=== PATIENT | female | born 1950 | race Caucasian/White ===

== ENCOUNTER 2020-03-02 17:21 | Emergency (ER) | payer MEDICARE, SELFPAY ==
[2020-03-02 17:22] VITALS: BP 204/76; PULSE 86; RESP 18; O2SAT 98
[2020-03-02 17:23] VITALS: BP 204/76; PULSE 82; RESP 19; TEMP 36.6; O2SAT 98; BMI 45.8
[2020-03-02] MEDS: predniSONE 20 MG Tablet 60 MG PO (18:39)
[2020-03-02 18:40] VITALS: BP 161/66; PULSE 81; RESP 17; O2SAT 99
[2020-03-02 19:00] VITALS: BP 151/78; PULSE 76; RESP 19; O2SAT 97
--- NOTE | 2020-03-02 19:10 | ED.DCSUM_ITS ---
- ER Visit Summary Date of Service: 03/02/20 Chief Complaint: Allergic reaction History of Present Illness: The patient is a 69 F who presents with allergic reaction that began today. Patient noticed hives on her face and chest today after eating [employer]. Patient has a history of allergy to coconut oil. Patient thinks that her food was cooked on coconut oil. Patient took Benadryl prior to arrival. Patient admits to mild sore throat but denies any difficulty swallowing. Patient admits to some mild shortness of breath. Patient denies any cough. Patient denies any nausea or vomiting. Patient denies any chest pain or palpitations. Physical Examination: Vital signs are stable. Patient is afebrile. Patient is in no acute distress. Oral mucosa is pink and moist. Oropharynx is clear. Airway is patent. Neck is supple. Trachea is midline. There is no JVD noted. Heart was regular rate and rhythm. Lungs are clear and equal bilaterally. Abdomen is soft. Bowel sounds are normal. There is no tenderness. There is no rebound or guarding noted. Skin is warm dry. There are some urticaria noted over the face and upper chest. There are no vesicles or pustules. There are no petechia noted. There is no involvement of mucous membranes. Cranial nerves II through XII are intact. There are no focal motor or sensory deficits noted. Extremities are intact. There is no calf tenderness or edema. Emergency Department Course and Treatment: Patient was given a dose of prednisone here. Patient was observed in the emergency department. Patient's urticaria is improving. Patient was given a prescription for a short course of prednisone. Patient was instructed to follow-up with her primary care physician in 5 to 7 days. Patient understood and was agreeable with the plan. All questions were answered. Disposition: Discharge home Impression: Allergic reaction This note was generated with [employer] dictation software. It may contain incorrect words, spelling, and punctuation that were not noted in review of the chart prior to signing ED Disposition - Plan for ED Patient: Disposition: Home or Assisted Living Diagnosis: Allergic reaction Instructions: ED General Allergic Reactions Prescriptions: predniSONE tablet 60 mg PO DAILY #15 tab Transmission Status: Pending to [id number] Referrals: Alexandru Sands DO [STAFF PHYSICIAN] - 5-7 Days
[2020-03-02 20:45] VITALS: BP 144/78; PULSE 78; RESP 16; O2SAT 97
== END 2020-03-02 20:49 | disposition home or self-care (01) ==
PROVIDERS: Emergency Provider Emergency Medicine; PCP Internal Medicine
DX: T78.1XXA Other adverse food reactions, not elsewhere classified, initial encounter (principal); L50.0 Allergic urticaria; X58.XXXA Exposure to other specified factors, initial encounter; E11.9 Type 2 diabetes mellitus without complications; J45.909 Unspecified asthma, uncomplicated; Z79.82 Long term (current) use of aspirin; Z79.84 Long term (current) use of oral hypoglycemic drugs; Z79.899 Other long term (current) drug therapy
CPT/HCPCS: 99281; A4216

== ENCOUNTER 2020-11-23 19:28 | Emergency (ER) | payer MEDICARE, SELFPAY ==
[2020-11-23 19:28] VITALS: BP 124/66; PULSE 73; RESP 16; TEMP 36.4; O2SAT 96; BMI 42.5
--- NOTE | 2020-11-23 22:00 | EDS_ITS ---
HPI History of Present Illness Chief Complaint: Nosebleed Informant: patient Narrative Narrative: 70-year-old female presents the emergency room with epistaxis. Patient states that she has had intermittent bleeding for the past week. She had 2 bleeds today one at 0300 and the other prior to arrival. She states that it varies which nostril that comes from. The last one she states was bleeding out of both nostrils. She takes a baby aspirin a day but no other blood thinners. She states that 15 years ago she had difficulty with nosebleeds and saw ENT. States that she feels a lot of pressure in her frontal sinuses and then starts to bleed. She states currently she feels weak due to all the blood loss and occasionally will feel nauseous. [facility] Medical History (Updated 11/23/20 @ 22:15 by Charity Dye) Arthritis Diabetes mellitus type II, uncontrolled History of incarcercerate ventral hernia Hypertension Polio Home Medications Allergy Relief (cetirizine) 30 mg PO DAILY 10/25/15 [History Last Taken 10/25/15 08:00 3 tabs] pantoprazole 40 mg PO DAILY #40 tablet 10/26/15 [Rx Last Taken Unknown] aspirin 81 mg PO DAILY 03/02/20 [History Last Taken Unknown] fenofibrate nanocrystallized 48 mg PO DAILY 03/02/20 [History Last Taken Unknown] furosemide 20 mg PO DAILY 03/02/20 [History Last Taken Unknown] glimepiride 4 mg PO DAILY 03/02/20 [History Last Taken Unknown] losartan 25 mg PO DAILY 03/02/20 [History Last Taken Unknown] empagliflozin [Jardiance] 10 mg PO DAILY 11/23/20 [History Last Taken Unknown] ropinirole 1 mg PO QHS 11/23/20 [History Last Taken Unknown] rosuvastatin 10 mg PO DAILY 11/23/20 [History Last Taken Unknown] Allergy/AdvReac Type Severity Reaction Status Date / Time Bleach (Sodium Hypochlorite) Allergy Other Verified 11/23/20 22:15 coconut Allergy Anaphylaxis Verified 11/23/20 19:28 Surgical History H/O ventral hernia repair Social History (Updated 11/23/20 @ 22:[address] Aris [place], DO) Smoking Status: Never smoker substance use type: does not use ROS ROS ED Constitutional Constitutional ED: Denies chills or weight loss Eyes Eyes: Denies change in vision or diplopia ENT ENT ED: Reports other Details: Epistaxis ; Denies ear pain, rhinorrhea or sore throat Cardiovascular Cardiovascular: Denies chest pain, orthopnea, palpitations or racing heartbeat Respiratory/Chest Respiratory/Chest: Denies cough, dyspnea or orthopnea Gastrointestinal Gastrointestinal: Denies abdominal pain, diarrhea, nausea or vomiting Genitourinary Genitourinary ED: Denies dysuria, hematuria or urinary frequency Musculoskeletal Musculoskeletal: Denies arthralgias or myalgias Integumentary Denies abscess or rash Neurologic Neurologic: Denies headache(s) or weakness Psychiatric Psychiatric: Denies anxiety, depression, suicidal ideation or suicidal thoughts Endocrine Endocrinology: Denies polydipsia, polyphagia or polyuria Allergic/Immunologic Allergic/Immunologic ED: Denies mouth swelling, tongue swelling or urticaria EXAM Physical Exam Const Vital Signs: 11/23/20 19:28 Temperature 97.5 F L Temperature Source Temporal Pulse Rate 73 Respiratory Rate 16 Blood Pressure 124/66 H Blood Pressure Mean 85 Pulse Ox 96 Oxygen Delivery Method Room Air Positive well nourished, well developed and obese General Appearance ED: well developed Nutritional Appearance: obese HEENT Reports normocephalic, head/scalp atraumatic and moist mucous membranes HEENT Narrative: Patient has dried blood on her face. I do not see any active bleeding. I do not see any obvious source of bleeding in the anterior plexus. Eyes PERRL and EOMs intact bilaterally Neck no lymphadenopathy, supple and no JVD Resp normal respiratory effort and clear to auscultation bilaterally Cardio regular rate, regular rhythm and no murmurs GI normal to inspection, nondistended, normoactive bowel sounds and non-tender Palpation: soft Back/Spine no CVA tenderness and normal ROM Extremity normal to inspection General Extremety ED: Negative for edema General Extremity: Negative for edema Neuro oriented x3 and CN's II-XII intact bilaterally Sensorium / Orientation: alert Motor Exam: strength 5/5 throughout Psych mental status grossly normal Mood & Affect: Negative for depressed or tearful Skin no rashes or lesions noted and no wounds MDM MDM MDM Narrative Medical decision making narrative: H&H was checked. Hemoglobin is 14.1. She is had no active bleeding. She received Afrin and will recommend ENT follow-up. At this point as she is not bleeding we cannot localize aside think we can hold off on nasal packing. Return if worsening or concerns Lab Data Attestation: I reviewed the patient's lab results. Labs: Laboratory Results - last 24 hr 11/23/20 22:15 Hgb 14.1 Hct 43.9 Discharge Plan Triage Chief Complaint: Nosebleed ED Provider: Aris Jacome Dx/Rx/DC Orders Clinical Impression: Epistaxis Instructions: ED Epistaxis (Adult) Prescriptions: No Action Allergy Relief (cetirizine) 10 MG capsule 30 mg PO DAILY RF: 0 pantoprazole 40 MG tablet 40 mg PO DAILY Qty: 40 RF: 0 glimepiride 4 MG tablet 4 mg PO DAILY RF: 0 losartan 25 MG tablet 25 mg PO DAILY RF: 0 aspirin 81 MG tablet,chewable 81 mg PO DAILY RF: 0 furosemide 20 MG tablet 20 mg PO DAILY RF: 0 fenofibrate nanocrystallized 48 MG tablet 48 mg PO DAILY RF: 0 ropinirole 1 mg tablet 1 mg PO QHS RF: 0 rosuvastatin 10 mg tablet 10 mg PO DAILY RF: 0 Jardiance 10 mg tablet 10 mg PO DAILY RF: 0 Primary Care Provider: Doreen Finn Referrals: Doreen Finn MD [Primary Care Provider] - Bob Steen MD [STAFF PHYSICIAN] - As soon as possible Disposition Disposition: Home, Self Care
[2020-11-23 22:23] LABS: Hematocrit 43.9 % (37-47); Hemoglobin 14.1 g/dL (12.0-15.0)
[2020-11-23] MEDS: Oxymetazoline 0.05% 1 SPRAY SPRAY.BTL 2 SPRAY NASAL (23:10)
== END 2020-11-23 23:13 | disposition home or self-care (01) ==
PROVIDERS: Emergency Provider Emergency Medicine; PCP Internal Medicine
DX: R04.0 Epistaxis (principal); I10 Essential (primary) hypertension; E11.9 Type 2 diabetes mellitus without complications; M19.90 Unspecified osteoarthritis, unspecified site; Z79.82 Long term (current) use of aspirin; Z79.84 Long term (current) use of oral hypoglycemic drugs; Z79.899 Other long term (current) drug therapy
CPT/HCPCS: 85014; 85018; 99282

== ENCOUNTER 2021-02-07 14:00 | Emergency (ER) | payer MEDICARE, SELFPAY ==
[2021-02-07 14:00] VITALS: BP 158/74; PULSE 75; RESP 22; TEMP 36.5; O2SAT 93; BMI 40.7
--- NOTE | 2021-02-07 14:55 | RAD_ITS ---
INDICATION: cough EXAMINATION/TECHNIQUE: X-RAY - XR Chest 1 View COMPARISON: None. FINDINGS: LINES/DEVICES: None. LUNGS: Peribronchial cuffing and mild bilateral hilar prominence is seen. Mild prominence of the bronchovascular interstitial lung markings visualized bilaterally with subtle linear streaky opacities visualized in the left lower lung field, no evidence of pleural effusion is seen. Biapical prominence suggestive of COPD changes. MEDIASTINUM AND CARDIOVASCULAR STRUCTURES: Mild prominence of the cardiovascular silhouette is seen. BONES AND SOFT TISSUES: Degenerative bone changes seen.. RAD/Chest 1 View (Portable) IMPRESSION: Peribronchial cuffing and mild bronchovascular prominence, recommend clinical correlation for acute bronchitis or airway disease. Electronically Signed: Neil Becker MD at 15:29 EDT Tel , Service support ,
[2021-02-07 15:13] VITALS: O2SAT 96
--- NOTE | 2021-02-07 15:57 | EX.ED.DYSGE1 ---
HPI History of Present Illness Chief Complaint: General Illness Informant: patient Narrative Narrative: Patient is a 70-year-old female presenting with 5 days of respiratory symptoms and fever. Her sister is currently in the hospital for Covid. She notes she has had what started out as a sinus infection and then worsened. She had a fever up to 100.4 today. She has had chest congestion, myalgias and mild dyspnea on exertion. She has had associated nausea. She did not have her Covid vaccine has not previously had COVID-19 infection. No other complaints at this time. [facility] Medical History Arthritis Diabetes mellitus type II, uncontrolled History of incarcercerate ventral hernia Hypertension Polio Home Medications Allergy Relief (cetirizine) 30 mg PO DAILY 10/25/15 [History Last Taken 10/25/15 08:00 3 tabs] aspirin 81 mg PO DAILY 03/02/20 [History Last Taken Unknown] furosemide 20 mg PO DAILY 03/02/20 [History Last Taken Unknown] glimepiride 4 mg PO BID 03/02/20 [History Last Taken Unknown] losartan 25 mg PO DAILY 03/02/20 [History Last Taken Unknown] rosuvastatin 10 mg PO DAILY 11/23/20 [History Last Taken Unknown] ondansetron 4 mg PO Q8H PRN #14 tab 02/07/21 [Rx Last Taken Unknown] Allergy/AdvReac Type Severity Reaction Status Date / Time Bleach (Sodium Hypochlorite) Allergy Other Verified 02/07/21 14:04 coconut Allergy Anaphylaxis Verified 02/07/21 14:04 Surgical History H/O ventral hernia repair Social History Smoking Status: Never smoker substance use type: does not use ROS ROS ED Constitutional Constitutional ED: Reports chills and fever(s) Eyes Eyes: Denies blurry vision or change in vision ENT ENT ED: Reports rhinorrhea and sore throat; Denies ear pain Cardiovascular Cardiovascular: Denies chest pain Respiratory/Chest Respiratory/Chest: Reports cough and dyspnea; Denies dyspnea on exertion or sputum Gastrointestinal Gastrointestinal: Reports nausea; Denies abdominal pain, diarrhea or vomiting Genitourinary Genitourinary ED: Denies dysuria Musculoskeletal Musculoskeletal: Reports myalgias; Denies arthralgias Integumentary Denies rash Neurologic Neurologic: Reports headache(s); Denies weakness EXAM Physical Exam Const Vital Signs: 02/07/21 14:00 02/07/21 15:10 Temperature 97.7 F L Temperature Source Temporal Pulse Rate 75 Respiratory Rate 22 H Respiratory Effort Normal Respiratory Pattern Normal Blood Pressure 158/74 H Blood Pressure Mean 102 Pulse Ox 93 Oxygen Delivery Method Room Air Positive well nourished, well developed and obese General Appearance ED: well developed Nutritional Appearance: obese HEENT Reports moist mucous membranes Negative for tenderness Eyes PERRL and EOMs intact bilaterally Neck no lymphadenopathy, supple and no meningeal signs Chest Wall inspection of chest normal Resp normal respiratory effort and clear to auscultation bilaterally Auscultation: diminished lung sounds Cardio regular rate, regular rhythm and no murmurs Back/Spine no CVA tenderness Extremity normal to inspection General Extremety ED: Negative for edema or tenderness General Extremity: Negative for edema Neuro oriented x3 Sensorium / Orientation: alert Motor Exam: Negative for general weakness Psych mental status grossly normal Skin no rashes or lesions noted MDM MDM MDM Narrative Medical decision making narrative: Patient is evaluated for concern for COVID-19 infection. Vital signs are significant only for mild tachypnea with respiratory rate 22. Patient stable in the ER and does not have any hypoxia. Chest x-ray does not show any focal infiltrate. COVID-19 test is positive. Patient is referred for monoclonal antibody. She is counseled on return precautions. She is given Motrin for myalgias/fever and Zofran in the ER. She is given a prescription for Zofran to help at home as well. Lab Data Attestation: I reviewed the patient's lab results. Radiography Chest X-Ray - ED: 1 View, Read by ED Physician, Read by Radiologist and - (Parabronchial cuffing-consistent with a viral infection) Diagnostic Testing: Radiology Impression Chest X-Ray 02/07/21 14:55 IMPRESSION: Peribronchial cuffing and mild bronchovascular prominence, recommend clinical correlation for acute bronchitis or airway disease. Electronically Signed: Neil Becker MD at 15:29 EDT Tel , Service support , Discharge Plan Triage Chief Complaint: General Illness ED Provider: Marianne Crane Dx/Rx/DC Orders Clinical Impression: COVID-19, Cough, Fever Instructions: Coronavirus Disease 2019 (COVID-19): Caring for Yourself or Others Prescriptions: New ondansetron 4 mg tablet,disintegrating 4 mg PO Q8H PRN (Reason: nausea and vomiting) Qty: 14 RF: 0 No Action Allergy Relief (cetirizine) 10 MG capsule 30 mg PO DAILY RF: 0 glimepiride 4 MG tablet 4 mg PO BID RF: 0 losartan 25 MG tablet 25 mg PO DAILY RF: 0 aspirin 81 MG tablet,chewable 81 mg PO DAILY RF: 0 furosemide 20 MG tablet 20 mg PO DAILY RF: 0 rosuvastatin 10 mg tablet 10 mg PO DAILY RF: 0 Other Ambulatory Orders: COVID Outpatient Monoclonal Antibody Referral (Routine) Timeframe: 1 Day Facility: [facility] - Location: [facility] Ordered By: Dr. Marianne Crane Primary Care Provider: Doreen Finn Referrals: Doreen Finn MD [Primary Care Provider] - Disposition Disposition: Home, Self Care Discharge Date/Time: 02/07/21 16:33
[2021-02-07] MEDS: Ibuprofen 600 MG Tablet PO (16:07)
[2021-02-07] MEDS: Ondansetron ODT 4 MG Tablet PO (16:07)
== END 2021-02-07 16:33 | disposition home or self-care (01) ==
PROVIDERS: Emergency Provider Emergency Medicine; PCP Internal Medicine
DX: U07.1 COVID-19 (principal); E66.9 Obesity, unspecified; Z68.41 Body mass index [BMI] 40.0-44.9, adult; I10 Essential (primary) hypertension; E11.9 Type 2 diabetes mellitus without complications; M19.90 Unspecified osteoarthritis, unspecified site; Z79.82 Long term (current) use of aspirin; Z79.84 Long term (current) use of oral hypoglycemic drugs; Z79.899 Other long term (current) drug therapy
CPT/HCPCS: 71045; 87426; 99282

== ENCOUNTER 2021-02-09 16:22 | Outpatient (CLI) | payer MEDICARE, SELFPAY ==
--- NOTE | 2021-02-09 15:36 | NURSING ---
Pt called since she is not here for 1515 appointment. Pt thought appointment was a different day. Pt will come in today at 1615.
[2021-02-09 17:21] VITALS: BP 132/53; PULSE 77; RESP 16; TEMP 37; O2SAT 95; BMI 38.9
[2021-02-09] MEDS: 0.9% Saline Lock 10 ML Syringe IV (17:26)
[2021-02-09 17:50] VITALS: BP 113/54; PULSE 65; RESP 18; TEMP 37.6; O2SAT 99
[2021-02-09 18:50] VITALS: BP 129/69; PULSE 74; RESP 16; TEMP 37; O2SAT 99
== END 2021-02-09 19:05 | disposition home or self-care (01) ==
LOC: MS3OUT 16:22 → MS3 16:23
PROVIDERS: PCP Internal Medicine; Referring Provider Nurse Practitioner Adult Health; Visit Provider Nurse Practitioner Adult Health
DX: Z23 Encounter for immunization (principal); U07.1 COVID-19
CPT/HCPCS: J7050; M0243; A4216; Q0240

== ENCOUNTER 2021-11-04 10:58 | Observation (INO) | payer MEDICARE, SELFPAY ==
[2021-11-04 10:59] VITALS: BP 132/49; PULSE 81; RESP 17; TEMP 36.5; O2SAT 96; BMI 41.4
--- NOTE | 2021-11-04 11:20 | EKG12_ITS ---
Test Reason : GI Blood Pressure : / mmHG Vent. Rate : 078 BPM Atrial Rate : 078 BPM P-R Int : 112 ms QRS Dur : 090 ms QT Int : 416 ms P-R-T Axes : 019 081 055 degrees QTc Int : 474 ms Normal sinus rhythm Low voltage QRS Borderline ECG Confirmed by ARACELI MAR, SUZAN ([id number]), editor publications JOHN MCKENZIE ([id number]) on 11/07/2021 9:54:13 AM Referred By: ASAEL Confirmed By:SUZAN CHARLES MD
--- NOTE | 2021-11-04 11:38 | ED.VIS.GI ---
HPI HPI - GI History of Present Illness Chief Complaint: GI Bleed Narrative Narrative: Patient states that for the last 5 or 6 days she is having black stools. They are harder to wipe. It does genuinely sound like melena. No red blood seen. She states she had some cramping in her lower abdomen all couple times but is not consistent and its not there now. No epigastric pain or back pain. No chest pain. No trouble breathing. She does sometimes feel as though she is just a little bit lightheaded and weaker. But this is not consistent either. Although its not on her med list, she is on Eliquis twice a day and has been on it for about a month. This is because she has been having intermittent A. fib for 3 months. She currently has a exercise teacher on her left upper chest. No bleeding from any other areas. She has had a history of GERD and dyspepsia. She had an ulcer back in the 70s. She states that she takes Phenergan to help with her GERD. She is not on a PPI or H2 juan m. Nothing really changes her's black stools. [facility] Medical History Arthritis Diabetes mellitus type II, uncontrolled History of incarcercerate ventral hernia Hypertension Polio Home Medications cetirizine 10 mg capsule (Allergy Relief (cetirizine)) 30 mg PO DAILY 10/25/15 [History Last Taken 10/25/15 08:00 3 tabs] aspirin 81 mg chewable tablet 81 mg PO DAILY 03/02/20 [History Last Taken Unknown] furosemide 20 mg tablet 20 mg PO DAILY 03/02/20 [History Last Taken Unknown] glimepiride 4 mg tablet 4 mg PO BID 03/02/20 [History Last Taken Unknown] losartan 25 mg tablet 25 mg PO DAILY 03/02/20 [History Last Taken Unknown] rosuvastatin 10 mg tablet 10 mg PO DAILY 11/23/20 [History Last Taken Unknown] ondansetron 4 mg disintegrating tablet 4 mg PO Q8H PRN nausea and vomiting #14 tabs 02/07/21 [Rx Last Taken Unknown] apixaban 5 mg tablet (Eliquis) 5 tab PO DAILY 11/04/21 [History Last Taken Unknown] Allergy/AdvReac Type Severity Reaction Status Date / Time Bleach (Sodium Hypochlorite) Allergy Other Verified 11/04/21 10:58 cat dander Allergy Itching Verified 11/04/21 14:49 coconut Allergy Anaphylaxis Verified 11/04/21 10:58 dog dander Allergy Itching Verified 11/04/21 14:49 Family History (Updated 11/04/21 @ 14:41 by Stephanie Perales NP, [employer]) Father CAD (coronary artery disease) Cancer Diabetes Mother Cancer Diabetes CAD (coronary artery disease) Surgical History (Updated 11/04/21 @ 14:41 by Stephanie Perales NP, [employer]) H/O carpal tunnel repair H/O ventral hernia repair H/O: hysterectomy Social History (Updated 11/04/21 @ 14:42 by Stephanie Perales NP, [employer]) household members: spouse Smoking Status: Never smoker alcohol intake: never substance use type: does not use ROS ROS ED Constitutional Constitutional ED: Denies chills or fever(s) ENT ENT ED: Denies rhinorrhea or sore throat Cardiovascular Cardiovascular: Denies chest pain or palpitations Respiratory/Chest Respiratory/Chest: Denies cough or dyspnea Gastrointestinal Gastrointestinal: Reports melena; Denies nausea or vomiting Genitourinary Genitourinary ED: Denies hematuria Musculoskeletal Musculoskeletal: Denies back pain Integumentary Denies rash Neurologic Neurologic: Denies headache(s) Endocrine Endocrinology: Denies polydipsia or polyuria Hematologic/Lymphatic Hematologic/Lymphatic: Reports easy bleeding and easy bruising Allergic/Immunologic Allergic/Immunologic ED: Denies urticaria EXAM Physical Exam Const Vital Signs: 11/04/21 10:59 Temperature 97.7 F L Temperature Source Temporal Pulse Rate 81 Respiratory Rate 17 Blood Pressure 132/49 H Blood Pressure Mean 76 Pulse Ox 96 Oxygen Delivery Method Room Air Positive well nourished, well developed and obese General Appearance ED: well developed and NAD; Negative for pallor Nutritional Appearance: obese HEENT Reports moist mucous membranes Eyes General Eye ED: Negative for pale conjunctiva Neck no lymphadenopathy Resp normal respiratory effort and clear to auscultation bilaterally Cardio regular rate and regular rhythm GI non-tender, non-distended and no masses Back/Spine no CVA tenderness Extremity General Extremety ED: Negative for tenderness Neuro Sensorium / Orientation: alert Psych mental status grossly normal Skin General Skin Exam: Negative for pallor MDM MDM MDM Narrative Medical decision making narrative: Patient's hemoglobin is low at 10.6. We have 1 from 2020 that shows a 4 g or so drop. This is concerning considering she is on Eliquis. Her vitals look good but she has a significant hemoglobin drop on significant anticoagulation. I talked with the hospitalist and patient will be brought into the hospital. Lab Data Attestation: I reviewed the patient's lab results. Labs: Laboratory Results - last 24 hr 11/04/21 11/04/21 11/04/21 11:35 11:35 11:35 WBC 3.6 L RBC 3.52 L Hgb 10.6 L Hct 32.9 L MCV 93.5 MCH 30.1 MCHC 32.2 RDW Std Deviation 48.4 H RDW Coeff of Anika 14.4 Plt Count 118 L MPV 10.4 Immature Gran % (Auto) 0.300 Neut % (Auto) 51.0 Lymph % (Auto) 34.9 [place] % (Auto) 9.9 Eos % (Auto) 3.1 Baso % (Auto) 0.8 Absolute Neuts (auto) 1.8 L Absolute Lymphs (auto) 1.24 Nucleated RBC % 0 PT INR APTT Sodium 142 Potassium 4.0 Chloride 111 H Carbon Dioxide 25.0 Anion Gap 6 BUN 16 Creatinine 0.66 Estim Creat Clear Calc 42.07 Est GFR (MDRD) Af Amer 113 Est GFR (MDRD) Non-Af 93 BUN/Creatinine Ratio 24.1 H Glucose 117 H Lactic Acid 1.3 Calcium 8.7 Total Bilirubin 0.30 AST 39 H ALT 31 Alkaline Phosphatase 93 Total Protein 6.9 Albumin 3.0 L Globulin 3.9 Albumin/Globulin Ratio 0.8 L 11/04/21 11:50 WBC RBC Hgb Hct MCV MCH MCHC RDW Std Deviation RDW Coeff of Anika Plt Count MPV Immature Gran % (Auto) Neut % (Auto) Lymph % (Auto) [place] % (Auto) Eos % (Auto) Baso % (Auto) Absolute Neuts (auto) Absolute Lymphs (auto) Nucleated RBC % PT 14.2 INR 1.1 APTT 31.8 Sodium Potassium Chloride Carbon Dioxide Anion Gap BUN Creatinine Estim Creat Clear Calc Est GFR (MDRD) Af Amer Est GFR (MDRD) Non-Af BUN/Creatinine Ratio Glucose Lactic Acid Calcium Total Bilirubin AST ALT Alkaline Phosphatase Total Protein Albumin Globulin Albumin/Globulin Ratio EKG Initial EKG: Comments: EKG done for history of atrial fibrillation intermittently read by me. EKG shows a normal sinus rhythm at this time with overall rate of 78. No ventricular ectopy. No acute ST elevation or depression. DC interval, QRS duration are normal. QTc is toward the longer and at 474 ms. Discharge Plan Disposition Disposition: Acute Care Hospital [facility] Discharge Date/Time: 11/04/21 14:15
[2021-11-04 11:51] LABS: Absolute Lymphocyte Count 1.24 X10^3/uL (0.83-4.51); Absolute Neutrophil Count 1.8 X10^3/uL (2.0-7.7); Basophil# 0.03 X10^3/uL; Basophil% 0.8 % (0-1); Eosinophil# 0.11 X10^3/uL; Eosinophils% 3.1 % (0-5); Hematocrit 32.9 % (37-47); Hemoglobin 10.6 g/dL (12.0-15.0); Lymphocyte # 1.24 X10^3/ul (0.83-4.51); Lymphocyte % 34.9 % (19-41); Mean Corp Hgb Conc 32.2 g/dL (32-36); Mean Corpuscular Hgb 30.1 pg (27.0-32.0); Mean Corpuscular Volume 93.5 fL (81-99); Mean Platelet Vol. 10.4 fl (6.2-12.0); Monocyte# 0.35 X10^3/uL; Monocyte% 9.9 % (0-10); NRBC Flagged by Analyzer 0 % (0-5); Neutrophil # 1.81 X10^3/uL (2.7-7.7); Platelet Count 118 K/mm3 (150-450); RBC Distribution Width CV 14.4 % (11.6-14.6); RBC Distribution Width SD 48.4 fl (35.1-43.9); Red Blood Count 3.52 M/mm3 (4.2-5.4); White Blood Count 3.6 K/mm3 (4.4-11.0)
[2021-11-04 12:09] LABS: ALB/GLOB Ratio 0.8 RATIO (0.9-2.4); AST(SGOT) 39 U/L (15-37); Alanine Aminotransfer ALT/SGPT 31 U/L (13-56); Alkaline Phosphatase 93 U/L (45-117); Anion Gap 6 (5-15); BUN 16 mg/dL (7-18); BUN/Creat Ratio 24.1 RATIO (10-20); Calcium,Total 8.7 mg/dL (8.5-10.1); Chloride 111 mmol/L (98-107); Creatinine, Serum 0.66 mg/dL (0.55-1.02); EST Glomerular Filtration Rate 93 mL/min (>60); Est Glom Filt Rate - Afr Amer 113 mL/min (>60); Estimated Creatinine Clearance 42.07 ml/min; Globulin 3.9 g/dL (2.2-4.2); Glucose 117 mg/dL (74-106); Protein, Total 6.9 g/dL (6.4-8.2); Sodium Level 142 mmol/L (136-145)
[2021-11-04 12:15] LABS: Lactic Acid 1.3 mmol/L (0.4-1.9)
[2021-11-04 12:58] LABS: International Normalized Ratio 1.1; Partial Thromboplast Time 31.8 Seconds (24.1-36.2); Prothrombin Time (Protime)PT. 14.2 SECONDS (11.7-14.9)
[2021-11-04 13:57] VITALS: BP 135/66; PULSE 78; RESP 14; TEMP 36.5; O2SAT 93
--- NOTE | 2021-11-04 14:35 | PCM.HP.STD ---
Documented by User: Stephanie Perales NP, ETL DATABASE DEVELOPER-C 11/04/21 14:49 HPI - General General Date of Admission: 11/04/21 Date of Service: 11/04/21 Chief Complaint: Black stools. HPI Narrative THU ESPANA, is a 71 F who presents to the emergency room due to black stools. Patient states this has been ongoing for 1 week. She denies bright red blood in stool. Denies nausea, vomiting, abdominal pain. Denies lightheadedness, dizziness, shortness of breath. States due to continued black stools, she decided to seek evaluation. She reports she is on Eliquis for atrial fibrillation. She takes Tylenol mostly for arthritis pain however does occasionally use NSAIDs. However, she denies frequent NSAID use. She reports remote history of gastric ulcer. Her past medical history includes paroxysmal atrial fibrillation, hypertension, hyperlipidemia, SUSIE, type 2 diabetes mellitus. [facility] Medical History Arthritis Diabetes mellitus type II, uncontrolled History of incarcercerate ventral hernia Hypertension Polio Home Medications cetirizine 10 mg capsule (Allergy Relief (cetirizine)) 30 mg PO DAILY 10/25/15 [History Last Taken 10/25/15 08:00 3 tabs] aspirin 81 mg chewable tablet 81 mg PO DAILY 03/02/20 [History Last Taken Unknown] furosemide 20 mg tablet 20 mg PO DAILY 03/02/20 [History Last Taken Unknown] glimepiride 4 mg tablet 4 mg PO BID 03/02/20 [History Last Taken Unknown] losartan 25 mg tablet 25 mg PO DAILY 03/02/20 [History Last Taken Unknown] rosuvastatin 10 mg tablet 10 mg PO DAILY 11/23/20 [History Last Taken Unknown] ondansetron 4 mg disintegrating tablet 4 mg PO Q8H PRN nausea and vomiting #14 tabs 02/07/21 [Rx Last Taken Unknown] apixaban 5 mg tablet (Eliquis) 5 tab PO DAILY 11/04/21 [History Last Taken Unknown] Allergy/AdvReac Type Severity Reaction Status Date / Time Bleach (Sodium Hypochlorite) Allergy Other Verified 11/04/21 10:58 cat dander Allergy Itching Verified 11/04/21 14:49 coconut Allergy Anaphylaxis Verified 11/04/21 10:58 dog dander Allergy Itching Verified 11/04/21 14:49 Family History (Updated 11/04/21 @ 14:41 by Stephanie Perales NP, ETL DATABASE DEVELOPER-C) Father CAD (coronary artery disease) Cancer Diabetes Mother Cancer Diabetes CAD (coronary artery disease) Surgical History (Updated 11/04/21 @ 14:41 by Stephanie Perales NP, ETL DATABASE DEVELOPER-C) H/O carpal tunnel repair H/O ventral hernia repair H/O: hysterectomy Social History (Updated 11/04/21 @ 14:42 by Stephanie Perales NP, ETL DATABASE DEVELOPER-C) household members: spouse Smoking Status: Never smoker alcohol intake: never substance use type: does not use ROS Constitutional Constitutional: Denies change in weight, chills, fatigue, fever(s) or weakness Cardiovascular Cardiovascular: Denies chest pain, edema, lightheadedness, palpitations or syncope Respiratory/Chest Respiratory/Chest: Denies cough, dyspnea, productive cough, shortness of breath at rest, shortness of breath with exertion or wheezing Gastrointestinal Gastrointestinal: Reports other Details: Black/dark stools ; Denies abdominal pain, constipation, diarrhea, nausea or vomiting Genitourinary Genitourinary: Denies burning urination, difficulty urinating, dysuria, hematuria, urinary frequency, urinary incontinence or urinary urgency Musculoskeletal Musculoskeletal: Denies back pain, joint pain or muscle weakness Integumentary Integumentary: Denies erythema, lesions, rash or wounds Neurologic Neurologic: Denies abnormal speech, confusion, dizziness, focal weakness, numbness, paresthesias, seizure-like activity or syncope Psychiatric Psychiatric: Denies anxiety or depression Hematologic/Lymphatic Hematologic/Lymphatic: Denies anemia, easy bleeding or easy bruising Allergic/Immunologic Allergic/Immunologic: Denies hives or asthma Vital Signs Vital Signs Vital Signs: 11/04/21 10:59 11/04/21 13:57 11/04/21 13:57 Temperature 97.7 F L 97.7 F L Temperature Source Temporal Temporal Pulse Rate 81 78 78 Respiratory Rate 17 14 14 Blood Pressure 132/49 H 135/66 H 135/66 H Blood Pressure Mean 76 89 Pulse Ox 96 93 93 Oxygen Delivery Method Room Air Room Air Room Air Weight Weight: 234 lb 2.095 oz Body Mass Index (BMI) 41.4 Physical Exam Const alert, oriented x3 and no apparent distress Orientation / Consciousness: awake, oriented to person, oriented to place and oriented to time HEENT normocephalic and moist oral mucous membranes Eyes PERRL, EOMs intact bilaterally and conjunctivae normal Neck no lymphadenopathy Resp normal respiratory effort and clear to auscultation bilaterally Cardio regular rate and no murmurs Peripheral Pulses: pulses 2+ throughout GI normal to inspection, nondistended, normoactive bowel sounds, non-tender and non-distended Extremity normal to inspection Skin no rashes or lesions noted Lesions: no lesions Rashes: no rashes Trauma: no lacerations or abrasions Neuro CN's II-XII intact bilaterally, no focal motor deficits, no sensory deficits noted and deep tendon reflexes 2+ bilaterally Psych mental status grossly normal and affect normal Results Lab / Micro Data Result Diagrams: 11/04/21 11:35 11/04/21 11:35 Labs: Laboratory Results - last 24 hr 11/04/21 11:35: WBC 3.6 L, RBC 3.52 L, Hgb 10.6 L, Hct 32.9 L, MCV 93.5, MCH 30.1, MCHC 32.2, RDW Std Deviation 48.4 H, RDW Coeff of Anika 14.4, Plt Count 118 L, MPV 10.4, Immature Gran % (Auto) 0.300, Neut % (Auto) 51.0, Lymph % (Auto) 34.9, [place] % (Auto) 9.9, Eos % (Auto) 3.1, Baso % (Auto) 0.8, Absolute Neuts (auto) 1.8 L, Absolute Lymphs (auto) 1.24, Nucleated RBC % 0 11/04/21 11:35: Sodium 142, Potassium 4.0, Chloride 111 H, Carbon Dioxide 25.0, Anion Gap 6, BUN 16, Creatinine 0.66, Estim Creat Clear Calc 42.07, Est GFR (MDRD) Af Amer 113, Est GFR (MDRD) Non-Af 93, BUN/Creatinine Ratio 24.1 H, Glucose 117 H, Calcium 8.7, Total Bilirubin 0.30, AST 39 H, ALT 31, Alkaline Phosphatase 93, Total Protein 6.9, Albumin 3.0 L, Globulin 3.9, Albumin/Globulin Ratio 0.8 L 11/04/21 11:35: Lactic Acid 1.3 11/04/21 11:50: PT 14.2, INR 1.1, APTT 31.8 Micro: Microbiology 11/04/21 12:10 Stool Stool Occult Blood (DAVID) - Final Occult Blood Positive Assessment & Plan Assessment/Plan (1) Upper GI bleed: PLAN: Plan 1. GI bleed, normocytic anemia-stool positive for occult blood. Hold aspirin, Eliquis. IV PPI. Trend CBC. If hemoglobin further trends down, will consult GI. 2. Paroxysmal atrial fibrillation-Eliquis on hold. Not on rate control regimen. 3. Hypertension-stable, continue home losartan regimen with hold parameters. 4. Hyperlipidemia-continue statin. 5. SUSIE-noncompliant with CPAP. 6. Type 2 diabetes mellitus-hold oral regimen. Accu-Cheks with sliding scale insulin. DVT prophylaxis- SCD This patient was seen by JUANA Hull under the supervision of Dr. Brewster. Time spent examining patient, reviewing data and subsequent management of care: 22 minutes Documented by User: Dr. Marlo Brewster DO 11/04/21 16:04 HPI - General General Date of Admission: 11/04/21 [facility] Medical History Arthritis Diabetes mellitus type II, uncontrolled History of incarcercerate ventral hernia Hypertension Polio Home Medications cetirizine 10 mg capsule (Allergy Relief (cetirizine)) 30 mg PO DAILY 10/25/15 [History Last Taken 10/25/15 08:00 3 tabs] aspirin 81 mg chewable tablet 81 mg PO DAILY 03/02/20 [History Last Taken Unknown] furosemide 20 mg tablet 20 mg PO DAILY 03/02/20 [History Last Taken Unknown] glimepiride 4 mg tablet 4 mg PO BID 03/02/20 [History Last Taken Unknown] losartan 25 mg tablet 25 mg PO DAILY 03/02/20 [History Last Taken Unknown] rosuvastatin 10 mg tablet 10 mg PO DAILY 11/23/20 [History Last Taken Unknown] ondansetron 4 mg disintegrating tablet 4 mg PO Q8H PRN nausea and vomiting #14 tabs 02/07/21 [Rx Last Taken Unknown] apixaban 5 mg tablet (Eliquis) 5 tab PO DAILY 11/04/21 [History Last Taken Unknown] Allergy/AdvReac Type Severity Reaction Status Date / Time Bleach (Sodium Hypochlorite) Allergy Other Verified 11/04/21 10:58 cat dander Allergy Itching Verified 11/04/21 14:49 coconut Allergy Anaphylaxis Verified 11/04/21 10:58 dog dander Allergy Itching Verified 11/04/21 14:49 Family History (Updated 11/04/21 @ 14:41 by Stephanie Perales ETL DATABASE DEVELOPER, ETL DATABASE DEVELOPER-C) Father CAD (coronary artery disease) Cancer Diabetes Mother Cancer Diabetes CAD (coronary artery disease) Surgical History (Updated 11/04/21 @ 14:41 by Stephanie Preales NP, ETL DATABASE DEVELOPER-C) H/O carpal tunnel repair H/O ventral hernia repair H/O: hysterectomy Social History (Updated 11/04/21 @ 14:42 by Stephanie Perales NP, ETL DATABASE DEVELOPER-C) household members: spouse Smoking Status: Never smoker alcohol intake: never substance use type: does not use Results Lab / Micro Data Result Diagrams: 11/04/21 11:35 11/04/21 11:35 Assessment & Plan Assessment/Plan (1) Upper GI bleed: Charges/Coding Addendum Addendum: Seen and examined independently of Stephanie Perales, she came to the ER for evaluation of black stools over the past week, she denies any bright red rectal bleeding, she also denies any hematemesis. Patient states she has been on Eliquis for the past 4 months for paroxysmal atrial fibrillation. On examination she appeared in good health and spirits, she does not appear to be in any distress. Vital signs as documented. Skin warm and dry and without overt rashes. Neck without JVD, thyroid appears normal, trachea is midline, neck is supple. Lungs clear, normal air movement was noted. Heart exam notable for regular rhythm, normal sounds and absence of murmurs, rubs or gallops. Abdomen unremarkable and without evidence of organomegaly, masses, or abdominal aortic enlargement, bowel sounds are present in all 4 quadrants, no abdominal tenderness was noted. Extremities nonedematous, no cyanosis was noted, no clubbing was noted. Neuro: Cranial nerves II through XII are grossly intact, no focal motor deficits were noted, sensation to light touch and pinprick is intact, motor exam 5/5 throughout. Psych: Patient is alert and oriented x3, she does not appear anxious or depressed, she does not appear agitated. Emergency room physician did a Hemoccult on the patient's stool which was positive, patient still was grossly melanotic. Patient told this examiner that she occasionally uses ibuprofen for pain. She does not take any PPI or H2 juan m for her stomach. Labs obtained showed a hemoglobin of 10.6, white blood cell count was slightly low at 3.6. Chemistry profile was remarkable for an AST of 39. Impression: #1 melena-etiology unclear, patient will be placed in observation status on MedSurg, every 4 hour H&H's may be obtained, patient will be placed on an IV PPI #2 anemia-secondary to GI blood loss-patient does not need a transfusion at this time, every 4 hour H&H's will be obtained #3 paroxysmal A. fib by history-patient's Eliquis will be held #4 type 2 diabetes-patient's blood sugars will be monitored, sliding scale insulin will be administered as needed #5 essential hypertension-patient will remain on losartan #6 hyperlipidemia-patient's Crestor will be held at this time due to her observation status. I have reviewed Stephanie Perales's history and physical including her medical assessment and plan of care and endorse it with the above additions. Total clinical time spent by myself addressing the patient's medical issues, reviewing the data, and collaborating with the patient's care team: 35 minutes Visit Charges Inpatient E&M: 74809 Init Hosp L2
[2021-11-04 14:45] VITALS: BMI 41.4
[2021-11-04 14:46] VITALS: BP 112/51; PULSE 74; RESP 18; TEMP 36.7; O2SAT 100
[2021-11-04 15:23] LABS: Iron 49 ug/dL (50-170); Iron Binding Capacity,Total 315 ug/dL (250-450); PERCENT IRON SATURATION 15.6 % (15.0-55.0)
[2021-11-04 16:45] LABS: Bedside Glucose 168 mg/dL (74-106)
[2021-11-04] MEDS: Insulin Lispro 100 UNIT/ML INSULN.PEN SC (18:12)
[2021-11-04] MEDS: Acetaminophen 325 MG Tablet 650 MG PO (18:28)
[2021-11-04 18:38] LABS: Hematocrit 29.7 % (37-47); Hemoglobin 9.5 g/dL (12.0-15.0)
[2021-11-04 21:16] VITALS: BP 138/60; PULSE 74; RESP 18; TEMP 37; O2SAT 99
[2021-11-04 21:35] LABS: Bedside Glucose 77 mg/dL (74-106)
[2021-11-04 22:05] LABS: Hematocrit 30.6 % (37-47); Hemoglobin 10.2 g/dL (12.0-15.0)
[2021-11-05] MEDS: Acetaminophen 325 MG Tablet 650 MG PO ×2 (00:46→08:04)
[2021-11-05 03:18] VITALS: BP 96/42; PULSE 76; RESP 18; TEMP 36.9; O2SAT 97
[2021-11-05 06:46] LABS: Bedside Glucose 97 mg/dL (74-106)
[2021-11-05 07:52] VITALS: BP 125/56; PULSE 73; RESP 18; TEMP 36.8; O2SAT 99
[2021-11-05] MEDS: Losartan Potassium 25 MG Tablet PO (08:05)
--- NOTE | 2021-11-05 08:08 | NURSING ---
Francia from lab in with pt getting H&H.
[2021-11-05 08:32] LABS: Hematocrit 30.3 % (37-47); Hemoglobin 9.8 g/dL (12.0-15.0)
--- NOTE | 2021-11-05 09:38 | DCINST_ITS ---
Discharge Instructions Diet Discharge Diet: Light diet - advance as tolerated Activity Discharge Activity: Return to Normal Activity Dressing / Incision Call your doctor if you observe: Shortness of breath, Dizziness, Chest pain and - (Bright red blood in stool) Follow Up Care Test Results: Test results from this visit will be discussed in further detail at your follow- up appointment, if applicable. Discharge Plan Admission Admit Date/Time: 11/04/21 13:53 Primary Reason for Your Visit: GI Bleed Attending Provider: Marlo Brewster Primary Care Provider: Doreen Finn Instructions Additional Instructions / Restrictions: Avoid NSAID medications which include ibuprofen, Advil, Aleve, Motrin, etc. Discharge Orders/Prescriptions Prescriptions: New pantoprazole [Protonix] 40 mg tablet,delayed release (DR/EC) 40 mg PO BID Qty: 60 0RF Continued Allergy Relief (cetirizine) 10 MG capsule 30 mg PO DAILY Label Comments: allergies (seasonal and perservatives in food) allergies glimepiride 4 MG tablet 4 mg PO BID losartan 25 MG tablet 25 mg PO DAILY furosemide 20 MG tablet 20 mg PO DAILY rosuvastatin 10 mg tablet 10 mg PO DAILY Label Comments: TAKE 1 TABLET BY MOUTH ONCE DAILY ondansetron 4 mg tablet,disintegrating 4 mg PO Q8H PRN (Reason: nausea and vomiting) Qty: 14 0RF Held aspirin 81 MG tablet,chewable 81 mg PO DAILY Hold Instructions: Resume on 11/19/21. Eliquis 5 mg tablet 5 tab PO DAILY Hold Instructions: Resume on 11/19/21. Referrals / Follow Up: Doreen Finn MD [Primary Care Provider] - In 1 Week FriendCasey DO [STAFF PHYSICIAN] - Within 1 Week (Office to call for follow up for scope) Disposition Disposition (needs filled in before D/C Order can be placed): Home, Self Care
--- NOTE | 2021-11-05 09:48 | PCM.DC.SUM ---
Documented by User: Stephanie Perales NP, STREET LIGHT REPAIRER-C 11/05/21 09:52 Providers Date of Admission: 11/04/21 Date of Discharge: 11/05/21 Primary Care Physician: Dr. Doreen Finn MD Reason For Visit: MELENA Diagnosis Discharge Diagnosis (1) Upper GI bleed: Status: Acute Code(s): K92.2 - Gastrointestinal hemorrhage, unspecified Medications at Discharge Home Medications cetirizine 10 mg capsule (Allergy Relief (cetirizine)) 30 mg PO DAILY 10/25/15 aspirin 81 mg chewable tablet 81 mg PO DAILY 03/02/20 furosemide 20 mg tablet 20 mg PO DAILY 03/02/20 glimepiride 4 mg tablet 4 mg PO BID 03/02/20 losartan 25 mg tablet 25 mg PO DAILY 03/02/20 rosuvastatin 10 mg tablet 10 mg PO DAILY 11/23/20 ondansetron 4 mg disintegrating tablet 4 mg PO Q8H PRN nausea and vomiting #14 tabs 02/07/21 apixaban 5 mg tablet (Eliquis) 5 tab PO DAILY 11/04/21 pantoprazole 40 mg tablet,delayed release (Protonix) 40 mg PO BID #60 tabs 11/05/21 Hospital Course Operations None Procedures None Summary of Care Provided Hospital Course: Patient is a 71 year old female admitted 11/04/21 due to dark stools. 1.? GI bleed, normocytic anemia-stool positive for occult blood.? Continue to hold aspirin, Eliquis.? Initiated on Protonix 40 mg twice daily. Hemoglobin remained stable during admission. Patient will follow up with GI as outpatient for further work-up. Instructed to avoid NSAIDs. Instructed to return if worsening GI bleeding. 2. Paroxysmal atrial fibrillation-Not on rate control regimen. Eliquis held at discharge until outpatient GI follow-up. 3. Hypertension-stable, continue home losartan regimen. 4. Hyperlipidemia-continue statin. 5. SUSIE-noncompliant with CPAP. 6. Type 2 diabetes mellitus-continue home oral regimen. Physical Exam Const alert, oriented x3 and no apparent distress Orientation / Consciousness: awake, oriented to person, oriented to place and oriented to time HEENT normocephalic and moist oral mucous membranes Eyes PERRL, EOMs intact bilaterally and conjunctivae normal Neck no lymphadenopathy Resp normal respiratory effort and clear to auscultation bilaterally Cardio regular rate and no murmurs Peripheral Pulses: pulses 2+ throughout GI normal to inspection, nondistended, normoactive bowel sounds, non-tender and non-distended Extremity normal to inspection Skin no rashes or lesions noted Lesions: no lesions Rashes: no rashes Trauma: no lacerations or abrasions Neuro CN's II-XII intact bilaterally, no focal motor deficits, no sensory deficits noted and deep tendon reflexes 2+ bilaterally Psych mental status grossly normal and affect normal Patient seen and examined prior to discharge. Physical assessment as noted above. Patient is stable for discharge with follow up recommendations as noted above. This patient was seen by JUANA Hull under the supervision of Dr. Brewster. Time spent examining patient, reviewing data and subsequent management of care: 20 minutes Weight / BMI Weight Weight: 234 lb 2 oz Body Mass Index (BMI) 41.4 ABG / Lab / Microbiology Data Result Diagrams: 11/05/21 08:05 11/04/21 11:35 Laboratory: Laboratory Results - last 24 hr 11/04/21 11:35: WBC 3.6 L, RBC 3.52 L, Hgb 10.6 L, Hct 32.9 L, MCV 93.5, MCH 30.1, MCHC 32.2, RDW Std Deviation 48.4 H, RDW Coeff of Anika 14.4, Plt Count 118 L, MPV 10.4, Immature Gran % (Auto) 0.300, Neut % (Auto) 51.0, Lymph % (Auto) 34.9, [place] % (Auto) 9.9, Eos % (Auto) 3.1, Baso % (Auto) 0.8, Absolute Neuts (auto) 1.8 L, Absolute Lymphs (auto) 1.24, Nucleated RBC % 0 11/04/21 11:35: Sodium 142, Potassium 4.0, Chloride 111 H, Carbon Dioxide 25.0, Anion Gap 6, BUN 16, Creatinine 0.66, Estim Creat Clear Calc 42.07, Est GFR (MDRD) Af Amer 113, Est GFR (MDRD) Non-Af 93, BUN/Creatinine Ratio 24.1 H, Glucose 117 H, Calcium 8.7, Total Bilirubin 0.30, AST 39 H, ALT 31, Alkaline Phosphatase 93, Total Protein 6.9, Albumin 3.0 L, Globulin 3.9, Albumin/Globulin Ratio 0.8 L 11/04/21 11:35: Lactic Acid 1.3 11/04/21 11:35: Iron 49 L, TIBC 315, Iron Saturation 15.6 11/04/21 11:50: PT 14.2, INR 1.1, APTT 31.8 11/04/21 16:13: POC Glucose 168 H 11/04/21 18:10: Hgb 9.5 L, Hct 29.7 L 11/04/21 21:25: POC Glucose 77 11/04/21 21:57: Hgb 10.2 L, Hct 30.6 L 11/05/21 06:33: POC Glucose 97 11/05/21 08:05: Hgb 9.8 L, Hct 30.3 L Microbiology: Microbiology 11/04/21 12:10 Stool Stool Occult Blood (DAVID) - Final Occult Blood Positive D/C Instructions Discharge Diet: Light diet - advance as tolerated Call your doctor if you observe: Shortness of breath, Dizziness, Chest pain and - (Bright red blood in stool) Meaningful Use Info Meaningful Use Diagnoses (Choose all that apply): None applicable Discharge Plan Admission Admit Date/Time: 11/04/21 13:53 Primary Reason for Your Visit: GI Bleed Attending Provider: Marlo Brewster Primary Care Provider: Doreen Finn Instructions Additional Instructions / Restrictions: Avoid NSAID medications which include ibuprofen, Advil, Aleve, Motrin, etc. Discharge Orders/Prescriptions Prescriptions: New pantoprazole [Protonix] 40 mg tablet,delayed release (DR/EC) 40 mg PO BID Qty: 60 0RF Continued Allergy Relief (cetirizine) 10 MG capsule 30 mg PO DAILY Label Comments: allergies (seasonal and perservatives in food) allergies glimepiride 4 MG tablet 4 mg PO BID losartan 25 MG tablet 25 mg PO DAILY furosemide 20 MG tablet 20 mg PO DAILY rosuvastatin 10 mg tablet 10 mg PO DAILY Label Comments: TAKE 1 TABLET BY MOUTH ONCE DAILY ondansetron 4 mg tablet,disintegrating 4 mg PO Q8H PRN (Reason: nausea and vomiting) Qty: 14 0RF Held aspirin 81 MG tablet,chewable 81 mg PO DAILY Hold Instructions: Resume on 11/19/21. Eliquis 5 mg tablet 5 tab PO DAILY Hold Instructions: Resume on 11/19/21. Referrals / Follow Up: Doreen Finn MD [Primary Care Provider] - In 1 Week Friend,DO Casey [STAFF PHYSICIAN] - Within 1 Week (Office to call for follow up for scope) Disposition Disposition (needs filled in before D/C Order can be placed): Home, Self Care Documented by User: Dr. Marlo Brewster DO 11/05/21 11:01 Providers Date of Admission: 11/04/21 Reason For Visit: MELENA Diagnosis Discharge Diagnosis (1) Upper GI bleed: Status: Acute Code(s): K92.2 - Gastrointestinal hemorrhage, unspecified Medications at Discharge Home Medications cetirizine 10 mg capsule (Allergy Relief (cetirizine)) 30 mg PO DAILY 10/25/15 aspirin 81 mg chewable tablet 81 mg PO DAILY 03/02/20 furosemide 20 mg tablet 20 mg PO DAILY 03/02/20 glimepiride 4 mg tablet 4 mg PO BID 03/02/20 losartan 25 mg tablet 25 mg PO DAILY 03/02/20 rosuvastatin 10 mg tablet 10 mg PO DAILY 11/23/20 ondansetron 4 mg disintegrating tablet 4 mg PO Q8H PRN nausea and vomiting #14 tabs 02/07/21 apixaban 5 mg tablet (Eliquis) 5 tab PO DAILY 11/04/21 pantoprazole 40 mg tablet,delayed release (Protonix) 40 mg PO BID #60 tabs 11/05/21 ABG / Lab / Microbiology Data Result Diagrams: 11/05/21 08:05 11/04/21 11:35 Discharge Plan Admission Admit Date/Time: 11/04/21 13:53 Primary Reason for Your Visit: GI Bleed Attending Provider: Marlo Brewster Primary Care Provider: Doreen Finn Instructions Additional Instructions / Restrictions: Avoid NSAID medications which include ibuprofen, Advil, Aleve, Motrin, etc. Discharge Orders/Prescriptions Prescriptions: New pantoprazole [Protonix] 40 mg tablet,delayed release (DR/EC) 40 mg PO BID Qty: 60 0RF Continued Allergy Relief (cetirizine) 10 MG capsule 30 mg PO DAILY Label Comments: allergies (seasonal and perservatives in food) allergies glimepiride 4 MG tablet 4 mg PO BID losartan 25 MG tablet 25 mg PO DAILY furosemide 20 MG tablet 20 mg PO DAILY rosuvastatin 10 mg tablet 10 mg PO DAILY Label Comments: TAKE 1 TABLET BY MOUTH ONCE DAILY ondansetron 4 mg tablet,disintegrating 4 mg PO Q8H PRN (Reason: nausea and vomiting) Qty: 14 0RF Held aspirin 81 MG tablet,chewable 81 mg PO DAILY Hold Instructions: Resume on 11/19/21. Eliquis 5 mg tablet 5 tab PO DAILY Hold Instructions: Resume on 11/19/21. Referrals / Follow Up: Doreen Finn MD [Primary Care Provider] - In 1 Week Friend,DO Casey [STAFF PHYSICIAN] - Within 1 Week (Office to call for follow up for scope) Disposition Disposition (needs filled in before D/C Order can be placed): Home, Self Care Charges/Coding Addendum Addendum: Patient was seen and examined independently of Stephanie Perales today, her hemoglobin has appeared to be stable since she was admitted, I do not think she is actively bleeding at this time. I do not think we need to proceed with an emergent endoscopic procedure-I think she can have a procedure done as an outpatient. Patient is agreeable to this approach. On examination she appeared in good health and spirits, she does not appear to be in any distress. Vital signs as documented. Skin warm and dry and without overt rashes. Neck without JVD, thyroid appears normal, trachea is midline, neck is supple. Lungs clear, normal air movement was noted. Heart exam notable for regular rhythm, normal sounds and absence of murmurs, rubs or gallops. Abdomen unremarkable and without evidence of organomegaly, masses, or abdominal aortic enlargement, bowel sounds are present in all 4 quadrants, no abdominal tenderness was noted. Extremities nonedematous, no cyanosis was noted, no clubbing was noted. Neuro: Cranial nerves II through XII are grossly intact, no focal motor deficits were noted, sensation to light touch and pinprick is intact, motor exam 5/5 throughout. Psych: Patient is alert and oriented x3, she does not appear anxious or depressed, she does not appear agitated. ?#1 melena-etiology unclear, patient will need outpatient endoscopic procedures (colonoscopy, EGD) before she resumes her Eliquis. #2 anemia-secondary to GI blood loss #3 paroxysmal A. fib by history #4 type 2 diabetes #5 essential hypertension #6 hyperlipidemia I have reviewed Stephanie Perales's discharge summary including her medical assessment and plan of care and with the above additions endorse it. Total clinical time spent by myself addressing the patient's medical issues, reviewing the data, and collaborating with patient's caregivers: 20 minutes Visit Charges OBSV E&M: [id number] Observation care discharge
[2021-11-05 12:00] LABS: Bedside Glucose 136 mg/dL (74-106)
== END 2021-11-05 12:42 | disposition home or self-care (01) ==
LOC: ED 13:37 → MS3 13:58
PROVIDERS: Admitting Provider Internal Medicine; Emergency Provider Emergency Medicine; PCP Internal Medicine; Visit Provider Internal Medicine
DX: K92.2 Gastrointestinal hemorrhage, unspecified (principal); I48.0 Paroxysmal atrial fibrillation; E11.9 Type 2 diabetes mellitus without complications; Z79.01 Long term (current) use of anticoagulants; E78.5 Hyperlipidemia, unspecified; M19.90 Unspecified osteoarthritis, unspecified site; R19.5 Other fecal abnormalities; D50.0 Iron deficiency anemia secondary to blood loss (chronic); I10 Essential (primary) hypertension; Z79.82 Long term (current) use of aspirin; Z79.899 Other long term (current) drug therapy; Z79.84 Long term (current) use of oral hypoglycemic drugs; G47.33 Obstructive sleep apnea (adult) (pediatric); K21.9 Gastro-esophageal reflux disease without esophagitis; Z87.11 Personal history of peptic ulcer disease
CPT/HCPCS: 36415; 80053; 82274; 82962; 83540; 83550; 83605; 85014; 85018; 85025; 85610; 85730; 93005; 96365; 96366; 99218; 99284; J7050; A4216; G0378; J3490

== ENCOUNTER → 2021-11-23 | Outpatient (CLI) | payer MEDICARE, SELFPAY ==
[2021-11-23 12:32] LABS: Absolute Lymphocyte Count 0.91 X10^3/uL (0.83-4.51); Absolute Neutrophil Count 1.3 X10^3/uL (2.0-7.7); Basophil# 0.03 X10^3/uL; Basophil% 1.2 % (0-1); Eosinophil# 0.05 X10^3/uL; Eosinophils% 1.9 % (0-5); Hematocrit 30.9 % (37-47); Lymphocyte # 0.91 X10^3/ul (0.83-4.51); Lymphocyte % 35.3 % (19-41); Mean Corp Hgb Conc 32.4 g/dL (32-36); Mean Corpuscular Hgb 30.4 pg (27.0-32.0); Mean Corpuscular Volume 93.9 fL (81-99); Mean Platelet Vol. 10.5 fl (6.2-12.0); Monocyte% 11.6 % (0-10); NRBC Flagged by Analyzer 0 % (0-5); Neutrophil # 1.29 X10^3/uL (2.7-7.7); POSITIVE COUNT YES; Platelet Count 96 K/mm3 (150-450); RBC Distribution Width CV 14.5 % (11.6-14.6); RBC Distribution Width SD 50.3 fl (35.1-43.9); Red Blood Count 3.29 M/mm3 (4.2-5.4); White Blood Count 2.6 K/mm3 (4.4-11.0)
[2021-11-23 12:33] LABS: Differential Indicated SCAN CRITERIA MET
[2021-11-23 12:53] LABS: Platelet Estimate MOD DEC (ADEQ)
== END | disposition home or self-care (01) ==
PROVIDERS: PCP Internal Medicine; Referring Provider Nurse Practitioner Adult Health; Visit Provider Nurse Practitioner Adult Health
DX: K92.2 Gastrointestinal hemorrhage, unspecified (principal)
CPT/HCPCS: 36415; 85025

== ENCOUNTER → 2021-11-24 | Outpatient (CLI) | payer MEDICARE, SELFPAY ==
[2021-11-24 17:48] LABS: ALB/GLOB Ratio 0.7 RATIO (0.9-2.4); AST(SGOT) 32 U/L (15-37); Alanine Aminotransfer ALT/SGPT 24 U/L (13-56); Albumin, Serum 2.9 g/dL (3.2-5.0); Alkaline Phosphatase 96 U/L (45-117); Anion Gap 5 (5-15); BUN 15 mg/dL (7-18); BUN/Creat Ratio 19.9 RATIO (10-20); Calcium,Total 8.4 mg/dL (8.5-10.1); Chloride 111 mmol/L (98-107); Creatinine, Serum 0.75 mg/dL (0.55-1.02); EST Glomerular Filtration Rate 80 mL/min (>60); Est Glom Filt Rate - Afr Amer 97 mL/min (>60); Glucose 144 mg/dL (74-106); Potassium 4.3 mmol/L (3.5-5.1); Protein, Total 6.9 g/dL (6.4-8.2); Sodium Level 142 mmol/L (136-145)
[2021-11-24 17:53] LABS: International Normalized Ratio 1.1
[2021-11-28 17:15] LABS: H. PYLORI STOOL AG Negative (Negative)
== END | disposition home or self-care (01) ==
LOC: LAB 16:13 → LABSPEC 16:15
PROVIDERS: PCP Internal Medicine; Visit Provider Nurse Practitioner Adult Health
DX: K92.2 Gastrointestinal hemorrhage, unspecified (principal); D69.6 Thrombocytopenia, unspecified; Z86.19 Personal history of other infectious and parasitic diseases
CPT/HCPCS: 36415; 80053; 85610

== ENCOUNTER 2021-12-01 08:33 | Outpatient (CLI) | payer MEDICARE, SELFPAY ==
--- NOTE | 2021-12-01 08:39 | US_ITS ---
STUDY: ABDOMINAL ULTRASOUND - RIGHT UPPER QUADRANT REASON FOR VISIT: Female, 71 years old thrombocytopenia -- RUQ/eval liver TECHNIQUE: Ultrasound evaluation of the right upper quadrant was performed with real-time and static grace-scale imaging. TECHNICAL QUALITY: Adequate. COMPARISON: None. FINDINGS: Liver: The liver measures 16.4 cm. There is a heterogeneous echogenicity of the liver. The bile ducts are within normal limits. There is hepatic color flow. The direction of portal flow is hepatopetal. There is no demonstrated mass lesion. Gallbladder: Normal distended gallbladder. The gallbladder wall measures 3 mm. There is a negative sonographic Trevino''s sign. There is no pericholecystic fluid. There are multiple echogenic structures within the gallbladder, consistent with multiple gallstones. Sludge is seen within the gallbladder lumen. Common Bile Duct (C.B.D.): The common bile duct measures 11 mm. Pancreas: Normal size of the head, body and tail of the pancreas. There is increased echogenicity of the pancreas. There is no demonstrated pancreatic mass or cyst. Right Kidney: Normal size of the right kidney. The right kidney measures 11.5 cm x 6 cm x 4.9 cm. Normal renal cortex. The right cortex measures 1.9 cm. There is a 7 mm x 5 mm x 8 mm echogenic nodule in the inferior pole of the kidney suggestive of a small angiomyolipoma. There is no right hydronephrosis. US/Abdomen Limited IMPRESSION: Heterogeneous echotexture of the liver. Multiple small gallstones with sludge in the gallbladder lumen. 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 Electronically Signed: Elton Malcolm MD at 9:42 EDT ,
== END 2021-12-01 23:59 | disposition home or self-care (01) ==
PROVIDERS: PCP Internal Medicine; Referring Provider Nurse Practitioner Adult Health; Visit Provider Nurse Practitioner Adult Health
DX: D69.6 Thrombocytopenia, unspecified (principal)
CPT/HCPCS: 76705

== ENCOUNTER → 2021-12-04 | Outpatient (CLI) | payer MEDICARE, SELFPAY ==
[2021-12-04 12:50] LABS: Erythrocyte Sedimentation Rate 39 mm/hr (0-30)
[2021-12-04 12:53] LABS: Absolute Lymphocyte Count 1.45 X10^3/uL (0.83-4.51); Absolute Neutrophil Count 2.3 X10^3/uL (2.0-7.7); Basophil# 0.04 X10^3/uL; Basophil% 0.9 % (0-1); Eosinophil# 0.12 X10^3/uL; Eosinophils% 2.7 % (0-5); Hematocrit 35.6 % (37-47); Hemoglobin 11.6 g/dL (12.0-15.0); Lymphocyte # 1.45 X10^3/ul (0.83-4.51); Lymphocyte % 32.7 % (19-41); Mean Corp Hgb Conc 32.6 g/dL (32-36); Mean Corpuscular Hgb 30.1 pg (27.0-32.0); Mean Corpuscular Volume 92.5 fL (81-99); Mean Platelet Vol. 10.3 fl (6.2-12.0); Monocyte# 0.48 X10^3/uL; Monocyte% 10.8 % (0-10); NRBC Flagged by Analyzer 0 % (0-5); Neutrophil # 2.33 X10^3/uL (2.7-7.7); Neutrophil % 52.7 % (47-70); Platelet Count 127 K/mm3 (150-450); RBC Distribution Width SD 47.8 fl (35.1-43.9); Red Blood Count 3.85 M/mm3 (4.2-5.4); White Blood Count 4.4 K/mm3 (4.4-11.0)
[2021-12-04 13:59] LABS: ALB/GLOB Ratio 0.7 RATIO (0.9-2.4); AST(SGOT) 36 U/L (15-37); Alanine Aminotransfer ALT/SGPT 31 U/L (13-56); Albumin, Serum 3.3 g/dL (3.2-5.0); Alkaline Phosphatase 113 U/L (45-117); Anion Gap 7 (5-15); BUN 13 mg/dL (7-18); BUN/Creat Ratio 20.3 RATIO (10-20); CRP 9.56 mg/L (0.0-3.0); Calcium,Total 8.8 mg/dL (8.5-10.1); Chloride 106 mmol/L (98-107); Creatinine, Serum 0.64 mg/dL (0.55-1.02); EST Glomerular Filtration Rate 97 mL/min (>60); Est Glom Filt Rate - Afr Amer 117 mL/min (>60); Ferritin 26 ng/mL (8-252); Globulin 4.5 g/dL (2.2-4.2); Glucose 94 mg/dL (74-106); LDH 215 U/L (84-246); Potassium 3.9 mmol/L (3.5-5.1); Protein, Total 7.8 g/dL (6.4-8.2); Sodium Level 138 mmol/L (136-145)
[2021-12-04 14:17] LABS: HIV - WCH Non-Reactive (Nonreactive)
[2021-12-04 18:48] LABS: International Normalized Ratio 1.1; Prothrombin Time (Protime)PT. 13.9 SECONDS (11.7-14.9)
[2021-12-06 14:09] LABS: Anti-Centromere B Ab <0.2 AI (0.0-0.9); Anti-Chromatin 0.5 AI (0.0-0.9); Anti-Jo <0.2 AI (0.0-0.9); Anti-Scleroderma-70 AB <0.2 AI (0.0-0.9); RNP Ab <0.2 AI (0.0-0.9); SJOGREN'S Anti-SS-A test < 0.2 AI (0.0-0.9); SJOGREN'S Anti-SS-B test 0.2 AI (0.0-0.9); Smith Ab <0.2 AI (0.0-0.9)
[2021-12-06 16:22] LABS: Anti-Mitochondrial AB <20.0 Units (0.0-20.0); Anti-dsDNA Ab <1 IU/mL (0-9)
[2021-12-07 22:06] LABS: Angiotensin Convert Enzyme 74 U/L (14-82); Ceruloplasmin 25.8 mg/dL (19.0-39.0); Cytoplasmic Ab (C-ANCA) <1:20 titer (Neg:<1:20); HEPATITIS B SURFACE AG Negative (Negative); Hep C Antibodies 0.1 s/co ratio (0.0-0.9); Hepatitis A IgM Antibody Negative (Negative); Hepatitis B Core AB IgM Negative (Negative)
[2021-12-08 15:23] LABS: AFP, Tumor Marker 1.6 ng/mL (0.0-9.2); Anti-Smooth Muscle ABS 25 Units (0-19); Copper, Serum or Plasma 115 ug/dL (80-158); Haptoglobin 88 mg/dL (42-346); Perinuclear Ab (P-ANCA) <1:20 titer (Neg:<1:20)
== END | disposition home or self-care (01) ==
LOC: LAB 12:11
PROVIDERS: PCP Internal Medicine; Referring Provider Nurse Practitioner Adult Health; Visit Provider Nurse Practitioner Adult Health
DX: D69.6 Thrombocytopenia, unspecified (principal); R93.2 Abnormal findings on diagnostic imaging of liver and biliary tract
CPT/HCPCS: 36415; 80053; 80074; 82105; 82140; 82164; 82390; 82525; 82728; 83010; 83036; 83516; 83615; 85025; 85610; 85652; 86140; 86225; 86235; 86256; 86703

== ENCOUNTER 2021-12-11 08:55 | Day surgery (SDC) | payer MEDICARE, SELFPAY ==
[2021-12-11] VITALS (7 sets, daily range): BP systolic 98–141; BP diastolic 52–83; PULSE 67–79; RESP 16–20; TEMP 36.4; O2SAT 96–100; BMI 40.0
[2021-12-11] MEDS: Lactated Ringers 1,000 ML 15 ML IV (09:10)
--- NOTE | 2021-12-11 09:11 | PCM.HP.BLA ---
History and Physical Date of Admission: 12/11/21 71 F who presents to the office today for f/u hospitalization for GI bleed. She was admitted to [facility] 11/04/21 to 11/05/21 for melena; hgb was stable so she was discharged for outpatient workup. She presented to ED with black stools.? She was on Eliquis twice daily, had been on it for about a month for a fairly recent diagnosis of atrial fibrillation.? She does not recall the name of her customer services coordinator, but states her customer services coordinator is aware that her Eliquis is being held while the source of her GI bleed is being worked up.? Her aspirin 81 mg daily is also being held.? Hemoglobin ranged from 10.6-9.8 while hospitalized.? Iron low at 49. She reports no melena since hospitalization.? No bright red blood per rectum.? No other bleeding except that she does occasionally see blood on the toilet paper when she wipes after urination, she says this occurs about twice a month.? She denies nausea other than last night when she had bad charley horses in her legs all night long.? No vomiting or hematemesis.? No dysphagia.? She does get acid reflux after eating certain foods, she takes an gbfb-suv-bjhlomr medication as needed, she does not recall the name of that medication at this time.? She reports a history of a stomach ulcer age 17.? She denies any epigastric pain.? The only abdominal pain she experiences is intermittent lower abdominal discomfort that she attributes to hernia mesh.? Some bloating in her abdomen.? Bowels are regular.? Denies diarrhea or constipation.? She complains of bilateral lower extremity edema but says this is normal for her.? She denies shortness of breath or lightheadedness or dizziness. In 2016 she had acute anemia due to GI bleed, she had been having melena, she had been taking aspirin, she then developed significant hematemesis and was taken via squad to the ED, she was admitted to ICU and required blood transfusions.? EGD revealed gastritis.? Pathology report showed chronic gastritis and was positive for H. pylori. Her comorbidities include diabetes, asthma, heart failure, sleep apnea, obesity, atrial fibrillation, hypertension, migraines Past surgical history includes carpal tunnel repair, ventral hernia repair, hysterectomy, appendectomy ROS Const Constitutional: Positive for weakness; No fatigue ENT ENT: No difficulty swallowing Cardio Cardiology: Positive for leg pain with exertion Gastro GI: No abdominal pain, belching, bloating, change in bowel habits, change in stool character, coffee ground emesis, constipation, cramping, diarrhea, heartburn, difficulty swallowing, feeling full early, excessive flatus, incontinent of stools, Vomiting blood/hematemesis, Blood in stool, loose stools, Black,tarry stools, nausea/dyspepsia, pain with swallowing, vomiting or other Musc Musculoskeletal: Positive for stiffness, Arthritis, restless legs, leg pain at night and leg pain with exertion; No joint pain Skin Skin: No yellowing of the eye or itchy eyes Neuro Neurology: Positive for weakness and restless legs Psych Psychiatric: No anxiety and No depression Endo Endocrine: No fatigue Aller/Imm Allergy/Immunologic: No itchy eyes Carmelo/Lymp Hematologic/Lymphatic: No easy bleeding or easy bruising Exam Const General: cooperative and comfortable Nutritional Appearance: obese Orientation: alert, awake and oriented x3 HENMT Head: normal to inspection Eyes General: appearance normal, both eyes and all related structures Resp Effort & Inspection: normal respiratory effort GI Inspection: obesity Palpation: soft, no masses and nontender Neuro Speech: speech normal Gait: normal gait Extrem General: pedal edema bilaterally Location: of the ankle Severity: 1+ Quality Reporting Tobacco Screening ([facility] 138) Smoking Status: Never smoker Assessment and Plan Assessment and Plan (1) GI bleed: ?Status:?Acute ?Plan: 71-year-old female with recent hospitalization for melanotic stools, anemia, GI bleed.? Since hemoglobin remained in the 9 range she was discharged for outpatient work-up.? She was taking aspirin plus Eliquis for atrial fibrillation.? Both of those medications remain on hold, her customer services coordinator is aware per the patient.? She was hospitalized in the ICU in 2016 for a severe GI bleed due to aspirin, she was positive for H. pylori at that time.? We will check CBC today to ensure stability of her hemoglobin.? She has had no further evidence of GI bleed.? We will also check stool for H. pylori.? We will schedule her for upper and lower endoscopy, and in the meantime we will get a capsule endoscopy if allowed per her insurance.? She knows to return to the ED for further melena, hematemesis. (2) History of Helicobacter pylori infection: ?Status:?Acute ? ? ? Orders: Orders CBC W/Diff, Automated Today K92.2 - Gastrointestinal hemorrhage, unspecified ? H. PYLORI STOOL AG Today K92.2 - Gastrointestinal hemorrhage, unspecified, Z86.19 - Personal history of other infectious and parasitic diseases ? I have re-examined the patient. There are no clinical changes since date of exam.
[2021-12-11 10:01] LABS: Bedside Glucose 135 mg/dL (74-106)
--- NOTE | 2021-12-11 11:15 | EGD_PTH ---
PATIENT: THU ESPANA LOC: EN U#:[id number] AGE/SX: 71/F ROOM: RE12/11/[address]: Dr. Casey Paul DO : 1950 BED: DIS: 12/11/2021 SPEC #: [id number] RECD: 12/11/21 11:31 STATUS: IBRAHIMA JAREN #: [id number] JEN: 12/11/21 11:[address]: Casey Paul DEPT: SURGICAL PATHOLOGY RECD BY: Deepti Adrian ENTERED: 12/11/21 13:08 SP TYPE: EGD BIOPSY OT DR: Dr. Doreen Finn MD Tissues: Gastric mucous membrane Procedures: Surgery Specimen Level IV HEADER OPERATION: Colonoscopy, EGD ([facility]), biopsy PRE-OP DIAGNOSIS: GI bleed, history of H. pylori infection TISSUE SUBMITTED: Gastric body biopsy MICROSCOPIC DIAGNOSIS Gastric body, biopsy: Mild chronic gastritis. See comment. AM:orquidea 12/12/2021 COMMENT The results of immunohistochemistry for Helicobacter pylori will be reported separately ([id number]). MICROSCOPIC DESCRIPTION Slides are reviewed. GROSS DESCRIPTION Received in fixative is one container labeled with the patient's name and designated gastric body biopsy. The specimen consists of one irregular fragment of light kendrick soft tissue that measures 0.3 x 0.3 x 0.1 cm. The specimen is totally submitted in one cassette. / ZULLY:orquidea 12/11/2021 TC:3 CPT: 13241
--- NOTE | 2021-12-11 11:15 | IMM_PTH ---
PATIENT: THU ESPANA LOC: EN U#:[id number] AGE/SX: 71/F ROOM: RE12/11/[address]: Dr. Casey Paul DO : 1950 BED: DIS: 12/11/2021 SPEC #: [id number] RECD: 12/11/21 13:47 STATUS: IBRAHIMA REQ #: [id number] JEN: 12/11/21 11:[address]: Casey Paul DEPT: IMMUNOHISTOCHEMISTRY RECD BY: Karlie Burrell ENTERED: 12/11/21 13:48 SP TYPE: IMMUNO OTHR DR: Dr. Doreen Finn MD Tissues: Stomach, NOS Procedures: H Pylori (initial) PHYSICIAN & INSTITUTION [place] [id number] SPECIMEN INFORMATION: Tissue Source: Gastric body biopsy Clinical Info: GI bleed, history of H. pylori infection Specimen Number: [id number] CPT code: 43457 METHODOLOGY: Deparaffinized sections of prefer/formalin-fixed tissue or PAP/DQ stained slides are incubated with monoclonal/polyclonal antibodies/oligonucleotide probes. Localization is made via biotin free immunoperoxidase method. Appropriate controls are performed and reacted as expected. Results on target cell population are indicated in the following table: RESULTS: ANTIBODY / CLONE RESULT H Pylori (polyclonal) negative These tests were developed and their performance characteristics determined by [facility]. They may not have been cleared or approved by the U.S. Food and Drug Administration. The FDA has determined that such clearance or approval is not necessary. The above immunohistochemical/dualISH markers are ordered and reviewed by the Pathologist. INTERPRETATION: Gastric body, biopsy: Negative for Helicobacter pylori organisms. AM:orquidea 12/12/2021
--- NOTE | 2021-12-11 11:19 | OP.EGD_ITS ---
Patient Name: Annalee Keane Procedure Date: 12/11/2021 11:00 AM Date of : 1950 Age: 71 Procedure: Upper GI endoscopy Indications: Epigastric abdominal pain, Failure to respond to medical treatment Providers: Casey Paul DO Referring MD: Casey Paul DO Medicines: Monitored Anesthesia Care Patient Profile: This is a 71 year old female. Refer to note in patient chart for documentation of history and physical. Patient has symptoms of chronic epigastric abdominal pain. Complications: No immediate complications. Procedure: Pre-Anesthesia Assessment: - Prior to the procedure, a History and Physical was performed, and patient medications and allergies were reviewed. The risks and benefits of the procedure and the sedation options and risks were discussed with the patient. All questions were answered and informed consent was obtained. Patient identification and proposed procedure were verified by the physician in the pre-procedure area. Mental Status Examination: alert and oriented. Airway Examination: normal oropharyngeal airway and neck mobility. Respiratory Examination: clear to auscultation. CV Examination: normal. Prophylactic Antibiotics: The patient does not require prophylactic antibiotics. Prior Anticoagulants: The patient has taken no previous anticoagulant or antiplatelet agents. After reviewing the risks and benefits, the patient was deemed in satisfactory condition to undergo the procedure. The anesthesia plan was to use moderate sedation / analgesia (conscious sedation). Immediately prior to administration of medications, the patient was re-assessed for adequacy to receive sedatives. The heart rate, respiratory rate, oxygen saturations, blood pressure, adequacy of pulmonary ventilation, and response to care were monitored throughout the procedure. The physical status of the patient was re-assessed after the procedure. After obtaining informed consent, the endoscope was passed under direct vision. Throughout the procedure, the patient's blood pressure, pulse, and oxygen saturations were monitored continuously. The colonoscope was introduced through the mouth, and advanced to the second part of duodenum. The upper GI endoscopy was accomplished without difficulty. The patient tolerated the procedure well. Scope In: 11:00:56 AM Scope Out: 11:05:38 AM Total Procedure Duration Time 0 hours 4 minutes 42 seconds Findings: Grade I varices were found in the lower third of the esophagus. They were 5 mm in largest diameter. Type 1 isolated gastric varices (IGV1, varices located in the fundus) with no bleeding were found in the gastric fundus. There were no stigmata of recent bleeding. They were 5 mm in largest diameter. Moderate portal hypertensive gastropathy was found in the gastric body. Biopsies were taken with a cold forceps for histology. Verification of patient identification for the specimen was done. Estimated blood loss was minimal. No gross lesions were noted in the first portion of the duodenum. Impression: - Grade I esophageal varices. - Type 1 isolated gastric varices (IGV1, varices located in the fundus), without bleeding. - Portal hypertensive gastropathy. Biopsied. - No gross lesions in the first portion of the duodenum. Recommendation: - Discharge patient to home. - Resume previous diet. - Continue present medications. - Await pathology results. - Repeat upper endoscopy in 3 months for surveillance. - Return to GI office. -CT scan of the abdomen and pelvis regarding cirrhosis, alpha-fetoprotein Procedure Code(s): --- Professional --- 32637, Esophagogastroduodenoscopy, flexible, transoral; with biopsy, single or multiple CPT copyright 2017 [employer]. All rights reserved. The codes documented in this report are preliminary and upon weed cooking operator review may be revised to meet current compliance requirements. Casey Paul DO 12/11/2021 11:19:28 AM This report has been signed electronically. Number of Addenda: 1 Note Initiated On: 12/11/2021 11:00 AM Addendum Number: 1 Addendum Date: 02/08/2022 6:24:09 AM MAC was used as sedation for this procedure. Casey Paul DO 02/08/2022 6:24:12 AM This report has been signed electronically.
--- NOTE | 2021-12-11 11:21 | OP.CCLET_ITS ---
02/08/2022 Doreen Finn [address] [id number] Re : Upper GI endoscopy procedure for Annalee Keane Dear Dr. Finn This procedure was performed on Saturday, December 11, 2021. My impressions and recommendations are as follows: Impressions : - Grade I esophageal varices. - Type 1 isolated gastric varices (IGV1, varices located in the fundus), without bleeding. - Portal hypertensive gastropathy. Biopsied. - No gross lesions in the first portion of the duodenum. Recommendations : - Discharge patient to home. - Resume previous diet. - Continue present medications. - Await pathology results. - Repeat upper endoscopy in 3 months for surveillance. - Return to GI office. -CT scan of the abdomen and pelvis regarding cirrhosis, alpha-fetoprotein My findings are described in the full procedure note, which is enclosed. If I can be of further assistance, please feel free to contact me at . Sincerely, Casey Paul, 12/11/2021 11:19:28 AM This report has been signed electronically.
--- NOTE | 2021-12-11 11:25 | OP.COLON_ITS ---
Patient Name: Annalee Keane Procedure Date: 12/11/2021 11:06 AM Date of : 1950 Age: 71 Procedure: Colonoscopy Indications: Abdominal pain in the left lower quadrant, Abdominal pain in the left upper quadrant Providers: Casey Paul DO Referring MD: Casey Paul DO Medicines: Propofol per Anesthesia, Monitored Anesthesia Care Patient Profile: This is a 71 year old female. Refer to note in patient chart for documentation of history and physical. Patient has symptoms of chronic epigastric abdominal pain. Last Colonoscopy: date unknown. Unable to locate last colonoscopy report. Complications: No immediate complications. Procedure: Pre-Anesthesia Assessment: - Prior to the procedure, a History and Physical was performed, and patient medications and allergies were reviewed. The risks and benefits of the procedure and the sedation options and risks were discussed with the patient. All questions were answered and informed consent was obtained. Patient identification and proposed procedure were verified by the physician in the pre-procedure area. Mental Status Examination: alert and oriented. Airway Examination: normal oropharyngeal airway and neck mobility. Respiratory Examination: clear to auscultation. CV Examination: normal. Prophylactic Antibiotics: The patient does not require prophylactic antibiotics. Prior Anticoagulants: The patient has taken no previous anticoagulant or antiplatelet agents. After reviewing the risks and benefits, the patient was deemed in satisfactory condition to undergo the procedure. The anesthesia plan was to use moderate sedation / analgesia (conscious sedation). Immediately prior to administration of medications, the patient was re-assessed for adequacy to receive sedatives. The heart rate, respiratory rate, oxygen saturations, blood pressure, adequacy of pulmonary ventilation, and response to care were monitored throughout the procedure. The physical status of the patient was re-assessed after the procedure. After I obtained informed consent, the scope was passed under direct vision. Throughout the procedure, the patient's blood pressure, pulse, and oxygen saturations were monitored continuously. The colonoscope was introduced through the anus with the intention of advancing to the cecum. The scope was advanced to the splenic flexure before the procedure was aborted. Medications were given. The colonoscopy was performed without difficulty. The patient tolerated the procedure well. The quality of the bowel preparation was 90 percent obscured. Scope In: 11:08:59 AM Scope Out: 11:11:56 AM Total Procedure Duration Time 0 hours 2 minutes 57 seconds Findings: The perianal and digital rectal examinations were normal. Copious quantities of stool was found in the rectum, in the recto-sigmoid colon, in the sigmoid colon and in the descending colon, precluding visualization. Lavage of the area was performed using copious amounts of sterile water, resulting in incomplete clearance with continued poor visualization. Impression: - Stool in the rectum, in the recto-sigmoid colon, in the sigmoid colon and in the descending colon. - No specimens collected. Recommendation: - Discharge patient to home. - Resume previous diet. - Continue present medications. - Repeat colonoscopy in 3 months because the examination was incomplete. Procedure Code(s): --- Professional --- 88971, 53, Colonoscopy, flexible; diagnostic, including collection of specimen(s) by brushing or washing, when performed (separate procedure) CPT copyright 2017 [employer]. All rights reserved. The codes documented in this report are preliminary and upon bath steward review may be revised to meet current compliance requirements. Casey Paul DO 12/11/2021 11:24:32 AM This report has been signed electronically. Number of Addenda: 1 Note Initiated On: 12/11/2021 11:06 AM Addendum Number: 1 Addendum Date: 02/08/2022 6:24:21 AM MAC was used as sedation for this procedure. Casey Paul DO 02/08/2022 6:24:25 AM This report has been signed electronically.
--- NOTE | 2021-12-11 11:26 | OP.CCLET_ITS ---
02/08/2022 Doreen Finn [address] [id number] Re : Colonoscopy procedure for Annalee Lakhwinder Dear Dr. Finn This procedure was performed on Saturday, December 11, 2021. My impressions and recommendations are as follows: Impressions : - Stool in the rectum, in the recto-sigmoid colon, in the sigmoid colon and in the descending colon. - No specimens collected. Recommendations : - Discharge patient to home. - Resume previous diet. - Continue present medications. - Repeat colonoscopy in 3 months because the examination was incomplete. My findings are described in the full procedure note, which is enclosed. If I can be of further assistance, please feel free to contact me at . Sincerely, Casey Paul, 12/11/2021 11:24:32 AM This report has been signed electronically.
== END 2021-12-11 12:11 | disposition home or self-care (01) ==
LOC: EN 08:56 → AC 08:57
PROVIDERS: PCP Internal Medicine; Referring Provider Internal Medicine; Visit Provider Internal Medicine Gastroenterology
PROC: 0DJD8ZZ Inspection of Lower Intestinal Tract, Via Natural or Artificial Opening Endoscopic (ICD-10-PCS; CPT 45378; principal; 2021-12-11 11:10)
DX: K29.50 Unspecified chronic gastritis without bleeding (principal); K76.6 Portal hypertension; I11.0 Hypertensive heart disease with heart failure; I50.9 Heart failure, unspecified; I48.91 Unspecified atrial fibrillation; E11.9 Type 2 diabetes mellitus without complications; Z87.19 Personal history of other diseases of the digestive system; Z86.16 Personal history of COVID-19; D64.9 Anemia, unspecified; J45.909 Unspecified asthma, uncomplicated; G89.29 Other chronic pain; Z79.01 Long term (current) use of anticoagulants; Z79.84 Long term (current) use of oral hypoglycemic drugs; Z79.899 Other long term (current) drug therapy; G47.30 Sleep apnea, unspecified; I86.4 Gastric varices; K31.89 Other diseases of stomach and duodenum
CPT/HCPCS: 43239; 45378; 82962; 88305; 88342; J7120; J2405

== ENCOUNTER → 2022-01-04 | Outpatient (CLI) | payer MEDICARE, SELFPAY ==
[2022-01-04] VITALS (10 sets, daily range): BP systolic 102–130; BP diastolic 49–65; PULSE 61–69; RESP 12–21; TEMP 36.4; O2SAT 96–100; BMI 38.9
--- NOTE | 2022-01-04 | LIV_PTH ---
PATIENT: THU ESPANA LOC: [place] U#:[id number] AGE/SX: 71/F ROOM: RE01/04/[address]: JUANA Collins : 1950 BED: DIS: 01/04/2022 SPEC #: [id number] RECD: 01/04/22 10:48 STATUS: IBRAHIMA RELucas #: [id number] JEN: 01/04/22 00:[address]: Rhoda Wallace NP DEPT: SURGICAL PATHOLOGY RECD BY: Jaron Tillman ENTERED: 01/04/22 11:14 SP TYPE: LIVER RES OTHR DR: Dr. Doreen Finn MD Tissues: Liver, NOS Procedures: PAS with Diastase (control) Trichrome (control) Special Stain Group II PAS Stain (control) Surgery Specimen Level V Retic (control) Iron Stain (control) HEADER OPERATION: CT-guided liver biopsy PRE-OP DIAGNOSIS: Cirrhosis TISSUE SUBMITTED: Right lobe liver 18-gauge core x4 MICROSCOPIC DIAGNOSIS Right lobe liver, CT-guided core biopsy: Consistent with cirrhosis. See microscopic description and comment. SJ:orquidea 01/05/2022 COMMENT Correlation with clinical, radiologic findings, laboratory findings and appropriate follow up are necessary. MICROSCOPIC DESCRIPTION Slides are reviewed. The specimen shows liver parenchymal tissue with distortion of normal lobular architecture into multiple nodules divided by fibrous septae. Hepatocytes in the nodules show focal macro- and microvesicular steatosis and reactive changes. Minimal inflammation is noted in the hepatocyte nodules. Fibrous septate shows moderate chronic inflammation consisting of lymphocytes. Interface inflammation is not seen. Iron stain shows absent iron. Trichrome and reticulin stains highlight the fibrous septae. PAS stain with and without diastase do not show any abnormal accumulation of protein. All stains are performed with appropriate matched controls. GROSS DESCRIPTION Received in fixative is one container labeled with the patient's name and designated liver biopsy. The specimen consists of multiple elongated fragments of kendrick soft tissue measuring 0.7 to 1.8 cm in length and 0.1 cm in diameter. The specimen is totally submitted in one cassette. / ZULLY:orquidea 01/04/2022 TC:5 CPT: 57737, 94018 x5
[2022-01-04 09:19] LABS: Platelet Count 108 K/mm3 (150-450)
--- NOTE | 2022-01-04 09:22 | CT_ITS ---
PROCEDURE: CT DIRECTED CORE LIVER BIOPSY INDICATION: Female, 71 years old. Elevated asma/?AIH, esophageal varices -- suspected cirrhosis and possible AIH PHYSICIAN: Dr. SARAH Peoples CONSENT: Written informed consent was obtained having explained the risks, benefits and alternatives in detail with the patient who accepted the risks and agreed to proceed. Laboratory review and clinical assessment was performed. CONSCIOUS SEDATION PROTOCOL: The Drugs used were: 2 mg Versed, IV., and 50 mcg Fentanyl, IV. The sedation time was: 19 minutes. Conscious sedation was started at 10:19 AM and terminated at 10:38 AM. The conscious sedation protocol was independently monitored. RADIATION DOSAGE (If Supplied By Facility): CTDIvol = ( 27 ) mGy, DLP = ( 993.72 ) mGycm Individualized dose optimization techniques were used for this CT. TECHNIQUE: Using CT image guidance with image documentation, a suitable location in the right lobe of the liver was identified. Using an anterior approach, puncture of the liver was uneventful with an 18-gauge core needle system. 4, 18-gauge core samples were obtained, and submitted in formalin to the pathologist for further assessment. Followup CT scan revealed no distinct sequelae. CT/Biopsy/Inj or Needle Placement IMPRESSION: 1. CT directed core needle biopsy of the liver, using CT image guidance with image documentation as described. 2. Conscious Sedation protocol utilized with independent monitoring. Electronically Signed: Elton Malcolm MD at 11:05 EDT ,
[2022-01-04 09:29] LABS: International Normalized Ratio 1.1; Partial Thromboplast Time 29.9 Seconds (24.1-36.2); Prothrombin Time (Protime)PT. 14.1 SECONDS (11.7-14.9)
[2022-01-04] MEDS: Midazolam 2 MG/2 ML Syringe IV (10:19)
[2022-01-04] MEDS: fentaNYL 100 MCG/2 ML Ampul IV (10:21)
[2022-01-04] MEDS: Lidocaine 2% (10 ml mdv) 10 ML Vial INFILT (10:32)
== END | disposition home or self-care (01) ==
PROVIDERS: PCP Internal Medicine; Referring Provider Nurse Practitioner Adult Health; Visit Provider Nurse Practitioner Adult Health
DX: K74.60 Unspecified cirrhosis of liver (principal); I85.10 Secondary esophageal varices without bleeding; I11.0 Hypertensive heart disease with heart failure; I50.9 Heart failure, unspecified; I48.91 Unspecified atrial fibrillation; E11.9 Type 2 diabetes mellitus without complications; Z79.84 Long term (current) use of oral hypoglycemic drugs; Z79.899 Other long term (current) drug therapy; Z79.02 Long term (current) use of antithrombotics/antiplatelets; J45.909 Unspecified asthma, uncomplicated; G47.30 Sleep apnea, unspecified; G89.29 Other chronic pain
CPT/HCPCS: 47000; 36415; 77012; 85049; 85610; 85730; 88305; 88307; 88313; 99156; J7050; A4216

== ENCOUNTER 2022-02-01 09:44 | Day surgery (SDC) | payer MEDICARE, SELFPAY ==
[2022-02-01 10:18] VITALS: BP 106/51; PULSE 63; RESP 18; TEMP 36.4; O2SAT 100; BMI 39.3
[2022-02-01] MEDS: Lactated Ringers 1,000 ML 15 ML IV (10:30)
--- NOTE | 2022-02-01 10:45 | IMM_PTH ---
PATIENT: THU ESPANA LOC: EN U#:[id number] AGE/SX: 71/F ROOM: RE02/01/[address]: Dr. Casey Paul DO : 1950 BED: DIS: 02/01/2022 SPEC #: [id number] RECD: 02/02/22 12:40 STATUS: IBRAHIMA RELucas #: [id number] JEN: 02/01/22 10:[address]: Casey Paul DEPT: IMMUNOHISTOCHEMISTRY RECD BY: Karlie Burrell ENTERED: 02/02/22 12:41 SP TYPE: IMMUNO OTHR DR: Dr. Doreen Finn MD Tissues: Stomach, NOS Procedures: H Pylori (initial) PHYSICIAN & INSTITUTION [place] [address] SPECIMEN INFORMATION: Tissue Source: Gastric body biopsy Clinical Info: Cirrhosis, lower abdominal pain, increased antibody levels Specimen Number: [id number] CPT code: 36746 METHODOLOGY: Deparaffinized sections of prefer/formalin-fixed tissue or PAP/DQ stained slides are incubated with monoclonal/polyclonal antibodies/oligonucleotide probes. Localization is made via biotin free immunoperoxidase method. Appropriate controls are performed and reacted as expected. Results on target cell population are indicated in the following table: RESULTS: ANTIBODY / CLONE RESULT H Pylori (polyclonal) negative These tests were developed and their performance characteristics determined by [facility]. They may not have been cleared or approved by the U.S. Food and Drug Administration. The FDA has determined that such clearance or approval is not necessary. The above immunohistochemical/dualISH markers are ordered and reviewed by the Pathologist. INTERPRETATION: Gastric body, biopsy: Negative for Helicobacter pylori organisms. ZULLY:orquidea 02/05/2022
--- NOTE | 2022-02-01 10:45 | EGD_PTH ---
PATIENT: THU ESPANA LOC: EN U#:[id number] AGE/SX: 71/F ROOM: RE02/01/[address]: Dr. Casey Paul DO : 1950 BED: DIS: 02/01/2022 SPEC #: [id number] RECD: 02/01/22 15:03 STATUS: IBRAHIMA JAREN #: [id number] JEN: 02/01/22 10:[address]: Casey Paul DEPT: SURGICAL PATHOLOGY RECD BY: Deepti Adrian ENTERED: 02/02/22 09:50 SP TYPE: EGD BIOPSY OT DR: Dr. Doreen Finn MD Tissues: Gastric mucous membrane Procedures: Surgery Specimen Level IV HEADER OPERATION: Colonoscopy, EGD ([facility]) PRE-OP DIAGNOSIS: Cirrhosis, lower abdominal pain, increased antibody levels TISSUE SUBMITTED: Gastric body biopsy MICROSCOPIC DIAGNOSIS Gastric body, biopsy: Mild gastritis. See microscopic description and comment. SJ:orquidea 02/05/2022 COMMENT The results of immunohistochemistry for Helicobacter pylori will be reported separately ([id number]). MICROSCOPIC DESCRIPTION Slides are reviewed. The specimen shows fragments of gastric mucosa with chronic inflammatory cell infiltrates in the lamina propria consisting of lymphocytes and plasma cells, consistent with mild chronic gastritis. GROSS DESCRIPTION Received in fixative is one container labeled with the patient's name and designated gastric body biopsy. The specimen consists of two irregular fragments of light kendrick soft tissue that in aggregate measure 0.8 x 0.5 x 0.1 cm. The specimen is totally submitted in one cassette. / ZULLY:orquidea 02/02/2022 TC:3 CPT: 01383
[2022-02-01 10:55] LABS: Bedside Glucose 101 mg/dL (74-106)
--- NOTE | 2022-02-01 11:41 | PCM.HP.BLA ---
History and Physical Date of Admission: 02/01/22 THU ESPANA, is a 71 F who presents to the office today for discussion of EGD and colonoscopy results; they were indicated for recent GI bleed, she had melanotic stools, hgb 9.8, was on eliquis for atrial fibrillation. She reports the eliquis is still on hold. We need to repeat colonoscopy in 3 mos because exam was incomplete due to poor prep; we will have her do a different prep next time. On EGD she was found to have esophageal varices, gastric varices and portal hypertensive gastropathy. Bx: gastritis, negative H pylori. She needs to repeat EGD in 3 mos, and get CT abd pel to eval cirrhosis. No prior diagnosis of cirrhosis, but there was suspicion because of abnormal liver US and some abnormal labs since her initial appt. She established with [facility] on 11/23/21 following hospitalization for GI bleed. She was admitted to [facility] 11/04/21 to 11/05/21 for melena; hgb was stable so she was discharged for outpatient workup. She had presented to ED with black stools.? She was on Eliquis twice daily, had been on it for about a month for a fairly recent diagnosis of atrial fibrillation. ASA is also being held. Today she reports no further episodes of melena. Because of thrombocytopenia we got RUQ US to evaluate the liver; the US revealed heterogeneous echotexture of the liver so we proceeded with biochemical w/u. 12/04/21 Labs: hgb 11.6 improved, ESR 39 high, plts 127 low, INR 1.1, hgb A1C 6.0, crp 9.56, ASMA elevated, AFP 1.6 normal She didn't show for her appt earlier this month for liver elastography She is already on furosemide and metoprolol. No jaundice. Pruritus from allergens. No daytime sleepiness, no insomnia. No confusion or forgetfulness. No bleeding. Doesn't drink any alcohol. Takes acetaminophen daily for OA, max 2000 mg daily. MELD score: 7 She denies nausea, vomiting or hematemesis.? No dysphagia.? She does get acid reflux after eating certain foods, she takes an inly-zfy-qndygzp medication as needed, she does not recall the name of that medication at this time.? She reports a history of a stomach ulcer age 17.? She denies any epigastric pain.? Intermittent lower abdominal discomfort that she attributes to hernia mesh.? Today she reports rare RUQ discomfort. Some bloating in her abdomen.? Bowels are regular.? Denies diarrhea or constipation. Her comorbidities include diabetes, asthma, heart failure, sleep apnea, obesity, atrial fibrillation, hypertension, migraines Past surgical history includes carpal tunnel repair, ventral hernia repair, hysterectomy, appendectomy 12/01/21 US/Abdomen Limited IMPRESSION: Heterogeneous echotexture of the liver. Liver measures 16.4. Multiple small gallstones with sludge in the gallbladder lumen. 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 12/11/21 EGD and Colonoscopy Impression: ? - Grade I esophageal varices. ? - Type 1 isolated gastric varices (IGV1, ? varices located in the fundus), without ? bleeding. ? - Portal hypertensive gastropathy. Biopsied. ? - No gross lesions in the first portion of the ? duodenum. Impression: ? - Stool in the rectum, in the recto-sigmoid ? colon, in the sigmoid colon and in the ? descending colon. ? - No specimens collected. MICROSCOPIC DIAGNOSIS Gastric body, biopsy: ?Mild chronic gastritis. ?See comment. Negative H Pylori ROS Const Constitutional: Positive for weakness; No fatigue ENT ENT: No difficulty swallowing Cardio Cardiology: Positive for leg pain with exertion Gastro GI: Positive for abdominal pain, bloating and excessive flatus; No belching, change in bowel habits, change in stool character, coffee ground emesis, constipation, cramping, diarrhea, heartburn, difficulty swallowing, feeling full early, incontinent of stools, Vomiting blood/hematemesis, Blood in stool, loose stools, Black,tarry stools, nausea/dyspepsia, pain with swallowing, vomiting or other Musc Musculoskeletal: Positive for sciatica, restless legs, leg pain at night and leg pain with exertion; No joint pain Skin Skin: No yellowing of the eye or itchy eyes Neuro Neurology: Positive for weakness and restless legs Psych Psychiatric: No anxiety and No depression Endo Endocrine: No fatigue Aller/Imm Allergy/Immunologic: No itchy eyes Carmelo/Lymp Hematologic/Lymphatic: No easy bleeding or easy bruising Exam Const General: cooperative, comfortable and no acute distress Nutritional Appearance: obese Orientation: alert, awake and oriented x3 HENMT Head: normal to inspection Eyes General: appearance normal, both eyes and all related structures Sclera: sclerae normal Resp Effort & Inspection: normal respiratory effort GI Inspection: obesity Palpation: soft Skin General: no jaundice Extrem General: pedal edema present Psych Mood: euthymic mood Affect: normal affect Quality Reporting Tobacco Screening ([facility]) Smoking Status: Never smoker Assessment and Plan Assessment and Plan (1) Cirrhosis: ?Status:?Acute ?Plan: We discussed the findings on her endoscopies. GI changes seen on EGD consistent with cirrhosis, which is a new diagnosis. We discussed cirrhosis but will need to discuss again in more detail because she needs more education about it. 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 Will get CT abd pel to further eval liver/abd pain as well as liver biopsy because of cirrhosis and possible AIH. She needs repeat EGD as well as repeat colonoscopy in 3 mos. Rx for golytely for next time. She needs to reschedule her liver elastography. f/u 6 wks, as well as 2 wks after endoscopies. (2) Lower abdominal pain: ?Status:?Acute ?Plan: as above (3) Elevated antibody levels: ?Status:?Acute ?Plan: elevated ASMA as above ? ? ? Orders: Orders Abdomen/Pelvis WITH Contrast Today K74.60 - Unspecified cirrhosis of liver, R10.30 - Lower abdominal pain, unspecified ? Biopsy/Inj or Needle Placement Today K74.60 - Unspecified cirrhosis of liver, R76.0 - Raised antibody titer ? Medications: New peg 3350-electrolytes 236-22.74-6.74 -5.86 gram (Golytely) ?? until fecal effluent is clear 240 mL? PO Q10M 4,000 mL 0RF ? ? I have re-examined the patient. There are no clinical changes since date of exam.
[2022-02-01 12:20] VITALS: BP 103/51; BP 122/61; PULSE 72; RESP 16; TEMP 36.7; O2SAT 94
[2022-02-01 12:25] VITALS: BP 103/51; BP 134/62; PULSE 70; RESP 18; O2SAT 95
--- NOTE | 2022-02-01 12:27 | OP.EGD_ITS ---
Patient Name: Annalee Keane Procedure Date: 02/01/2022 11:33 AM Date of : 1950 Age: 71 Procedure: Upper GI endoscopy Indications: Cirrhosis with suspected esophageal varices Providers: Casey Paul DO Referring MD: Doreen Finn Medicines: Monitored Anesthesia Care Patient Profile: This is a 71 year old female. Refer to note in patient chart for documentation of history and physical. Patient has symptoms. She is status post EGD within the past three months. Complications: No immediate complications. Procedure: Pre-Anesthesia Assessment: - Prior to the procedure, a History and Physical was performed, and patient medications and allergies were reviewed. The patient is competent. The risks and benefits of the procedure and the sedation options and risks were discussed with the patient. All questions were answered and informed consent was obtained. Patient identification and proposed procedure were verified by the physician in the pre-procedure area. Mental Status Examination: alert and oriented. Airway Examination: normal oropharyngeal airway and neck mobility. Respiratory Examination: clear to auscultation. CV Examination: normal. Prophylactic Antibiotics: The patient does not require prophylactic antibiotics. Prior Anticoagulants: The patient has taken no previous anticoagulant or antiplatelet agents. ASA Grade Assessment: III - A patient with severe systemic disease. After reviewing the risks and benefits, the patient was deemed in satisfactory condition to undergo the procedure. The anesthesia plan was to use monitored anesthesia care (MAC). Immediately prior to administration of medications, the patient was re-assessed for adequacy to receive sedatives. The heart rate, respiratory rate, oxygen saturations, blood pressure, adequacy of pulmonary ventilation, and response to care were monitored throughout the procedure. The physical status of the patient was re-assessed after the procedure. After obtaining informed consent, the endoscope was passed under direct vision. Throughout the procedure, the patient's blood pressure, pulse, and oxygen saturations were monitored continuously. The colonoscope was introduced through the mouth, and advanced to the second part of duodenum. The upper GI endoscopy was accomplished without difficulty. The patient tolerated the procedure well. Scope In: 11:52:11 AM Scope Out: 11:58:35 AM Total Procedure Duration Time 0 hours 6 minutes 24 seconds Findings: Grade I varices were found in the lower third of the esophagus. They were 5 mm in largest diameter. Type 1 isolated gastric varices (IGV1, varices located in the fundus) with no bleeding were found in the gastric fundus. There were no stigmata of recent bleeding. They were 5 mm in largest diameter. Severe portal hypertensive gastropathy was found in the entire examined stomach. Biopsies were taken with a cold forceps for histology. Verification of patient identification for the specimen was done. Estimated blood loss was minimal. The second portion of the duodenum was normal. Biopsies were taken with a cold forceps for histology. Verification of patient identification for the specimen was done. Estimated blood loss was minimal. Impression: - Grade I esophageal varices. - Type 1 isolated gastric varices (IGV1, varices located in the fundus), without bleeding. - Portal hypertensive gastropathy. Biopsied. - Normal second portion of the duodenum. Biopsied. - referal for treatment of Gastric Varices - Beta-juan m therapy for gastric and esophageal varices and repeat EGD in 3 months for surveillance of esophageal varices. Recommendation: - Discharge patient to home. - Resume previous diet. - Use Protonix (pantoprazole) 40 mg PO daily daily. - Continue present medications. Procedure Code(s): --- Professional --- 29283, Esophagogastroduodenoscopy, flexible, transoral; with biopsy, single or multiple CPT copyright 2017 [employer]. All rights reserved. The codes documented in this report are preliminary and upon batch heat treat operator review may be revised to meet current compliance requirements. Casey Paul DO 02/01/2022 12:27:20 PM This report has been signed electronically. Number of Addenda: 0 Note Initiated On: 02/01/2022 11:33 AM
--- NOTE | 2022-02-01 12:28 | OP.CCLET_ITS ---
02/01/2022 Doreen Finn [address] [place] [address] Re : Upper GI endoscopy procedure for Annalee Keane Dear Dr. Finn This procedure was performed on January. My impressions and recommendations are as follows: Impressions : - Grade I esophageal varices. - Type 1 isolated gastric varices (IGV1, varices located in the fundus), without bleeding. - Portal hypertensive gastropathy. Biopsied. - Normal second portion of the duodenum. Biopsied. - referal for treatment of Gastric Varices - Beta-juan m therapy for gastric and esophageal varices and repeat EGD in 3 months for surveillance of esophageal varices. Recommendations : - Discharge patient to home. - Resume previous diet. - Use Protonix (pantoprazole) 40 mg PO daily daily. - Continue present medications. My findings are described in the full procedure note, which is enclosed. If I can be of further assistance, please feel free to contact me at . Sincerely, Casey Paul, 02/01/2022 12:27:20 PM This report has been signed electronically.
[2022-02-01 12:30] VITALS: BP 103/51; BP 148/61; PULSE 62; RESP 16; O2SAT 96
--- NOTE | 2022-02-01 12:32 | OP.COLON_ITS ---
Patient Name: Annalee Keane Procedure Date: 02/01/2022 11:58 AM Date of : 1950 Age: 71 Procedure: Colonoscopy Indications: Screening for colorectal malignant neoplasm Providers: Casey Paul DO Referring MD: Doreen Finn Medicines: Monitored Anesthesia Care Patient Profile: This is a 71 year old female. Refer to note in patient chart for documentation of history and physical. Patient has symptoms. She is status post EGD within the past three months. Last Colonoscopy: 10 years ago. Complications: No immediate complications. Procedure: Pre-Anesthesia Assessment: - Prior to the procedure, a History and Physical was performed, and patient medications and allergies were reviewed. The patient is competent. The risks and benefits of the procedure and the sedation options and risks were discussed with the patient. All questions were answered and informed consent was obtained. Patient identification and proposed procedure were verified by the physician in the pre-procedure area. Mental Status Examination: alert and oriented. Airway Examination: normal oropharyngeal airway and neck mobility. Respiratory Examination: clear to auscultation. CV Examination: normal. Prophylactic Antibiotics: The patient does not require prophylactic antibiotics. Prior Anticoagulants: The patient has taken no previous anticoagulant or antiplatelet agents. ASA Grade Assessment: III - A patient with severe systemic disease. After reviewing the risks and benefits, the patient was deemed in satisfactory condition to undergo the procedure. The anesthesia plan was to use monitored anesthesia care (MAC). Immediately prior to administration of medications, the patient was re-assessed for adequacy to receive sedatives. The heart rate, respiratory rate, oxygen saturations, blood pressure, adequacy of pulmonary ventilation, and response to care were monitored throughout the procedure. The physical status of the patient was re-assessed after the procedure. After I obtained informed consent, the scope was passed under direct vision. Throughout the procedure, the patient's blood pressure, pulse, and oxygen saturations were monitored continuously. The colonoscope was introduced through the anus and advanced to the terminal ileum. The colonoscopy was performed without difficulty. The patient tolerated the procedure well. The quality of the bowel preparation was good. Scope In: 12:00:39 PM Scope Withdrawal Time 0 hours 6 minutes 28 seconds Scope Out: 12:13:57 PM Total Procedure Duration Time 0 hours 13 minutes 18 seconds Findings: The perianal and digital rectal examinations were normal. A few small-mouthed diverticula were found in the recto-sigmoid colon and sigmoid colon. Non-bleeding internal hemorrhoids were found during retroflexion. The hemorrhoids were Grade I (internal hemorrhoids that do not prolapse). The exam was otherwise without abnormality on direct and retroflexion views. Impression: - Diverticulosis in the recto-sigmoid colon and in the sigmoid colon. - Non-bleeding internal hemorrhoids. - The examination was otherwise normal on direct and retroflexion views. - No specimens collected. Recommendation: - Discharge patient to home. - Resume previous diet. - Continue present medications. - Repeat colonoscopy in 5 years for surveillance. Procedure Code(s): --- Professional --- G0121, Colorectal cancer screening; colonoscopy on individual not meeting criteria for high risk CPT copyright 2017 [employer]. All rights reserved. The codes documented in this report are preliminary and upon psychologist research assistant review may be revised to meet current compliance requirements. Casey Paul DO 02/01/2022 12:31:51 PM This report has been signed electronically. Number of Addenda: 0 Note Initiated On: 02/01/2022 11:58 AM
--- NOTE | 2022-02-01 12:33 | OP.CCLET_ITS ---
02/01/2022 Doreen Finn [address] [place] [address] Re : Colonoscopy procedure for Annalee Lakhwinder Dear Dr. Finn This procedure was performed on January. My impressions and recommendations are as follows: Impressions : - Diverticulosis in the recto-sigmoid colon and in the sigmoid colon. - Non-bleeding internal hemorrhoids. - The examination was otherwise normal on direct and retroflexion views. - No specimens collected. Recommendations : - Discharge patient to home. - Resume previous diet. - Continue present medications. - Repeat colonoscopy in 5 years for surveillance. My findings are described in the full procedure note, which is enclosed. If I can be of further assistance, please feel free to contact me at . Sincerely, Casey Friend, 02/01/2022 12:31:51 PM This report has been signed electronically.
[2022-02-01 12:35] VITALS: BP 103/51; BP 129/60; PULSE 60; RESP 16; TEMP 36.2; O2SAT 100
[2022-02-01 13:05] VITALS: BP 103/51
== END 2022-02-01 13:18 | disposition home or self-care (01) ==
LOC: EN 09:45 → AC 09:46
PROVIDERS: PCP Internal Medicine; Referring Provider Internal Medicine; Visit Provider Internal Medicine Gastroenterology
PROC: 0DJD8ZZ Inspection of Lower Intestinal Tract, Via Natural or Artificial Opening Endoscopic (ICD-10-PCS; CPT 45378; principal; 2022-02-01 10:40)
DX: Z12.11 Encounter for screening for malignant neoplasm of colon (principal); I85.00 Esophageal varices without bleeding; K76.6 Portal hypertension; K74.60 Unspecified cirrhosis of liver; I11.0 Hypertensive heart disease with heart failure; I50.9 Heart failure, unspecified; I48.91 Unspecified atrial fibrillation; D69.6 Thrombocytopenia, unspecified; E11.9 Type 2 diabetes mellitus without complications; K29.70 Gastritis, unspecified, without bleeding; Z86.16 Personal history of COVID-19; Z87.19 Personal history of other diseases of the digestive system; J45.909 Unspecified asthma, uncomplicated; G89.29 Other chronic pain; Z79.84 Long term (current) use of oral hypoglycemic drugs; Z79.899 Other long term (current) drug therapy; G25.81 Restless legs syndrome; G47.30 Sleep apnea, unspecified; Z90.49 Acquired absence of other specified parts of digestive tract; I86.4 Gastric varices; K31.89 Other diseases of stomach and duodenum; K57.30 Diverticulosis of large intestine without perforation or abscess without bleeding; K64.8 Other hemorrhoids
CPT/HCPCS: G0121; 43239; 82962; 88305; 88342; J7120

== ENCOUNTER → 2022-02-08 | Outpatient (CLI) | payer MEDICARE, SELFPAY ==
--- NOTE | 2022-02-08 07:35 | CT_ITS ---
STUDY: CT ABDOMEN WITH CONTRAST REASON FOR EXAM: Female, 71 years old. Cirrhosis, abd pain -- oral and iv RADIATION DOSAGE (If Supplied By Facility): CTDIvol = ( 18.69 ) mGy, DLP = ( 770.66 ) mGycm TECHNIQUE: Transaxial images were obtained post I.V. administration of Oral and amp; IV Gastrografin and amp; 100mL Isovue-300, and with oral contrast. Sagittal and coronal images were reconstructed. Individualized dose optimization techniques were used for this CT. COMPARISON: Comparison is made with prior study dated 11/23/2015. FINDINGS: Increased linear markings in the posterior aspect of the lingular segment of the left upper lobe suggestive of scarring. The visualized portions of the heart are within normal limits. There is a diffuse contour abnormality of the liver consistent with cirrhotic changes. There is evidence of a contracted stone filled gallbladder. There is moderate splenomegaly. Normal pancreas. There is evidence of a varices in the region of the splenic hilum extending into the periesophageal region. Normal bilateral adrenal glands. Stable 1 cm cyst in the lateral upper pole of the right kidney. This has decreased in size as compared to prior study. Normal left kidney. Normal visualized stomach. Normal small intestine. Normal colon. The appendix is visualized and appears normal. There is scattered atherosclerotic calcification of the abdominal aorta, without a demonstrated aneurysm. Normal inferior vena cava. There is borderline retroperitoneal lymphadenopathy with enlarged nodes no greater than 10mm in the short axis diameter. There is evidence of prior anterior abdominal wall hernia repair. There are degenerative changes of the visualized lumbar spine. CT/Abdomen WITH IV Contrast IMPRESSION: Findings in keeping with cirrhosis of the liver with evidence of the esophageal varices as well as varices in the region of the splenic hilum. Small right renal cyst. Electronically Signed: Elton Malcolm MD at 13:54 EDT ,
[2022-02-08 08:01] LABS: CREATININE FINGERSTICK < 0.9 mg/dL (0.55-1.02); EGFR FINGERSTICK > 60.0000 mL/min (>60)
== END | disposition home or self-care (01) ==
LOC: CT 07:33
PROVIDERS: PCP Internal Medicine; Referring Provider Nurse Practitioner Adult Health; Visit Provider Nurse Practitioner Adult Health
DX: K74.60 Unspecified cirrhosis of liver (principal); R10.9 Unspecified abdominal pain
CPT/HCPCS: 74160; Q9967

== ENCOUNTER 2022-02-15 11:51 | Outpatient (CLI) | payer MEDICARE, SELFPAY ==
[2022-02-15 12:25] LABS: Absolute Lymphocyte Count 1.25 X10^3/uL (0.83-4.51); Absolute Neutrophil Count 1.7 X10^3/uL (2.0-7.7); Basophil# 0.03 X10^3/uL; Basophil% 0.8 % (0-1); Eosinophil# 0.12 X10^3/uL; Eosinophils% 3.4 % (0-5); Hemoglobin 12.1 g/dL (12.0-15.0); Lymphocyte # 1.25 X10^3/ul (0.83-4.51); Lymphocyte % 35.3 % (19-41); Mean Corp Hgb Conc 32.7 g/dL (32-36); Mean Corpuscular Hgb 28.7 pg (27.0-32.0); Mean Corpuscular Volume 87.9 fL (81-99); Mean Platelet Vol. 11.3 fl (6.2-12.0); Monocyte# 0.45 X10^3/uL; Monocyte% 12.7 % (0-10); NRBC Flagged by Analyzer 0 % (0-5); Neutrophil # 1.69 X10^3/uL (2.7-7.7); Neutrophil % 47.8 % (47-70); Platelet Count 106 K/mm3 (150-450); RBC Distribution Width SD 47.8 fl (35.1-43.9); Red Blood Count 4.21 M/mm3 (4.2-5.4); White Blood Count 3.5 K/mm3 (4.4-11.0)
[2022-02-15 12:35] LABS: International Normalized Ratio 1.2; Prothrombin Time (Protime)PT. 14.7 SECONDS (11.7-14.9)
[2022-02-15 12:53] LABS: ALB/GLOB Ratio 0.7 RATIO (0.9-2.4); AST(SGOT) 36 U/L (15-37); Alanine Aminotransfer ALT/SGPT 25 U/L (13-56); Alkaline Phosphatase 105 U/L (45-117); Anion Gap 5 (5-15); BUN 13 mg/dL (7-18); BUN/Creat Ratio 16.6 RATIO (10-20); Calcium,Total 8.7 mg/dL (8.5-10.1); Chloride 107 mmol/L (98-107); Creatinine, Serum 0.78 mg/dL (0.55-1.02); EST Glomerular Filtration Rate 77 mL/min (>60); Est Glom Filt Rate - Afr Amer 93 mL/min (>60); Globulin 4.5 g/dL (2.2-4.2); Glucose 106 mg/dL (74-106); Potassium 3.8 mmol/L (3.5-5.1); Protein, Total 7.5 g/dL (6.4-8.2); Sodium Level 139 mmol/L (136-145)
[2022-02-22 19:07] LABS: Immunoglobulin A 549 mg/dL (64-422); Immunoglobulin G 1549 mg/dL (586-1602); Immunoglobulin M 56 mg/dL (26-217)
[2022-02-23 12:26] LABS: Immunoglobulin E 1556 IU/mL (6-495)
== END 2022-02-15 23:59 | disposition home or self-care (01) ==
LOC: LAB 11:52
PROVIDERS: PCP Internal Medicine; Visit Provider Nurse Practitioner Adult Health
DX: U07.1 COVID-19 (principal); K74.60 Unspecified cirrhosis of liver; K92.2 Gastrointestinal hemorrhage, unspecified
CPT/HCPCS: 36415; 80053; 82140; 82784; 82785; 85025; 85610

== ENCOUNTER 2022-04-16 05:50 | Day surgery (SDC) | payer MEDICARE, SELFPAY ==
--- NOTE | 2022-04-16 | GASB_PTH ---
PATIENT: THU ESPANA LOC: EN U#:[id number] AGE/SX: 71/F ROOM: RE04/16/[address]: Dr. Casey Paul DO : 1950 BED: DIS: 04/16/2022 SPEC #: [id number] RECD: 04/16/22 11:49 STATUS: IBRAHIMA JAREN #: [id number] JEN: 04/16/22 00:[address]: Casey Paul DEPT: SURGICAL PATHOLOGY RECD BY: Jaron Tillamn ENTERED: 04/16/22 11:49 SP TYPE: Gastric Bx OTHR DR: Dr. Doreen Finn MD Tissues: Gastric mucous membrane Procedures: Surgery Specimen Level IV HEADER OPERATION: EGD ([facility]) with biopsies PRE-OP DIAGNOSIS: Esophageal varices TISSUE SUBMITTED: Antrum biopsy for H. pylori and path MICROSCOPIC DIAGNOSIS Gastric antrum, biopsy: Chronic gastritis. AM:orquidea 04/17/2022 COMMENT The results of immunohistochemistry for Helicobacter pylori will be reported separately ([id number]). MICROSCOPIC DESCRIPTION Slides are reviewed. GROSS DESCRIPTION Received in fixative is one container labeled with the patient's name and designated antrum biopsy. The specimen consists of two irregular fragments of light kendrick soft tissue that in aggregate measure 0.8 x 0.4 x 0.1 cm. The specimen is totally submitted in one cassette. / SJ:orquidea 04/16/2022 TC:3 CPT: 51811
[2022-04-16] MEDS: Lactated Ringers 1,000 ML 15 ML IV (06:58)
[2022-04-16 06:59] VITALS: BP 115/46; PULSE 60; RESP 18; TEMP 36.9; O2SAT 97; BMI 39.3
--- NOTE | 2022-04-16 07:08 | PCM.HP.BLA ---
History and Physical Date of Admission: 04/16/22 THU ESPANA, is a 71 F who presents to the office today for discussion of EGD and colonoscopy results, and to f/u cirrhosis. She needed repeat EGD to f/u esophageal varices. This time she now has gastric varices also. She has portal hypertensive gastropathy. Colonoscopy revealed diverticulosis. Today she reports bloating, intermittent hard epigastrium. She is taking lactulose daily, reports good BMs. She was already taking furosemide, we had cardiology add spironolactone. She is on metoprolol, typically takes it once a day rather than twice a day as she says it is ordered. She reports she is exercising, riding bike, watching food intake. Lots of stress related to extended family members. CBD gummies help with her energy level, and help a lot with pain and stiffness. No jaundice. Pruritus from allergens. No daytime sleepiness, no insomnia. No confusion or forgetfulness. No bleeding. Doesn't drink any alcohol. Takes acetaminophen daily for OA, max 2000 mg daily. No longer on eliquis. ASA is also being held. No further episodes of melena. 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 MELD scores: 7 in 12/2021 Her comorbidities include diabetes, asthma, heart failure, sleep apnea, obesity, atrial fibrillation, hypertension, migraines Past surgical history includes carpal tunnel repair, ventral hernia repair, hysterectomy, appendectomy 12/01/21 US/Abdomen Limited IMPRESSION: Heterogeneous echotexture of the liver. Liver measures 16.4. Multiple small gallstones with sludge in the gallbladder lumen. 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 01/04/22 Right lobe liver, CT-guided core biopsy: ?Consistent with cirrhosis. ?See microscopic description and comment. COMMENT Correlation with clinical, radiologic findings, laboratory findings and appropriate follow up are necessary. MICROSCOPIC DESCRIPTION Slides are reviewed. The specimen shows liver parenchymal tissue with distortion of normal lobular architecture into multiple nodules divided by fibrous septae.? Hepatocytes in the nodules show focal macro- and microvesicular steatosis and reactive changes.? Minimal inflammation is noted in the hepatocyte nodules.? Fibrous septate shows moderate chronic inflammation consisting of lymphocytes.? Interface inflammation is not seen.? Iron stain shows absent iron.? Trichrome and reticulin stains highlight the fibrous septae.? PAS stain with and without diastase do not show any abnormal accumulation of protein.? All stains are performed with appropriate matched controls 02/01/22 EGD and Colonoscopy Impression: ? - Grade I esophageal varices. ? - Type 1 isolated gastric varices (IGV1, ? varices located in the fundus), without ? bleeding. ? - Portal hypertensive gastropathy. Biopsied. ? - Normal second portion of the duodenum. ? Biopsied. ? - referral for treatment of Gastric Varices ? - Beta-juan m therapy for gastric and ? esophageal varices and repeat EGD in 3 months ? for surveillance of esophageal varices. Impression: ? - Diverticulosis in the recto-sigmoid colon and ? in the sigmoid colon. ? - Non-bleeding internal hemorrhoids. ? - The examination was otherwise normal on ? direct and retroflexion views. ? - No specimens collected. MICROSCOPIC DIAGNOSIS Gastric body, biopsy: ?Mild gastritis. ?See microscopic description and comment. Negative H pylori 02/08/22 CT/Abdomen WITH IV Contrast IMPRESSION: Findings in keeping with cirrhosis of the liver with evidence of the esophageal varices as well as varices in the region of the splenic hilum. Small right renal cyst. ROS Const Constitutional: Positive for fatigue ENT ENT: No difficulty swallowing Cardio Cardiology: Positive for leg pain with exertion Gastro GI: Positive for bloating and excessive flatus; No abdominal pain, belching, change in bowel habits, change in stool character, coffee ground emesis, constipation, cramping, diarrhea, heartburn, difficulty swallowing, feeling full early, incontinent of stools, Vomiting blood/hematemesis, Blood in stool, loose stools, Black,tarry stools, nausea/dyspepsia, pain with swallowing, vomiting or other Musc Musculoskeletal: Positive for joint pain, back pain, joint swelling, muscle cramps, muscle weakness, stiffness, Arthritis, restless legs, leg pain at night and leg pain with exertion Skin Skin: No yellowing of the eye or itchy eyes Neuro Neurology: Positive for restless legs Psych Psychiatric: No anxiety and No depression Endo Endocrine: Positive for fatigue Aller/Imm Allergy/Immunologic: No itchy eyes Carmelo/Lymp Hematologic/Lymphatic: No easy bleeding or easy bruising Exam Const General: cooperative, comfortable and no acute distress Nutritional Appearance: obese Orientation: alert, awake and oriented x3 HENMT Head: normal to inspection Eyes General: appearance normal, both eyes and all related structures Sclera: sclerae normal Neck Neck: normal visual inspection Resp Effort & Inspection: normal respiratory effort GI Inspection: obesity Palpation: soft, no masses and nontender Skin General: no rashes or lesions noted and no jaundice Quality Reporting Tobacco Screening ([facility] 138) Smoking Status: Never smoker Assessment and Plan Assessment and Plan ? ? ? Orders: Orders Comprehensive Metabolic Profil 02/15/22 K74.60 - Unspecified cirrhosis of liver ? Prothrombin Time w/INR 02/15/22 K74.60 - Unspecified cirrhosis of liver, K92.2 - Gastrointestinal hemorrhage, unspecified ? CBC W/Diff, Automated 02/15/22 K74.60 - Unspecified cirrhosis of liver, U07.1 - COVID-19 ? Immunoglobulins G/A/M/E 02/15/22 K74.60 - Unspecified cirrhosis of liver ? Ammonia 02/15/22 K74.60 - Unspecified cirrhosis of liver ? Referrals Urology ? R32 - Unspecified urinary incontinence ? Gastroenterology ? I86.4 - Gastric varices ? I have examined the patient and the H&P has been reviewed. There are no clinical changes since date of exam.
[2022-04-16 07:20] VITALS: BP 115/46; BP 87/51; PULSE 62; RESP 18; TEMP 36.3; O2SAT 93
[2022-04-16 07:25] LABS: Bedside Glucose 113 mg/dL (74-106)
[2022-04-16 07:30] VITALS: BP 115/46; BP 98/51; PULSE 65; RESP 18; O2SAT 94
--- NOTE | 2022-04-16 07:30 | OP.EGD_ITS ---
Patient Name: Annalee Keane Procedure Date: 04/16/2022 7:10 AM Date of : 1950 Age: 71 Procedure: Upper GI endoscopy Indications: Follow-up of esophageal varices Providers: Casey Paul DO Medicines: Monitored Anesthesia Care Patient Profile: This is a 71 year old female. Refer to note in patient chart for documentation of history and physical. Patient has symptoms of chronic abdominal distention, chronic dyspepsia and chronic nausea. Complications: No immediate complications. Procedure: Pre-Anesthesia Assessment: - Prior to the procedure, a History and Physical was performed, and patient medications and allergies were reviewed. The risks and benefits of the procedure and the sedation options and risks were discussed with the patient. All questions were answered and informed consent was obtained. Patient identification and proposed procedure were verified by the physician in the pre-procedure area. Mental Status Examination: alert and oriented. Airway Examination: normal oropharyngeal airway and neck mobility. Respiratory Examination: clear to auscultation. CV Examination: normal. Prophylactic Antibiotics: The patient does not require prophylactic antibiotics. Prior Anticoagulants: The patient has taken no previous anticoagulant or antiplatelet agents. After reviewing the risks and benefits, the patient was deemed in satisfactory condition to undergo the procedure. The anesthesia plan was to use monitored anesthesia care (MAC). Immediately prior to administration of medications, the patient was re-assessed for adequacy to receive sedatives. The heart rate, respiratory rate, oxygen saturations, blood pressure, adequacy of pulmonary ventilation, and response to care were monitored throughout the procedure. The physical status of the patient was re-assessed after the procedure. After obtaining informed consent, the endoscope was passed under direct vision. Throughout the procedure, the patient's blood pressure, pulse, and oxygen saturations were monitored continuously. The Endoscope was introduced through the mouth, and advanced to the second part of duodenum. The upper GI endoscopy was accomplished without difficulty. The patient tolerated the procedure well. Scope In: 7:19:57 AM Scope Out: 7:22:20 AM Total Procedure Duration Time 0 hours 2 minutes 23 seconds Findings: Small (< 5 mm) varices were found in the lower third of the esophagus. They were 2 mm in largest diameter. A medium amount of food (residue) was found in the gastric body. Type 1 isolated gastric varices (IGV1, varices located in the fundus) with no bleeding were found in the gastric fundus. There were no stigmata of recent bleeding. They were 5 mm in largest diameter. Food (residue) was found in the duodenal bulb. Localized mild inflammation characterized by congestion (edema) was found in the gastric antrum. Biopsies were taken with a cold forceps for histology. Verification of patient identification for the specimen was done. Estimated blood loss was minimal. Mild portal hypertensive gastropathy was found in the cardia and in the gastric fundus. Impression: - Small (< 5 mm) esophageal varices. - A medium amount of food (residue) in the stomach. - Type 1 isolated gastric varices (IGV1, varices located in the fundus), without bleeding. - Retained food in the duodenum. - No specimens collected. Recommendation: - Discharge patient to home. - Resume previous diet. - Continue present medications. Procedure Code(s): --- Professional --- 47731, Esophagogastroduodenoscopy, flexible, transoral; with biopsy, single or multiple CPT copyright 2017 [employer]. All rights reserved. The codes documented in this report are preliminary and upon unloader operator review may be revised to meet current compliance requirements. Casey Paul DO 04/16/2022 7:30:04 AM This report has been signed electronically. Number of Addenda: 0 Note Initiated On: 04/16/2022 7:10 AM
--- NOTE | 2022-04-16 07:30 | IMM_PTH ---
PATIENT: THU ESPANA LOC: EN U#:[id number] AGE/SX: 71/F ROOM: RE04/16/[address]: Dr. Casey Paul DO : 1950 BED: DIS: 04/16/2022 SPEC #: [id number] RECD: 04/16/22 13:03 STATUS: IBRAHIMA RELucas #: [id number] JEN: 04/16/22 07:[address]: Casey Paul DEPT: IMMUNOHISTOCHEMISTRY RECD BY: Karlie Burrell ENTERED: 04/16/22 13:03 SP TYPE: IMMUNO OTHR DR: Dr. Doreen Finn MD Tissues: Stomach, NOS Procedures: H Pylori (initial) PHYSICIAN & INSTITUTION [place] [id number] SPECIMEN INFORMATION: Tissue Source: Antrum biopsy Clinical Info: Esophageal varices Specimen Number: [id number] CPT code: 27106 METHODOLOGY: Deparaffinized sections of prefer/formalin-fixed tissue or PAP/DQ stained slides are incubated with monoclonal/polyclonal antibodies/oligonucleotide probes. Localization is made via biotin free immunoperoxidase method. Appropriate controls are performed and reacted as expected. Results on target cell population are indicated in the following table: RESULTS: ANTIBODY / CLONE RESULT H Pylori (polyclonal) negative These tests were developed and their performance characteristics determined by [facility]. They may not have been cleared or approved by the U.S. Food and Drug Administration. The FDA has determined that such clearance or approval is not necessary. The above immunohistochemical/dualISH markers are ordered and reviewed by the Pathologist. INTERPRETATION: Antrum, biopsy: Negative for Helicobacter pylori organisms. AM:orquidea 04/17/2022
--- NOTE | 2022-04-16 07:31 | OP.CCLET_ITS ---
04/16/2022 Doreen Finn [address] [place] [address] Re : Upper GI endoscopy procedure for Annalee Lakhwinder Dear Dr. Finn This procedure was performed on Saturday, April 16, 2022. My impressions and recommendations are as follows: Impressions : - Small (< 5 mm) esophageal varices. - A medium amount of food (residue) in the stomach. - Type 1 isolated gastric varices (IGV1, varices located in the fundus), without bleeding. - Retained food in the duodenum. - No specimens collected. Recommendations : - Discharge patient to home. - Resume previous diet. - Continue present medications. My findings are described in the full procedure note, which is enclosed. If I can be of further assistance, please feel free to contact me at . Sincerely, Casey Paul, 04/16/2022 7:30:04 AM This report has been signed electronically.
[2022-04-16 07:35] VITALS: BP 115/46; BP 87/51; PULSE 64; RESP 20; O2SAT 98
[2022-04-16 07:40] VITALS: BP 105/58; BP 115/46; PULSE 58; RESP 18; TEMP 36.2; O2SAT 98
[2022-04-16 08:04] VITALS: BP 115/46
== END 2022-04-16 08:41 | disposition home or self-care (01) ==
LOC: EN 05:52 → AC 05:53
PROVIDERS: PCP Internal Medicine; Referring Provider Internal Medicine; Visit Provider Internal Medicine Gastroenterology
PROC: 0DJ08ZZ Inspection of Upper Intestinal Tract, Via Natural or Artificial Opening Endoscopic (ICD-10-PCS; CPT 43235; principal; 2022-04-16 07:25)
DX: K29.50 Unspecified chronic gastritis without bleeding (principal); I85.00 Esophageal varices without bleeding; K76.6 Portal hypertension; K74.60 Unspecified cirrhosis of liver; I11.0 Hypertensive heart disease with heart failure; I50.9 Heart failure, unspecified; I48.91 Unspecified atrial fibrillation; E11.9 Type 2 diabetes mellitus without complications; I86.4 Gastric varices; K31.89 Other diseases of stomach and duodenum; I25.2 Old myocardial infarction; G47.30 Sleep apnea, unspecified; E66.9 Obesity, unspecified; Z79.899 Other long term (current) drug therapy; Z79.84 Long term (current) use of oral hypoglycemic drugs; Z86.16 Personal history of COVID-19
CPT/HCPCS: 43239; 82962; 88305; 88342; J7120; J2405

== ENCOUNTER → 2022-05-01 | Outpatient (CLI) | payer MEDICARE, SELFPAY ==
[2022-05-01 12:29] LABS: Absolute Lymphocyte Count 1.48 X10^3/uL (0.83-4.51); Absolute Neutrophil Count 2.2 X10^3/uL (2.0-7.7); Basophil# 0.05 X10^3/uL; Basophil% 1.2 % (0-1); Eosinophils% 2.3 % (0-5); Hematocrit 41.6 % (37-47); Hemoglobin 13.2 g/dL (12.0-15.0); Lymphocyte # 1.48 X10^3/ul (0.83-4.51); Lymphocyte % 34.5 % (19-41); Mean Corp Hgb Conc 31.7 g/dL (32-36); Mean Corpuscular Hgb 28.6 pg (27.0-32.0); Mean Platelet Vol. 10.1 fl (6.2-12.0); Monocyte# 0.48 X10^3/uL; Monocyte% 11.2 % (0-10); NRBC Flagged by Analyzer 0 % (0-5); Neutrophil # 2.16 X10^3/uL (2.7-7.7); Neutrophil % 50.3 % (47-70); Platelet Count 115 K/mm3 (150-450); RBC Distribution Width CV 15.4 % (11.6-14.6); RBC Distribution Width SD 50.7 fl (35.1-43.9); Red Blood Count 4.62 M/mm3 (4.2-5.4); White Blood Count 4.3 K/mm3 (4.4-11.0)
[2022-05-01 12:51] LABS: International Normalized Ratio 1.2; Prothrombin Time (Protime)PT. 14.6 SECONDS (11.7-14.9)
[2022-05-01 13:26] LABS: ALB/GLOB Ratio 0.7 RATIO (0.9-2.4); AST(SGOT) 35 U/L (15-37); Alanine Aminotransfer ALT/SGPT 28 U/L (13-56); Albumin, Serum 3.4 g/dL (3.2-5.0); Alkaline Phosphatase 98 U/L (45-117); Anion Gap 6 (5-15); BUN 15 mg/dL (7-18); BUN/Creat Ratio 19.6 RATIO (10-20); Calcium,Total 9.5 mg/dL (8.5-10.1); Chloride 108 mmol/L (98-107); Creatinine, Serum 0.77 mg/dL (0.55-1.02); EST Glomerular Filtration Rate 79 mL/min (>60); Est Glom Filt Rate - Afr Amer 95 mL/min (>60); Globulin 4.7 g/dL (2.2-4.2); Glucose 123 mg/dL (74-106); Potassium 4.3 mmol/L (3.5-5.1); Protein, Total 8.1 g/dL (6.4-8.2); Sodium Level 139 mmol/L (136-145)
== END | disposition home or self-care (01) ==
LOC: LAB 12:12
PROVIDERS: PCP Internal Medicine; Visit Provider Nurse Practitioner Adult Health
DX: U07.1 COVID-19 (principal); K74.60 Unspecified cirrhosis of liver; K92.2 Gastrointestinal hemorrhage, unspecified
CPT/HCPCS: 36415; 80053; 82140; 85025; 85610

== ENCOUNTER → 2022-07-30 | Outpatient (CLI) | payer MEDICARE, SELFPAY ==
[2022-07-30 11:58] LABS: Absolute Neutrophil Count 2.3 X10^3/uL (2.0-7.7); Basophil# 0.04 X10^3/uL; Basophil% 0.8 % (0-1); Eosinophil# 0.21 X10^3/uL; Eosinophils% 4.1 % (0-5); Hematocrit 41.6 % (37-47); Hemoglobin 13.6 g/dL (12.0-15.0); Lymphocyte % 36.8 % (19-41); Mean Corp Hgb Conc 32.7 g/dL (32-36); Mean Corpuscular Hgb 29.8 pg (27.0-32.0); Mean Platelet Vol. 10.2 fl (6.2-12.0); Monocyte# 0.68 X10^3/uL; Monocyte% 13.2 % (0-10); NRBC Flagged by Analyzer 0 % (0-5); Neutrophil # 2.33 X10^3/uL (2.7-7.7); Neutrophil % 44.9 % (47-70); Platelet Count 120 K/mm3 (150-450); RBC Distribution Width CV 14.3 % (11.6-14.6); RBC Distribution Width SD 47.9 fl (35.1-43.9); Red Blood Count 4.57 M/mm3 (4.2-5.4); White Blood Count 5.2 K/mm3 (4.4-11.0)
[2022-07-30 12:05] LABS: International Normalized Ratio 1.1; Prothrombin Time (Protime)PT. 13.9 SECONDS (11.7-14.9)
[2022-07-30 12:36] LABS: ALB/GLOB Ratio 0.8 RATIO (0.9-2.4); AST(SGOT) 46 U/L (15-37); Alanine Aminotransfer ALT/SGPT 36 U/L (13-56); Albumin, Serum 3.3 g/dL (3.2-5.0); Alkaline Phosphatase 102 U/L (45-117); Anion Gap 3 (5-15); BUN 19 mg/dL (7-18); BUN/Creat Ratio 22.7 RATIO (10-20); Calcium,Total 9.7 mg/dL (8.5-10.1); Chloride 108 mmol/L (98-107); Creatinine, Serum 0.84 mg/dL (0.55-1.02); EST Glomerular Filtration Rate 71 mL/min (>60); Est Glom Filt Rate - Afr Amer 86 mL/min (>60); Globulin 4.4 g/dL (2.2-4.2); Glucose 65 mg/dL (74-106); Potassium 4.4 mmol/L (3.5-5.1); Protein, Total 7.7 g/dL (6.4-8.2); Sodium Level 137 mmol/L (136-145)
== END | disposition home or self-care (01) ==
LOC: LAB 11:37
PROVIDERS: PCP Internal Medicine; Referring Provider Nurse Practitioner Adult Health; Visit Provider Nurse Practitioner Adult Health
DX: K74.60 Unspecified cirrhosis of liver (principal); K92.2 Gastrointestinal hemorrhage, unspecified
CPT/HCPCS: 36415; 80053; 82140; 85025; 85610

== ENCOUNTER 2022-11-26 05:40 | Day surgery (SDC) | payer MEDICARE, SELFPAY ==
[2022-11-26] VITALS (7 sets, daily range): BP systolic 107–116; BP diastolic 59–72; PULSE 58–72; RESP 18; TEMP 36.4–37.1; O2SAT 93–99; BMI 39.2
[2022-11-26] MEDS: Lactated Ringers 1,000 ML 15 ML IV (06:51)
--- NOTE | 2022-11-26 07:00 | EGD_PTH ---
PATIENT: THU ESPANA LOC: EN U#:[id number] AGE/SX: 72/F ROOM: RE11/26/[address]: Dr. Casey Paul DO : 1950 BED: DIS: 11/26/2022 SPEC #: [id number] RECD: 11/26/22 08:29 STATUS: IBRAHIMA JAREN #: [id number] JEN: 11/26/22 07:[address]: Casey Paul DEPT: SURGICAL PATHOLOGY RECD BY: Gabriella Rivera ENTERED: 11/26/22 09:42 SP TYPE: EGD BIOPSY OT DR: Brianna Primary Care Phys Tissues: Gastric mucous membrane Procedures: Surgery Specimen Level IV HEADER OPERATION: EGD ([facility] [place]) PRE-OP DIAGNOSIS: Cirrhosis, cholelithiasis TISSUE SUBMITTED: Gastric ulcer biopsy MICROSCOPIC DIAGNOSIS Gastric ulcer, biopsy: Mild to moderate gastritis. See microscopic description and comment. SJ:oruqidea 11/27/2022 COMMENT The results of immunohistochemistry for Helicobacter pylori will be reported separately ([id number]). MICROSCOPIC DESCRIPTION Slides are reviewed. The specimen shows fragments of gastric mucosa with chronic inflammatory cell infiltrates in the lamina propria consisting of lymphocytes and plasma cells, consistent with mild to moderate chronic gastritis. GROSS DESCRIPTION Received in fixative is one container labeled with the patient's name and designated gastric ulcer. The specimen consists of multiple irregular fragments of light kendrick soft tissue that in aggregate measure 1.0 x 0.3 x 0.1 cm. The specimen is totally submitted in one cassette. / SJ:rg 11/26/2022 TC:3 CPT: 47901
--- NOTE | 2022-11-26 07:00 | IMM_PTH ---
PATIENT: THU ESPANA LOC: EN U#:[id number] AGE/SX: 72/F ROOM: RE11/26/[address]: Dr. Casey Paul DO : 1950 BED: DIS: 11/26/2022 SPEC #: [id number] RECD: 11/26/22 14:09 STATUS: IBRAHIMA JAREN #: [id number] JEN: 11/26/22 07:[address]: Casey Paul DEPT: IMMUNOHISTOCHEMISTRY RECD BY: Karlie Burrell ENTERED: 11/26/22 14:10 SP TYPE: IMMUNO OTHR DR: No Primary Care Phys Tissues: Stomach, NOS Procedures: H Pylori (initial) PHYSICIAN & INSTITUTION [place] [id number] SPECIMEN INFORMATION: Tissue Source: Gastric ulcer Clinical Info: Cirrhosis, cholelithiasis Specimen Number: [id number] CPT code: 33124 METHODOLOGY: Deparaffinized sections of prefer/formalin-fixed tissue or PAP/DQ stained slides are incubated with monoclonal/polyclonal antibodies/oligonucleotide probes. Localization is made via biotin free immunoperoxidase method. Appropriate controls are performed and reacted as expected. Results on target cell population are indicated in the following table: RESULTS: ANTIBODY / CLONE RESULT H Pylori (polyclonal) negative These tests were developed and their performance characteristics determined by [facility]. They may not have been cleared or approved by the U.S. Food and Drug Administration. The FDA has determined that such clearance or approval is not necessary. The above immunohistochemical/dualISH markers are ordered and reviewed by the Pathologist. INTERPRETATION: Gastric ulcer, biopsy: Negative for Helicobacter pylori organisms. ZULLY:orquidea 11/27/2022
--- NOTE | 2022-11-26 07:08 | PCM.HP.BLA ---
History and Physical Date of Admission: 11/26/22 72 F who presents to the office today for 3 month f/u cirrhosis with esophageal varices, gastric varices, and portal hypertensive gastropathy. Per Dr Paul's recommendation we referred her to for possible cryotherapy of gastric varices; however, Dr Erwin Parra at reviewed her case, and because her gastric varices are small and not bleeding, he recommends no endoscopic treatment, rather treat with nonselective beta juan m for primary prophylaxis. She is on a selective beta-juan m, metoprolol. She is on PPI. She reports she is feeling quite well. She does occasionally get a postprandial epigastric pain. No nausea or vomiting. No heartburn or acid reflux. No dysphagia. She is taking lactulose once daily, reports good BMs 1-2x per day. No melena or hematochezia. She is taking furosemide and spironolactone. She is on metoprolol, typically takes it once a day rather than twice a day as she says it is ordered. She reports she is exercising, riding bike, watching food intake. Lots of stress related to extended family members who live with her. CBD gummies help with her energy level, and help a lot with pain and stiffness. No jaundice. Pruritus from allergens in the past, none currently. No daytime sleepiness, no insomnia. No confusion or forgetfulness. No bleeding. Doesn't drink any alcohol. Takes acetaminophen daily for OA, max 2000 mg daily. 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 MELD-Na scores: 7 in 12/2021 8 in 02/2022 8 in 04/2022 ROS Const Constitutional: No fatigue, fever(s), frequent falls, headache(s) or weight change ENT ENT: No headache(s) or difficulty swallowing Cardio Cardiology: Positive for leg pain with exertion Gastro GI: Positive for abdominal pain and bloating; No change in bowel habits, constipation, diarrhea, heartburn, difficulty swallowing, Vomiting blood/hematemesis, Blood in stool, nausea/dyspepsia or vomiting Musc Musculoskeletal: Positive for joint pain, back pain, joint swelling, muscle cramps, stiffness, Arthritis, sciatica, restless legs, leg pain at night and leg pain with exertion; No abnormal gait, muscle weakness, numbness or tingling Skin Skin: Positive for dry skin and itchy eyes; No lesions or rash Neuro Neurology: Positive for restless legs; No abnormal gait, dizziness, frequent falls, headache(s), numbness, tingling, tremor(s), Increased tone in limbs, paralysis or seizures Psych Psychiatric: Positive for anxiety, Positive for depression, No paranoia, No Behavioral Problems, No Compulsive Behavior, No hyperactivity, No inattentiveness, No obsessions/compulsions, No Temper Tantrums and No suicidal ideation Endo Endocrine: No fatigue or weight change Aller/Imm Allergy/Immunologic: Positive for itchy eyes Carmelo/Lymp Hematologic/Lymphatic: No easy bleeding or easy bruising Exam Const General: cooperative, comfortable and no acute distress Nutritional Appearance: obese Orientation: alert, awake and oriented x3 HENMT Head: normal to inspection Eyes Sclera: sclerae normal Resp Effort & Inspection: normal respiratory effort GI Inspection: normal to inspection Palpation: soft, no hepatosplenomegaly, no masses and nontender Skin General: no jaundice Extrem General: no pedal edema Psych Mood: euthymic mood Quality Reporting Tobacco Screening ([facility] 138) Smoking Status: Never smoker Assessment and Plan Assessment and Plan (1) Cirrhosis: Status: Chronic Plan: Update labs today to calculate MELD. She is stable, without complaints today. No change in medications. We will schedule her for repeat EGD to reevaluate varices, and follow-up with Dr. Paul. (2) Cholelithiasis: Status: Acute Plan: Will get general surgery input because of gallstones on imaging and intermittent postprandial right upper quadrant/epigastric pain Orders: Orders Comprehensive Metabolic Profil 07/30/22 K74.60 - Unspecified cirrhosis of liver Prothrombin Time w/INR 07/30/22 K74.60 - Unspecified cirrhosis of liver, K92.2 - Gastrointestinal hemorrhage, unspecified CBC W/Diff, Automated 07/30/22 K74.60 - Unspecified cirrhosis of liver, K92.2 - Gastrointestinal hemorrhage, unspecified Ammonia 07/30/22 K74.60 - Unspecified cirrhosis of liver Referrals General Surgery K80.20 - Calculus of gallbladder without cholecystitis without obstruction I have examined the patient and the H&P has been reviewed. There are no clinical changes since date of exam.
[2022-11-26 07:17] LABS: Bedside Glucose 105 mg/dL (74-106)
--- NOTE | 2022-11-26 07:34 | OP.EGD_ITS ---
Patient Name: Annalee Keane Procedure Date: 11/26/2022 7:15 AM Date of : 1950 Age: 72 Procedure: Upper GI endoscopy Indications: Follow-up of esophageal varices with bleeding Providers: Casey Paul DO Referring MD: Doreen Finn Medicines: Monitored Anesthesia Care Patient Profile: This is a 72 year old female. Refer to note in patient chart for documentation of history and physical. Patient has symptoms of chronic nausea. Complications: No immediate complications. Procedure: Pre-Anesthesia Assessment: - Prior to the procedure, a History and Physical was performed, and patient medications and allergies were reviewed. The patient is competent. The risks and benefits of the procedure and the sedation options and risks were discussed with the patient. All questions were answered and informed consent was obtained. Patient identification and proposed procedure were verified by the physician. Mental Status Examination: normal. CV Examination: normal. Prophylactic Antibiotics: The patient does not require prophylactic antibiotics. Prior Anticoagulants: The patient has taken no previous anticoagulant or antiplatelet agents. ASA Grade Assessment: II - A patient with mild systemic disease. After reviewing the risks and benefits, the patient was deemed in satisfactory condition to undergo the procedure. The anesthesia plan was to use monitored anesthesia care (MAC). Immediately prior to administration of medications, the patient was re-assessed for adequacy to receive sedatives. The heart rate, respiratory rate, oxygen saturations, blood pressure, adequacy of pulmonary ventilation, and response to care were monitored throughout the procedure. The physical status of the patient was re-assessed after the procedure. After obtaining informed consent, the endoscope was passed under direct vision. Throughout the procedure, the patient's blood pressure, pulse, and oxygen saturations were monitored continuously. The gastroscope was introduced through the mouth, and advanced to the second part of duodenum. The upper GI endoscopy was accomplished without difficulty. The patient tolerated the procedure well. Scope In: 7:22:49 AM Scope Out: 7:24:49 AM Total Procedure Duration Time 0 hours 2 minutes 0 seconds Findings: Non-severe esophagitis with no bleeding was found 37 to 39 cm from the incisors. Type 1 isolated gastric varices (IGV1, varices located in the fundus) with no bleeding were found in the cardia. There were no stigmata of recent bleeding. They were 5 mm in largest diameter. Two non-bleeding cratered gastric ulcers with no stigmata of bleeding were found in the gastric antrum. The largest lesion was 5 mm in largest dimension. Biopsies were taken with a cold forceps for histology. Verification of patient identification for the specimen was done. Estimated blood loss was minimal. Food (residue) was found in the duodenal bulb. Impression: - Non-severe reflux esophagitis. - Type 1 isolated gastric varices (IGV1, varices located in the fundus), without bleeding. - Non-bleeding gastric ulcers with no stigmata of bleeding. Biopsied. - Retained food in the duodenum. Recommendation: - Discharge patient to home. - Resume previous diet. - Continue present medications. - Await pathology results. - Use Protonix (pantoprazole) 20 mg PO BID. Procedure Code(s): --- Professional --- 60423, Esophagogastroduodenoscopy, flexible, transoral; with biopsy, single or multiple CPT copyright 2017 [employer]. All rights reserved. The codes documented in this report are preliminary and upon director multimedia review may be revised to meet current compliance requirements. Casey Paul DO 11/26/2022 7:33:54 AM This report has been signed electronically. Number of Addenda: 0 Note Initiated On: 11/26/2022 7:15 AM
--- NOTE | 2022-11-26 07:35 | OP.CCLET_ITS ---
11/26/2022 Doreen Finn [id number] [id number] Re : Upper GI endoscopy procedure for Annalee Lakhwinder Dear Dr. Finn This procedure was performed on Saturday, November 26, 2022. My impressions and recommendations are as follows: Impressions : - Non-severe reflux esophagitis. - Type 1 isolated gastric varices (IGV1, varices located in the fundus), without bleeding. - Non-bleeding gastric ulcers with no stigmata of bleeding. Biopsied. - Retained food in the duodenum. Recommendations : - Discharge patient to home. - Resume previous diet. - Continue present medications. - Await pathology results. - Use Protonix (pantoprazole) 20 mg PO BID. My findings are described in the full procedure note, which is enclosed. If I can be of further assistance, please feel free to contact me at . Sincerely, Casey Friend, DO 11/26/2022 7:33:54 AM This report has been signed electronically.
== END 2022-11-26 08:25 | disposition home or self-care (01) ==
LOC: EN 05:41 → AC 05:43
PROVIDERS: Visit Provider Internal Medicine Gastroenterology
PROC: 0DJ08ZZ Inspection of Upper Intestinal Tract, Via Natural or Artificial Opening Endoscopic (ICD-10-PCS; CPT 43235; principal; 2022-11-26 06:55)
DX: K25.9 Gastric ulcer, unspecified as acute or chronic, without hemorrhage or perforation (principal); I85.00 Esophageal varices without bleeding; K74.60 Unspecified cirrhosis of liver; K21.00 Gastro-esophageal reflux disease with esophagitis, without bleeding; K92.2 Gastrointestinal hemorrhage, unspecified; K80.20 Calculus of gallbladder without cholecystitis without obstruction; K29.70 Gastritis, unspecified, without bleeding
CPT/HCPCS: 43239; 82962; 88305; 88342; J7120; J2405

== ENCOUNTER → 2022-12-11 | Outpatient (CLI) | payer MEDICARE, SELFPAY ==
[2022-12-11 09:54] LABS: Absolute Lymphocyte Count 1.31 X10^3/uL (0.83-4.51); Absolute Neutrophil Count 1.9 X10^3/uL (2.0-7.7); Basophil# 0.03 X10^3/uL; Basophil% 0.8 % (0-1); Eosinophil# 0.16 X10^3/uL; Eosinophils% 4.1 % (0-5); Hematocrit 41.1 % (37-47); Hemoglobin 13.2 g/dL (12.0-15.0); Lymphocyte # 1.31 X10^3/ul (0.83-4.51); Lymphocyte % 33.7 % (19-41); Mean Corp Hgb Conc 32.1 g/dL (32-36); Mean Corpuscular Hgb 29.3 pg (27.0-32.0); Mean Corpuscular Volume 91.1 fL (81-99); Mean Platelet Vol. 10.6 fl (6.2-12.0); Monocyte# 0.46 X10^3/uL; Monocyte% 11.8 % (0-10); NRBC Flagged by Analyzer 0 % (0-5); Neutrophil # 1.92 X10^3/uL (2.7-7.7); Neutrophil % 49.3 % (47-70); Platelet Count 107 K/mm3 (150-450); RBC Distribution Width CV 13.9 % (11.6-14.6); RBC Distribution Width SD 46.9 fl (35.1-43.9); Red Blood Count 4.51 M/mm3 (4.2-5.4); White Blood Count 3.9 K/mm3 (4.4-11.0)
[2022-12-11 09:59] LABS: International Normalized Ratio 1.1; Prothrombin Time (Protime)PT. 13.9 SECONDS (11.7-14.9)
[2022-12-12 04:07] LABS: AFP, Tumor Marker < 1.8 ng/mL (0.0-9.2)
== END | disposition home or self-care (01) ==
LOC: LAB 09:27
PROVIDERS: Referring Provider Internal Medicine Gastroenterology; Visit Provider Internal Medicine Gastroenterology
DX: K92.2 Gastrointestinal hemorrhage, unspecified (principal); K74.60 Unspecified cirrhosis of liver; R93.2 Abnormal findings on diagnostic imaging of liver and biliary tract
CPT/HCPCS: 36415; 82105; 82140; 85025; 85610

== ENCOUNTER 2023-05-18 00:56 | Emergency (ER) | payer MEDICARE, SELFPAY ==
[2023-05-18 01:00] VITALS: BP 148/70; PULSE 66; RESP 18; TEMP 36.3; O2SAT 100; BMI 37.7
--- NOTE | 2023-05-18 01:27 | RAD_ITS ---
EXAM: XR CHEST, 1 VIEW CLINICAL INDICATION: chest pain TECHNIQUE: Frontal view of the chest. COMPARISON: 02/07/2021. FINDINGS: LUNGS AND PLEURAL SPACES: Unremarkable. No consolidation or edema. No pneumothorax. No effusion. HEART: Unremarkable. Cardiac silhouette not enlarged. MEDIASTINUM: Central airways and mediastinal contour are unremarkable. BONES/JOINTS: Unremarkable. No acute fracture. SOFT TISSUES: Unremarkable. RAD/Chest 1 View (Portable) IMPRESSION: No acute cardiopulmonary abnormality. Electronically Signed: Andrew Messer MD at 2:32 EST ,
--- NOTE | 2023-05-18 01:27 | EKG12_ITS ---
Test Reason : DYSRHYTHMIA Blood Pressure : / mmHG Vent. Rate : 070 BPM Atrial Rate : 070 BPM P-R Int : 118 ms QRS Dur : 086 ms QT Int : 436 ms P-R-T Axes : 011 083 055 degrees QTc Int : 470 ms Normal sinus rhythm Low voltage QRS Borderline ECG Confirmed by GILBERT MAR, VERITO ([id number]), commercial production editor JOHN MCKENZIE ([id number]) on 05/20/2023 9:20:38 AM Referred By: LINDSAY Confirmed By:VERITO HUNT MD
--- NOTE | 2023-05-18 01:28 | EX.ED.DYSGE1 ---
HPI History of Present Illness Chief Complaint: Chest Pain Detail of Chief Complaint: Chest pain and leg cramping Informant: patient Narrative Narrative: Patient presents to the emergency department with an episode of leg cramping that started this morning. Patient also developed some chest discomfort. She had taken 2 nitro and called the squad. Currently pain-free. Patient states that she was sitting watching TV when she started having cramping in her left leg that then also cause discomfort into her right leg. She then developed discomfort into her left arm and her hand began to curl in. She felt short of breath and developed chest discomfort. She started breathing fast. Currently she has no chest discomfort. She does have history of A-fib. She is not anticoagulated. Per son she does have history of stress. [facility] Medical History Ambulates with cane Anemia Arthritis Asthma Atrial fibrillation Cardiology follow-up encounter Chest pain Chronic pain Congestive heart failure (CHF) COVID-19 CPAP (continuous positive airway pressure) dependence Diabetes Diabetes mellitus type II, uncontrolled Fatty liver Gastric varices Gout History of blood transfusion History of echocardiogram History of edema History of GI bleed History of hiatal hernia History of incarcercerate ventral hernia History of rheumatic fever Hypertension Injury of head and neck Irregular heart beat Leg cramps Marijuana use Migraines Non-smoker Polio Restless legs Shortness of breath on exertion Urinary incontinence Wears dentures Wears glasses Home Medications rosuvastatin 10 mg tablet 10 mg PO DAILY 11/23/20 [History Last Taken 11/25/22] metoprolol tartrate 50 mg tablet 50 mg PO DAILY 12/08/21 [History Last Taken 11/25/22] loratadine 10 mg tablet 10 mg PO DAILY 02/15/22 [History Last Taken 11/25/22] spironolactone 25 mg tablet 25 mg PO DAILY 02/15/22 [History Last Taken 11/25/22] losartan 25 mg tablet 25 mg PO DAILY 04/13/22 [History Last Taken 11/25/22] sucralfate 1 gram tablet 1 g PO QACHS #56 tabs 08/30/22 [Rx Last Taken 11/25/22] CBD 1 tab PO BID 11/23/22 [History Last Taken 11/25/22] pantoprazole 20 mg tablet,delayed release 20 mg PO Q12H #60 tabs 11/26/22 [Rx Last Taken Unknown] lorazepam 1 mg tablet (Ativan) 1 mg PO TID PRN anxiety #10 tabs 05/18/23 [Rx Last Taken Unknown] Allergy/AdvReac Type Severity Reaction Status Date / Time Bleach (Sodium Hypochlorite) Allergy Other Verified 05/18/23 01:12 cat dander Allergy Itching Verified 05/18/23 01:12 coconut Allergy Anaphylaxis Verified 05/18/23 01:12 dog dander Allergy Itching Verified 05/18/23 01:12 Sulfa (Sulfonamide AdvReac Rash Verified 05/18/23 01:12 Antibiotics) Family History Father CAD (coronary artery disease) Cancer Diabetes Mother Cancer Diabetes CAD (coronary artery disease) Surgical History H/O carpal tunnel repair H/O ventral hernia repair H/O: hysterectomy History of appendectomy History of bunionectomy of right great toe History of esophagogastroduodenoscopy (EGD) History of partial hysterectomy Social History household members: spouse Smoking Status: Never smoker alcohol intake: never substance use type: does not use ROS ROS ED Review of Systems ROS Unobtainable: other Constitutional Constitutional ED: Reports lethargy; Denies chills, fever(s), sweats or weight loss Eyes Eyes: Denies blurry vision, change in vision or diplopia ENT ENT ED: Denies rhinorrhea or sore throat Cardiovascular Cardiovascular: Reports chest pain and racing heartbeat; Denies orthopnea Respiratory/Chest Respiratory/Chest: Reports dyspnea; Denies cough, dyspnea on exertion, orthopnea or sputum Gastrointestinal Gastrointestinal: Denies abdominal pain, diarrhea, nausea or vomiting Genitourinary Genitourinary ED: Denies dysuria, hematuria or urinary frequency Musculoskeletal Musculoskeletal: Reports other Details: Arm and leg cramping and shaking ; Denies arthralgias, back pain, myalgias or neck pain Integumentary Denies abscess, Abrasions or rash Neurologic Neurologic: Denies headache(s) or weakness Psychiatric Psychiatric: Denies anxiety, depression or suicidal thoughts Endocrine Endocrinology: Denies polydipsia, polyphagia or polyuria Hematologic/Lymphatic Hematologic/Lymphatic: Denies easy bleeding, easy bruising or lymphadenopathy Allergic/Immunologic Allergic/Immunologic ED: Denies mouth swelling, tongue swelling or urticaria EXAM Physical Exam Const Vital Signs: 05/18/23 01:00 05/18/23 01:00 05/18/23 02:00 Temperature 97.3 F L Temperature Source Temporal Pulse Rate 66 75 Respiratory Rate 18 18 Respiratory Effort Normal Non-Labored Blood Pressure 148/70 H 122/69 H Blood Pressure Mean 96 86 Pulse Ox 100 99 Oxygen Delivery Method Room Air Room Air 05/18/23 03:00 05/18/23 05:07 Temperature 18 F L Temperature Source Pulse Rate 71 72 Respiratory Rate 16 18 Respiratory Effort Blood Pressure 117/52 L 109/51 L Blood Pressure Mean 73 70 Pulse Ox 98 94 Oxygen Delivery Method Room Air Positive well nourished and well developed General Appearance ED: well developed and NAD HEENT Reports TM's clear and moist mucous membranes normocephalic and atraumatic; Negative for trauma or tenderness Tympanic Membrane ED: Yes TM's clear Eyes PERRL and EOMs intact bilaterally General Eye ED: Negative for pale conjunctiva or scleral icterus Neck no lymphadenopathy, supple and no JVD General: Negative for tenderness Chest Wall inspection of chest normal and palpation of chest normal Chest: Negative for tenderness Resp normal respiratory effort and clear to auscultation bilaterally Effort and Inspection: Negative for respiratory distress or pain with movement Auscultation: Negative for rhonchi, wheezes or diminished lung sounds Cardio regular rate, regular rhythm, S1 normal heart sound, S2 normal heart sound and no murmurs Peripheral Pulses: pulses 2+ throughout GI normal to inspection, nondistended, normoactive bowel sounds, soft to palpation, non-tender, non-distended and no masses Back/Spine no CVA tenderness and no thoracic nor lumbar tenderness Extremity normal to inspection General Extremety ED: Negative for edema General Extremity: Negative for edema Neuro oriented x3, CN's II-XII intact bilaterally, no sensory deficits noted and gait normal Sensorium / Orientation: awake, alert, oriented to person, oriented to place and oriented to time Motor Exam: strength 5/5 throughout and strength abnormal Psych mental status grossly normal Psych Narrative: Pressured speech Skin no rashes or lesions noted and no wounds MDM MDM MDM Narrative Medical decision making narrative: [place] with complaint of chest pain after having cramping in her legs and then paresthesias all over and feeling shaky. Clinically suspect anxiety. Given her age and medical comorbidities we will obtain cardiac rule out. Patient was given a milligram of Ativan. She felt symptomatically significantly improved after treatment. CBC with differential obtained showed a white count of 4.2 with hemoglobin 13.7 and platelet count of 103. Chemistries unremarkable. For troponin was normal at 8. Delta troponin normal at 8. EKG obtained arrival shows sinus rhythm with a ventricular rate of 70 bpm with no acute ST segment changes. 1 view chest x-ray unremarkable. This point patient will be discharged to home. Suspect component of anxiety. Advised to follow-up with her primary care physician within next 5 to 7 days. Patient given a prescription for as needed Ativan. Lab Data Attestation: I reviewed the patient's lab results. Labs: Laboratory Results - last 24 hr 05/18/23 05/18/23 01:45 04:00 WBC 4.2 L RBC 4.60 Hgb 13.7 Hct 41.5 MCV 90.2 MCH 29.8 MCHC 33.0 RDW Std Deviation 47.2 H RDW Coeff of Anika 14.3 Plt Count 103 L MPV 10.2 Immature Gran % (Auto) 0.200 Neut % (Auto) 54.0 Lymph % (Auto) 28.8 Lamar % (Auto) 14.4 H Eos % (Auto) 1.9 Baso % (Auto) 0.7 Absolute Neuts (auto) 2.3 Absolute Lymphs (auto) 1.22 Nucleated RBC % 0 Sodium 139 Potassium 4.0 Chloride 107 Carbon Dioxide 27.0 Anion Gap 5 BUN 21 H Creatinine 1.22 H Estim Creat Clear Calc 45.41 Est GFR (MDRD) Af Amer 55 L Est GFR (MDRD) Non-Af 46 L BUN/Creatinine Ratio 17.2 Glucose 142 H Calcium 9.4 Troponin I High Sens 8 8 Radiography Diagnostic Testing: Clinical Impression(s) from Imaging Studies Chest X-Ray 05/18/23 01:27 IMPRESSION: No acute cardiopulmonary abnormality. Electronically Signed: Andrew Messer MD at 2:32 EST , Chest x-ray obtained interpreted by myself as no evidence of infiltrate or acute disease process. Radiology in agreement. EKG Initial EKG: Attestation: I personally reviewed and interpreted this EKG as follows: Comments: Sinus rhythm with a ventricular rate of 70 bpm with no acute ST segment changes Discharge Plan Triage Chief Complaint: Chest Pain ED Provider: Kyle Lazo Dx/Rx/DC Orders Clinical Impression: Anxiety, Chest pain Instructions: ED Anxiety Reaction, ED Chest Pain, Uncertain Cause Prescriptions: New lorazepam [Ativan] 1 mg tablet 1 mg PO TID PRN (Reason: anxiety) Qty: 10 0RF No Action spironolactone 25 mg tablet 25 mg PO DAILY loratadine 10 mg tablet 10 mg PO DAILY sucralfate 1 gram tablet 1 g PO QACHS Qty: 56 0RF Rx Instructions: Take 1 hr before meals and at bedtime rosuvastatin 10 mg tablet 10 mg PO DAILY Patient Comments: TAKE 1 TABLET BY MOUTH ONCE DAILY metoprolol tartrate 50 mg tablet 50 mg PO DAILY losartan 25 mg tablet 25 mg PO DAILY Patient Comments: TAKE 1 TABLET BY MOUTH ONCE DAILY CBD 1 tab PO BID pantoprazole 20 mg tablet,delayed release (DR/EC) 20 mg PO Q12H Qty: 60 3RF Primary Care Provider: Doreen Finn Referrals: Care Physician,No Primary [Non-Staff] - 5-7 Days Disposition Disposition: Home, Self Care Discharge Date/Time: 05/18/23 05:08
--- OUTSIDE RECORDS SUMMARY | 2023-05-18 01:34 | XMS RPT_ITS | CCD ---
Author Name Unknown Address [address] [place] [address] Organization [facility] Care Team Providers Care Athletic Scout Name Role Phone ALYSSIA SUMNER Unavailable Unavailable ALYSSIA SUMNER Unavailable Unavailable Huma MAR, Doreen Primary Care Provider Doreen Pineda MD Primary Care Provider [phone] Huma MAR, Doreen Primary Care Provider RAYNA VALDERRAMA Admitting Unavaila ble RAYNA VALDERRAMA Attending Unavaila ble GANTA, DOREEN Primary Care Unavailable GANTA, DOREEN Primary Care Unavailable CHELSI, LELAND E Referring Unavailable CHELSI, LELAND E Attending Unavailable GANTA, DOREEN Primary Care Unavailable DENBOW, MOISE Referring Unavailable GANTA, DOREEN Primary Care Unavailable DENBOW, MOISE Referring Unavailable GANTA, DOREEN Primary Care Unavailable DENBOW, MOISE Attending Unavailable GANTA, DOREEN Attending Unavailable GANTA, DOREEN Primary Care Unavailable Allergies Allergy Classification Reported Allergen(s) Allergy Type Date of Onset Reaction(s) Facility (12 sources) Coconut extract; Translations: [COCONUT] Drug Allergy 0 Hives [facility] (12 sources) Hypochlorite; Translations: [BLEACH (SODIUM HYPOCHLORITE)] Drug Allergy 1 Other: See Comments [facility] (12 sources) Sulfonamides (Antibiotic); Translations: [SULFA (SULFONAMIDE ANTIBIOTICS)] Drug Allergy 2 Rash [facility] Medications Current Medications Medication Drug Class(es) Dates Sig (Normalized) Sig (Original) apixaban 5 mg oral tablet (20 sources) Factor Xa Inhibitor Start: 09-11-2021 End: 10-30-2022 take 1 tablet by mouth twice daily apixaban (ELIQUIS) 5 mg tab(s) Take 1 tablet by mouth twice daily. 180 tablet 3 10/30/2021 10/30/2022 Active Completed/Discontinued Medications Medication Drug Class(es) Dates Sig (Normalized) Sig (Original) ascorbic acid 100 mg oral tablet (10 sources) Vitamin C take 1 tablet by yamilka th once daily in the morning Ascorbic Acid (VITAMIN C) 100 mg tablet Take 100 mg by mouth every morning. 0 Active Problems Active Problems Problem Classification Problem Date Documented Date Episodic/Chronic Acquired foot deformities (1 source) Hallux valgus (acquired), right foot; Translations: [Hallux valgus of right foot] Onset: 08-07-2022 Chronic Cardiac dysrhythmias (20 sources) Paroxysmal atrial fibrillation; Translations: [Paroxysmal atrial fibrillation] Onset: 05-01-2021 05-01-2021 Chronic Diabetes mellitus without complication (20 sources) Type 2 diabetes mellitus without complication; Translations: [Type 2 diabetes mellitus without complications] Onset: 08-20-2018 08-20-2018 Chronic Disorders of lipid metabolism (20 sources) Mixed hyperlipidemia; Translations: [Mixed hyperlipidemia] Onset: 05-01-2021 05-01-2021 Chronic Essential hypertension (20 sources) Essential hypertension; Translations: [Essential (primary) hypertension] Onset: 08-29-2019 08-29-2019 Chronic Nonspecific chest pain (2 sources) Chest pain; Translations: [Chest pain, unspecified] Onset: 01-14-2023 01-14-2023 Episodic Nutritional deficiencies (20 sources) Vitamin D deficiency; Translations: [Vitamin D deficiency, unspecified] Onset: 08-29-2019 08-29-2019 Chronic Osteoarthritis (20 sources) Arthritis; Translations: [Unspecified osteoarthritis, unspecified site] Onset: 08-20-2018 08-20-2018 Chronic Other connective tissue disease (1 source) Pain in right foot; Translations: [Pain in right foot] Onset: 08-07-2022 Episodic Other lower respiratory disease (1 source) Dyspnea on exertion; Translations: [Other forms of dyspnea] 01-14-2023 Episodic Other lower respiratory disease (1 source) Other forms of dyspnea; Translations: [Dyspnea on exertion] Onset: 01-17-2023 Episodic Other nutritional; endocrine; and metabolic disorders (20 sources) Morbid obesity; Translations: [Morbid (severe) obesity due to excess calories] Onset: 08-20-2018 08-20-2018 Chronic Other nutritional; endocrine; and metabolic disorders (1 source) Body mass index 30+ - obesity; Translations: [Obesity, unspecified] Chronic Other screening for suspected conditions (not mental disorders or infectious disease) (2 sources) Patient encounter status; Translations: [Encounter for screening for cardiovascular disorders] Episodic Residual codes; unclassified (20 sources) Obstructive sleep apnea syndrome; Translations: [Obstructive sleep apnea (adult) (pediatric)] Onset: 2019 12-21-2019 Chronic Past or Other Problems Problem Classification Problem Date Documented Da te Episodic/Chronic Abdominal hernia (20 sources) Irreducible incisional hernia; Translations: [Incisional hernia with obstruction, without gangrene] Onset: 09-07-2009 09-07-2009 Episodic Cardiac dysrhythmias (20 sources) Palpitations; Translations: [Palpitations] Onset: 05-01-2021 05-01-2021 Episodic Gastrointestinal hemorrhage (20 sources) Acute gastric ulcer with hemorrhage; Translations: [Acute gastric ulcer with hemorrhage] Onset: 10-27-2015 10-27-2015 Episodic Immunizations and screening for infectious disease (20 sources) Raised Helicobacter pylori antibody; Translations: [Other specified abnormal immunological findings in serum] Onset: 10-28-2015 10-28-2015 Episodic Residual codes; unclassified (20 sources) Edema; Translations: [Edema, unspecified] Onset: 08-29-2019 08-29-2019 Episodic Residual codes; unclassified (1 source) Edema, unspecified; Translations: [Edema, unspecified type] Onset: 08-29-2019 Episodic Results Test Name Value Interpretation Reference Range Facil ity Vital Signs Date Time Vital Sign Value Performing Clinician Ben reyes 01-14-2023 16:40-0400 Body temperature 97.81 [degF] Moise Waller PA-C Work Phone: [facility] 01-14-2023 16:40-0400 Body weight 97.07 kg Moise Waller PA-C Work Phone: [facility] 01-14-2023 16:40-0400 Diastolic blood pressure 70 mm[Hg] Moise Waller PA-C Work Phone: [facility] 01-14-2023 16:40-0400 Heart rate 64 /min Moise Denbow PA-C Work Phone: [facility] 01-14-2023 16:40-0400 Respiratory rate 16 /min Moise Denbow PA-C Work Phone: [facility] 01-14-2023 16:40-0400 SaO2% (BldA) [Mass fraction] 98 % Moise Denbow PA-C Work Phone: [facility] 01-14-2023 16:40-0400 Systolic blood pressure 124 mm[Hg] Moise Denbow PA-C Work Phone: [facility] 03-19-2022 15:01-0500 Body weight 100.7 kg Leland Chelsi DIAGNOSTIC SALES SPECIALIST.TECHNOLOGY ASSISTANT Work Phone: [facility] 03-19-2022 15:01-0500 Diastolic blood pressure 60 mm[Hg] Leland Chelsi DIAGNOSTIC SALES SPECIALIST.TECHNOLOGY ASSISTANT Work Phone: [facility] 03-19-2022 15:01-0500 Heart rate 80 /min Leland Chelsi DIAGNOSTIC SALES SPECIALIST.TECHNOLOGY ASSISTANT Work Phone: [facility] 03-19-2022 15:01-0500 Systolic blood pressure 128 mm[Hg] Leland Chelsi DIAGNOSTIC SALES SPECIALIST.TECHNOLOGY ASSISTANT Work Phone: [facility] 10-30-2021 15:28-0400 Body height 160 cm Leland Chelsi DIAGNOSTIC SALES SPECIALIST.TECHNOLOGY ASSISTANT Work Phone: [facility] 10-30-2021 15:28-0400 Body weight 106.59 kg Leland Chelsi DIAGNOSTIC SALES SPECIALIST.TECHNOLOGY ASSISTANT Work Phone: [facility] 10-30-2021 15:28-0400 Diastolic blood pressure 92 mm[Hg] Leland Chelsi DIAGNOSTIC SALES SPECIALIST.TECHNOLOGY ASSISTANT Work Phone: [facility] 10-30-2021 15:28-0400 Heart rate 72 /min Leland Chelsi DIAGNOSTIC SALES SPECIALIST.TECHNOLOGY ASSISTANT Work Phone: [facility] 10-30-2021 15:28-0400 Respiratory rate 14 /min Leland Gagnon APRN.CNP Work Phone: [facility] 10-30-2021 15:28-0400 SaO2% (BldA) [Mass fraction] 97 % Leland Gagnon APRN.CNP Work Phone: [facility] 10-30-2021 15:28-0400 Systolic blood pressure 118 mm[Hg] Leland Gagnon APRN.CNP Work Phone: [facility] Encounters Encounter Date Encounter Type Care Provider Facility Start: 01-17-2023 End: 01-18-2023 ambulatory [facility] Facility:[facility] Start: 01-15-2023 Telephone encounter Moise Moreno PA-C Work Phone: Internal Medicine [place] Procedures Date Procedure Procedure Detail Performing Clinician Start: 12-13-2021 End: 12-13-2021 Screening mammography bi 2-view breast inc cad Bulk Order Provider Start: 09-01-2018 Mammography Leland bejarano APRN.CNP Work Phone: Start: 08-20-2018 Adult depression scr eening assessment Leland Gagnon APRN.CNP Work Phone: Start: 11-08-2015 Colonoscopy Leland bejarano APRN.CNP Work Phone: Plan of Treatment Date Care Activity Detail Author Start: 11-07-2025 Colonoscopy COLONOSCOPY [facility] Start: 11-07-2025 COLORECTAL CANCER SCREENING COLORECTAL CANCER SCREENING [facility] Start: 01-15-2024 Annual PCP Team Sign Fabricator judith Disease Visit Annual PCP Team Chronic Disease Visit [facility] Start: 01-15-2024 BP Controlled (<130/80) BP Controlle d (<130/80) [facility] Start: 05-16-2023 ANNUAL PCP TEAM CONTRACT ADMIN JUDITH DISEASE VISIT ANNUAL PCP TEAM CHRONIC DISEASE VISIT [facility] Start: 05-16-2023 BP CONTROLLED (<130/80) BP CONTROLLE D (<130/80) [facility] Start: 03-19-2023 BP CONTROLLED (<130/80) BP CONTROLLE D (<130/80) [facility] Start: 01-14-2023 End: 03-16-2023 Basic metabolic 2000 panel - Serum or Plasma BASIC METABOLIC PNL Lab Routine Edema, unspecified type Dyspnea on exertion Expected: 01/14/2023, Expires: 03/16/2023 [facility] Work Phone: Immunizations Immunization Date Immunization Notes Care Provider Artis collins 03-08-2021 pneumococcal polysaccharide vaccine, 23 valent Leland Chelsi DIAGNOSTIC SALES SPECIALIST.TECHNOLOGY ASSISTANT Work Phone: [facility] Work Phone: 09-30-2018 pneumococcal conjuga te vaccine, 13 valent Leland Chelsi DIAGNOSTIC SALES SPECIALIST.TECHNOLOGY ASSISTANT Work Phone: [facility] NEGATED: Highlighted row has not occurred!03-08-2021 pneumococcal conjugate vaccine, 13 valent Leland Chelsi DIAGNOSTIC SALES SPECIALIST.TECHNOLOGY ASSISTANT Work Phone: [facility] Work Phone: Payers Date Payer Category Payer Unknown [id number] 2022 Unknown [id number] 2022 Medicare [id number] 2021 Medicare MEDICARE MEDICAR E A AND B [id number] 2021-Present [phone] [place] [address] Medicare [id number] 2021 Unknown ANTHEM BLUE CROS S AND BLUE SHIELD ANTHEM MEDIBLUE O [id number] 2021-Present [phone] [address] [place] [address] O [id number] 2021 Unknown [id number] 2021 Unknown [id number] 2017 Private Health Insurance [id number] Social History Date Type Detail Facility Start: 08-20-2018 End: 03-19-2022 Tobacco smoking status NHIS Never smoked tobacco [facility] Start: 05-01-2021 End: 01-14-2023 Alcohol intake Current drinker of alcohol (finding) [facility] Start: 08-29-2019 History SDOH Alcohol Frequency 2 [facility] Start: 08-29-2019 History SDOH Alcohol Std Drinks 1 [facility] Start: 08-20-2018 History SDOH Alcohol Comment Once yearly [facility] Start: 08-29-2019 History SDOH Social Connections Phone 5 [facility] Start: 08-29-2019 History SDOH Social Connections Yazidi 3 [facility] Start: 08-29-2019 History SDOH Financial 4 [facility] Start: 08-29-2019 Education 12 [facility] Start: 1950 Sex Assigned At Not on file C [facility] Start: 10-20-2021 End: 12-13-2021 Exposure to SARS-CoV-2 (event) Not sure [facility] Start: 08-20-2018 End: 03-19-2022 Tobacco use and exposure Smokeless tobacco non-user [facility] Work Phone: Start: 08-29-2019 End: 05-21-2022 History of Social function [facility] Start: 08-29-2019 End: 05-21-2022 Social connection and isolation panel [facility] Do you belong to any clubs or organizations such as sabianist groups, unions, fraternal or athletic groups, or school groups? No [facility] Are you now , , , , never or living with a partner? [facility] How often to you hav e a drink containing alcohol? Monthly or less [facility] How many standard dr inks containing alcohol do you have on a typical day? 1 or 2 [facility] How often do you hav e 6 or more drinks on 1 occasion? Never [facility] How hard is it for y ou to pay for the very basics like food, housing, medical care, and heating Not very hard [facility] Adult Depression Scr eening Assessment 1 [facility] Work Phone: (I/We) worried wheth er (my/our) food would run out before (I/we) got money to buy more. Sometimes true [facility] The food that (I/we) bought just didn't last, and (I/we) didn't have money to get more. Never true [facility] Start: 08-03-2022 Alcohol Comment RARE [facility] Medical Equipment Procedure Code Equipment Code Equipment Origin al Text Equipment Identifier Dates Start: 02-13-2021 End: 01-14-2023 Clinical Notes 07-27-2021 to 01-16-2023 Telephone Encounter - Marti Cooper LPN - 01/16/2023 10:28 AM EDTTelephone Encounter - Moise Waller PA-C - 01/15/2023 1:48 PM EDTMoise Waller PA-C - 01/14/2023 5:07 PM EDT Note Date & Type Note Facility 01-16-2023 Note Patient Outreach (IN [facility]) ANNALEE KEANE ([id number]) 1950 F Date Time Provider Department 01/16/23 DOREEN PINEDA During your visit today, we recorded the following information about you: Allergies As of Date: 01/16/2023 Noted Allergy Reaction BLEACH (SODIUM HYPOCHLORITE) 11/23/2020 14 - Other: See Comments Comments: syncope COCONUT 03/02/2020 4 - Hives SULFA (SULFONAMIDE ANTIBIOTICS) 02/01/2022 2 - Rash Date Reviewed: 01/14/2023 Reviewed by: Marti Cooper LPN - Fully Assessed Visit Diagnosis:Encounter for screening mammogram for breast cancer [Z12.31] Order(s):[facility] SCREENING [[id number]] Order #: [id number] FUTURE Prescriptions as of 01/21/2023 - nitroglycerin sublingual (NITROQUICK) 0.4 mg SL tablet Dissolve 1 tablet under the tongue as needed for chest pain. If no pain relief call 911. - rosuvastatin (CRESTOR) 10 mg tablet Take 1 tablet by mouth once daily. - spironolactone (ALDACTONE) 25 mg tablet Take 1 tablet by mouth once daily. - metoprolol tartrate, short acting, (LOPRESSOR) 50 mg tablet Take 1 tablet by mouth twice daily. - Lancets lancets Test blood sugar(s) 4 times daily. Dx: Type 2 DM - Controlled E11.9 Insulin: No - furosemide (LASIX) 20 mg tablet Take 1 tablet by mouth once daily. - blood sugar diagnostic (ACCU-CHEK RICARDO PLUS TEST STRP) test strip Test blood sugar(s) 2 times daily. Dx: Type 2 DM - Controlled E11.9 Needs 180 strips for 3 months - glimepiride (AMARYL) 4 mg tablet TAKE 1 TABLET BY MOUTH TWICE DAILY WITH MEALS - OTC PRODUCT Take 1 tablet by mouth every morning. OTC FROM Sealed,, [facility] - losartan (COZAAR) 25 mg tablet Take 1 tablet by mouth once daily. - Ascorbic Acid (VITAMIN C) 100 mg tablet Take 100 mg by mouth every morning. - Multivitamin capsule Take 1 capsule by mouth every morning. - rOPINIRole (REQUIP) 1 mg tablet TAKE 1 TABLET BY MOUTH ONCE DAILY AT BEDTIME - loratadine (CLARITIN ORAL) Take 10 mg by mouth every morning. - cholecalciferol (VITAMIN D3) 5,000 unit tab Take 1 tablet by mouth once daily. - Blood-Glucose Meter (ACCU-CHEK RICARDO PLUS METER) Please check blood sugars 3 times a day - diphenhydramine HCl (BENADRYL ALLERGY ORAL) Take 50 mg by mouth twice daily. TAKES BID FOR ENVIRONMENTAL ALLERGIES Problem List As Of Date 01/16/2023 Noted Resolved Incarcerated Incisional Hernia [K43.0] 09/07/2009 Acute gastric ulcer with hemorrhage [K25.0] 10/27/2015 Acute GI bleeding [K92.2] 10/27/2015 Helicobacter pylori antibody positive [R76.8] 10/28/2015 Morbid obesity (HCC) [E66.01] 08/20/2018 Arthritis [M19.90] 08/20/2018 Controlled type 2 diabetes mellitus without com*08/20/2018 SUSIE (obstructive sleep apnea) [G47.33] 2019 Essential hypertension [I10] 08/29/2019 Edema [R60.9] 08/29/2019 Vitamin D deficiency [E55.9] 08/29/2019 Palpitations [R00.2] 05/01/2021 PAF (paroxysmal atrial fibrillation) (HCC) [I48*05/01/2021 Mixed hyperlipidemia [E78.2] 05/01/2021 Encounter Status:Closed by IZZY MARTIUSELeon on 01/21/23 [facility] 01-16-2023 Miscellaneous Notes Left message, [place] Cardiac Perf Stress Order was faxed to [facility]. [facility] will contact her to schedule. Marti Cooper LPN Ok to offer through [facility] if it's going to be sooner. Moise Waller PA-C Looks like patient has seen Dr. Blas and Leland Gagnon here at [facility] in the past. Patient declining other locations, OK to schedule 03/04 or offer [facility] for testing? Moise Rodríguez MA Patient calling to schedule Pharm Nuc Med Stress test. [place]'s first available is . This PSS offered other locations, however, patient does not want to travel outside of [place]. Please advise and call patient. documented in this encounter [facility] 01-14-2023 Note HNO ID: [id number] Author: Moise Waller PA-C Service: ? Author Type: Physician Muffler Hand Type: Progress Notes Filed: 01/15/2023 5:01 PM Note Text: CC: Patient presents with: Medication Follow-up HPI Annalee eKane is a 72 year old female who presents today for same-day appointment for medication refills. LV was for medicare wellness visit w/ Dr. Pineda in 05/28. 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 Reports she has had residual spasms in that arm since. She reports she did not go to the ED because she was home alone and didn't have a ride. Upon further inquiry, it sounds as though she did not seek further evaluation because she was concerned about cost. Pt reports that 3 weeks ago, she felt weak, she was having chest pain- it lasted about 15 minutes and then it subsided. She states her HR is typically in the 50s, but it dropped to 27. States she attempted to make appt with cardio but she has been put on hold multiple times. States she's concerned about money, and that her and her are late on many medical bills-- they have 5 people living there household that do not contribute. At this time, still having chest discomfort and SOB with very minimal exertion, as in the case of bending down or going up stairs. Associated w/ weakness. REVIEW OF SYSTEMS See HPI All other systems negative. PAST MEDICAL HISTORY Diagnosis Date Abdominal pain Arthritis Atrial fibrillation (HCC) LELAND GAGNON CARD, DENIES CURRENT BLOOD THINNER Awareness under anesthesia WOKE UP TWICE DURING ANES PER PT Environmental allergies PRIMARY FOLLOWS Esophageal reflux Gall bladder stones MONITORING CURRENTLY, PRIMARY High cholesterol Hypertension PER CARD DR LELAND GAGNON, [facility] [place] SUSIE (obstructive sleep apnea) 2019 DENIES CPAP SINCE 2020 Restless leg syndrome PRIMARY FOLLOWS Snoring Type 2 diabetes (HCC) PER PRIMARY Unspecified asthma(493.90) DENIES PROBLEMS X3 YEARS, DENIES CURRENT INHALERS PAST SURGICAL HISTORY Procedure Laterality Date CAPSL-RHPHY/RCNSTJ WRST OPN CARPL INS COLONOSCOPY 11/08/2015 normal, repeat in 10 years EGD 11/08/2015 gastritis, neg for H pylori EGD TRANSORAL BIOPSY SINGLE/MULTIPLE 10/25/2015 proximal ulcer, positive H pylori REPAIR FIRST ABDOMINAL WALL HERNIA 03/19/2005 Repair with Mesh RPR RECRT INCAL/VNT HERNIA INCARCERATED 09/08/2009 Repair with Mesh SALPINGECTOMY 05/06/1966 left tube TEETH COMPLETE ALL UPPER TEETH PULLED VAGINAL HYSTERECTOMY UTERUS 250 GM/< 05/06/1985 Hysterectomy, vaginal ALLERGIES Bleach (Sodium Hypochlorite), Coconut, and Sulfa (Sulfonamide Antibiotics) MEDICATIONS blood sugar diagnostic (ACCU-CHEK RICARDO PLUS TEST STRP) test strip Test blood sugar(s) 2 times daily. Dx: Type 2 DM - Controlled E11.9 Needs 180 strips for 3 months glimepiride (AMARYL) 4 mg tablet TAKE 1 TABLET BY MOUTH TWICE DAILY WITH MEALS OTC PRODUCT Take 1 tablet by mouth every morning. OTC FROM Sealed,, [facility] GUMMI[facility] losartan (COZAAR) 25 mg tablet Take 1 tablet by mouth once daily. (Patient taking differently: Take 25 mg by mouth every morning.) furosemide (LASIX) 20 mg tablet Take 1 tablet by mouth once daily. (Patient taking differently: Take 20 mg by mouth every morning.) nitroglycerin sublingual (NITROQUICK) 0.4 mg SL tablet Dissolve 1 tablet under the tongue as needed for chest pain. If no pain relief call 911. Ascorbic Acid (VITAMIN C) 100 mg tablet Take 100 mg by mouth every morning. Multivitamin capsule Take 1 capsule by mouth every morning. rosuvastatin (CRESTOR) 10 mg tablet Take 1 tablet by mouth once daily. (Patient taking differently: Take 10 mg by mouth every morning.) spironolactone (ALDACTONE) 25 mg tablet Take 1 tablet by mouth once daily. (Patient taking differently: Take 25 mg by mouth every morning.) rOPINIRole (REQUIP) 1 mg tablet TAKE 1 TABLET BY MOUTH ONCE DAILY AT BEDTIME (Patient taking differently: Take 1 mg by mouth daily at bedtime.) metoprolol tartrate, short acting, (LOPRESSOR) 50 mg tablet Take 1 tablet by mouth twice daily. Lancets lancets Test blood sugar(s) 4 times daily. Dx: Type 2 DM - Controlled E11.9 Insulin: No (Patient taking differently: No sig reported) loratadine (CLARITIN ORAL) Take 10 mg by mouth every morning. cholecalciferol (VITAMIN D3) 5,000 unit tab Take 1 tablet by mouth once daily. (Patient taking differently: Take 5,000 Units by mouth every morning.) Blood-Glucose Meter (ACCU-CHEK RICARDO PLUS METER) Please check blood sugars 3 times a day (Patient taking differently: every morning.) diphenhydramine HCl (BENADRYL ALLERGY ORAL) Take 50 mg by mouth twice daily. TAKES BID FOR ENVIRONMENTAL ALLERGIES FAMILY HISTORY Problem Relation Age of Onset Cancer Mother Diabetes Mother Coronary Artery Disease Mother Cancer Father Diabetes Fa (more content not included)... [facility] 01-14-2023 History of Presen t illness Narrative CC: Patient presents with: Medication Follow-up HPI Annalee Keane is a 72 year old female who presents today for same-day appointment for medication refills. LV was for medicare wellness visit w/ Dr. Pineda in 05/28. 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 Reports she has had residual spasms in that arm since. She reports she did not go to the ED because she was home alone and didn't have a ride. Upon further inquiry, it sounds as though she did not seek further evaluation because she was concerned about cost. Pt reports that 3 weeks ago, she felt weak, she was having chest pain- it lasted about 15 minutes and then it subsided. She states her HR is typically in the 50s, but it dropped to 27. States she attempted to make appt with cardio but she has been put on hold multiple times. States she's concerned about money, and that her and her are late on many medical bills-- they have 5 people living there household that do not contribute. At this time, still having chest discomfort and SOB with very minimal exertion, as in the case of bending down or going up stairs. Associated w/ weakness. REVIEW OF SYSTEMS See HPI All other systems negative. PAST MEDICAL HISTORY Diagnosis Date Abdominal pain Arthritis Atrial fibrillation (HCC) LELAND FRASER, DENIES CURRENT BLOOD THINNER Awareness under anesthesia WOKE UP TWICE DURING ANES PER PT Environmental allergies PRIMARY FOLLOWS Esophageal reflux Gall bladder stones MONITORING CURRENTLY, PRIMARY High cholesterol Hypertension PER CARD DR LELAND GAGNON, [facility] [place] SUSIE (obstructive sleep apnea) 2019 DENIES CPAP SINCE 2020 Restless leg syndrome PRIMARY FOLLOWS Snoring Type 2 diabetes (HCC) PER PRIMARY Unspecified asthma(493.90) DENIES PROBLEMS X3 YEARS, DENIES CURRENT INHALERS PAST SURGICAL HISTORY Procedure Laterality Date CAPSL-RHPHY/RCNSTJ WRST OPN CARPL INS COLONOSCOPY 11/08/2015 normal, repeat in 10 years EGD 11/08/2015 gastritis, neg for H pylori EGD TRANSORAL BIOPSY SINGLE/MULTIPLE 10/25/2015 proximal ulcer, positive H pylori REPAIR FIRST ABDOMINAL WALL HERNIA 03/19/2005 Repair with Mesh RPR RECRT INCAL/VNT HERNIA INCARCERATED 09/08/2009 Repair with Mesh SALPINGECTOMY 05/06/1966 left tube TEETH COMPLETE ALL UPPER TEETH PULLED VAGINAL HYSTERECTOMY UTERUS 250 GM/< 05/06/1985 Hysterectomy, vaginal ALLERGIES Bleach (Sodium Hypochlorite), Coconut, and Sulfa (Sulfonamide Antibiotics) MEDICATIONS blood sugar diagnostic (ACCU-CHEK RICARDO PLUS TEST STRP) test strip Test blood sugar(s) 2 times daily. Dx: Type 2 DM - Controlled E11.9 Needs 180 strips for 3 months glimepiride (AMARYL) 4 mg tablet TAKE 1 TABLET BY MOUTH TWICE DAILY WITH MEALS OTC PRODUCT Take 1 tablet by mouth every morning. OTC FROM Sealed,, [facility] GUMMIE losartan (COZAAR) 25 mg tablet Take 1 tablet by mouth once daily. (Patient taking differently: Take 25 mg by mouth every morning.) furosemide (LASIX) 20 mg tablet Take 1 tablet by mouth once daily. (Patient taking differently: Take 20 mg by mouth every morning.) nitroglycerin sublingual (NITROQUICK) 0.4 mg SL tablet Dissolve 1 tablet under the tongue as needed for chest pain. If no pain relief call 911. Ascorbic Acid (VITAMIN C) 100 mg tablet Take 100 mg by mouth every morning. Multivitamin capsule Take 1 capsule by mouth every morning. rosuvastatin (CRESTOR) 10 mg tablet Take 1 tablet by mouth once daily. (Patient taking differently: Take 10 mg by mouth every morning.) spironolactone (ALDACTONE) 25 mg tablet Take 1 tablet by mouth once daily. (Patient taking differently: Take 25 mg by mouth every morning.) rOPINIRole (REQUIP) 1 mg tablet TAKE 1 TABLET BY MOUTH ONCE DAILY AT BEDTIME (Patient taking differently: Take 1 mg by mouth daily at bedtime.) metoprolol tartrate, short acting, (LOPRESSOR) 50 mg tablet Take 1 tablet by mouth twice daily. Lancets lancets Test blood sugar(s) 4 times daily. Dx: Type 2 DM - Controlled E11.9 Insulin: No (Patient taking differently: No sig reported) loratadine (CLARITIN ORAL) Take 10 mg by mouth every morning. cholecalciferol (VITAMIN D3) 5,000 unit tab Take 1 tablet by mouth once daily. (Patient taking differently: Take 5,000 Units by mouth every morning.) Blood-Glucose Meter (ACCU-CHEK RICARDO PLUS METER) Please check blood sugars 3 times a day (Patient taking differently: every morning.) diphenhydramine HCl (BENADRYL ALLERGY ORAL) Take 50 mg by mouth twice daily. TAKES BID FOR ENVIRONMENTAL ALLERGIES FAMILY HISTORY Problem Relation Age of Onset Cancer Mother Diabetes Mother Coronary Artery Disease Mother Cancer Father Diabetes Father Coronary Artery Disease Father Social History Tobacco Use Smoking status: Never Smokeless tobacco: Never Vaping Use Vaping Use: Never used Substance Use Topics Alcohol use: Yes Comment: RARE SOCIAL Drug use: Yes Types: Marijuana Comment: CBD gummies daily PHYSICAL EXAM BP 124/70 (BP Site: Left Arm, BP Position: Sitting, BP Cuff Size: Large Adult) Pulse 64 Temp 36.6 C (97.8 F) (Temporal) Resp 16 Wt 97.1 kg (214 lb) SpO2 98% BMI 37.91 kg/m General Appearance: well appearing, in no acute distress, alert, obese body habitus Pysch: mood and affect broad and appropriate Skin: Skin color, texture, turgor normal for age; Head: normocephalic, atraumatic Lymph nodes: No cervical lymphadenopathy Lungs: Lungs clear to auscultation. No wheezing, rhonchi, rales. Heart: RRR without murmur, gallop, or rubs. No ectopy Abdomen: Normal abdominal exam Extremities: Trace edema noted bilaterally. No gross deformities, skin discoloration, clubbing or cyanosis. Neurological: Gait normal. No focal neurological deficits. Sensation grossly intact. ASSESSMENT/PLAN: 1. Dyspnea on exertion - ICD9: 786.09, ICD10: R06.09 (primary diagnosis) See below - NM CARDIAC PERF STRESS/PHARM - CBC + DIFF - BASIC METABOLIC PNL - NT PRO BNP - ECG COMPLETE 2. Chest pain, unspecified type - ICD9: 786.50, ICD10: R07.9 Suspect that chest pain likely coronary ischemia related symptom given exertional nature, and associated with shortness of breath - Electrocardiogram: No acute ischemic changes noted. Rather unchanged from previous -Patient has nitro as needed - Stress testing- see orders Will have patient scheduled for follow-up with cardiology to discuss next steps. Reviewed red flags with patient and when to seek care sooner. - NM CARDIAC PERF STRESS/PHARM - ECG COMPLETE 3. Controlled type 2 diabetes mellitus without complication, without long-term current use of insulin ([facility]) - ICD9: 250.00, ICD10: E11.9 - Control undetermined, patient is well over due for labs--last A1c at goal, with value of 6.9 in 03/26 - Continue current medications - Counseled on healthy diet and regular exercise - Discussed need for and benefit of weight loss. BMI 37.91 kg/(m^2) - ROSUVASTATIN 10 MG TABLET - LANCETS - NM CARDIAC PERF STRESS/PHARM - HGB A1C 4. Edema, unspecified type - ICD9: 782.3, ICD10: R60.9 We will obtain updated labs, including BNP. Refills provided on medications per patient request - SPIRONOLACTONE 25 MG TABLET - FUROSEMIDE 20 MG TABLET - CBC + DIFF - BASIC METABOLIC PNL - NT PRO BNP 5. PAF (paroxysmal atrial fibrillation) ([facility]) - ICD9: 427.31, ICD10: I48.0 Refills provided. See above regarding follow-up with cardiology - NITROGLYCERIN 0.4 MG SUBLINGUAL TABLET - METOPROLOL TARTRATE 50 MG TABLET - FUROSEMIDE 20 MG TABLET - NM CARDIAC PERF STRESS/PHARM 6. Essential hypertension - ICD9: 401.9, ICD10: I10 - Controlled - Continue current medications - Recommend home blood pressure monitoring, to bring results to next visit - Encouraged sodium restriction, DASH or Mediterranean diet - Recommend regular aerobic exercise - SPIRONOLACTONE 25 MG TABLET - METOPROLOL TARTRATE 50 MG TABLET - NM CARDIAC PERF STRESS/PHARM Prescription instructions reviewed with patient as applicable. Potential red flag symptoms discussed with the patient. Reviewed appropriate action plan to take if red flag symptoms occur. Patient agreeable to treatment plan. Moise Waller PA-C documented in this encounter [facility] 01-08-2023 Note Patient Outreach ([facility]) ANNALEE KEANE ([id number]) 1950 F Date Time Provider Department 01/08/23 DOREEN PINEDA During your visit today, we recorded the following information about you: Natalia 01/08/2023 9:37 AM Signed Annalee Keane is identified through a medication adherence outreach initiative based on pharmacy claims data from [employer] (insurer) for Non-insulin DM medication(s). Patient is reviewed 01/08/23 due to medication adherence concerns with the following medications (name, strength, sig): Glimepiride 4mg 1 tab twice daily . Per data/report, last fill date and days supply: due 11/01 Per reconcile dispense, last fill date and days supply: no infor Per call to pharmacy, last picked up date and days supply: 08/03/22 for 90 ds was picked up Outcome of review/outreach: (choose outcome source and status) - Per Epic note 08/03/30 Patient taking Glimepiride differently: 4 mg, ORAL, NEEDED, TAKES IF BLOOD GLUCOSE >175 PER PRIMARY Natalia Sun Net Manager Allergies As of Date: 01/08/2023 Noted Allergy Reaction BLEACH (SODIUM HYPOCHLORITE) 11/23/2020 14 - Other: See Comments Comments: syncope COCONUT 03/02/2020 4 - Hives SULFA (SULFONAMIDE ANTIBIOTICS) 02/01/2022 2 - Rash Date Reviewed: 08/07/2022 Reviewed by: Shameka Brownlee, RN - Fully Assessed Reason for Visit: Allied Health Visit [5] Cmt: Medication Adherence Outreach Prescriptions as of 01/08/2023 - blood sugar diagnostic (ACCU-CHEK RICARDO PLUS TEST STRP) test strip Test blood sugar(s) 2 times daily. Dx: Type 2 DM - Controlled E11.9 Needs 180 strips for 3 months - glimepiride (AMARYL) 4 mg tablet TAKE 1 TABLET BY MOUTH TWICE DAILY WITH MEALS - OTC PRODUCT Take 1 tablet by mouth every morning. OTC FROM Sealed,, [employer] GUMMIE - losartan (COZAAR) 25 mg tablet Take 1 tablet by mouth once daily. - furosemide (LASIX) 20 mg tablet Take 1 tablet by mouth once daily. - nitroglycerin sublingual (NITROQUICK) 0.4 mg SL tablet Dissolve 1 tablet under the tongue as needed for chest pain. If no pain relief call 911. - Ascorbic Acid (VITAMIN C) 100 mg tablet Take 100 mg by mouth every morning. - Multivitamin capsule Take 1 capsule by mouth every morning. - rosuvastatin (CRESTOR) 10 mg tablet Take 1 tablet by mouth once daily. - spironolactone (ALDACTONE) 25 mg tablet Take 1 tablet by mouth once daily. - rOPINIRole (REQUIP) 1 mg tablet TAKE 1 TABLET BY MOUTH ONCE DAILY AT BEDTIME - metoprolol tartrate, short acting, (LOPRESSOR) 50 mg tablet Take 1 tablet by mouth twice daily. - Lancets lancets Test blood sugar(s) 4 times daily. Dx: Type 2 DM - Controlled E11.9 Insulin: No - loratadine (CLARITIN ORAL) Take 10 mg by mouth every morning. - cholecalciferol (VITAMIN D3) 5,000 unit tab Take 1 tablet by mouth once daily. - Blood-Glucose Meter (ACCU-CHEK RICARDO PLUS METER) Please check blood sugars 3 times a day - diphenhydramine HCl (BENADRYL ALLERGY ORAL) Take 50 mg by mouth twice daily. TAKES BID FOR ENVIRONMENTAL ALLERGIES Problem List As Of Date 01/08/2023 Noted Resolved Incarcerated Incisional Hernia [K43.0] 09/07/2009 Acute gastric ulcer with hemorrhage [K25.0] 10/27/2015 Acute GI bleeding [K92.2] 10/27/2015 Helicobacter pylori antibody positive [R76.8] 10/28/2015 Morbid obesity (HCC) [E66.01] 08/20/2018 Arthritis [M19.90] 08/20/2018 Controlled type 2 diabetes mellitus without com*08/20/2018 SUSIE (obstructive sleep apnea) [G47.33] 2019 Essential hypertension [I10] 08/29/2019 Edema [R60.9] 08/29/2019 Vitamin D deficiency [E55.9] 08/29/2019 Palpitations [R00.2] 05/01/2021 PAF (paroxysmal atrial fibrillation) (HCC) [I48*05/01/2021 Mixed hyperlipidemia [E78.2] 05/01/2021 Encounter Status:Closed by NATALIA SUN on 01/08/23 [facility] 01-08-2023 Note HNO ID: [id number] Author: Natalia Sun Service: ? Author Type: ? Type: Progress Notes Filed: 01/08/2023 9:37 AM Note Text: Annalee Keane is identified through a medication adherence outreach initiative based on pharmacy claims data from [employer] (insurer) for Non-insulin DM medication(s). Patient is reviewed 01/08/23 due to medication adherence concerns with the following medications (name, strength, sig): Glimepiride 4mg 1 tab twice daily . Per data/report, last fill date and days supply: due 11/01 Per reconcile dispense, last fill date and days supply: no infor Per call to pharmacy, last picked up date and days supply: 08/03/22 for 90 ds was picked up Outcome of review/outreach: (choose outcome source and status) - Per [facility] note 08/03/30 Patient taking Glimepiride differently: 4 mg, ORAL, NEEDED, TAKES IF BLOOD GLUCOSE >175 PER PRIMARY PadMatcher [facility] 01-08-2023 History of Presen t illness Narrative Annalee Keane is identified through a medication adherence outreach initiative based on pharmacy claims data from [employer] (insurer) for Non-insulin DM medication(s). Patient is reviewed 01/08/23 due to medication adherence concerns with the following medications (name, strength, sig): Glimepiride 4mg 1 tab twice daily . Per data/report, last fill date and days supply: due 11/01 Per reconcile dispense, last fill date and days supply: no infor Per call to pharmacy, last picked up date and days supply: 08/03/22 for 90 ds was picked up Outcome of review/outreach: (choose outcome source and status) - Per [facility] note 08/03/30 Patient taking Glimepiride differently: 4 mg, ORAL, NEEDED, TAKES IF BLOOD GLUCOSE >175 PER PRIMARY Natalia Jorge Net Manager documented in this encounter [facility] 09-14-2022 Note Patient Outreach ([facility]) ANNALEE KEANE ([id number]) 1950 F Date Time Provider Department 09/14/22 ANDREINA JERRY During your visit today, we recorded the following information about you: Andreina Jerry MA 09/14/2022 10:21 AM Signed POPULATION HEALTH NAVIGATION OUTREACH Action/FYI P/C to patient to address open care gaps. Patient declined. Patient Identified by Name and : YES, via phone Outreach Outcome/Action Spoke to patient / parent / legal guardian: Patient declined Did you use a PCP flex slot to schedule this appointment? N/A Reason for Outreach Care Gap or Scheduling/Wellness visits Payer: Payor: [employer] AND [employer] / Plan: [employer] HMO / Product Type: HMO / Care Gap Reviewed:: Breast Cancer screening Diabetic Eye Exam HBA1C Nephropathy (Albumin/Creatinine) Urine Reminder: Reminder note to check Health Maintenance for items below Health Maintenance items due: COVID-19 VACCINE(1) Never done DTAP,TDAP,TD(1 - Tdap) Never done SHINGRIX VACCINE(1 of 2) Never done HBA1C due on 09/04/2021 URINE ALBUMIN:CREATININE RATIO due on 11/11/2021 DILATED RETINAL EXAM due on 12/13/2021 LDL CHOLESTEROL due on 03/07/2022 DIABETIC FOOT EXAM due on 03/08/2022 MAMMOGRAM due on 12/13/2022 Navigation Signature: Andreina Jerry MA September 14, 2022 10:20 AM Allergies As of Date: 09/14/2022 Noted Allergy Reaction BLEACH (SODIUM HYPOCHLORITE) 11/23/2020 14 - Other: See Comments Comments: syncope COCONUT 03/02/2020 4 - Hives SULFA (SULFONAMIDE ANTIBIOTICS) 02/01/2022 2 - Rash Date Reviewed: 08/07/2022 Reviewed by: Shameka Brownlee RN - Fully Assessed Reason for Visit: Population Health Navigation Outreach [3910] Cmt: Tamia Care Gaps Prescriptions as of 09/14/2022 - blood sugar diagnostic (ACCU-CHEK RICARDO PLUS TEST STRP) test strip Test blood sugar(s) 2 times daily. Dx: Type 2 DM - Controlled E11.9 Needs 180 strips for 3 months - glimepiride (AMARYL) 4 mg tablet TAKE 1 TABLET BY MOUTH TWICE DAILY WITH MEALS - OTC PRODUCT Take 1 tablet by mouth every morning. OTC FROM Sealed,, CBD GUMMIE - losartan (COZAAR) 25 mg tablet Take 1 tablet by mouth once daily. - furosemide (LASIX) 20 mg tablet Take 1 tablet by mouth once daily. - nitroglycerin sublingual (NITROQUICK) 0.4 mg SL tablet Dissolve 1 tablet under the tongue as needed for chest pain. If no pain relief call 911. - Ascorbic Acid (VITAMIN C) 100 mg tablet Take 100 mg by mouth every morning. - Multivitamin capsule Take 1 capsule by mouth every morning. - rosuvastatin (CRESTOR) 10 mg tablet Take 1 tablet by mouth once daily. - spironolactone (ALDACTONE) 25 mg tablet Take 1 tablet by mouth once daily. - rOPINIRole (REQUIP) 1 mg tablet TAKE 1 TABLET BY MOUTH ONCE DAILY AT BEDTIME - metoprolol tartrate, short acting, (LOPRESSOR) 50 mg tablet Take 1 tablet by mouth twice daily. - Lancets lancets Test blood sugar(s) 4 times daily. Dx: Type 2 DM - Controlled E11.9 Insulin: No - loratadine (CLARITIN ORAL) Take 10 mg by mouth every morning. - cholecalciferol (VITAMIN D3) 5,000 unit tab Take 1 tablet by mouth once daily. - Blood-Glucose Meter (ACCU-CHEK RICARDO PLUS METER) Please check blood sugars 3 times a day - diphenhydramine HCl (BENADRYL ALLERGY ORAL) Take 50 mg by mouth twice daily. TAKES BID FOR ENVIRONMENTAL ALLERGIES Problem List As Of Date 09/14/2022 Noted Resolved Incarcerated Incisional Hernia [K43.0] 09/07/2009 Acute gastric ulcer with hemorrhage [K25.0] 10/27/2015 Acute GI bleeding [K92.2] 10/27/2015 Helicobacter pylori antibody positive [R76.8] 10/28/2015 Morbid obesity (HCC) [E66.01] 08/20/2018 Arthritis [M19.90] 08/20/2018 Controlled type 2 diabetes mellitus without com*08/20/2018 SUSIE (obstructive sleep apnea) [G47.33] 2019 Essential hypertension [I10] 08/29/2019 Edema [R60.9] 08/29/2019 Vitamin D deficiency [E55.9] 08/29/2019 Palpitations [R00.2] 05/01/2021 PAF (paroxysmal atrial fibrillation) (HCC) [I48*05/01/2021 Mixed hyperlipidemia [E78.2] 05/01/2021 Encounter Status:Closed by ANDREINA JERRY on 09/14/22 [facility] 09-14-2022 Note HNO ID: [id number] Author: Andreina Jerry MA Service: ? Author Type: Annealing Furnace Operator Type: Progress Notes Filed: 09/14/2022 10:21 AM Note Text: POPULATION HEALTH NAVIGATION OUTREACH Action/FYI P/C to patient to address open care gaps. Patient declined. Patient Identified by Name and : YES, via phone Outreach Outcome/Action Spoke to patient / parent / legal guardian: Patient declined Did you use a PCP flex slot to schedule this appointment? N/A Reason for Outreach Care Gap or Scheduling/Wellness visits Payer: Payor: TAMIA [employer] AND [employer] [facility] / Plan: [employer] [place] [employer] HMO / Product Type: HMO / Care Gap Reviewed:: Breast Cancer screening Diabetic Eye Exam HBA1C Nephropathy (Albumin/Creatinine) Urine Reminder: Reminder note to check Health Maintenance for items below Health Maintenance items due: COVID-19 VACCINE(1) Never done DTAP,TDAP,TD(1 - Tdap) Never done SHINGRIX VACCINE(1 of 2) Never done HBA1C due on 09/04/2021 URINE ALBUMIN:CREATININE RATIO due on 11/11/2021 DILATED RETINAL EXAM due on 12/13/2021 LDL CHOLESTEROL due on 03/07/2022 DIABETIC FOOT EXAM due on 03/08/2022 MAMMOGRAM due on 12/13/2022 Navigation Signature: Andreina Jerry MA September 14, 2022 10:20 AM [facility] 08-06-2022 Note HNO ID: [id number] Author: Thierry Rodriguez, FORREST Service: Nursing Author Type: Registered Nurse Type: Progress Notes Filed: 08/06/2022 4:34 PM Note Text: PATIENT MEDICATION INSTRUCTIONS Please read below carefully for your personalized instructions. Medications: If you are on blood thinner or anticoagulants including aspirin, please confirm with your surgical team on when to stop these medications. Unless instructed differently by your surgical team, stay on all of your medications until your surgery. Pre-Surgery Med Instructions Medication Instructions OTC PRODUCT DO NOT TAKE MORNING OF SURGERY losartan (COZAAR) 25 mg tablet DO NOT TAKE MORNING OF SURGERY furosemide (LASIX) 20 mg tablet DO NOT TAKE MORNING OF SURGERY blood sugar diagnostic (ACCU-CHEK RICARDO PLUS TEST STRP) test strip nitroglycerin sublingual (NITROQUICK) 0.4 mg SL tablet PRN if needed Amaryl 4mg tab BID DO NOT TAKE MORNING OF SURGERY Ascorbic Acid (VITAMIN C) 100 mg tablet DO NOT TAKE MORNING OF SURGERY Multivitamin capsule DO NOT TAKE MORNING OF SURGERY rosuvastatin (CRESTOR) 10 mg tablet Take morning of surgery with a sip of water, no other fluids spironolactone (ALDACTONE) 25 mg tablet DO NOT TAKE MORNING OF SURGERY rOPINIRole (REQUIP) 1 mg tablet DO NOT TAKE MORNING OF SURGERY metoprolol tartrate, short acting, (LOPRESSOR) 50 mg tablet Take morning of surgery with a sip of water, no other fluids Lancets lancets loratadine (CLARITIN ORAL) Take morning of surgery with a sip of water, no other fluids cholecalciferol (VITAMIN D3) 5,000 unit tab DO NOT TAKE MORNING OF SURGERY Blood-Glucose Meter (ACCU-CHEK RICARDO PLUS METER) diphenhydramine HCl (BENADRYL ALLERGY ORAL) DO NOT TAKE MORNING OF SURGERY - No diabetic medication the morning of surgery. - Accucheck day of surgery. If you have any medication changes between receiving these instructions and your surgery date, please provide this updated information with the nurse who calls you the week day prior to your surgical procedure so we can update your list and provide you with updated instructions for the morning of your procedure. PRE-PROCEDURE INSTRUCTIONS TO PREPARE FOR YOUR PROCEDURE: Your arrival time for your procedure is 1100. Do NOT eat any solid foods after MIDNIGHT the night prior to your procedure - this includes gum or mints. You can drink clear liquids* up until 0900, which is 2 hours before your arrival time. *Clear liquids = water, carbohydrate drink (sports drink that is clear or yellow in color), Ensure Pre-Surgery (given by ELISEO or your DrArabella), fruit juice without pulp (apple/cranberry), clear tea, black coffee (no cream). NO CARBONATED BEVERAGES AND NO ALCOHOL. Shower the morning of the procedure, put on clean clothes, and have clean sheets for your bed to help prevent infection after your procedure. Leave all valuables such as jewelry including rings, piercings, wallets, and purses at home. Wear comfortable, loose-fitting clothing. If you wear glasses or contacts, please bring a case. SPECIAL INSTRUCTIONS: If instructed, bring your first voided urine specimen with you. If you were provided skin preparation to use prior to your procedure, complete this as directed. If you were provided Ensure Pre-Surgery drink, you need to drink this at n/a. This should be consumed quickly (in less than 5 minutes, rather than sipped over time) If you use crutches or a walker, bring them with you. If you have a home CPAP/BIPAP machine, bring it with you. If you were instructed to complete a fleets enema or bowel prep, complete as directed. Bring copy of Living Will/Power of Switchboard Operator Receptionist. Do not smoke or chew. If you use tobacco, quit or at least cut down before surgery. Do not smoke or chew after midnight the day before your surgery. This effects bleeding, infection, healing, and so much more. Do not take any Diet or Herbal Supplements 2 weeks prior to your surgery date. Please notify your physician if there is any change in your physical condition such as a cold, cough, fever, sore throat, or skin irritation near the surgical site. Visitors under the age of 14 are restricted in the Surgery Center. UPON ARRIVAL: Access to [facility] (the [facility] building) is located on [address] [employer] Officer parking is available for your convenience from 5am-5pm- there is a $5.00 charge for this service. Take the elevators directly inside the entrance to the 1st Floor Surgery Lobby. Sign in at the podium located to the left when you get off the elevators. A payment may be expected at the time of service. One visitor may come back to the preoperative area with you. The preoperative staff will be reviewing your medical history, please let them know if you prefer not to have a visitor with you during this time. Once you are ready for surgery, two visitors at a time are permitted in your preoperative room. [facility] 08-06-2022 Note HNO ID: [id number] Author: Lynn Jaramillo APRN.CNP Service: Anesthesiology Author Type: Nurse Practitioner Type: Progress Notes Filed: 08/06/2022 12:08 PM Note Text: Summary: dos meds PATIENT MEDICATION INSTRUCTIONS Please read below carefully for your personalized instructions. Medications: If you are on blood thinner or anticoagulants including aspirin, please confirm with your surgical team on when to stop these medications. Unless instructed differently by your surgical team, stay on all of your medications until your surgery. Pre-Surgery Med Instructions Medication Instructions OTC PRODUCT DO NOT TAKE MORNING OF SURGERY losartan (COZAAR) 25 mg tablet DO NOT TAKE MORNING OF SURGERY furosemide (LASIX) 20 mg tablet DO NOT TAKE MORNING OF SURGERY blood sugar diagnostic (ACCU-CHEK RICARDO PLUS TEST STRP) test strip nitroglycerin sublingual (NITROQUICK) 0.4 mg SL tablet PRN if needed Amaryl 4mg tab BID DO NOT TAKE MORNING OF SURGERY Ascorbic Acid (VITAMIN C) 100 mg tablet DO NOT TAKE MORNING OF SURGERY Multivitamin capsule DO NOT TAKE MORNING OF SURGERY rosuvastatin (CRESTOR) 10 mg tablet Take morning of surgery with a sip of water, no other fluids spironolactone (ALDACTONE) 25 mg tablet DO NOT TAKE MORNING OF SURGERY rOPINIRole (REQUIP) 1 mg tablet DO NOT TAKE MORNING OF SURGERY metoprolol tartrate, short acting, (LOPRESSOR) 50 mg tablet Take morning of surgery with a sip of water, no other fluids Lancets lancets loratadine (CLARITIN ORAL) Take morning of surgery with a sip of water, no other fluids cholecalciferol (VITAMIN D3) 5,000 unit tab DO NOT TAKE MORNING OF SURGERY Blood-Glucose Meter (ACCU-CHEK RICARDO PLUS METER) diphenhydramine HCl (BENADRYL ALLERGY ORAL) DO NOT TAKE MORNING OF SURGERY - No diabetic medication the morning of surgery. - Accucheck day of surgery. If you have any medication changes between receiving these instructions and your surgery date, please provide this updated information with the nurse who calls you the week day prior to your surgical procedure so we can update your list and provide you with updated instructions for the morning of your procedure. [facility] 08-03-2022 Miscellaneous Notes Patient clarifies that prescription is taken as directed. Please verify how patient is taking glimepiride. I ordered as we had in our system but flagged that she was taking differently. How does she take this and did someone instruct her to change frequency. Thank you Margarette Barragan APRN.CNP Patient has been identified by name and date of : Yes, Provider Dr. Pineda Date 08/02/22 Time 3:04 pm Pharmacy phones for refill(s): Requested Prescriptions Pending Prescriptions Disp Refills glimepiride (AMARYL) 4 mg tablet [Pharmacy Med Name: Glimepiride 4 MG Oral Tablet] 180 tablet 0 Sig: TAKE 1 TABLET BY MOUTH TWICE DAILY WITH MEALS Date of last office visit in primary care: 05/16/22 next apt 11/14/22 Last 2 Encounter Wt Readings: Date: Wt: 05/16/2022 100.7 kg (222 lb) 03/19/2022 100.7 kg (222 lb) Previous labs/tests for medication: Diabetes: Hemoglobin A1C (%) Date Value 03/07/2021 6.9 11/11/2020 7.3 Thank you. Andra Suarez LPN documented in this encounter [facility] 05-16-2022 Note HNO ID: [id number] Author: Doreen Pineda MD Service: ? Author Type: Physician Type: Progress Notes Filed: 05/16/2022 11:34 AM Note Text: Medicare Yearly Visit Medical B eligibilty date age 64 Date of last exam none in the past year. PAST MEDICAL HISTORY Diagnosis Date Abdominal pain Atrial fibrillation (HCC) Esophageal reflux High cholesterol SUSIE (obstructive sleep apnea) 2019 DME [employer] Snoring Type 2 diabetes (HCC) Unspecified asthma(493.90) PAST SURGICAL HISTORY Procedure Laterality Date CAPSL-RHPHY/RCNSTJ WRST OPN CARPL INS COLONOSCOPY 11/08/15 normal, repeat in 10 years EGD 11/08/15 gastritis, neg for H pylori EGD TRANSORAL BIOPSY SINGLE/MULTIPLE 10/25/15 proximal ulcer, positive H pylori REPAIR FIRST ABDOMINAL WALL HERNIA 03/19/2005 Repair with Mesh RPR RECRT INCAL/VNT HERNIA INCARCERATED 09/08/09 Repair with Mesh SALPINGECTOMY 1967 left tube VAGINAL HYSTERECTOMY UTERUS 250 GM/< 1986 Hysterectomy, vaginal ALLERGIES: Bleach (Sodium Hypochlorite), Coconut, and Sulfa (Sulfonamide Antibiotics) Medications reviewed: Yes FAMILY HISTORY Problem Relation Age of Onset Cancer Mother Diabetes Mother Coronary Artery Disease Mother Cancer Father Diabetes Father Coronary Artery Disease Father SOCIAL HISTORY: Social History Tobacco Use Smoking status: Never Smokeless tobacco: Never Vaping Use Vaping Use: Never used Substance Use Topics Alcohol use: Yes Comment: Once yearly Drug use: Yes Types: Marijuana Comment: CBD gummies daily Annalee likes to exercise by walking and stationary exercises. She watches her diet for sodium, low fat and low cholesterol most of the time. List of current specialists seen: GI Group: Dr. Paul Cardiology Group: Leland Chelsi End of Live Planning discussed including patients advanced directive wishes: No I am willing to follow Annalee's advanced directives. PHQ-2 / Depression screen She in the past two weeks admits to having felt down with the holidays due to family stress. Functional Ability/Safety Screen 1. Was the patient's timed Up and Go test unsteady or longer than 30 seconds? Unsteady at times. 2. Does the patient need help with the phone, transportation, shopping,preparing meals, housework, laundry, medications or managing money? Yes 3. Does your home have rugs in the hallway, lack of grab bars in the bathroom, lack of handrails on the stairs or have poor lighting? No Hearing Evaluation: normal PHYSICAL EXAM BP 122/60 (BP Site: Left Arm, BP Position: Sitting, BP Cuff Size: Large Adult) Pulse 69 Temp 36.4 ?C (97.5 ?F) Resp 14 Ht 160 cm (5' 3 ) Wt 100.7 kg (222 lb) SpO2 96% BMI 39.33 kg/m? Alert and oriented X 3: YES Body mass index is 39.33 kg/m?. ASSESSMENT/PLAN: 71 year old female The following prevention plan was discussed during the office visit and provided to the patient: - Lipid panel - Glaucoma screening Doreen Pineda MD Reason for Visit Patient presents with: Medicare Wellness Exam Annalee Keane is a 71 year old female who presents here today for Above Complaints.. Health Maintenance COVID-19 VACCINE(1) DTAP,TDAP,TD(1 - Tdap) SHINGRIX VACCINE(1 of 2) HBA1C URINE ALBUMIN:CREATININE RATIO DILATED RETINAL EXAM INFLUENZA(1) LDL CHOLESTEROL DIABETIC FOOT EXAM ADVANCE DIRECTIVE DISCUSSION DEPRESSION ASSESSMENT HPI Patient overall feeling well. HYPERTENSION: BP controlled today at 122/60. Compliant with medications. Tolerating well. Checks BP at home. Averages 120s/60. Denies edema. Intermittent chest pain, palpitations and SOB with exertion. Careful with diet to avoid salt, trying to eat more fruits and vegetables, exercises regularly. SUSIE: Denies using CPAP due to throat irritation and worsening of chest pain. Stopped 6 months ago. Sleeps fairly well and feels semi-rested upon awakening. PAF: Stable HR. Currently in NSR. Intermittent palpitations. Not any anticoagulation. Apixaban on hold since hospitalization in March 2022 for GI bleed. GI: EGD 01/2022: Small <5 mm esophageal varices with out bleeding. Hx of acute gastric ulcer with hemorrhage. Denies any recent episodes of bleeding and or dark tarry stools. Normal bowel habits. Hx of gallstones. Intermittent RUQ/epigastric pain. Minimal pain due to modified diet. Cholecystectomy discussed but currently on hold due to recent GI bleed. DIABETES MELLITUS: Last HgbA1c a year ago: 6.9. Checks blood sugar twice a day. Compliant with meds. Tolerating well. Last low spell in January 2022: lightheaded, sweating, shaking. Mornin-110. Evenins Watching diet and trying to exercise more. Weight trending down. PAST MEDICAL HISTORY Diagnosis Date Abdominal pain Atrial fibrillation (HCC) Esophageal reflux High cholesterol SUSIE (obstructive sleep apnea) 2019 D[facility] Type 2 diabetes (HCC) Unspecified ast (more content not included)... [facility] 05-01-2022 Note Patient Outreach (IN [facility]MMN) ANNALEE KEANE ([id number]) 1950 F Date Time Provider Department 05/01/22 DOREEN PINEDA During your visit today, we recorded the following information about you: Allergies As of Date: 05/01/2022 Noted Allergy Reaction BLEACH (SODIUM HYPOCHLORITE) 11/23/2020 14 - Other: See Comments Comments: syncope COCONUT 03/02/2020 4 - Hives SULFA (SULFONAMIDE ANTIBIOTICS) 02/01/2022 2 - Rash Date Reviewed: 03/19/2022 Reviewed by: Leland Gagnon APRN.TECHNOLOGY ASSISTANT - Fully Assessed Visit Diagnoses:Controlled type 2 diabetes mellitus without complication, without long-term current use of insulin (HCC) [E11.9] Mixed hyperlipidemia [E78.2] Order(s):HGB A1C [FXFQC1V] Order #: [id number] FUTURE LIPID PANEL BASIC [SQLIPB] Order #: [id number] FUTURE CBC [SQCBC] Order #: [id number] FUTURE SCHEDULE LAB TESTING [[id number]] Order #: [id number] FUTURE Prescriptions as of 05/04/2022 - glimepiride (AMARYL) 4 mg tablet TAKE 1 TABLET BY MOUTH TWICE DAILY WITH MEALS - blood sugar diagnostic (ACCU-CHEK RICARDO PLUS TEST STRP) test strip Test blood sugar(s) 2 times daily. Dx: Type 2 DM - Controlled E11.9 Needs 180 strips for 3 months - BIOTIN ORAL Take by mouth. - Ascorbic Acid (VITAMIN C) 100 mg tablet Take 100 mg by mouth once daily. - Multivitamin capsule Take 1 capsule by mouth once daily. - rosuvastatin (CRESTOR) 10 mg tablet Take 1 tablet by mouth once daily. - spironolactone (ALDACTONE) 25 mg tablet Take 1 tablet by mouth once daily. - nitroglycerin sublingual (NITROQUICK) 0.4 mg SL tablet Dissolve 1 tablet under the tongue as needed for chest pain. If no pain relief call 911. - rOPINIRole (REQUIP) 1 mg tablet TAKE 1 TABLET BY MOUTH ONCE DAILY AT BEDTIME - apixaban (ELIQUIS) 5 mg tab(s) Take 1 tablet by mouth twice daily. - metoprolol tartrate, short acting, (LOPRESSOR) 50 mg tablet Take 1 tablet by mouth twice daily. - Lancets lancets Test blood sugar(s) 4 times daily. Dx: Type 2 DM - Controlled E11.9 Insulin: No - losartan (COZAAR) 25 mg tablet Take 1 tablet by mouth once daily. - loratadine (CLARITIN ORAL) Take by mouth once daily. - furosemide (LASIX) 20 mg tablet Take 1 tablet by mouth once daily. - cholecalciferol (VITAMIN D3) 5,000 unit tab Take 1 tablet by mouth once daily. - Blood-Glucose Meter (ACCU-CHEK RICARDO PLUS METER) Please check blood sugars 3 times a day - aspirin 81 mg chewable tablet Take 1 tablet by mouth once daily. - CPAP NEW SET UP: Settings 5 - 15 cm H2O, suitable mask per pt preference, chin strap, head gear, humidity, tubing, lifetime supplies. G47.33 SUSIE - CPAP Initiate Auto PAP @ 5-20 cm of water with humidification. Mask (per patient preference) optional chin strap (if indicated) , filters, tubing, humidifier and lifetime supplies. - diphenhydramine HCl (BENADRYL ALLERGY ORAL) Take 2 capsules by mouth twice daily. Facility-Administered Medications as of 05/04/2022 - perflutren lipid microspheres 1.3 mL in NaCl (PF) 0.9% 10 mL injection (DEFINITY) - sodium chloride 0.9 % (flush) 10 mL (BD POSIFLUSH) Problem List As Of Date 05/01/2022 Noted Resolved Incarcerated Incisional Hernia [K43.0] 09/07/2009 Acute gastric ulcer with hemorrhage [K25.0] 10/27/2015 Acute GI bleeding [K92.2] 10/27/2015 Helicobacter pylori antibody positive [R76.8] 10/28/2015 Morbid obesity (HCC) [E66.01] 08/20/2018 Arthritis [M19.90] 08/20/2018 Controlled type 2 diabetes mellitus without com*08/20/2018 SUSIE (obstructive sleep apnea) [G47.33] 2019 Essential hypertension [I10] 08/29/2019 Edema [R60.9] 08/29/2019 Vitamin D deficiency [E55.9] 08/29/2019 Palpitations [R00.2] 05/01/2021 PAF (paroxysmal atrial fibrillation) (HCC) [I48*05/01/2021 Mixed hyperlipidemia [E78.2] 05/01/2021 Encounter Status:Closed by SRAVAN MARTI on 05/04/22 [facility] 04-27-2022 Miscellaneous Notes Patient has been identified by name and date of : Yes Pharmacy phones for refill(s): Requested Prescriptions Pending Prescriptions Disp Refills glimepiride (AMARYL) 4 mg tablet [Pharmacy Med Name: Glimepiride 4 MG Oral Tablet] 180 tablet 0 Sig: TAKE 1 TABLET BY MOUTH TWICE DAILY WITH MEALS Date of last office visit in primary care: 03/08/21 next apt 05/16/22 Last 2 Encounter Wt Readings: Date: Wt: 03/19/2022 100.7 kg (222 lb) 10/30/2021 106.6 kg (235 lb) Previous labs/tests for medication: Diabetes: Hemoglobin A1C (%) Date Value 03/07/2021 6.9 11/11/2020 7.3 Thank you. Andra Suarez LPN documented in this encounter [facility] 04-11-2022 Miscellaneous Notes Last office visit: 03/08/21 Next appointment scheduled: 05/16/22 Last labs: 03/07/21 Last HGBA1C Patient has been identified by name and date of : Yes Last office visit in this department: 03/08/2021 RX INSTRUCTIONS: Patient aware RX will be sent to pharmacy. No need to notify patient. Patient phones requesting refills as follows: Requested Prescriptions Pending Prescriptions Disp Refills blood sugar diagnostic (ACCU-CHEK RICARDO PLUS TEST STRP) test strip 180 Strip 3 Sig: Test blood sugar(s) 2 times daily. Dx: Type 2 DM - Controlled E11.9 Needs 180 strips for 3 months Please review and advise. Armida Lugo documented in this encounter [facility] 03-19-2022 Note HNO ID: [id number] Author: Leland Gagnon APRN.TECHNOLOGY ASSISTANT Service: ? Author Type: Nurse Practitioner Type: Progress Notes Filed: 03/20/2022 10:28 AM Note Text: Chief Complaint Patient presents with: Follow Up: 4 mo History of Present Illness: Annalee Keane is a 71 year old female who presents for routine follow up. She has a PMhx of PAF, HTN, HLD, SUSIE, DM2. She was last seen in office on 10/30/2021. Today, she explains her ongoing home stressors. She now has 8 children, grandchildren living with her. She states she was hospitalized for bleeding and a liver issue. She has remained off eliquis. She understands her risk for stroke. She is interested in seeing EP in [place] for Watchman consideration. She would like to take care of bladder issues first. She states she manages her a-fib by trying to reduce her home stress and rests when she feels palpitations. She reports being compliant with metoprolol for rate control. She can feel palpitations when she is in Afib. She has mild LE swelling. She otherwise denies chest pain, shortness of breath, dizziness, orthopnea. We reviewed cardiac risk factors and modifications. She reports taking medications as prescribed. Her she was recently added aldactone for liver cirrhosis management. She states she has lost weight through diet modifications. PAST MEDICAL HISTORY Diagnosis Date Abdominal pain Atrial fibrillation (HCC) Esophageal reflux High cholesterol SUSIE (obstructive sleep apnea) 2019 DME [facility] [facility] Type 2 diabetes (HCC) Unspecified asthma(493.90) PAST SURGICAL HISTORY Procedure Laterality Date CAPSL-RHPHY/RCNSTJ WRST OPN CARPL INS COLONOSCOPY 11/08/15 normal, repeat in 10 years EGD 11/08/15 gastritis, neg for H pylori EGD TRANSORAL BIOPSY SINGLE/MULTIPLE 10/25/15 proximal ulcer, positive H pylori REPAIR FIRST ABDOMINAL WALL HERNIA 03/19/2005 Repair with Mesh RPR RECRT INCAL/VNT HERNIA INCARCERATED 09/08/09 Repair with Mesh SALPINGECTOMY 1967 left tube VAGINAL HYSTERECTOMY UTERUS 250 GM/< 1986 Hysterectomy, vaginal FAMILY HISTORY Problem Relation Age of Onset Cancer Mother Diabetes Mother Coronary Artery Disease Mother Cancer Father Diabetes Father Coronary Artery Disease Father Social History Tobacco Use Smoking status: Never Smokeless tobacco: Never Vaping Use Vaping Use: Never used Substance Use Topics Alcohol use: Yes Comment: Once yearly Drug use: Yes Types: Marijuana Comment: CBD gummies daily ALLERGIES Allergen Reactions Bleach (Sodium Hypo* Other: See Comments syncope Coconut Hives Sulfa (Sulfonamide * Rash Medications: Current Outpatient Medications Medication Sig Dispense Refill BIOTIN ORAL Take by mouth. Ascorbic Acid (VITAMIN C) 100 mg tablet Take 100 mg by mouth once daily. Multivitamin capsule Take 1 capsule by mouth once daily. rosuvastatin (CRESTOR) 10 mg tablet Take 1 tablet by mouth once daily. 30 tablet 5 glimepiride (AMARYL) 4 mg tablet TAKE 1 TABLET BY MOUTH TWICE DAILY WITH MEALS 180 tablet 0 spironolactone (ALDACTONE) 25 mg tablet Take 1 tablet by mouth once daily. 90 tablet 3 nitroglycerin sublingual (NITROQUICK) 0.4 mg SL tablet Dissolve 1 tablet under the tongue as needed for chest pain. If no pain relief call 911. 1 Bottle of 25 0 rOPINIRole (REQUIP) 1 mg tablet TAKE 1 TABLET BY MOUTH ONCE DAILY AT BEDTIME 90 tablet 0 apixaban (ELIQUIS) 5 mg tab(s) Take 1 tablet by mouth twice daily. 180 tablet 3 metoprolol tartrate, short acting, (LOPRESSOR) 50 mg tablet Take 1 tablet by mouth twice daily. 180 tablet 3 Lancets lancets Test blood sugar(s) 4 times daily. Dx: Type 2 DM - Controlled E11.9 Insulin: No 100 Each 11 losartan (COZAAR) 25 mg tablet Take 1 tablet by mouth once daily. 90 tablet 3 blood sugar diagnostic (ACCU-CHEK RICARDO PLUS TEST STRP) test strip Test blood sugar(s) 2 times daily. Dx: Type 2 DM - Controlled E11.9 Needs 180 strips for 3 months 180 Strip 3 furosemide (LASIX) 20 mg tablet Take 1 tablet by mouth once daily. 90 tablet 3 cholecalciferol (VITAMIN D3) 5,000 unit tab Take 1 tablet by mouth once daily. 90 tablet 1 Blood-Glucose Meter (ACCU-CHEK RICARDO PLUS METER) Please check blood sugars 3 times a day 1 Each 3 CPAP NEW SET UP: Settings 5 - 15 cm H2O, suitable mask per pt preference, chin strap, head gear, humidity, tubing, lifetime supplies. G47.33 SUSIE 1 Device 0 CPAP Initiate Auto PAP @ 5-20 cm of water with humidification. Mask (per patient preference) optional chin strap (if indicated) , filters, tubing, humidifier and lifetime supplies. 1 Device 0 diphenhydramine HCl (BENADRYL ALLERGY ORAL) Take 2 capsules by mouth twice daily. loratadine (CLARITIN ORAL) Take by mouth once daily. (Patient not taking: Reported on 03/19/2022) aspirin 81 mg chewable tablet Take 1 tablet by mouth once daily. (Patient not taking: Reported on 03/19/2022) 30 tablet 11 Current Facility-Administered Me (more content not included)... [facility] 03-19-2022 Instructions Leland Gagnon APRN.IVÁN - 03/19/2022 3:26 PM EST Atrial Fibrillation What is atrial fibrillation? Atrial fibrillation (also called A-fib) is a fast or irregular heartbeat that starts in the upper chambers of the heart. The abnormal heartbeat affects the ability of the heart to pump blood to the rest of the body. What is the cause? An electrical signal in your heart starts each heartbeat, causing the heart muscle to squeeze (contract). Normally, this signal starts in the upper right chamber of the heart (the right atrium) at a place called the sinus node. The signal then follows normal pathways to the upper left atrium and to the lower chambers of the heart (the ventricles). When you have atrial fibrillation, electrical signals don t start in the normal place in the right atrium and don t travel normally. This can cause the upper chambers of the heart (atria) to beat very fast and not in a normal pattern. Common causes of heart rhythm problems are conditions that damage the heart, like coronary artery disease, heart attack, or heart failure. Problems with the heart valves are another common cause. The heart has 4 valves that open and close with each heartbeat to help blood flow in the right direction through the heart. Other causes of atrial fibrillation include: Health problems, such as a stroke, lung disease, diabetes, overactive thyroid gland, or high blood pressure Abuse of alcohol or drugs, such as cocaine Sometimes no cause can be found. What are the symptoms? Some people don t have any symptoms. When atrial fibrillation does cause symptoms, the most common ones are: Feeling like your heart is beating too fast or too hard or skipping beats or fluttering Feeling tired or weak all the time Symptoms that are more serious include: Chest pain Trouble breathing Lightheadedness or dizziness Confusion How is it diagnosed? Your healthcare provider will ask about your symptoms and medical history and examine you. Tests may include: An ECG (also called an EKG), which measures and records your heartbeat. You may have an ECG while you are resting or while you exercise on a treadmill. You may also be asked to wear a small portable ECG monitor for a few days or sometimes a couple weeks. Blood tests An echocardiogram, which uses sound waves (ultrasound) to show the structures of the heart, like the valves How is it treated? The goal of treatment is to help the heart keep a normal rhythm. Your treatment depends on the cause of the atrial fibrillation, how often you have symptoms, and the severity of your symptoms. If you have no symptoms, or your symptoms are fairly mild, you may not need treatment. For some people atrial fibrillation lasts just a short time and the heart goes back to a normal rhythm on its own. If you keep having spells of atrial fibrillation, treatment may help keep you from having so many spells. If a health problem like a leaky heart valve is causing the atrial fibrillation, treating the health problem may also treat the fast or irregular heartbeat. Other possible treatments are: Medicine: Your provider may prescribe medicine to slow or restore a normal heart rate and rhythm. You may also need medicine to prevent blood clots because when the heart beats irregularly, some of the blood can stay in the upper chambers too long. This makes it easier for blood clots to form, increasing your risk of having a stroke or heart attack. Electrical cardioversion: First, you will be given medicine called anesthesia to keep you from feeling pain during the procedure. Then your chest will be given an electrical shock. The electrical shock should make your heart start beating normally again. You may need medicine to keep your heart rhythm normal after this procedure. Ablation: Ablation is a procedure that uses a small tube called a catheter to deliver energy to the inside of the heart. The energy (usually radio waves) scars small areas of heart tissue. The scars block abnormal electrical pathways and help you have a normal heart rhythm. With some types of ablation treatment, you will also need a pacemaker. A pacemaker is an electronic device put under the skin of your chest to help control the heartbeat. How can I take care of myself? Take your medicines as prescribed. Keep your appointments for follow-up blood tests. Make sure your healthcare provider knows about changes in your diet or medical condition. Your provider also needs to know about all prescription and nonprescription medicines, herbs, or supplements that you are taking. Some medicines may interact with your heart medicine or increase your risk for atrial fibrillation. If you want to drink alcohol, ask your provider how much is safe for you to drink. Follow your healthcare provider's instructions. Ask your provider: ?How and when you will hear your test results ?How long it will take to recover ?What activities you should avoid and when you can return to your normal activities ?How to take care of yourself at home ?What symptoms or problems you should watch for and what to do if you have them Make sure you know when you should come back for a checkup. How can I help prevent atrial fibrillation? The best prevention is to have a heart-healthy lifestyle. Keep a healthy weight. Eat a healthy diet that is low in sodium and saturated and trans fat. Stay fit with the right kind of exercise for you. Decrease stress. Don t smoke. Limit your use of alcohol. If you have heart disease or high blood pressure, follow your healthcare provider's instructions for treatment. Developed by [employer]. Published by [employer]. Copyright 2014 [employer] and/or one of its subsidiaries. All rights reserved. documented in this encounter [facility] 03-19-2022 History of Presen t illness Narrative Chief Complaint Patient presents with: Follow Up: 4 mo History of Present Illness: Annalee Keane is a 71 year old female \who presents for routine follow up. She has a PMhx of PAF, HTN, HLD, SUSIE, DM2. She was last seen in office on 10/30/2021. Today, she explains her ongoing home stressors. She now has 8 children, grandchildren living with her. She states she was hospitalized for bleeding and a liver issue. She has remained off eliquis. She understands her risk for stroke. She is interested in seeing EP in [place] for Watchman consideration. She would like to take care of bladder issues first. She states she manages her a-fib by trying to reduce her home stress and rests when she feels palpitations. She reports being compliant with metoprolol for rate control. She can feel palpitations when she is in Afib. She has mild LE swelling. She otherwise denies chest pain, shortness of breath, dizziness, orthopnea. We reviewed cardiac risk factors and modifications. She reports taking medications as prescribed. Her she was recently added aldactone for liver cirrhosis management. She states she has lost weight through diet modifications. PAST MEDICAL HISTORY Diagnosis Date Abdominal pain Atrial fibrillation (HCC) Esophageal reflux High cholesterol SUSIE (obstructive sleep apnea) 2019 DME [facility] Sn[facility] Type 2 diabetes (HCC) Unspecified asthma(493.90) PAST SURGICAL HISTORY Procedure Laterality Date CAPSL-RHPHY/RCNSTJ WRST OPN CARPL INS COLONOSCOPY 11/08/15 normal, repeat in 10 years EGD 11/08/15 gastritis, neg for H pylori EGD TRANSORAL BIOPSY SINGLE/MULTIPLE 10/25/15 proximal ulcer, positive H pylori REPAIR FIRST ABDOMINAL WALL HERNIA 03/19/2005 Repair with Mesh RPR RECRT INCAL/VNT HERNIA INCARCERATED 09/08/09 Repair with Mesh SALPINGECTOMY 1966 left tube VAGINAL HYSTERECTOMY UTERUS 250 GM/< 1986 Hysterectomy, vaginal FAMILY HISTORY Problem Relation Age of Onset Cancer Mother Diabetes Mother Coronary Artery Disease Mother Cancer Father Diabetes Father Coronary Artery Disease Father Social History Tobacco Use Smoking status: Never Smokeless tobacco: Never Vaping Use Vaping Use: Never used Substance Use Topics Alcohol use: Yes Comment: Once yearly Drug use: Yes Types: Marijuana Comment: CBD gummies daily ALLERGIES Allergen Reactions Bleach (Sodium Hypo* Other: See Comments syncope Coconut Hives Sulfa (Sulfonamide * Rash Medications: Current Outpatient Medications Medication Sig Dispense Refill BIOTIN ORAL Take by mouth. Ascorbic Acid (VITAMIN C) 100 mg tablet Take 100 mg by mouth once daily. Multivitamin capsule Take 1 capsule by mouth once daily. rosuvastatin (CRESTOR) 10 mg tablet Take 1 tablet by mouth once daily. 30 tablet 5 glimepiride (AMARYL) 4 mg tablet TAKE 1 TABLET BY MOUTH TWICE DAILY WITH MEALS 180 tablet 0 spironolactone (ALDACTONE) 25 mg tablet Take 1 tablet by mouth once daily. 90 tablet 3 nitroglycerin sublingual (NITROQUICK) 0.4 mg SL tablet Dissolve 1 tablet under the tongue as needed for chest pain. If no pain relief call 911. 1 Bottle of 25 0 rOPINIRole (REQUIP) 1 mg tablet TAKE 1 TABLET BY MOUTH ONCE DAILY AT BEDTIME 90 tablet 0 apixaban (ELIQUIS) 5 mg tab(s) Take 1 tablet by mouth twice daily. 180 tablet 3 metoprolol tartrate, short acting, (LOPRESSOR) 50 mg tablet Take 1 tablet by mouth twice daily. 180 tablet 3 Lancets lancets Test blood sugar(s) 4 times daily. Dx: Type 2 DM - Controlled E11.9 Insulin: No 100 Each 11 losartan (COZAAR) 25 mg tablet Take 1 tablet by mouth once daily. 90 tablet 3 blood sugar diagnostic (ACCU-CHEK RICARDO PLUS TEST STRP) test strip Test blood sugar(s) 2 times daily. Dx: Type 2 DM - Controlled E11.9 Needs 180 strips for 3 months 180 Strip 3 furosemide (LASIX) 20 mg tablet Take 1 tablet by mouth once daily. 90 tablet 3 cholecalciferol (VITAMIN D3) 5,000 unit tab Take 1 tablet by mouth once daily. 90 tablet 1 Blood-Glucose Meter (ACCU-CHEK RICARDO PLUS METER) Please check blood sugars 3 times a day 1 Each 3 CPAP NEW SET UP: Settings 5 - 15 cm H2O, suitable mask per pt preference, chin strap, head gear, humidity, tubing, lifetime supplies. G47.33 SUSIE 1 Device 0 CPAP Initiate Auto PAP @ 5-20 cm of water with humidification. Mask (per patient preference) optional chin strap (if indicated) , filters, tubing, humidifier and lifetime supplies. 1 Device 0 diphenhydramine HCl (BENADRYL ALLERGY ORAL) Take 2 capsules by mouth twice daily. loratadine (CLARITIN ORAL) Take by mouth once daily. (Patient not taking: Reported on 03/19/2022) aspirin 81 mg chewable tablet Take 1 tablet by mouth once daily. (Patient not taking: Reported on 03/19/2022) 30 tablet 11 Current Facility-Administered Medications Medication Dose Route Frequency Provider Last Rate Last Admin perflutren lipid microspheres 1.3 mL in NaCl (PF) 0.9% 10 mL injection (DEFINITY) INTRAVENOUS DIRECTED PRN Leland Gagnon APRN.IVÁN sodium chloride 0.9 % (flush) 10 mL (BD POSIFLUSH) 10 mL INTRAVENOUS DIRECTED PRN Leland Gagnon APRN.TECHNOLOGY ASSISTANT Review of Systems Constitutional: Negative for chills, diaphoresis, fever, malaise/fatigue and weight loss. Lost weight with diet 23 lbs HENT: Negative for congestion, ear pain, nosebleeds, sinus pain and sore throat. Eyes: Negative for pain. Respiratory: Negative for cough, shortness of breath and wheezing. Cardiovascular: Positive for leg swelling. Negative for chest pain and palpitations. Gastrointestinal: Negative for abdominal pain, blood in stool and melena. Genitourinary: Positive for dysuria (incontinence) and frequency. Negative for hematuria. Musculoskeletal: Negative for falls. Neurological: Negative for dizziness, tingling, sensory change, speech change, focal weakness, loss of consciousness, weakness and headaches. Endo/Heme/Allergies: Does not bruise/bleed easily. Psychiatric/Behavioral: Negative for depression, memory loss and suicidal ideas. The patient is not nervous/anxious and does not have insomnia. Physical Examination: Vitals:BP 128/60 Pulse 80 Wt 222 lb (100.7kg) BP w/Orthostatic Vitals Date and Time Orthostatic BP Orthostatic Pulse BP Pulse BP Position BP Site BP Cuff Size 03/19/22 1501 -- -- 128/60 80 -- -- -- Last 2 Encounter Wt Readings: Date: Wt: 03/19/2022 222 lb (100.7 kg) 10/30/2021 235 lb (106.6 kg) Physical Exam HENT: Head: Normocephalic. Eyes: Pupils: Pupils are equal, round, and reactive to light. Cardiovascular: Rate and Rhythm: Normal rate and regular rhythm. Pulses: Radial pulses are 2+ on the right side and 2+ on the left side. Dorsalis pedis pulses are 2+ on the right side and 2+ on the left side. Heart sounds: Normal heart sounds, S1 normal and S2 normal. Pulmonary: Effort: Pulmonary effort is normal. No accessory muscle usage or respiratory distress. Breath sounds: Normal breath sounds. Abdominal: General: Bowel sounds are normal. Palpations: Abdomen is soft. Musculoskeletal: General: Normal range of motion. Cervical back: Normal range of motion. Right lower le+ Pitting Edema present. Left lower le+ Pitting Edema present. Skin: General: Skin is warm and dry. Neurological: Mental Status: She is alert and oriented to person, place, and time. Gait: Gait is intact. Psychiatric: Mood and Affect: Affect normal. Cognition and Memory: Memory normal. Judgment: Judgment normal. Most Recent Cardiac Testing 12/22/2018 CONCLUSIONS: 1. SPECT Perfusion Study: Normal. 2. There is no scintigraphic evidence for inducible ischemia. 3. No evidence of scarred myocardium. 4. Functional capacity N/A (pharmacological). 5. Left ventricle is normal in size. The left ventricle systolic function is normal. 6. Right ventricle is normal in size. 7. This is a low risk scan. LVEF % 72 10/2018 CONCLUSIONS: - Technically difficult exam due to body habitus. - Exam indication: Shortness of Breath - The left ventricle is small. There is mild left ventricular hypertrophy. Left ventricular systolic function is normal. EF = 68 5% (2D biplane) Grade I left ventricular diastolic dysfunction. - The right ventricle is normal in size. Right ventricular systolic function is normal. - There are no significant valvular abnormalities. - The patient has not had a prior CC echocardiographic exam for comparison. Assessment and Plan: PAF -monitor April 2021 with confirmed new A-fib (22% burden) and elevated rates. She was started on metoprolol and eliquis at that time. Unfortunately, she stopped eliquis d/t cost and then was hospitalized with GI bleeding and diagnosed with liver cirrhosis. She does not want to take any type of blood thinner. She understands her risk for stroke in the setting of a-fib. She is however interested in Watchman device and was referred to EP at our last office visit. She will call our [place] office to arrange appointment, number provided. She has intermittent symptomatic palpitations. Continue metoprolol -echo 10/2018 stable structure and function -stress testing 10/2018 no scintigraphic evidence for inducible ischemia -TSH 3.400 03/07/2021 HTN -128/60 -Continue current medication(s) -Encouraged dietary sodium restriction/DASH diet -Recommended regular aerobic exercise. -Recommend home blood pressure monitoring, to bring results in on next visit -Discussed need and benefit for weight loss. -Goal of BP <130/80 Mild diastolic dysfunction -EF 68%, Grade I left ventricular diastolic dysfunction -continue lasix and aldactone -recommended heart healthy, 2g low sodium diet, daily weights HLD -lipid panel 03/2021 LDL 83 -continue Crestor 10 mg SUSIE -CPAP, admits to not using, encouraged compliance DM2 -A1C 03/2021 6.9 -oral medication Obesity -lifestyle modifications -encouraged a heart healthy diet, routine exercise and weight loss Follow up in 6 months. Patient to call with any issues or concerns prior to then. Electronically signed by Leland Gagnon APRN.CNP on March 19, 2022, 3:04 PM documented in this encounter [facility] 01-30-2022 Miscellaneous Notes Patient has been identified by name and date of : Yes Requested Prescriptions Pending Prescriptions Disp Refills rosuvastatin (CRESTOR) 10 mg tablet 25 tablet 0 Sig: Take 1 tablet by mouth once daily. RX INSTRUCTIONS: Patient aware RX will be sent to pharmacy. No need to notify patient. Sultana Loera documented in this encounter [facility] 01-29-2022 Miscellaneous Notes Patient is over due for follow up and annual exam due in March. Thank you Margarette Barragan APRN.IVÁN Patient has been identified by name and date of : Yes Patient phones for refill(s): Requested Prescriptions Pending Prescriptions Disp Refills glimepiride (AMARYL) 4 mg tablet [Pharmacy Med Name: Glimepiride 4 MG Oral Tablet] 180 tablet 0 Sig: TAKE 1 TABLET BY MOUTH TWICE DAILY WITH MEALS Date of last office visit in primary care: 03/08/21 Last 2 Encounter Wt Readings: Date: Wt: 10/30/2021 106.6 kg (235 lb) 05/01/2021 111.1 kg (245 lb) Previous labs/tests for medication: Diabetes: Hemoglobin A1C (%) Date Value 03/07/2021 6.9 11/11/2020 7.3 Please advise. Thank you. Cony Ash LPN documented in this encounter [facility] 01-22-2022 Miscellaneous Notes Spoke with patient about test results. Patient verbalizes understanding. Armida Serrato LPN ----- Message from Leland Gagnon APRN.TECHNOLOGY ASSISTANT sent at 01/21/2022 7:17 AM EDT ----- Please call patient and notify them of normal results. BMP is with stable kidney function and potassium. Thank you! documented in this encounter [facility] 01-12-2022 Miscellaneous Notes Pt. notified. Voices understanding of all instructions. Betzy Wallace CNP also notified in a detailed message on the nurses line at [facility]. Johana Wilson RN Please let the patient known. I received a faxed letter from her gastro intestinal doctor Stating she was diagnosed with liver cirrhosis and has esophageal varices. They request some cardiology medication changes to support her new GI diagnosis. I agree with the recommendations. Please let the patient know we are going to add 25 mg of Aldactone once daily to her medication regimen. This helps with retained fluid in the setting of cirrhosis. She will need a follow-up BMP in 1 week after starting to monitor potassium and kidney function. Please let Betzy Wallace with [facility] at [phone] know that I received her fax and have made medication changes according. Thank you, Leland Gagnon APRN.TECHNOLOGY ASSISTANT documented in this encounter [facility] 12-26-2021 History of Presen t illness Narrative POPULATION HEALTH NAVIGATION OUTREACH Action/ Due for: PCP Wellness (due 03/08/22) A1c Urine Albumin Dilated Retinal Exam Unable to leave VM; [employer] message sent Pt identified by name and : NO Outreach Outcome/Action Unable to reach patient: Phone number not valid / voicemail full Agile Systemshart message sent Did you use a PCP flex slot to schedule this appointment? N/A Reason for Outreach Care Gap or Scheduling/Wellness visits Payer: Payor: [employer] AND BLUE fflick / Plan: [employer] HMO / Product Type: HMO / Care Gap Reviewed:: Annual Wellness visit Diabetic Eye Exam HBA1C Nephropathy (Albumin/Creatinine) Urine Reminder: Reminder note to check Health Maintenance for items below Health Maintenance items due: COVID-19 VACCINE(1) Never done BP CONTROLLED (<130/80) Never done DTAP,TDAP,TD(1 - Tdap) Never done SHINGRIX VACCINE(1 of 2) Never done DEPRESSION SCREENING due on 08/21/2019 ADVANCE DIRECTIVE DISCUSSION Never done HBA1C due on 09/04/2021 URINE ALBUMIN:CREATININE RATIO due on 11/11/2021 DILATED RETINAL EXAM due on 12/13/2021 Message Sent to Practice: No Navigation Signature: Elvira Holt MA December 26, 2021 12:02 PM documented in this encounter [facility] 12-15-2021 Miscellaneous Notes Last seen pcp 03/08/21. Please call pt to reschedule Feb appt. Patient has been identified by name and date of : Yes Requested Prescriptions Pending Prescriptions Disp Refills nitroglycerin sublingual (NITROQUICK) 0.4 mg SL tablet 1 Bottle of 25 0 Sig: Dissolve 1 tablet under the tongue as needed for chest pain. If no pain relief call 911. RX INSTRUCTIONS: Patient aware RX will be sent to pharmacy. No need to notify patient. Sultana Loera documented in this encounter [facility] 12-13-2021 Miscellaneous Notes December 13, 2021 PID: [id number] Annalee Keane [address] [place] [address] Dear Ms. Keane, We are pleased to inform you that the results of your recent breast imaging exam on 12/13/2021 are normal. Early detection of cancer is very important. We also understand recommendations regarding breast cancer screening are controversial. Please discuss with your primary care provider which strategy is best for you and whether a mammogram is right for you. Your imaging studies and report will be kept on file at [facility] as part of your permanent medical record and are available for your continuing care. Thank you for allowing us to help in meeting your health care needs. Sincerely, Dr. Siddiqui Interpreting Radiologist [facility] (Normal over 40) documented in this encounter [facility] 12-13-2021 History of Presen t illness Narrative Radiology Service Progress Note PATIENT NAME: Annalee Keane DATE OF SERVICE: December 13, 2021 TIME: 1:25 PM PATIENT IDENTITY VERIFICATION COMPLETED USING TWO (2) IDENTIFIERS: Name and Date of confirmed by patient verbally. FALL SCREENING: Has the patient had 2 falls in the last year or 1 fall with injury or currently using an Ambulatory Assistive Device (Walker, Cane, Wheelchair, Crutches, etc.)? No PATIENT GENDER DATA: Female. status: : No status: NO. PATIENT RELEVANT IMPLANT DATA REVIEWED: Not Applicable RADIOLOGY DEPARTMENT: Mammography PERIPHERAL IV DATA: Not applicable SIGNED BY: RT Bart(R) December 13, 2021 1:25 PM documented in this encounter [facility] 11-14-2021 Miscellaneous Notes Left detailed message on identified voicemail. Instructed pt. to return call if any questions/ concerns. Johana Wilson RN ----- Message from Leland Gagnon APRN.TECHNOLOGY ASSISTANT sent at 11/14/2021 7:58 AM EDT ----- Please call patient and notify her monitor did not reveal any a-fib/flutter. Continue metoprolol. Thank you! documented in this encounter [facility] 11-09-2021 Miscellaneous Notes [facility] faxed to [employer] Attn: Liv Daniel at [phone]. documented in this encounter [facility] 11-01-2021 Miscellaneous Notes Sw spoke with patient and she notes that a family member helped her with cost of Eliquis for right now. Patient reports that she has been helping other family members with food, utility bills, and housing so has been running short on funds for herself. Sw noted that [place] has a patient assistance program through [employer]. Patient Notes that Sw can mail her the application and she can review guidelines and see if she would like to apply for assistance. Sw confirmed patient address and will mail application to patient. Sw left message for patient to return Sw call to discuss [facility] patient assistance. documented in this encounter [facility] 10-31-2021 Miscellaneous Notes Patient has been identified by name and date of : Yes Patient phones for refill(s): Pending Prescriptions Disp Refills ROPINIROLE 1 MG TABLET 90 tablet 0 Sig: TAKE 1 TABLET BY MOUTH ONCE DAILY AT BEDTIME MODESTA: Yes Date of last office visit in primary care: 03/08/21 Last 2 Encounter Wt Readings: Date: Wt: 10/30/2021 106.6 kg (235 lb) 05/01/2021 111.1 kg (245 lb) Previous labs/tests for medication: Not applicable Please advise. Thank you. Cony Ash LPN documented in this encounter [facility] 10-30-2021 History of Presen t illness Narrative EVENT MONITOR DISPOSABLE PATCH INSTRUCTIONS Patient Name: Annalee Keane [facility] Number: [id number] Skin prepped and cleansed with alcohol Patch secured to prepped area Monitor Activated Serial #: [id number] Patient Instructed: 1.) Prescribed order timeframe 2.) Bathing guidelines 3.) Usage of event button and diary documentation 4.) Return of monitor at the end of prescribed order 5.) Call with problems [phone] or [phone] ext. [phone] Patient expresses a good understanding of instructions Belem Ojeda RN Chief Complaint Patient presents with: Follow Up History of Present Illness: Annalee Keane is a 71 year old female who presents for routine follow up. She has a PMhx of PAF, HTN, HLD, SUSIE, DM2. She was last seen in office on 05/01/2021. She continues to be limited in activity by joint pain and has ongoing family stressors. She explains she has noticed increased HRs on her apple watch. She associates elevated rates with toe pain. She endorses palpitations and SOB with rates that are elevated. EKG completed in office today reveals a-flutter 145 bpm. Unfortunately, she has not been taking her eliquis d/t cost. She is not interested in changing to coumadin d/t frequent monitoring. She understands she is at increased risk for stroke. Will have social work reach out and see if she can apply for assistance with cost. Recommended increasing metoprolol dosing and cardioversion when anticoagulation established. She inquires about watchman (as her friend went through this procedure) and she does not want to be on medications long-term. She also may require initiation of antiarrythmic medications to restore/maintain a NSR. Will refer to EP in [place]. Patient is agreeable to travel. She denies chest pain, chest pain with activity, dizziness, syncope, orthopnea, LE swelling. We reviewed overall cardiac risk factors and modifications. Encouraged medication compliance. PAST MEDICAL HISTORY Diagnosis Date Abdominal pain Atrial fibrillation (HCC) Esophageal reflux High cholesterol SUSIE (obstructive sleep apnea) 2019 DME [facility] Type 2 diabetes (HCC) Unspecified asthma(493.90) PAST SURGICAL HISTORY Procedure Laterality Date CAPSL-RHPHY/RCNSTJ WRST OPN CARPL INS COLONOSCOPY 11/08/15 normal, repeat in 10 years EGD 11/08/15 gastritis, neg for H pylori EGD TRANSORAL BIOPSY SINGLE/MULTIPLE 10/25/15 proximal ulcer, positive H pylori REPAIR FIRST ABDOMINAL WALL HERNIA 03/19/2005 Repair with Mesh RPR RECRT INCAL/VNT HERNIA INCARCERATED 09/08/09 Repair with Mesh SALPINGECTOMY 1966 left tube VAGINAL HYSTERECTOMY UTERUS 250 GM/< 1986 Hysterectomy, vaginal FAMILY HISTORY Problem Relation Age of Onset Cancer Mother Diabetes Mother Coronary Artery Disease Mother Cancer Father Diabetes Father Coronary Artery Disease Father Social History Tobacco Use Smoking status: Never Smoker Smokeless tobacco: Never Used Vaping Use Vaping Use: Never used Substance Use Topics Alcohol use: Yes Comment: Once yearly Drug use: No ALLERGIES No Known Allergies Medications: Current Outpatient Medications Medication Sig Dispense Refill rosuvastatin (CRESTOR) 10 mg tablet Take 1 tablet by mouth once daily 25 tablet 0 metoprolol tartrate, short acting, (LOPRESSOR) 25 mg tablet Take 1 tablet by mouth twice daily. 180 tablet 3 Lancets lancets Test blood sugar(s) 4 times daily. Dx: Type 2 DM - Controlled E11.9 Insulin: No 100 Each 11 glimepiride (AMARYL) 4 mg tablet Take 1 tablet by mouth twice daily with meals. 180 tablet 1 losartan (COZAAR) 25 mg tablet Take 1 tablet by mouth once daily. 90 tablet 3 rOPINIRole (REQUIP) 1 mg tablet Take 1 tablet by mouth daily at bedtime. 90 tablet 1 nitroglycerin sublingual (NITROQUICK) 0.4 mg SL tablet Dissolve 1 tablet under the tongue as needed for chest pain. If no pain relief call 911. 1 Bottle of 25 0 loratadine (CLARITIN ORAL) Take by mouth once daily. blood sugar diagnostic (ACCU-CHEK RICARDO PLUS TEST STRP) test strip Test blood sugar(s) 2 times daily. Dx: Type 2 DM - Controlled E11.9 Needs 180 strips for 3 months 180 Strip 3 furosemide (LASIX) 20 mg tablet Take 1 tablet by mouth once daily. 90 tablet 3 cholecalciferol (VITAMIN D3) 5,000 unit tab Take 1 tablet by mouth once daily. 90 tablet 1 Blood-Glucose Meter (ACCU-CHEK RICARDO PLUS METER) Please check blood sugars 3 times a day 1 Each 3 aspirin 81 mg chewable tablet Take 1 tablet by mouth once daily. 30 tablet 11 CPAP NEW SET UP: Settings 5 - 15 cm H2O, suitable mask per pt preference, chin strap, head gear, humidity, tubing, lifetime supplies. G47.33 SUSIE 1 Device 0 CPAP Initiate Auto PAP @ 5-20 cm of water with humidification. Mask (per patient preference) optional chin strap (if indicated) , filters, tubing, humidifier and lifetime supplies. 1 Device 0 diphenhydramine HCl (BENADRYL ALLERGY ORAL) Take 2 capsules by mouth twice daily. ELIQUIS 5 mg tab(s) Take 1 tablet by mouth twice daily (Patient not taking: Reported on 10/30/2021) 180 tablet 3 Current Facility-Administered Medications Medication Dose Route Frequency Provider Last Rate Last Admin perflutren lipid microspheres 1.3 mL in NaCl (PF) 0.9% 10 mL injection (DEFINITY) INTRAVENOUS DIRECTED PRN Leland Gagnon APRN.CNP sodium chloride 0.9 % (flush) 10 mL (BD POSIFLUSH) 10 mL INTRAVENOUS DIRECTED PRN Leland Gagnon APRN.TECHNOLOGY ASSISTANT Review of Systems Constitutional: Negative for chills, diaphoresis, fever, malaise/fatigue and weight loss. HENT: Negative for congestion, ear pain, nosebleeds, sinus pain and sore throat. Eyes: Negative for pain. Respiratory: Positive for shortness of breath. Negative for cough and wheezing. Cardiovascular: Positive for palpitations. Negative for chest pain and leg swelling. Gastrointestinal: Negative for abdominal pain, blood in stool and melena. Genitourinary: Positive for urgency. Negative for hematuria. Musculoskeletal: Positive for joint pain. Negative for falls. Neurological: Negative for dizziness, tingling, sensory change, speech change, focal weakness, loss of consciousness, weakness and headaches. Endo/Heme/Allergies: Does not bruise/bleed easily. Psychiatric/Behavioral: Negative for depression, memory loss and suicidal ideas. The patient is not nervous/anxious and does not have insomnia. Physical Examination: Vitals:BP 118/92 Pulse 72 Resp 14 Ht 5' 3 (1.60m) Wt 235 lb (106.6kg) SpO2 97% BMI 41.64 kg/(m^2). Last 2 Encounter Wt Readings: Date: Wt: 05/01/2021 245 lb (111.1 kg) 04/03/2021 243 lb (110.2 kg) Physical Exam HENT: Head: Normocephalic. Eyes: Pupils: Pupils are equal, round, and reactive to light. Cardiovascular: Rate and Rhythm: Normal rate. Pulses: Radial pulses are 2+ on the right side and 2+ on the left side. Dorsalis pedis pulses are 2+ on the right side and 2+ on the left side. Heart sounds: Normal heart sounds, S1 normal and S2 normal. Pulmonary: Effort: Pulmonary effort is normal. No accessory muscle usage or respiratory distress. Breath sounds: Normal breath sounds. Abdominal: General: Bowel sounds are normal. Palpations: Abdomen is soft. Musculoskeletal: General: Normal range of motion. Cervical back: Normal range of motion. Right lower leg: No edema. Left lower leg: No edema. Skin: General: Skin is warm and dry. Neurological: Mental Status: She is alert and oriented to person, place, and time. Gait: Gait is intact. Psychiatric: Mood and Affect: Affect normal. Cognition and Memory: Memory normal. Judgment: Judgment normal. Most Recent Cardiac Testing 12/22/2018 CONCLUSIONS: 1. SPECT Perfusion Study: Normal. 2. There is no scintigraphic evidence for inducible ischemia. 3. No evidence of scarred myocardium. 4. Functional capacity N/A (pharmacological). 5. Left ventricle is normal in size. The left ventricle systolic function is normal. 6. Right ventricle is normal in size. 7. This is a low risk scan. LVEF % 72 10/2018 CONCLUSIONS: - Technically difficult exam due to body habitus. - Exam indication: Shortness of Breath - The left ventricle is small. There is mild left ventricular hypertrophy. Left ventricular systolic function is normal. EF = 68 5% (2D biplane) Grade I left ventricular diastolic dysfunction. - The right ventricle is normal in size. Right ventricular systolic function is normal. - There are no significant valvular abnormalities. - The patient has not had a prior CC echocardiographic exam for comparison. Assessment and Plan: PAF -monitor April 2021 with confirmed new A-fib (22% burden) and elevated rates. She was started on metoprolol and eliquis at that time. Unfortunately, she stopped eliquis d/t cost. She is not interested in changing to coumadin d/t frequent monitoring. She understands she is at increased risk for stroke. Will have social work reach out and see if she can apply for assistance with cost. -EKG in office today a-flutter 145 bpm. Symptomatic palpitations and SOB Increase metoprolol to 50 mg BID. -will consider cardioversion when anticoagulation established. She inquires about watchman/ablation (as her friend went through this procedure) and she does not want to be on medications long-term. She also may require initiation of antiarrythmic medications to restore/maintain a NSR. Will refer to EP in [place]. She is willing to travel -TSH 3.400 03/07/2021 HTN -118/92 -Continue current medication(s) -Encouraged dietary sodium restriction/DASH diet -Recommended regular aerobic exercise. -Recommend home blood pressure monitoring, to bring results in on next visit -Discussed need and benefit for weight loss. -Goal of BP <130/80 HLD -lipid panel 03/2021 LDL 83 -continue Crestor 10 mg SUSIE -CPAP, admits to not using, encouraged compliance DM2 -A1C 03/2021 6.9 -oral medication Obesity -lifestyle modifications -encouraged a heart healthy diet, routine exercise and weight loss Follow up in 6 months. Patient to call with any issues or concerns prior to then. Some elements were copied from my note dated 04/03/2021, which have been updated where appropriate, and all reflect current medical decision making from today Electronically signed by Leland Gagnon APRN.CNP on October 30, 2021, 1:35 PM documented in this encounter [facility] 10-30-2021 Instructions Leland Gagnon APRN.CNP - 10/30/2021 4:03 PM EDT Atrial Fibrillation What is atrial fibrillation? Atrial fibrillation (also called A-fib) is a fast or irregular heartbeat that starts in the upper chambers of the heart. The abnormal heartbeat affects the ability of the heart to pump blood to the rest of the body. What is the cause? An electrical signal in your heart starts each heartbeat, causing the heart muscle to squeeze (contract). Normally, this signal starts in the upper right chamber of the heart (the right atrium) at a place called the sinus node. The signal then follows normal pathways to the upper left atrium and to the lower chambers of the heart (the ventricles). When you have atrial fibrillation, electrical signals don t start in the normal place in the right atrium and don t travel normally. This can cause the upper chambers of the heart (atria) to beat very fast and not in a normal pattern. Common causes of heart rhythm problems are conditions that damage the heart, like coronary artery disease, heart attack, or heart failure. Problems with the heart valves are another common cause. The heart has 4 valves that open and close with each heartbeat to help blood flow in the right direction through the heart. Other causes of atrial fibrillation include: Health problems, such as a stroke, lung disease, diabetes, overactive thyroid gland, or high blood pressure Abuse of alcohol or drugs, such as cocaine Sometimes no cause can be found. What are the symptoms? Some people don t have any symptoms. When atrial fibrillation does cause symptoms, the most common ones are: Feeling like your heart is beating too fast or too hard or skipping beats or fluttering Feeling tired or weak all the time Symptoms that are more serious include: Chest pain Trouble breathing Lightheadedness or dizziness Confusion How is it diagnosed? Your healthcare provider will ask about your symptoms and medical history and examine you. Tests may include: An ECG (also called an EKG), which measures and records your heartbeat. You may have an ECG while you are resting or while you exercise on a treadmill. You may also be asked to wear a small portable ECG monitor for a few days or sometimes a couple weeks. Blood tests An echocardiogram, which uses sound waves (ultrasound) to show the structures of the heart, like the valves How is it treated? The goal of treatment is to help the heart keep a normal rhythm. Your treatment depends on the cause of the atrial fibrillation, how often you have symptoms, and the severity of your symptoms. If you have no symptoms, or your symptoms are fairly mild, you may not need treatment. For some people atrial fibrillation lasts just a short time and the heart goes back to a normal rhythm on its own. If you keep having spells of atrial fibrillation, treatment may help keep you from having so many spells. If a health problem like a leaky heart valve is causing the atrial fibrillation, treating the health problem may also treat the fast or irregular heartbeat. Other possible treatments are: Medicine: Your provider may prescribe medicine to slow or restore a normal heart rate and rhythm. You may also need medicine to prevent blood clots because when the heart beats irregularly, some of the blood can stay in the upper chambers too long. This makes it easier for blood clots to form, increasing your risk of having a stroke or heart attack. Electrical cardioversion: First, you will be given medicine called anesthesia to keep you from feeling pain during the procedure. Then your chest will be given an electrical shock. The electrical shock should make your heart start beating normally again. You may need medicine to keep your heart rhythm normal after this procedure. Ablation: Ablation is a procedure that uses a small tube called a catheter to deliver energy to the inside of the heart. The energy (usually radio waves) scars small areas of heart tissue. The scars block abnormal electrical pathways and help you have a normal heart rhythm. With some types of ablation treatment, you will also need a pacemaker. A pacemaker is an electronic device put under the skin of your chest to help control the heartbeat. How can I take care of myself? Take your medicines as prescribed. Keep your appointments for follow-up blood tests. Make sure your healthcare provider knows about changes in your diet or medical condition. Your provider also needs to know about all prescription and nonprescription medicines, herbs, or supplements that you are taking. Some medicines may interact with your heart medicine or increase your risk for atrial fibrillation. If you want to drink alcohol, ask your provider how much is safe for you to drink. Follow your healthcare provider's instructions. Ask your provider: ?How and when you will hear your test results ?How long it will take to recover ?What activities you should avoid and when you can return to your normal activities ?How to take care of yourself at home ?What symptoms or problems you should watch for and what to do if you have them Make sure you know when you should come back for a checkup. How can I help prevent atrial fibrillation? The best prevention is to have a heart-healthy lifestyle. Keep a healthy weight. Eat a healthy diet that is low in sodium and saturated and trans fat. Stay fit with the right kind of exercise for you. Decrease stress. Don t smoke. Limit your use of alcohol. If you have heart disease or high blood pressure, follow your healthcare provider's instructions for treatment. Developed by [employer]. Published by [employer]. Copyright 2014 [employer] and/or one of its subsidiaries. All rights reserved. documented in this encounter [facility] 09-11-2021 Miscellaneous Notes Patient phones requesting refills as follows: Pending Prescriptions Disp Refills ROSUVASTATIN 10 MG TABLET 25 tablet 0 Sig: Take 1 tablet by mouth once daily MODESTA: Yes GERMAIN-03/08/21 Labs-03/07/21 NOV-none med filled 05/03/21 Please review and advise. Aydee Gipson LPN documented in this encounter [facility] 09-11-2021 Miscellaneous Notes Patient's request for medication is as follows: Pending Prescriptions Disp Refills ELIQUIS 5 MG TABLET 180 tablet 3 Sig: Take 1 tablet by mouth twice daily MODESTA: Yes METOPROLOL TARTRATE 25 MG TABLET 180 tablet 3 Sig: Take 1 tablet by mouth twice daily. MODESTA: No Last seen 05/01/2021 in [place]. Follow up scheduled for 10/30/2021. Prescription(s) as above. Please process accordingly. Leland Castorena LPN documented in this encounter [facility] 08-29-2021 Miscellaneous Notes Patient is testing her sugars 4 times a day. Annalee Keane is calling Doreen Pineda MD today she is requesting a prescription for: Lancets that work with: (ACCU-CHEK RICARDO PLUS METER). She stated the CBD gummies are helping her blood sugar levels, she lost 10 lbs and feels really good. However, she is still testing 4 times daily; please advise if Medicare will pay for testing 4 times daily; notified to check with her Pharmacy. Patient is using [email or web address] [place]. Please notify her once this is completed. Patient has been identified by name and birthdate. Duration of symptoms: N/A Person calling: self Call patient at: on cell [phone] (home) [phone] (cell) Was an appointment scheduled: No Closing statement: Results or non-symptom based questions: Thank you for calling [facility], your call will be returned within the next business day. Amelia Negrete Pss documented in this encounter [facility] 07-27-2021 Miscellaneous Notes Patient has been identified by name and date of : Yes Last office visit in this department: Visit date not found RX INSTRUCTIONS: Patient aware RX escripted to mail away pharmacy. No need to notify patient. Patient phones requesting refills as follows: No medications selected for refill. Please review and advise. Priscilla Ge Pss documented in this encounter [facility] documented in this [facility] Diagnosis PAF (paroxysmal atrial fibrillation) (HCC)- Primary Atrial fibrillation Screening for ischemic heart disease Essential hypertension Unspecified essential hypertension Mixed hyperlipidemia SUSIE (obstructive sleep apnea) Obstructive sleep apnea (adult) (pediatric) Controlled type 2 diabetes mellitus without complication, without long-term current use of insulin (HCC) Morbid obesity (HCC) Morbid obesity [facility] Diagnosis Encounter for screening mammogram for breast cancer [facility] Diagnosis Essential hypertension- Primary Unspecified essential hypertension [facility] Diagnosis PAF (paroxysmal atrial fibrillation) (HCC)- Primary Atrial fibrillation Essential hypertension Unspecified essential hypertension Mixed hyperlipidemia Obesity (BMI 30-39.9) Obesity, unspecified Controlled type 2 diabetes mellitus without complication, without long-term current use of insulin (HCC) documented [facility] Diagnosis Controlled type 2 diabetes mellitus without complication, without long-term current use of insulin (HCC) [facility] Diagnosis Controlled type 2 diabetes mellitus without complication, without long-term current use of insulin (HCC) Mixed hyperlipidemia [facility] Diagnosis Dyspnea on exertion- Primary Other dyspnea and respiratory abnormality Chest pain, unspecified type Controlled type 2 diabetes mellitus without complication, without long-term current use of insulin (HCC) Edema, unspecified type PAF (paroxysmal atrial fibrillation) (HCC) Atrial fibrillation Essential hypertension Unspecified essential hypertension [facility] (narrative)* Outpatient Procedure (Routine) - Closed Specialty Diagnoses / Procedures Referred By Contac t Referred [facility] Diagnoses Dyspnea on exertion Chest pain, unspecified type Procedures ECG COMPLETE ECG ROUTINE ECG W/LEAST 12 LDS W/I&R Moise Waller PA-C [address] [place] [address] [facility] [place] [address] [place] [address] Referral ID Status Reason Start Date Expiration Date V isits Requested Visits Authorized [id number] Closed Auto-Generate d Referral 01/14/2023 01/14/2024 1 1 * Diagnostic Procedure Only (Routine) - Pending Review Specialty Diagnoses / Procedures Referred By Nadeem vega Referred To Contact [facility] Diagnoses Controlled type 2 diabetes mellitus without complication, without long-term current use of insulin (HCC) PAF (paroxysmal atrial fibrillation) (HCC) Essential hypertension Dyspnea on exertion Chest pain, unspecified type Procedures NM CARDIAC PERF STRESS/PHARM MYOCARDIAL SPECT MULTIPLE STUDIES Moise Waller PA-C [address] [place] [address] [facility] [address] [place] [address] Referral ID Status Reason Start Date Expiration Date Visits Requested Visits Authorized [id number] Pending Review Auto-Generat ed Referral 01/14/2023 02/13/2024 1 1 [facility] Summary Purpose Family History No Family History Records FoundNo Family History Records FoundNo Family History Records FoundNo Family History Records FoundNo Family History Records FoundNo Family History Records Found Advance Directives No Advanced Directives Records FoundDocuments on File Type Date Recorded 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 Advance Directive(s) 11/08/2015 5:51 AM Documents on File Type Date Recorded 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 Advance Directive(s) 11/08/2015 5:51 AM Reason for Referral Specialty Diagnoses / Procedures Referred By Contac t Referred To Contact Diagnoses PAF (paroxysmal atrial fibrillation) (HCC) Procedures CONSULT TO ELECTROPHYSIOLOGY OFFICE/OUTPATIENT NEW HIGH MDM 60-74 MINUTES Leland Gagnon, JAENY.TECHNOLOGY ASSISTANT [address] [place] [address] Roosevelt Ortega MD [address] [place] [address] Referral ID Status Reason Start Date Expiration Date Visits Requested Visits Authorized [id number] Pending Review PCP Requested Referral 10/30/2021 10/30/2022 1 1 Specialty Diagnoses / Procedures Referred By Contac t Referred [facility] Diagnoses PAF (paroxysmal atrial fibrillation) (HCC) Screening for ischemic heart disease Procedures ECG COMPLETE ECG ROUTINE ECG W/LEAST 12 LDS W/I&R Leland Gagnon APRN.TECHNOLOGY ASSISTANT [address] [place] [address] [facility] [place] [address] [place] [address] Referral ID Status Reason Start Date Expiration Date V isits Requested Visits Authorized [id number] Closed Auto-Generate d Referral 10/24/2021 10/24/2022 1 1 Additional Source Comments INFORMATION SOURCE (unrecogn ized section and content) DATE CREATED AUTHOR AUTHOR'S ORGANIZ ATION 12/25/2018 [facility] DATE CREATED AUTHOR AUTHOR'S ORGANIZ ATION 02/03/2022 [facility] DATE CREATED AUTHOR AUTHOR'S ORGANIZ ATION 05/14/2022 [employer] DATE CREATED AUTHOR AUTHOR'S ORGANIZ ATION 08/08/2022 [facility] nt DATE CREATED AUTHOR AUTHOR'S ORGANIZ ATION 01/27/2023 [facility] Source Comments (unrecognize d section and content) In the event this informatio n is protected by the Federal Confidentiality of Alcohol and Drug Abuse Patient Records regulations: The Federal rules restrict any use of the information to criminally investigate or prosecute any alcohol or drug abuse patient.[facility] the event this information is protected by the Federal Confidentiality of Alcohol and Drug Abuse Patient Records regulations: The Federal rules restrict any use of the information to criminally investigate or prosecute any alcohol or drug abuse patient.[facility] the event this information is protected by the Federal Confidentiality of Alcohol and Drug Abuse Patient Records regulations: The Federal rules restrict any use of the information to criminally investigate or prosecute any alcohol or drug abuse patient.[facility] the event this information is protected by the Federal Confidentiality of Alcohol and Drug Abuse Patient Records regulations: The Federal rules restrict any use of the information to criminally investigate or prosecute any alcohol or drug abuse patient.[facility] the event this information is protected by the Federal Confidentiality of Alcohol and Drug Abuse Patient Records regulations: The Federal rules restrict any use of the information to criminally investigate or prosecute any alcohol or drug abuse patient.[facility] the event this information is protected by the Federal Confidentiality of Alcohol and Drug Abuse Patient Records regulations: The Federal rules restrict any use of the information to criminally investigate or prosecute any alcohol or drug abuse patient.[facility] Hospital[facility] the event this information is protected by the Federal Confidentiality of Alcohol and Drug Abuse Patient Records regulations: The Federal rules restrict any use of the information to criminally investigate or prosecute any alcohol or drug abuse patient.[facility] the event this information is protected by the Federal Confidentiality of Alcohol and Drug Abuse Patient Records regulations: The Federal rules restrict any use of the information to criminally investigate or prosecute any alcohol or drug abuse patient.[facility] Hospital[facility] the event this information is protected by the Federal Confidentiality of Alcohol and Drug Abuse Patient Records regulations: The Federal rules restrict any use of the information to criminally investigate or prosecute any alcohol or drug abuse patient.[facility] Hospital[facility] the event this information is protected by the Federal Confidentiality of Alcohol and Drug Abuse Patient Records regulations: The Federal rules restrict any use of the information to criminally investigate or prosecute any alcohol or drug abuse patient.[facility] HospitalIn the event this information is protected by the Federal Confidentiality of Alcohol and Drug Abuse Patient Records regulations: The Federal rules restrict any use of the information to criminally investigate or prosecute any alcohol or drug abuse patient.[facility] HospitalIn the event this information is protected by the Federal Confidentiality of Alcohol and Drug Abuse Patient Records regulations: The Federal rules restrict any use of the information to criminally investigate or prosecute any alcohol or drug abuse patient.[facility] HospitalIn the event this information is protected by the Federal Confidentiality of Alcohol and Drug Abuse Patient Records regulations: The Federal rules restrict any use of the information to criminally investigate or prosecute any alcohol or drug abuse patient.[facility] HospitalIn the event this information is protected by the Federal Confidentiality of Alcohol and Drug Abuse Patient Records regulations: The Federal rules restrict any use of the information to criminally investigate or prosecute any alcohol or drug abuse patient.[facility] HospitalIn the event this information is protected by the Federal Confidentiality of Alcohol and Drug Abuse Patient Records regulations: The Federal rules restrict any use of the information to criminally investigate or prosecute any alcohol or drug abuse patient.[facility] HospitalIn the event this information is protected by the Federal Confidentiality of Alcohol and Drug Abuse Patient Records regulations: The Federal rules restrict any use of the information to criminally investigate or prosecute any alcohol or drug abuse patient.[facility] HospitalIn the event this information is protected by the Federal Confidentiality of Alcohol and Drug Abuse Patient Records regulations: The Federal rules restrict any use of the information to criminally investigate or prosecute any alcohol or drug abuse patient.[facility] HospitalIn the event this information is protected by the Federal Confidentiality of Alcohol and Drug Abuse Patient Records regulations: The Federal rules restrict any use of the information to criminally investigate or prosecute any alcohol or drug abuse patient.[facility] HospitalIn the event this information is protected by the Federal Confidentiality of Alcohol and Drug Abuse Patient Records regulations: The Federal rules restrict any use of the information to criminally investigate or prosecute any alcohol or drug abuse patient.[facility] HospitalIn the event this information is protected by the Federal Confidentiality of Alcohol and Drug Abuse Patient Records regulations: The Federal rules restrict any use of the information to criminally investigate or prosecute any alcohol or drug abuse patient.[facility] HospitalIn the event this information is protected by the Federal Confidentiality of Alcohol and Drug Abuse Patient Records regulations: The Federal rules restrict any use of the information to criminally investigate or prosecute any alcohol or drug abuse patient.[facility] HospitalIn the event this information is protected by the Federal Confidentiality of Alcohol and Drug Abuse Patient Records regulations: The Federal rules restrict any use of the information to criminally investigate or prosecute any alcohol or drug abuse patient.[facility] HospitalIn the event this information is protected by the Federal Confidentiality of Alcohol and Drug Abuse Patient Records regulations: The Federal rules restrict any use of the information to criminally investigate or prosecute any alcohol or drug abuse patient.[facility] HospitalIn the event this information is protected by the Federal Confidentiality of Alcohol and Drug Abuse Patient Records regulations: The Federal rules restrict any use of the information to criminally investigate or prosecute any alcohol or drug abuse patient.[facility] HospitalIn the event this information is protected by the Federal Confidentiality of Alcohol and Drug Abuse Patient Records regulations: The Federal rules restrict any use of the information to criminally investigate or prosecute any alcohol or drug abuse patient.[facility] HospitalIn the event this information is protected by the Federal Confidentiality of Alcohol and Drug Abuse Patient Records regulations: The Federal rules restrict any use of the information to criminally investigate or prosecute any alcohol or drug abuse patient.[facility] the event this information is protected by the Federal Confidentiality of Alcohol and Drug Abuse Patient Records regulations: The Federal rules restrict any use of the information to criminally investigate or prosecute any alcohol or drug abuse patient.[facility] Reason for Visit (unrecogniz ed section and content) Reason Comments Refill Request Reason Comments Medication Question lancets Reason Comments Follow Up Reason Comments prescription assistance Reason Comments Electronic Communication iRhythm Reason Comments Results Reason Onset Date Comments Refill Request 12/15/2021 Reason Onset Date Comments Population Health Navigation Outreach 12/26/2021 [place] Care Gaps Reason Comments Patient Update Reason Onset Date Comments Refill Request 01/30/2022 Reason Comments Follow Up 4 mo Reason Onset Date Comments Refill Request Refill Request 08/03/2022 Reason Onset Date Comments Allied Health Visit 01/08/2023 Medication A dherence Outreach Reason Comments Medication Follow-up Reason Comments Appointment Care Teams (unrecognized sec tion and content) Athletic Scout Relationship Specialty Start Date End Date Doreen Pineda MD [address] [facility] [place] [address] PCP - General 08/15/18 Athletic Scout Relationship Specialty Start Date End Date Doreen Pineda MD [address] [facility] [place] [address] PCP - General 08/15/18 Athletic Scout Relationship Specialty Start Date End Date Doreen Pineda MD [address] [facility] [place] [address] PCP - General 08/15/18 Athletic Scout Relationship Specialty Start Date End Date Doreen Pineda MD [address] [facility] [place] [address] PCP - General 08/15/18 Athletic Scout Relationship Specialty Start Date End Date Doreen Pineda MD [address] [facility] [place] [address] PCP - General 08/15/18 Athletic Scout Relationship Specialty Start Date End Date Doreen Pineda MD [address] [facility] [place] [address] PCP - General 08/15/18 Athletic Scout Relationship Specialty Start Date End Date Doreen Pineda MD [address] [facility] [place] [address] PCP - General 08/15/18 Athletic Scout Relationship Specialty Start Date End Date Doreen Pineda MD [address] [facility] [place] [address] PCP - General 08/15/18 Athletic Scout Relationship Specialty Start Date End Date Doreen Pineda MD [address] [facility] [place] [address] PCP - General 08/15/18 Athletic Scout Relationship Specialty Start Date End Date Doreen Pineda MD [address] [facility] [place] [address] PCP - General 08/15/18 Athletic Scout Relationship Specialty Start Date End Date Doreen Pineda MD [address] [facility] [place] [address] PCP - General 08/15/18 Athletic Scout Relationship Specialty Start Date End Date Doreen Pineda MD [address] [facility] [place] [address] PCP - General 08/15/18 Athletic Scout Relationship Specialty Start Date End Date Doreen Pineda MD [address] [facility] [place] [address] PCP - General 08/15/18 Athletic Scout Relationship Specialty Start Date End Date Doreen Pineda MD [address] [place] [place] [address] PCP - General 08/15/18 Athletic Scout Relationship Specialty Start Date End Date Doreen Pineda MD [address] [place] [place] [address] PCP - General 08/15/18 FOR RECORDS PERTAINING TO PATIENTS WHO ARE OR HAVE BEEN ENROLLED IN A CHEMICAL DEPENDENCY/SUBSTANCEABUSE PROGRAM, SOME INFORMATION MAY BE OMITTED. This clinical summary was aggregated from multiple sources. Caution should be exercised in using it in the provision of clinical care. This summary normalizes information from multiple sources, and as a consequence, information in this document may materially change the coding, format and clinical context of patient data. In addition, data may be omitted in some cases. CLINICAL DECISIONS SHOULD BE BASED ON THE PRIMARY CLINICAL RECORDS. [facility] [employer] [facility]. provides no warranty or guarantee of the accuracy or completeness of information in this document.
[2023-05-18] MEDS: Aspirin 81 MG TAB.CHEW 324 MG PO (01:39)
[2023-05-18] MEDS: LORazepam 2 MG/ML Syringe 1 MG IV (01:41)
[2023-05-18] MEDS: 0.9% Normal Saline (1000mL) 1,000 ML 150 ML IV (01:42)
[2023-05-18 01:51] LABS: Absolute Lymphocyte Count 1.22 X10^3/uL (0.83-4.51); Absolute Neutrophil Count 2.3 X10^3/uL (2.0-7.7); Basophil# 0.03 X10^3/uL; Basophil% 0.7 % (0-1); Eosinophil# 0.08 X10^3/uL; Eosinophils% 1.9 % (0-5); Hematocrit 41.5 % (37-47); Hemoglobin 13.7 g/dL (12.0-15.0); Lymphocyte # 1.22 X10^3/ul (0.83-4.51); Lymphocyte % 28.8 % (19-41); Mean Corpuscular Hgb 29.8 pg (27.0-32.0); Mean Corpuscular Volume 90.2 fL (81-99); Mean Platelet Vol. 10.2 fl (6.2-12.0); Monocyte# 0.61 X10^3/uL; Monocyte% 14.4 % (0-10); NRBC Flagged by Analyzer 0 % (0-5); Neutrophil # 2.29 X10^3/uL (2.7-7.7); Platelet Count 103 K/mm3 (150-450); RBC Distribution Width CV 14.3 % (11.6-14.6); RBC Distribution Width SD 47.2 fl (35.1-43.9); White Blood Count 4.2 K/mm3 (4.4-11.0)
[2023-05-18 02:00] VITALS: BP 122/69; PULSE 75; RESP 18; O2SAT 99
[2023-05-18 02:12] LABS: Anion Gap 5 (5-15); BUN 21 mg/dL (7-18); BUN/Creat Ratio 17.2 RATIO (10-20); Calcium,Total 9.4 mg/dL (8.5-10.1); Chloride 107 mmol/L (98-107); Creatinine, Serum 1.22 mg/dL (0.55-1.02); EST Glomerular Filtration Rate 46 mL/min (>60); Est Glom Filt Rate - Afr Amer 55 mL/min (>60); Estimated Creatinine Clearance 45.41 ml/min; Glucose 142 mg/dL (74-106); Sodium Level 139 mmol/L (136-145); Troponin-I HS (w/2H Reflex) 8 pg/mL (3.0-54.0)
[2023-05-18 03:00] VITALS: BP 117/52; PULSE 71; RESP 16; O2SAT 98
[2023-05-18 03:48] LABS: Reflex Troponin-HS? (from REC) Y
[2023-05-18 04:34] LABS: Troponin-I HS 8 pg/mL (3.0-54.0)
[2023-05-18 05:07] VITALS: BP 109/51; PULSE 72; RESP 18; TEMP -7.7; TEMP 18; O2SAT 94
== END 2023-05-18 05:08 | disposition home or self-care (01) ==
PROVIDERS: Emergency Provider Emergency Medicine; PCP Internal Medicine; Visit Provider Emergency Medicine
DX: R07.9 Chest pain, unspecified (principal); I11.0 Hypertensive heart disease with heart failure; I50.9 Heart failure, unspecified; E11.9 Type 2 diabetes mellitus without complications; F41.9 Anxiety disorder, unspecified; Z79.899 Other long term (current) drug therapy; Z90.710 Acquired absence of both cervix and uterus; Z90.49 Acquired absence of other specified parts of digestive tract
CPT/HCPCS: 71045; 80048; 84484; 85025; 93005; 96361; 96374; 99284; J7030; A4216

== ENCOUNTER 2023-06-03 15:40 | Emergency (ER) | payer MEDICARE, SELFPAY ==
[2023-06-03 15:41] VITALS: BP 125/54; PULSE 58; RESP 16; TEMP 36.4; O2SAT 98; BMI 37.7
[2023-06-03 16:24] LABS: Mucous, Urine 0 SEEN /hpf (<or=2+); Red Blood Cells-Urine 0 SEEN /hpf (0-5); Squamous Epithelial Cells - UA 0 SEEN /hpf (5-10); White Blood Cells 0 SEEN /hpf (0-5)
[2023-06-03 16:30] LABS: Absolute Lymphocyte Count 1.71 X10^3/uL (0.83-4.51); Absolute Neutrophil Count 2.9 X10^3/uL (2.0-7.7); Basophil# 0.06 X10^3/uL; Basophil% 1.1 % (0-1); Eosinophil# 0.13 X10^3/uL; Eosinophils% 2.4 % (0-5); Hematocrit 41.2 % (37-47); Hemoglobin 13.4 g/dL (12.0-15.0); Lymphocyte # 1.71 X10^3/ul (0.83-4.51); Lymphocyte % 31.8 % (19-41); Mean Corp Hgb Conc 32.5 g/dL (32-36); Mean Corpuscular Hgb 28.8 pg (27.0-32.0); Mean Corpuscular Volume 88.6 fL (81-99); Mean Platelet Vol. 10.5 fl (6.2-12.0); Monocyte# 0.59 X10^3/uL; NRBC Flagged by Analyzer 0 % (0-5); Neutrophil # 2.87 X10^3/uL (2.7-7.7); Neutrophil % 53.5 % (47-70); Platelet Count 120 K/mm3 (150-450); RBC Distribution Width SD 45.1 fl (35.1-43.9); Red Blood Count 4.65 M/mm3 (4.2-5.4); White Blood Count 5.4 K/mm3 (4.4-11.0)
--- NOTE | 2023-06-03 16:30 | US_ITS ---
EXAM: US ABDOMEN LIMITED, RIGHT UPPER QUADRANT CLINICAL INDICATION: GALLSTONES WITH PAIN TECHNIQUE: Real-time ultrasound of the right upper quadrant with image documentation. COMPARISON: No relevant prior studies available. FINDINGS: LIVER: Liver measures 15.2 cm. There is mild nodularity to the liver border. There is normal echotexture. No intrahepatic biliary ductal dilation. GALLBLADDER: There are echogenic foci within the gallbladder compatible gallstones. The gallbladder wall measures 4 mm. No pericholecystic fluid. Negative sonographic Trevino''s sign. COMMON BILE DUCT: The common bile duct measures 7 mm. The proximal common bile duct is within normal limits for the patient''s age. PANCREAS: Unremarkable as visualized. No focal abnormality is demonstrated in the pancreas. No pancreatic ductal dilatation. RIGHT KIDNEY: Right kidney measures 10.4 x 5.8 x 4.8 cm. There is a 7 mm echogenic focus seen within right kidney which may represent a nonobstructive stone. No focal lesion or perinephric collection is demonstrated. US/Gallbladder IMPRESSION: 1. Cholelithiasis with mild gallbladder wall thickening. These are nonspecific findings but can be seen in cholecystitis. Patient had a negative sonographic Trevino''s sign and there is no pericholecystic fluid. 2. Nodular margin of the liver which may represent cirrhosis. Electronically Signed: Vineet Ruiz MD at 18:02 EST ,
--- NOTE | 2023-06-03 16:31 | EX.ED.DYSGE1 ---
HPI History of Present Illness Chief Complaint: Abd Pain Informant: patient Narrative Narrative: 72-year-old female presenting to the emergency room with the chief complaint of upper abdominal pain. The patient states that she was seen today by gastroenterology as referred to the emergency room out of concern for her gallbladder. She has had prior CT scan that showed gallstones. She states for insurance purposes she has not been able to follow-up on this. For the past month her symptoms have seemed to be getting more frequent and worse. She does note some vomiting and bloating. She notes pain usually shortly after eating. Sometimes her pain affects how much she will eat. She notes a fever about a week ago associated with the pain. No history of pancreatitis. She does carry history of cirrhosis and GI bleed. She used to be on blood thinners but not currently. She notes some mild discomfort of the upper abdomen now but states it is not as severe. Last p.o. intake was around 0900 hrs. this morning [facility] Medical History Ambulates with cane Anemia Arthritis Asthma Atrial fibrillation Cardiology follow-up encounter Chest pain Chronic pain Congestive heart failure (CHF) COVID-19 CPAP (continuous positive airway pressure) dependence Diabetes Diabetes mellitus type II, uncontrolled Fatty liver Gastric varices Gout History of blood transfusion History of echocardiogram History of edema History of GI bleed History of hiatal hernia History of incarcercerate ventral hernia History of rheumatic fever Hypertension Injury of head and neck Irregular heart beat Leg cramps Marijuana use Migraines Non-smoker Polio Restless legs Shortness of breath on exertion Urinary incontinence Wears dentures Wears glasses Home Medications rosuvastatin 10 mg tablet 10 mg PO DAILY 11/23/20 [History Last Taken 11/25/22] metoprolol tartrate 50 mg tablet 50 mg PO DAILY 12/08/21 [History Last Taken 11/25/22] loratadine 10 mg tablet 10 mg PO DAILY 02/15/22 [History Last Taken 11/25/22] spironolactone 25 mg tablet 25 mg PO DAILY 02/15/22 [History Last Taken 11/25/22] losartan 25 mg tablet 25 mg PO DAILY 04/13/22 [History Last Taken 11/25/22] sucralfate 1 gram tablet 1 g PO QACHS #56 tabs 08/30/22 [Rx Last Taken 11/25/22] CBD 1 tab PO BID 11/23/22 [History Last Taken 11/25/22] pantoprazole 20 mg tablet,delayed release 20 mg PO Q12H #60 tabs 11/26/22 [Rx Last Taken Unknown] lorazepam 1 mg tablet (Ativan) 1 mg PO TID PRN anxiety #10 tabs 05/18/23 [Rx Last Taken Unknown] furosemide 20 mg tablet 20 mg PO DAILY 06/03/23 [History Last Taken Unknown] lorazepam 0.5 mg tablet 0.5 mg PO 06/03/23 [History Last Taken Unknown] nitroglycerin 0.4 mg sublingual tablet 0.4 mg sublingual Q5M PRN chest pain 06/03/23 [History Last Taken Unknown] omeprazole 20 mg capsule,delayed release 20 mg PO DAILY 06/03/23 [History Last Taken Unknown] ondansetron 4 mg disintegrating tablet 4 mg PO Q6H PRN PRN Nausea #15 tabs 06/03/23 [Rx Last Taken Unknown] oxycodone-acetaminophen 5 mg-325 mg tablet (Percocet) 1 tab PO Q6H 3 days #12 tabs 06/03/23 [Rx Last Taken Unknown] sertraline 25 mg tablet 25 mg PO DAILY 06/03/23 [History Last Taken Unknown] trazodone 50 mg tablet 50 mg PO DAILY 06/03/23 [History Last Taken Unknown] Allergy/AdvReac Type Severity Reaction Status Date / Time Bleach (Sodium Hypochlorite) Allergy Other Verified 06/03/23 15:41 cat dander Allergy Itching Verified 06/03/23 15:41 coconut Allergy Anaphylaxis Verified 06/03/23 15:41 dog dander Allergy Itching Verified 06/03/23 15:41 Sulfa (Sulfonamide AdvReac Rash Verified 06/03/23 15:41 Antibiotics) Family History Father CAD (coronary artery disease) Cancer Diabetes Mother Cancer Diabetes CAD (coronary artery disease) Surgical History H/O carpal tunnel repair H/O ventral hernia repair H/O: hysterectomy History of appendectomy History of bunionectomy of right great toe History of esophagogastroduodenoscopy (EGD) History of partial hysterectomy Social History household members: spouse Smoking Status: Never smoker alcohol intake: never substance use type: does not use ROS ROS ED Constitutional Constitutional ED: Reports fever(s) and other Details: Last fever around 1 week ago ; Denies chills or weight loss Eyes Eyes: Denies change in vision or diplopia ENT ENT ED: Denies ear pain, rhinorrhea or sore throat Cardiovascular Cardiovascular: Denies chest pain, orthopnea, palpitations or racing heartbeat Respiratory/Chest Respiratory/Chest: Denies cough, dyspnea or orthopnea Gastrointestinal Gastrointestinal: Reports abdominal pain, nausea, vomiting and other Details: Bloating ; Denies diarrhea Genitourinary Genitourinary ED: Denies dysuria, hematuria or urinary frequency Musculoskeletal Musculoskeletal: Denies arthralgias or myalgias Integumentary Denies abscess or rash Neurologic Neurologic: Denies headache(s) or weakness Psychiatric Psychiatric: Denies anxiety, depression, suicidal ideation or suicidal thoughts Endocrine Endocrinology: Denies polydipsia, polyphagia or polyuria Allergic/Immunologic Allergic/Immunologic ED: Denies mouth swelling, tongue swelling or urticaria EXAM Physical Exam Const Vital Signs: 06/03/23 15:41 06/03/23 19:10 Temperature 97.5 F L Temperature Source Temporal Pulse Rate 58 L 60 Respiratory Rate 16 98 H Blood Pressure 125/54 H 134/62 H Blood Pressure Mean 77 86 Pulse Ox 98 12 Oxygen Delivery Method Room Air Room Air Positive well nourished, well developed and obese General Appearance ED: well developed Nutritional Appearance: obese HEENT Reports normocephalic, head/scalp atraumatic and moist mucous membranes Eyes PERRL and EOMs intact bilaterally Neck no lymphadenopathy, supple and no JVD Resp normal respiratory effort and clear to auscultation bilaterally Cardio regular rate, regular rhythm and no murmurs GI Inspection: Negative for abdominal distention Palpation: soft and tender RUQ; Negative for guarding or rebound tenderness present Back/Spine no CVA tenderness and normal ROM Extremity normal to inspection General Extremety ED: Negative for edema General Extremity: Negative for edema Neuro oriented x3 and CN's II-XII intact bilaterally Sensorium / Orientation: alert Motor Exam: strength 5/5 throughout Psych mental status grossly normal Mood & Affect: Negative for depressed or tearful Skin no rashes or lesions noted and no wounds MDM MDM MDM Narrative Medical decision making narrative: White count 5.4 with a platelet count of 120. Liver enzymes are normal. Gallbladder ultrasound was obtained. This does not demonstrate any pericholecystic fluid. Negative sonographic Trevino's. There are gallstones thickened gallbladder wall. Patient did receive Zofran. I asked general surgery Dr. Madden to evaluate the patient. The opinion is that this is chronic cholecystitis and given that she is thrombocytopenic and we do not have a substantial blood bank here would be best to do at a larger center but does not need to be done emergently tonight or tomorrow. I will refer her into [place]. Dr. Westbrook is reportedly on for [facility]. I can write for pain and nausea medication. History & Record Review Discussion w/independent historian: Patient Additional record(s) reviewed:: Prior inpatient record, Prior outpatient record, Prior ED visit and Prior labs Lab Data Attestation: I reviewed the patient's lab results. Labs: Laboratory Results - last 24 hr 06/03/23 06/03/23 06/03/23 16:16 16:16 16:16 WBC 5.4 RBC 4.65 Hgb 13.4 Hct 41.2 MCV 88.6 MCH 28.8 MCHC 32.5 RDW Std Deviation 45.1 H RDW Coeff of Anika 14.0 Plt Count 120 L MPV 10.5 Immature Gran % (Auto) 0.200 Neut % (Auto) 53.5 Lymph % (Auto) 31.8 [place] % (Auto) 11.0 H Eos % (Auto) 2.4 Baso % (Auto) 1.1 H Absolute Neuts (auto) 2.9 Absolute Lymphs (auto) 1.71 Nucleated RBC % 0 PT INR APTT Sodium 140 Cancelled Potassium 4.2 Cancelled Chloride 108 H Carbon Dioxide Anion Gap BUN Creatinine Estim Creat Clear Calc Est GFR (MDRD) Af Amer Est GFR (MDRD) Non-Af BUN/Creatinine Ratio Glucose Calcium Total Bilirubin Direct Bilirubin AST ALT Alkaline Phosphatase Total Protein Albumin Globulin Albumin/Globulin Ratio Lipase Urine Color Urine Clarity Urine pH Ur Specific Sunbright Urine Protein Urine Glucose (UA) Urine Ketones Urine Occult Blood Urine Nitrite Urine Bilirubin Urine Urobilinogen Ur Leukocyte Esterase Urine RBC Urine WBC Ur Squamous Epith Cells Urine Bacteria Urine Mucus POC Glucose 06/03/23 06/03/23 06/03/23 16:16 16:16 16:16 WBC RBC Hgb Hct MCV MCH MCHC RDW Std Deviation RDW Coeff of Anika Plt Count MPV Immature Gran % (Auto) Neut % (Auto) Lymph % (Auto) [place] % (Auto) Eos % (Auto) Baso % (Auto) Absolute Neuts (auto) Absolute Lymphs (auto) Nucleated RBC % PT INR APTT Sodium Potassium Chloride Cancelled Carbon Dioxide 24.0 Cancelled Anion Gap 8 Cancelled BUN 17 Creatinine Estim Creat Clear Calc Est GFR (MDRD) Af Amer Est GFR (MDRD) Non-Af BUN/Creatinine Ratio Glucose Calcium Total Bilirubin Direct Bilirubin AST ALT Alkaline Phosphatase Total Protein Albumin Globulin Albumin/Globulin Ratio Lipase Urine Color Urine Clarity Urine pH Ur Specific Sunbright Urine Protein Urine Glucose (UA) Urine Ketones Urine Occult Blood Urine Nitrite Urine Bilirubin Urine Urobilinogen Ur Leukocyte Esterase Urine RBC Urine WBC Ur Squamous Epith Cells Urine Bacteria Urine Mucus POC Glucose 06/03/23 06/03/23 06/03/23 16:16 16:16 16:16 WBC RBC Hgb Hct MCV MCH MCHC RDW Std Deviation RDW Coeff of Anika Plt Count MPV Immature Gran % (Auto) Neut % (Auto) Lymph % (Auto) [place] % (Auto) Eos % (Auto) Baso % (Auto) Absolute Neuts (auto) Absolute Lymphs (auto) Nucleated RBC % PT INR APTT Sodium Potassium Chloride Carbon Dioxide Anion Gap BUN Cancelled Creatinine 0.85 Cancelled Estim Creat Clear Calc 65.22 Est GFR (MDRD) Af Amer 84 Cancelled Est GFR (MDRD) Non-Af 69 BUN/Creatinine Ratio Glucose Calcium Total Bilirubin Direct Bilirubin AST ALT Alkaline Phosphatase Total Protein Albumin Globulin Albumin/Globulin Ratio Lipase Urine Color Urine Clarity Urine pH Ur Specific Sunbright Urine Protein Urine Glucose (UA) Urine Ketones Urine Occult Blood Urine Nitrite Urine Bilirubin Urine Urobilinogen Ur Leukocyte Esterase Urine RBC Urine WBC Ur Squamous Epith Cells Urine Bacteria Urine Mucus POC Glucose 06/03/23 06/03/23 06/03/23 16:16 16:16 16:16 WBC RBC Hgb Hct MCV MCH MCHC RDW Std Deviation RDW Coeff of Anika Plt Count MPV Immature Gran % (Auto) Neut % (Auto) Lymph % (Auto) [place] % (Auto) Eos % (Auto) Baso % (Auto) Absolute Neuts (auto) Absolute Lymphs (auto) Nucleated RBC % PT INR APTT Sodium Potassium Chloride Carbon Dioxide Anion Gap BUN Creatinine Estim Creat Clear Calc Est GFR (MDRD) Af Amer Est GFR (MDRD) Non-Af Cancelled BUN/Creatinine Ratio 20.0 Cancelled Glucose 101 Cancelled Calcium 9.1 Total Bilirubin Direct Bilirubin AST ALT Alkaline Phosphatase Total Protein Albumin Globulin Albumin/Globulin Ratio Lipase Urine Color Urine Clarity Urine pH Ur Specific Sunbright Urine Protein Urine Glucose (UA) Urine Ketones Urine Occult Blood Urine Nitrite Urine Bilirubin Urine Urobilinogen Ur Leukocyte Esterase Urine RBC Urine WBC Ur Squamous Epith Cells Urine Bacteria Urine Mucus POC Glucose 06/03/23 06/03/23 06/03/23 16:16 16:16 16:16 WBC RBC Hgb Hct MCV MCH MCHC RDW Std Deviation RDW Coeff of Anika Plt Count MPV Immature Gran % (Auto) Neut % (Auto) Lymph % (Auto) [place] % (Auto) Eos % (Auto) Baso % (Auto) Absolute Neuts (auto) Absolute Lymphs (auto) Nucleated RBC % PT INR APTT Sodium Potassium Chloride Carbon Dioxide Anion Gap BUN Creatinine Estim Creat Clear Calc Est GFR (MDRD) Af Amer Est GFR (MDRD) Non-Af BUN/Creatinine Ratio Glucose Calcium Cancelled Total Bilirubin 0.60 0.60 Direct Bilirubin 0.26 AST 32 31 ALT 27 Alkaline Phosphatase Total Protein Albumin Globulin Albumin/Globulin Ratio Lipase Urine Color Urine Clarity Urine pH Ur Specific Sunbright Urine Protein Urine Glucose (UA) Urine Ketones Urine Occult Blood Urine Nitrite Urine Bilirubin Urine Urobilinogen Ur Leukocyte Esterase Urine RBC Urine WBC Ur Squamous Epith Cells Urine Bacteria Urine Mucus POC Glucose 06/03/23 06/03/23 06/03/23 16:16 16:16 16:16 WBC RBC Hgb Hct MCV MCH MCHC RDW Std Deviation RDW Coeff of Anika Plt Count MPV Immature Gran % (Auto) Neut % (Auto) Lymph % (Auto) [place] % (Auto) Eos % (Auto) Baso % (Auto) Absolute Neuts (auto) Absolute Lymphs (auto) Nucleated RBC % PT INR APTT Sodium Potassium Chloride Carbon Dioxide Anion Gap BUN Creatinine Estim Creat Clear Calc Est GFR (MDRD) Af Amer Est GFR (MDRD) Non-Af BUN/Creatinine Ratio Glucose Calcium Total Bilirubin Direct Bilirubin AST ALT 27 Alkaline Phosphatase 105 104 Total Protein 7.6 7.5 Albumin 3.3 Globulin Albumin/Globulin Ratio Lipase Urine Color Urine Clarity Urine pH Ur Specific Sunbright Urine Protein Urine Glucose (UA) Urine Ketones Urine Occult Blood Urine Nitrite Urine Bilirubin Urine Urobilinogen Ur Leukocyte Esterase Urine RBC Urine WBC Ur Squamous Epith Cells Urine Bacteria Urine Mucus POC Glucose 06/03/23 06/03/23 06/03/23 16:16 16:16 17:55 WBC RBC Hgb Hct MCV MCH MCHC RDW Std Deviation RDW Coeff of Anika Plt Count MPV Immature Gran % (Auto) Neut % (Auto) Lymph % (Auto) [place] % (Auto) Eos % (Auto) Baso % (Auto) Absolute Neuts (auto) Absolute Lymphs (auto) Nucleated RBC % PT 14.4 INR 1.1 APTT 29.9 Sodium Potassium Chloride Carbon Dioxide Anion Gap BUN Creatinine Estim Creat Clear Calc Est GFR (MDRD) Af Amer Est GFR (MDRD) Non-Af BUN/Creatinine Ratio Glucose Calcium Total Bilirubin Direct Bilirubin AST ALT Alkaline Phosphatase Total Protein Albumin 3.4 Globulin 4.3 H 4.1 Albumin/Globulin Ratio 0.8 L Lipase 72 Urine Color Yellow Urine Clarity Clear Urine pH 6.5 Ur Specific Sunbright 1.010 Urine Protein 15 H Urine Glucose (UA) Normal Urine Ketones Negative Urine Occult Blood Negative Urine Nitrite Negative Urine Bilirubin Negative Urine Urobilinogen Normal Ur Leukocyte Esterase Negative Urine RBC 0 SEEN Urine WBC 0 SEEN Ur Squamous Epith Cells 0 SEEN Urine Bacteria RARE Urine Mucus 0 SEEN POC Glucose 06/03/23 18:05 WBC RBC Hgb Hct MCV MCH MCHC RDW Std Deviation RDW Coeff of Anika Plt Count MPV Immature Gran % (Auto) Neut % (Auto) Lymph % (Auto) [place] % (Auto) Eos % (Auto) Baso % (Auto) Absolute Neuts (auto) Absolute Lymphs (auto) Nucleated RBC % PT INR APTT Sodium Potassium Chloride Carbon Dioxide Anion Gap BUN Creatinine Estim Creat Clear Calc Est GFR (MDRD) Af Amer Est GFR (MDRD) Non-Af BUN/Creatinine Ratio Glucose Calcium Total Bilirubin Direct Bilirubin AST ALT Alkaline Phosphatase Total Protein Albumin Globulin Albumin/Globulin Ratio Lipase Urine Color Urine Clarity Urine pH Ur Specific Sunbright Urine Protein Urine Glucose (UA) Urine Ketones Urine Occult Blood Urine Nitrite Urine Bilirubin Urine Urobilinogen Ur Leukocyte Esterase Urine RBC Urine WBC Ur Squamous Epith Cells Urine Bacteria Urine Mucus POC Glucose 85 Radiography Diagnostic Testing: Clinical Impression(s) from Imaging Studies Gallbladder Ultrasound 06/03/23 16:30 IMPRESSION: 1. Cholelithiasis with mild gallbladder wall thickening. These are nonspecific findings but can be seen in cholecystitis. Patient had a negative sonographic Treivno''s sign and there is no pericholecystic fluid. 2. Nodular margin of the liver which may represent cirrhosis. Electronically Signed: Vineet Ruiz MD at 18:02 EST , Discharge Plan Triage Chief Complaint: Abd Pain ED Provider: Aris Jacome Dx/Rx/DC Orders Clinical Impression: Cirrhosis, Thrombocytopenia, Cholecystitis, chronic, Biliary colic Instructions: ED Cholecystitis, Confirmed Prescriptions: New ondansetron [ondansetron] 4 mg tablet,disintegrating 4 mg PO Q6H PRN PRN (Reason: Nausea) Qty: 15 0RF oxycodone-acetaminophen [Percocet] 5-325 mg tablet 1 tab PO Q6H 3 Days Qty: 12 0RF No Action spironolactone 25 mg tablet 25 mg PO DAILY loratadine 10 mg tablet 10 mg PO DAILY sucralfate 1 gram tablet 1 g PO QACHS Qty: 56 0RF Rx Instructions: Take 1 hr before meals and at bedtime trazodone 50 mg tablet 50 mg PO DAILY sertraline 25 mg tablet 25 mg PO DAILY furosemide 20 mg tablet 20 mg PO DAILY rosuvastatin 10 mg tablet 10 mg PO DAILY Patient Comments: TAKE 1 TABLET BY MOUTH ONCE DAILY metoprolol tartrate 50 mg tablet 50 mg PO DAILY losartan 25 mg tablet 25 mg PO DAILY Patient Comments: TAKE 1 TABLET BY MOUTH ONCE DAILY CBD 1 tab PO BID pantoprazole 20 mg tablet,delayed release (DR/EC) 20 mg PO Q12H Qty: 60 3RF lorazepam 0.5 mg tablet 0.5 mg PO nitroglycerin 0.4 mg tablet, sublingual 0.4 mg sublingual Q5M PRN (Reason: chest pain) omeprazole 20 mg capsule,delayed release(DR/EC) 20 mg PO DAILY lorazepam [Ativan] 1 mg tablet 1 mg PO TID PRN (Reason: anxiety) Qty: 10 0RF Primary Care Provider: Doreen Finn Referrals: Doreen Finn MD [Primary Care Provider] - Activity Restrictions/Additional Instructions: Because of your cirrhosis resulting in a lower than normal platelet count (thrombocytopenia) general surgery's recommendation is that you follow-up with a surgeon at a larger hospital that has access to more blood products. You may call the surgeon of your choice. 1 option who is on-call today for [facility] is Dr. Lanza - [phone] Disposition Disposition: Home, Self Care
[2023-06-03 16:34] LABS: Color, Urine Yellow (Yellow); Glucose, Dipstick Normal (Normal); Ketone-Dipstick Negative (Negative); Leukocyte Esterase-Dipstick Negative /ul (Negative); Nitrite-Dipstick Negative (Negative); Occult Blood-Urine Negative /ul (Negative); Protein-Dipstick 15 mg/dl (Negative); Urine Bilirubin Dipstick Negative (Negative); Urine Clarity Clear (Clear); Urine Urobilinogen Normal (Normal); Urine pH 6.5 (5.0 - 8.0)
--- OUTSIDE RECORDS SUMMARY | 2023-06-03 16:35 | XMS RPT_ITS | CCD ---
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 Anesthesiology Author Type: Nurse Practitioner Type: [...] instructions for the morning of your procedure. [facility] 08-03-2022 Miscellaneous Notes Patient clarifies that prescription is taken as directed. Please verify how patient is taking glimepiride. I ordered as we had in our system but flagged that she was taking differently. How does she take this and did someone instruct her to change frequency. Thank you Margarette Barragan APRN.IVÁN Patient has [...] Andra Suarez LPN documented in this encounter [facility] 04-27-2022 Miscellaneous Notes Patient has been identified [...] Andra Suarez LPN documented in this encounter [facility] 04-11-2022 Miscellaneous Notes Last office visit: 03/08/21 [...] advise. Armida Lugo documented in this encounter [facility] 03-19-2022 Instructions Leland Gagnon APRN.PRESS READER - 03/19/2022 3:26 PM EST Atrial Fibrillation [...] healthcare provider's instructions for treatment. Developed by [employer]. Published by [employer]. Copyright 2014 [employer] and/or one of its subsidiaries. All rights reserved. documented in this encounter [facility] 03-19-2022 History of Present illness Narrative Chief Complaint Patient presents with: [...] She is interested in seeing EP in [place] for Watchman consideration. She would like to [...] injection (DEFINITY) INTRAVENOUS DIRECTED PRN Leland Gagnon APRN.PRESS READER sodium chloride 0.9 % (flush) 10 mL (BD POSIFLUSH) 10 mL INTRAVENOUS DIRECTED PRN Leland Gagnon APRN.PRESS READER Review of Systems Constitutional: Negative for chills, [...] last office visit. She will call our [place] office to arrange appointment, number provided. She [...] 2022, 3:04 PM documented in this encounter [facility] 01-30-2022 Miscellaneous Notes Patient has been identified by name and date of : Yes Requested Prescriptions Pending Prescriptions Disp Refills rosuvastatin (CRESTOR) 10 mg tablet 25 tablet 0 Sig: Take 1 tablet by mouth once daily. RX INSTRUCTIONS: Patient aware RX will be sent to pharmacy. No need to notify patient. Sultana Loera documented in this encounter [facility] 01-29-2022 Miscellaneous Notes Patient is over due [...] Cony Ash LPN documented in this encounter [facility] 01-22-2022 Miscellaneous Notes Spoke with patient about test results. Patient verbalizes understanding. Armida Serrato LPN ----- Message from Leland Gagnon APRN.IVÁN sent at 01/21/2022 7:17 AM EDT ----- Please call patient and notify them of normal results. BMP is with stable kidney function and potassium. Thank you! documented in this encounter [facility] 01-12-2022 Miscellaneous Notes Pt. notified. Voices understanding of all instructions. Betzy Wallace CNP also notified in a detailed message on the nurses line at [place]. Johana Wilson RN Please let the patient [...] kidney function. Please let Betzy Wallace with [facility] at [phone] know that I received her fax and have made medication changes according. Thank you, Leland Gagnon APRN.CNP documented in this encounter [facility] 12-26-2021 History of Present illness Narrative POPULATION HEALTH NAVIGATION OUTREACH Action/FYI Due for: PCP Wellness (due 03/08/22) A1c Urine Albumin Dilated Retinal Exam Unable to leave ; Socialtext message sent Pt identified by name and : NO Outreach Outcome/Action Unable to reach patient: Phone number not valid / voicemail full [employer] message sent Did you use a PCP flex slot to schedule this appointment? N/A Reason for Outreach Care Gap or Scheduling/Wellness visits Payer: Payor: [employer] / Plan: [employer] HMO / Product Type: HMO / Care [...] 2021 12:02 PM documented in this encounter [facility] 12-15-2021 Miscellaneous Notes Last seen pcp 03/08/21. [...] patient. Sultana Loera documented in this encounter [facility] 12-13-2021 Miscellaneous Notes December 13, 2021 PID: [id number] Annalee Keane [address] [place] [address] Dear Keane, We are pleased to inform you [...] report will be kept on file at [facility] as part of your permanent medical record and are available for your continuing care. Thank you for allowing us to help in meeting your health care needs. Sincerely, Dr. Siddiqui Interpreting Radiologist [facility] (Normal over 40) documented in this encounter [facility] 12-13-2021 History of Present illness Narrative Radiology Service Progress Note PATIENT [...] 2021 1:25 PM documented in this encounter [facility] 11-14-2021 Miscellaneous Notes Left detailed message on identified voicemail. Instructed pt. to return call if any questions/ concerns. Johana Wilson RN ----- Message from Leland Gagnon APRN.PRESS READER sent at 11/14/2021 7:58 AM EDT ----- Please call patient and notify her monitor did not reveal any a-fib/flutter. Continue metoprolol. Thank you! documented in this encounter [facility] 11-09-2021 Miscellaneous Notes [facility] faxed to [facility] Attn: Liv Daniel at [phone]. documented in this encounter [facility] 11-01-2021 Miscellaneous Notes Sw spoke with patient and she notes that a family member helped her with cost of Eliquis for right now. Patient reports that she has been helping other family members with food, utility bills, and housing so has been running short on funds for herself. Sw noted that Eliquis has a patient assistance program through [facility]. Patient Notes that Sw can mail her the application and she can review guidelines and see if she would like to apply for assistance. Lizz confirmed patient address and will mail application to patient. Lizz left message for patient to return Sw call to discuss [facility] patient assistance. documented in this encounter [facility] 10-31-2021 Miscellaneous Notes Patient has been identified [...] Cony Ash LPN documented in this encounter [facility] 10-30-2021 History of Present illness Narrative EVENT MONITOR DISPOSABLE PATCH INSTRUCTIONS Patient Name: Annalee Keane Clinic Number: [id number] Skin prepped and cleansed with alcohol Patch secured to prepped area Monitor Activated Serial #: [id number] Patient Instructed: 1.) Prescribed order timeframe 2.) Bathing guidelines 3.) Usage of event button and diary documentation 4.) Return of monitor at the end of prescribed order 5.) Call with problems [phone] or [phone] ext. 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 She also may require initiation of antiarrythmic medications to restore/maintain a NSR. Will refer to EP in [place]. Patient is agreeable to travel. 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 She also may require initiation of antiarrythmic medications to restore/maintain a NSR. Will refer to EP in [place]. She is willing to travel -TSH 3.400 [...] 2021, 1:35 PM documented in this encounter [facility] 10-30-2021 Instructions Leland Gagnon APRN.CNP - 10/30/2021 [...] healthcare provider's instructions for treatment. Developed by [employer]. Published by [employer]. Copyright 2014 [employer] and/or one of its subsidiaries. All rights reserved. documented in this encounter [facility] 09-11-2021 Miscellaneous Notes Patient phones requesting refills as follows: Pending Prescriptions Disp Refills ROSUVASTATIN 10 MG TABLET 25 tablet 0 Sig: Take 1 tablet by mouth once daily MODESTA: Yes [facility]ERMAIN-03/08/21 Labs-03/07/21 NOV-none med filled 05/03/21 Please review and advise. Aydee Gipson LPN documented in this encounter [facility] 09-11-2021 Miscellaneous Notes Patient's request for medication is as follows: Pending Prescriptions Disp Refills ELIQUIS 5 MG TABLET 180 tablet 3 Sig: Take 1 tablet by mouth twice daily MODESTA: Yes METOPROLOL TARTRATE 25 MG TABLET 180 tablet 3 Sig: Take 1 tablet by mouth twice daily. MODESTA: No Last seen 05/01/2021 in [place]. Follow up scheduled for 10/30/2021. Prescription(s) as above. Please process accordingly. Leland Castorena LPN documented in this encounter [facility] 08-29-2021 Miscellaneous Notes Patient is testing her [...] check with her Pharmacy. Patient is using [facility] [place]. Please notify her once this is completed. Patient has been identified by name and birthdate. Duration of symptoms: N/A Person calling: self Call patient at: on cell [phone] (home) [phone] (cell) Was an appointment scheduled: No Closing statement: Results or non-symptom based questions: Thank you for calling [facility], your call will be returned within the next business day. Amelia Negrete Pss documented in this encounter [facility] 07-27-2021 Miscellaneous Notes Patient has been identified by name and date of : Yes Last office visit in this department: Visit date not found RX INSTRUCTIONS: Patient aware RX escripted to mail away pharmacy. No need to notify patient. Patient phones requesting refills as follows: No medications selected for refill. Please review and advise. Priscilla Bowens documented in this encounter [facility] Diagnosis PAF (paroxysmal atrial fibrillation) (HCC)- Primary Atrial fibrillation Screening for ischemic heart disease Essential hypertension Unspecified essential hypertension Mixed hyperlipidemia SUSIE (obstructive sleep apnea) Obstructive sleep apnea (adult) (pediatric) Controlled type 2 diabetes mellitus without complication, without long-term current use of insulin (HCC) Morbid obesity (HCC) Morbid obesity [facility] Diagnosis Encounter for screening mammogram for breast cancer [facility] Diagnosis Essential hypertension- Primary Unspecified essential hypertension [facility] Diagnosis PAF (paroxysmal atrial fibrillation) (HCC)- Primary Atrial fibrillation Essential hypertension Unspecified essential hypertension Mixed hyperlipidemia Obesity (BMI 30-39.9) Obesity, unspecified Controlled type 2 diabetes mellitus without complication, without long-term current use of insulin (HCC) [facility] Diagnosis Controlled type 2 diabetes mellitus without complication, without long-term current use of insulin ([facility]) [facility] Diagnosis Controlled type 2 diabetes mellitus without complication, without long-term current use of insulin (HCC) Mixed hyperlipidemia [facility] Diagnosis Dyspnea on exertion- Primary Other dyspnea and respiratory abnormality Chest pain, unspecified type Controlled type 2 diabetes mellitus without complication, without long-term current use of insulin (HCC) Edema, unspecified type PAF (paroxysmal atrial fibrillation) (HCC) Atrial fibrillation Essential hypertension Unspecified essential hypertension [facility] (narrative)* Outpatient Procedure (Routine) - Closed Specialty Diagnoses / Procedures Referred By Contac t Referred To [facility] Diagnoses Dyspnea on exertion Chest pain, unspecified type Procedures ECG COMPLETE ECG ROUTINE ECG W/LEAST 12 LDS W/I&R Moise Cash PA-C [address] [place] [address] [facility] [place] [address] [place] [address] Referral ID Status Reason Start Date Expiration Date V isits Requested Visits Authorized [id number] Closed Auto-Generate d Referral 01/14/2023 01/14/2024 1 [...] PERF STRESS/PHARM MYOCARDIAL SPECT MULTIPLE STUDIES Moise Cash PA-C [address] [place] [address] [facility] [address] [id number] Referral ID Status Reason Start Date Expiration Date Visits Requested Visits Authorized [id number] Pending Review Auto-Generat ed Referral 01/14/2023 02/13/2024 1 1 [facility] Summary Purpose Family History No Family History Records FoundNo Family History Records FoundNo Family History Records FoundNo Family History Records FoundNo Family History Records FoundNo Family History Records Found Advance Directives No Advanced Directives Records FoundDocuments on File Type Date Recorded 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 Advance Directive(s) 11/08/2015 5:51 AM Documents on File Type Date Recorded 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 Advance Directive(s) 11/08/2015 5:51 AM Reason for Referral Specialty Diagnoses / Procedures Referred By Nadeem vega Referred To Contact Diagnoses PAF (paroxysmal atrial fibrillation) (HCC) Procedures CONSULT TO ELECTROPHYSIOLOGY OFFICE/OUTPATIENT NEW HIGH MDM 60-74 MINUTES Leland Gagnon, STEEL POURER HELPER.PRESS READER [address] [place] [address] Roosevelt Ortega MD [address] [place] [address] Referral ID Status Reason Start Date Expiration Date Visits Requested Visits Authorized [id number] Pending Review PCP Requested Referral 10/30/2021 10/30/2022 1 1 Specialty Diagnoses / Procedures Referred By Contac t Referred To Contact [facility] Diagnoses PAF (paroxysmal atrial fibrillation) (HCC) Screening for ischemic heart disease Procedures ECG COMPLETE ECG ROUTINE ECG W/LEAST 12 LDS W/I&R Leland Gagnon APRN.PRESS READER [address] [place] [address] [facility] [place] [address] [place] [address] Referral ID Status Reason Start Date Expiration Date V isits Requested Visits Authorized [id number] Closed Auto-Generate d Referral 10/24/2021 10/24/2022 1 1 Additional Source Comments INFORMATION SOURCE (unrecogn ized section and content) DATE CREATED AUTHOR AUTHOR'S ORGANIZ ATION 12/25/2018 [facility] DATE CREATED AUTHOR AUTHOR'S ORGANIZ ATION 02/03/2022 [facility] DATE CREATED AUTHOR AUTHOR'S ORGANIZ ATION 05/14/2022 [employer] DATE CREATED AUTHOR AUTHOR'S ORGANIZ ATION 08/08/2022 [facility] DATE CREATED AUTHOR AUTHOR'S ORGANIZ ATION 05/29/2023 [facility] Source Comments (unrecognize d section and content) In the event this informatio n is protected by the Federal Confidentiality of Alcohol and Drug Abuse Patient Records regulations: The Federal rules restrict any use of the information to criminally investigate or prosecute any alcohol or drug abuse patient.[facility] the event this information is protected by the Federal Confidentiality of Alcohol and Drug Abuse Patient Records regulations: The Federal rules restrict any use of the information to criminally investigate or prosecute any alcohol or drug abuse patient.[facility] ClinicIn the event this information is protected by the Federal Confidentiality of Alcohol and Drug Abuse Patient Records regulations: The Federal rules restrict any use of the information to criminally investigate or prosecute any alcohol or drug abuse patient.[facility] ClinicIn the event this information is protected by the Federal Confidentiality of Alcohol and Drug Abuse Patient Records regulations: The Federal rules restrict any use of the information to criminally investigate or prosecute any alcohol or drug abuse patient.[facility] ClinicIn the event this information is protected by the Federal Confidentiality of Alcohol and Drug Abuse Patient Records regulations: The Federal rules restrict any use of the information to criminally investigate or prosecute any alcohol or drug abuse patient.[facility] ClinicIn the event this information is protected by the Federal Confidentiality of Alcohol and Drug Abuse Patient Records regulations: The Federal rules restrict any use of the information to criminally investigate or prosecute any alcohol or drug abuse patient.[facility] ClinicIn the event this information is protected by the Federal Confidentiality of Alcohol and Drug Abuse Patient Records regulations: The Federal rules restrict any use of the information to criminally investigate or prosecute any alcohol or drug abuse patient.[facility] ClinicIn the event this information is protected by the Federal Confidentiality of Alcohol and Drug Abuse Patient Records regulations: The Federal rules restrict any use of the information to criminally investigate or prosecute any alcohol or drug abuse patient.[facility] ClinicIn the event this information is protected by the Federal Confidentiality of Alcohol and Drug Abuse Patient Records regulations: The Federal rules restrict any use of the information to criminally investigate or prosecute any alcohol or drug abuse patient.[facility] ClinicIn the event this information is protected by the Federal Confidentiality of Alcohol and Drug Abuse Patient Records regulations: The Federal rules restrict any use of the information to criminally investigate or prosecute any alcohol or drug abuse patient.[facility] ClinicIn the event this information is protected by the Federal Confidentiality of Alcohol and Drug Abuse Patient Records regulations: The Federal rules restrict any use of the information to criminally investigate or prosecute any alcohol or drug abuse patient.[facility] ClinicIn the event this information is protected by the Federal Confidentiality of Alcohol and Drug Abuse Patient Records regulations: The Federal rules restrict any use of the information to criminally investigate or prosecute any alcohol or drug abuse patient.[facility] ClinicIn the event this information is protected by the Federal Confidentiality of Alcohol and Drug Abuse Patient Records regulations: The Federal rules restrict any use of the information to criminally investigate or prosecute any alcohol or drug abuse patient.[facility] ClinicIn the event this information is protected by the Federal Confidentiality of Alcohol and Drug Abuse Patient Records regulations: The Federal rules restrict any use of the information to criminally investigate or prosecute any alcohol or drug abuse patient.[facility] ClinicIn the event this information is protected by the Federal Confidentiality of Alcohol and Drug Abuse Patient Records regulations: The Federal rules restrict any use of the information to criminally investigate or prosecute any alcohol or drug abuse patient.[facility] ClinicIn the event this information is protected by the Federal Confidentiality of Alcohol and Drug Abuse Patient Records regulations: The Federal rules restrict any use of the information to criminally investigate or prosecute any alcohol or drug abuse patient.[facility] ClinicIn the event this information is protected by the Federal Confidentiality of Alcohol and Drug Abuse Patient Records regulations: The Federal rules restrict any use of the information to criminally investigate or prosecute any alcohol or drug abuse patient.[facility] ClinicIn the event this information is protected by the Federal Confidentiality of Alcohol and Drug Abuse Patient Records regulations: The Federal rules restrict any use of the information to criminally investigate or prosecute any alcohol or drug abuse patient.[facility] ClinicIn the event this information is protected by the Federal Confidentiality of Alcohol and Drug Abuse Patient Records regulations: The Federal rules restrict any use of the information to criminally investigate or prosecute any alcohol or drug abuse patient.[facility] ClinicIn the event this information is protected by the Federal Confidentiality of Alcohol and Drug Abuse Patient Records regulations: The Federal rules restrict any use of the information to criminally investigate or prosecute any alcohol or drug abuse patient.[facility] ClinicIn the event this information is protected by the Federal Confidentiality of Alcohol and Drug Abuse Patient Records regulations: The Federal rules restrict any use of the information to criminally investigate or prosecute any alcohol or drug abuse patient.[facility] ClinicIn the event this information is protected by the Federal Confidentiality of Alcohol and Drug Abuse Patient Records regulations: The Federal rules restrict any use of the information to criminally investigate or prosecute any alcohol or drug abuse patient.[facility] ClinicIn the event this information is protected by the Federal Confidentiality of Alcohol and Drug Abuse Patient Records regulations: The Federal rules restrict any use of the information to criminally investigate or prosecute any alcohol or drug abuse patient.[facility] ClinicIn the event this information is protected by the Federal Confidentiality of Alcohol and Drug Abuse Patient Records regulations: The Federal rules restrict any use of the information to criminally investigate or prosecute any alcohol or drug abuse patient.[facility] ClinicIn the event this information is protected by the Federal Confidentiality of Alcohol and Drug Abuse Patient Records regulations: The Federal rules restrict any use of the information to criminally investigate or prosecute any alcohol or drug abuse patient.[facility] ClinicIn the event this information is protected by the Federal Confidentiality of Alcohol and Drug Abuse Patient Records regulations: The Federal rules restrict any use of the information to criminally investigate or prosecute any alcohol or drug abuse patient.[facility] the event this information is protected by the Federal Confidentiality of Alcohol and Drug Abuse Patient Records regulations: The Federal rules restrict any use of the information to criminally investigate or prosecute any alcohol or drug abuse patient.[facility] Reason for Visit (unrecogniz ed section and content) Reason Comments Refill Request Reason Comments Medication Question lancets Reason Comments Follow Up Reason Comments prescription assistance Reason Comments Electronic Communication iRhythm Reason Comments Results Reason Onset Date Comments Refill Request 12/15/2021 Reason Onset Date Comments Population Health Navigation Outreach 12/26/2021 [facility] Gaps Reason Comments Patient Update Reason Onset Date Comments Refill Request 01/30/2022 Reason Comments Follow Up 4 mo Reason Onset Date Comments Refill Request Refill Request 08/03/2022 Reason Onset Date Comments Allied Health Visit 01/08/2023 Medication A dherence Outreach Reason Comments Medication Follow-up Reason Comments Appointment Care Teams (unrecognized sec tion and content) Die Cast Patternmaker Relationship Specialty Start Date End Date Doreen Pineda MD [address] [place] [address] PCP - General 08/15/18 Die Cast Patternmaker Relationship Specialty Start Date End Date Doreen Pineda MD [address] [place] [address] PCP - General 08/15/18 Die Cast Patternmaker Relationship Specialty Start Date End Date Doreen Pineda MD [address] [place] [address] PCP - General 08/15/18 Die Cast Patternmaker Relationship Specialty Start Date End Date Doreen Pineda MD [address] [place] [address] PCP - General 08/15/18 Die Cast Patternmaker Relationship Specialty Start Date End Date Doreen Pineda MD [address] [place] [address] PCP - General 08/15/18 Die Cast Patternmaker Relationship Specialty Start Date End Date Doreen Pineda MD [address] [place] [address] PCP - General 08/15/18 Die Cast Patternmaker Relationship Specialty Start Date End Date Doreen Pineda MD [address] [place] [address] PCP - General 08/15/18 Die Cast Patternmaker Relationship Specialty Start Date End Date Doreen Pineda MD [address] [place] [address] PCP - General 08/15/18 Die Cast Patternmaker Relationship Specialty Start Date End Date Doreen Pineda MD [address] [place] [address] PCP - General 08/15/18 Die Cast Patternmaker Relationship Specialty Start Date End Date Doreen Pineda MD [address] [place] [address] PCP - General 08/15/18 Die Cast Patternmaker Relationship Specialty Start Date End Date Doreen Pineda MD [address] [place] [address] PCP - General 08/15/18 Die Cast Patternmaker Relationship Specialty Start Date End Date Doreen Pineda MD [address] [place] [address] PCP - General 08/15/18 Die Cast Patternmaker Relationship Specialty Start Date End Date Doreen Pineda MD [address] [place] [address] PCP - General 08/15/18 Die Cast Patternmaker Relationship Specialty Start Date End Date Doreen Pineda MD [address] [place] [address] PCP - General 08/15/18 Die Cast Patternmaker Relationship Specialty Start Date End Date Doreen Pineda MD [address] [place] [address] PCP - General 08/15/18 FOR RECORDS PERTAINING [...] BE BASED ON THE PRIMARY CLINICAL RECORDS. [facility] [employer] [facility]. provides no warranty or guarantee of the accuracy or completeness of information in this document.
[2023-06-03 16:52] LABS: ALB/GLOB Ratio 0.8 RATIO (0.9-2.4); AST(SGOT) 32 U/L (15-37); Alanine Aminotransfer ALT/SGPT 27 U/L (13-56); Albumin, Serum 3.3 g/dL (3.2-5.0); Alkaline Phosphatase 105 U/L (45-117); Anion Gap 8 (5-15); BUN 17 mg/dL (7-18); Calcium,Total 9.1 mg/dL (8.5-10.1); Chloride 108 mmol/L (98-107); Creatinine, Serum 0.85 mg/dL (0.55-1.02); EST Glomerular Filtration Rate 69 mL/min (>60); Est Glom Filt Rate - Afr Amer 84 mL/min (>60); Estimated Creatinine Clearance 65.22 ml/min; Globulin 4.3 g/dL (2.2-4.2); Glucose 101 mg/dL (74-106); Potassium 4.2 mmol/L (3.5-5.1); Protein, Total 7.6 g/dL (6.4-8.2); Sodium Level 140 mmol/L (136-145)
[2023-06-03 16:56] LABS: Bacteria RARE /hpf (None Seen)
[2023-06-03 16:59] LABS: Lipase 72 U/L (13-75)
[2023-06-03 17:01] LABS: AST(SGOT) 31 U/L (15-37); Alanine Aminotransfer ALT/SGPT 27 U/L (13-56); Albumin, Serum 3.4 g/dL (3.2-5.0); Alkaline Phosphatase 104 U/L (45-117); Bilirubin, Direct 0.26 mg/dL (0.00-0.30); Globulin 4.1 g/dL (2.2-4.2); Protein, Total 7.5 g/dL (6.4-8.2)
[2023-06-03 18:23] LABS: Bedside Glucose 85 mg/dL (74-106)
[2023-06-03 18:26] LABS: International Normalized Ratio 1.1; Prothrombin Time (Protime)PT. 14.4 SECONDS (11.7-14.9)
[2023-06-03 18:27] LABS: Partial Thromboplast Time 29.9 Seconds (24.1-36.2)
[2023-06-03] MEDS: Ondansetron 4 MG/2 ML Vial IV (19:09)
[2023-06-03 19:10] VITALS: BP 134/62; PULSE 60; RESP 98; O2SAT 12
--- NOTE | 2023-06-03 19:59 | EX.PCM.CON.S ---
Assessment & Plan Assessment/Plan (1) Cholecystitis, chronic: PLAN: This is a 72-year-old female with a number of comorbidities?including history of liver cirrhosis?who presents for evaluation of possible cholecystitis. Based on her history, exam, and workup I believe Mrs. Espana has a diagnosis of chronic cholecystitis. She shares that nothing has been done regarding her gallbladder to this point because she did not have insurance and there was some reluctance on the basis of her finding of cirrhosis. She does not appear acutely ill and has a negative Trevino sign on exam. Further, her white blood cell count is within normal limits without a left shift and there is no pericholecystic fluid on her ultrasound. When asking her more directly she does acknowledge that she has had persistent pain for around 2 years. This corresponds to imaging that first identified gallstones in 2021. I have shared with Mrs. Espana that it may be reasonable to consider cholecystectomy, however, I am unconvinced that she requires emergent surgical attention and suggested that we send her for referral to a tertiary center for evaluation. I suggested to her the importance of having a complete blood bank at the disposal of the operative team given her history of cirrhosis and thrombocytopenia. She expresses an understanding of this communication as well as my communication to her about chronic cholecystitis, generally. And drawings were made with a dry erase board to try to facilitate this discussion. She expressed appreciation for my time and the summary of this exchange was given to Dr. Jacome of emergency medicine. HPI Consult Data Date of Consult: 06/03/23 HPI Narrative Reason for Consultation: Abdominal pain HPI Narrative: THU ESPANA, is a 72 F who presents to [facility] ER after meeting with Dr. Ferreira of gastroenterology earlier today over a diagnosis of liver cirrhosis. She shares that she has been having pain fairly intensely after eating for the last 1 week and 4 days ago had some vomiting. She reports that she is restricting her dietary intake, but does admit to eating a sausage sandwich last night that led to some discomfort. She initially notes that this pain has been going on for at least 4 months, but when I raise the results of prior abdominal imaging she acknowledges that it is more likely a year and 1/2 to 2 years in the making. Patient's ER workup is notable for CBC that demonstrates a normal white blood cell count without left shift. CMP laboratories show no derangements of LFTs or bilirubin. Also notable as her INR is 1.1. Ultrasound of the abdomen was performed showing a gallbladder wall that was mildly thickened at 4 mm, gallstones and a common bile duct of 7 mm. No pericholecystic fluid was identified. Radiology did note nodular contour to the patient's liver parenchyma. Patient has a past medical history of cirrhosis which is felt to be either related to fatty liver infiltration or she suggests medication?related. This has been biopsied?confirmed. She shares a surgical history inclusive of an appendectomy, hysterectomy, and 2 ventral hernia repairs each repaired with mesh (she states the latter repair was performed after trauma to her abdominal wall disrupted the primary repair). [facility] Medical History Ambulates with cane Anemia Arthritis Asthma Atrial fibrillation Cardiology follow-up encounter Chest pain Chronic pain Congestive heart failure (CHF) COVID-19 CPAP (continuous positive airway pressure) dependence Diabetes Diabetes mellitus type II, uncontrolled Fatty liver Gastric varices Gout History of blood transfusion History of echocardiogram History of edema History of GI bleed History of hiatal hernia History of incarcercerate ventral hernia History of rheumatic fever Hypertension Injury of head and neck Irregular heart beat Leg cramps Marijuana use Migraines Non-smoker Polio Restless legs Shortness of breath on exertion Urinary incontinence Wears dentures Wears glasses Home Medications rosuvastatin 10 mg tablet 10 mg PO DAILY 11/23/20 [History Last Taken 11/25/22] metoprolol tartrate 50 mg tablet 50 mg PO DAILY 12/08/21 [History Last Taken 11/25/22] loratadine 10 mg tablet 10 mg PO DAILY 02/15/22 [History Last Taken 11/25/22] spironolactone 25 mg tablet 25 mg PO DAILY 02/15/22 [History Last Taken 11/25/22] losartan 25 mg tablet 25 mg PO DAILY 04/13/22 [History Last Taken 11/25/22] sucralfate 1 gram tablet 1 g PO QACHS #56 tabs 08/30/22 [Rx Last Taken 11/25/22] CBD 1 tab PO BID 11/23/22 [History Last Taken 11/25/22] pantoprazole 20 mg tablet,delayed release 20 mg PO Q12H #60 tabs 11/26/22 [Rx Last Taken Unknown] lorazepam 1 mg tablet (Ativan) 1 mg PO TID PRN anxiety #10 tabs 05/18/23 [Rx Last Taken Unknown] furosemide 20 mg tablet 20 mg PO DAILY 06/03/23 [History Last Taken Unknown] lorazepam 0.5 mg tablet 0.5 mg PO 06/03/23 [History Last Taken Unknown] nitroglycerin 0.4 mg sublingual tablet 0.4 mg sublingual Q5M PRN chest pain 06/03/23 [History Last Taken Unknown] omeprazole 20 mg capsule,delayed release 20 mg PO DAILY 06/03/23 [History Last Taken Unknown] ondansetron 4 mg disintegrating tablet 4 mg PO Q6H PRN PRN Nausea #15 tabs 06/03/23 [Rx Last Taken Unknown] oxycodone-acetaminophen 5 mg-325 mg tablet (Percocet) 1 tab PO Q6H 3 days #12 tabs 06/03/23 [Rx Last Taken Unknown] sertraline 25 mg tablet 25 mg PO DAILY 06/03/23 [History Last Taken Unknown] trazodone 50 mg tablet 50 mg PO DAILY 06/03/23 [History Last Taken Unknown] Allergy/AdvReac Type Severity Reaction Status Date / Time Bleach (Sodium Hypochlorite) Allergy Other Verified 06/03/23 15:41 cat dander Allergy Itching Verified 06/03/23 15:41 coconut Allergy Anaphylaxis Verified 06/03/23 15:41 dog dander Allergy Itching Verified 06/03/23 15:41 Sulfa (Sulfonamide AdvReac Rash Verified 06/03/23 15:41 Antibiotics) Family History Father CAD (coronary artery disease) Cancer Diabetes Mother Cancer Diabetes CAD (coronary artery disease) Surgical History H/O carpal tunnel repair H/O ventral hernia repair H/O: hysterectomy History of appendectomy History of bunionectomy of right great toe History of esophagogastroduodenoscopy (EGD) History of partial hysterectomy Social History household members: spouse Smoking Status: Never smoker alcohol intake: never substance use type: does not use ROS Gastrointestinal Gastrointestinal: Reports abdominal pain and vomiting Physical Exam Const alert, no apparent distress and well nourished Resp normal respiratory effort GI GI Narrative: Obese, nondistended, soft, tender to palpation centrally and lesser so laterally to the right. There is negative Trevino sign. Lab / Micro Data 06/03/23 16:16 06/03/23 16:16 Labs: Laboratory Results - last 24 hr 06/03/23 16:16: WBC 5.4, RBC 4.65, Hgb 13.4, Hct 41.2, MCV 88.6, MCH 28.8, MCHC 32.5, RDW Std Deviation 45.1 H, RDW Coeff of Anika 14.0, Plt Count 120 L, MPV 10.5, Immature Gran % (Auto) 0.200, Neut % (Auto) 53.5, Lymph % (Auto) 31.8, [place] % (Auto) 11.0 H, Eos % (Auto) 2.4, Baso % (Auto) 1.1 H, Absolute Neuts (auto) 2.9, Absolute Lymphs (auto) 1.71, Nucleated RBC % 0, Sodium 140 06/03/23 16:16: Sodium Cancelled, Potassium 4.2 06/03/23 16:16: Potassium Cancelled, Chloride 108 H 06/03/23 16:16: Chloride Cancelled, Carbon Dioxide 24.0 06/03/23 16:16: Carbon Dioxide Cancelled, Anion Gap 8 06/03/23 16:16: Anion Gap Cancelled, BUN 17 06/03/23 16:16: BUN Cancelled, Creatinine 0.85 06/03/23 16:16: Creatinine Cancelled, Estim Creat Clear Calc 65.22, Est GFR (MDRD) Af Amer 84 06/03/23 16:16: Est GFR (MDRD) Af Amer Cancelled, Est GFR (MDRD) Non-Af 69 06/03/23 16:16: Est GFR (MDRD) Non-Af Cancelled, BUN/Creatinine Ratio 20.0 06/03/23 16:16: BUN/Creatinine Ratio Cancelled, Glucose 101 06/03/23 16:16: Glucose Cancelled, Calcium 9.1 06/03/23 16:16: Calcium Cancelled, Total Bilirubin 0.60 06/03/23 16:16: Total Bilirubin 0.60, Direct Bilirubin 0.26, AST 32 06/03/23 16:16: AST 31, ALT 27 06/03/23 16:16: ALT 27, Alkaline Phosphatase 105 06/03/23 16:16: Alkaline Phosphatase 104, Total Protein 7.6 06/03/23 16:16: Total Protein 7.5, Albumin 3.3 06/03/23 16:16: Albumin 3.4, Globulin 4.3 H 06/03/23 16:16: Globulin 4.1, Albumin/Globulin Ratio 0.8 L, Lipase 72, Urine Color Yellow, Urine Clarity Clear, Urine pH 6.5, Ur Specific [place] 1.010, Urine Protein 15 H, Urine Glucose (UA) Normal, Urine Ketones Negative, Urine Occult Blood Negative, Urine Nitrite Negative, Urine Bilirubin Negative, Urine Urobilinogen Normal, Ur Leukocyte Esterase Negative, Urine RBC 0 SEEN, Urine WBC 0 SEEN, Ur Squamous Epith Cells 0 SEEN, Urine Bacteria RARE, Urine Mucus 0 SEEN 06/03/23 17:55: PT 14.4, INR 1.1, APTT 29.9 06/03/23 18:05: POC Glucose 85 Imaging Radiology Impression Gallbladder Ultrasound 06/03/23 16:30 IMPRESSION: 1. Cholelithiasis with mild gallbladder wall thickening. These are nonspecific findings but can be seen in cholecystitis. Patient had a negative sonographic Trevino''s sign and there is no pericholecystic fluid. 2. Nodular margin of the liver which may represent cirrhosis. Electronically Signed: Vineet Ruiz MD at 18:02 EST , Charges/Coding Visit Charges Inpatient E&M: 73598 Init Hosp L2
== END 2023-06-03 19:53 | disposition home or self-care (01) ==
PROVIDERS: Emergency Provider Emergency Medicine; PCP Internal Medicine; Visit Provider Emergency Medicine
DX: K74.60 Unspecified cirrhosis of liver (principal); I11.0 Hypertensive heart disease with heart failure; I50.9 Heart failure, unspecified; I48.91 Unspecified atrial fibrillation; D69.6 Thrombocytopenia, unspecified; E11.9 Type 2 diabetes mellitus without complications; K80.44 Calculus of bile duct with chronic cholecystitis without obstruction; Z79.899 Other long term (current) drug therapy; Z90.710 Acquired absence of both cervix and uterus; Z90.49 Acquired absence of other specified parts of digestive tract
CPT/HCPCS: 76705; 80053; 80076; 81001; 82962; 83690; 85025; 85610; 85730; 96374; 99283; A4216; J2405

== ENCOUNTER → 2023-07-01 | Outpatient (CLI) | payer MEDICARE, SELFPAY ==
[2023-07-01 12:24] LABS: Absolute Lymphocyte Count 1.26 X10^3/uL (0.83-4.51); Absolute Neutrophil Count 3.3 X10^3/uL (2.0-7.7); Basophil# 0.04 X10^3/uL; Basophil% 0.8 % (0-1); Eosinophil# 0.12 X10^3/uL; Eosinophils% 2.3 % (0-5); Hematocrit 39.2 % (37-47); Hemoglobin 12.6 g/dL (12.0-15.0); Lymphocyte # 1.26 X10^3/ul (0.83-4.51); Lymphocyte % 23.8 % (19-41); Mean Corp Hgb Conc 32.1 g/dL (32-36); Mean Corpuscular Hgb 28.8 pg (27.0-32.0); Mean Corpuscular Volume 89.5 fL (81-99); Mean Platelet Vol. 10.7 fl (6.2-12.0); Monocyte# 0.58 X10^3/uL; Monocyte% 10.9 % (0-10); NRBC Flagged by Analyzer 0 % (0-5); Neutrophil # 3.29 X10^3/uL (2.7-7.7); Platelet Count 189 K/mm3 (150-450); RBC Distribution Width CV 14.2 % (11.6-14.6); RBC Distribution Width SD 46.1 fl (35.1-43.9); Red Blood Count 4.38 M/mm3 (4.2-5.4); White Blood Count 5.3 K/mm3 (4.4-11.0)
[2023-07-01 12:32] LABS: Anion Gap 4 (5-15); BUN 12 mg/dL (7-18); BUN/Creat Ratio 17.1 RATIO (10-20); Calcium,Total 8.9 mg/dL (8.5-10.1); Chloride 110 mmol/L (98-107); EST Glomerular Filtration Rate 87 mL/min (>60); Est Glom Filt Rate - Afr Amer 105 mL/min (>60); Glucose 119 mg/dL (74-106); Potassium 4.2 mmol/L (3.5-5.1); Sodium Level 140 mmol/L (136-145)
== END | disposition home or self-care (01) ==
LOC: LAB 11:14
PROVIDERS: PCP Internal Medicine; Referring Provider Internal Medicine Cardiovascular Disease; Visit Provider Internal Medicine Cardiovascular Disease
DX: R07.9 Chest pain, unspecified (principal); R94.39 Abnormal result of other cardiovascular function study
CPT/HCPCS: 36415; 80048; 85025

== ENCOUNTER 2023-07-10 08:59 | Day surgery (SDC) | payer MEDICARE, SELFPAY ==
[2023-07-09 07:26] VITALS: BMI 36.5
--- NOTE | 2023-07-10 11:26 | CL.D_ITS ---
Patient Name: THU ESPANA Study Date: 07/10/2023 Performing: Rinku Jane MD Ht: 63 inches 160.02 cm : 1950 Wt: 206 lbs 93.44 kg Age: 73 Gender: female BSA: 1.96 PROCEDURE(S) PERFORMED DC02-(11236)C/COR CLINICAL PROFILE AND INDICATIONS Indications: Suspected CAD Heart Failure: None Stress/Imaging Stress Test w/SPECT MPI: Yes Result: Positive Intermediate RiskStress Test with SPECT MPI: Positive Intermediate Risk CONCLUSIONS 10% Mid RCA Calcified Aortic Root RECOMMENDATIONS Medical therapy Risk factor modification DESCRIPTION OF PROCEDURE The patient arrived to the procedure lab. The risks and benefits of the procedure as well as a full description of our services here and current unavailability of surgical backup were fully explained to the patient and/or their significant other prior to the catheterization. The Timeout was completed, verifying the correct patient and procedure. The patient's procedural site was prepped and draped in the usual fashion. Local anesthetic was given subcutaneously to right radial region with Lidocaine 2%. Using a modified Seldinger technique, arterial access was obtained via the right radial artery, a 6Fr sheath was inserted. Left Coronary Artery selective angiography was performed in multiple views using a 5 Fr. 4.0 [place] catheter. Right Coronary Artery selective angiography was then performed in multiple views using a 5 Fr. 4.0 [place] catheter.The arterial sheath was pulled and a TR Band was applied for hemostasis 12cc air CORONARY ANGIOGRAPHY DOMINANCE: Right Dominant LEFT MAIN: Angiographically normal LEFT ANTERIOR DESCENDING ARTERY: LAD: Tubular 30% Ostial lesion in LAD Tubular 30% Mid lesion in LAD CIRCUMFLEX ARTERY: Angiographically normal RIGHT CORONARY ARTERY: RCA: Luminal Irregularities 10% Mid lesion in RCA COMPLICATIONS No Complications PROCEDURE MEDICATIONS Fentanyl 50 mcg IV Versed 1 mg IV Oxygen: 2 L/min via nasal cannula Aspirin (325mg) 1 Tabs PO @ 07/10/2023 09:27:07 Heparin given IA 07/10/2023 11:12:20 Plavix 75 mg PO 07/10/2023 09:27:11 Verapamil 2.5mg, Ntg 200mcgs, 2000 units of Heparin given IA 07/10/2023 11:12:20 IV Bolus: .9 NaCl 250 ml total 07/10/2023 11:12:39 SUMMARY OF HEMODYNAMIC DATA Time AIR REST ECG 09:37:17 AO 90/54 (68) SA 11:14:26 Signed By Rinku Jane MD On 07/10/2023 11:25:46 Rinku Jane MD
== END 2023-07-10 13:05 | disposition home or self-care (01) ==
LOC: CLSP 09:01
PROVIDERS: PCP Internal Medicine; Referring Provider Internal Medicine Cardiovascular Disease; Visit Provider Internal Medicine Cardiovascular Disease
DX: R07.89 Other chest pain (principal); K74.60 Unspecified cirrhosis of liver; I70.0 Atherosclerosis of aorta; I48.0 Paroxysmal atrial fibrillation; D69.6 Thrombocytopenia, unspecified; E11.9 Type 2 diabetes mellitus without complications; Z86.16 Personal history of COVID-19; R06.02 Shortness of breath; R94.39 Abnormal result of other cardiovascular function study; E78.5 Hyperlipidemia, unspecified; Z82.49 Family history of ischemic heart disease and other diseases of the circulatory system; F12.90 Cannabis use, unspecified, uncomplicated
CPT/HCPCS: 93454; 99152; 99153; J7040; C1769; C1894; Q9967

== ENCOUNTER 2023-10-03 10:04 | Day surgery (SDC) | payer MEDICARE, SELFPAY ==
[2023-10-03 10:43] VITALS: BP 142/52; PULSE 72; RESP 16; TEMP 36.6; O2SAT 98; BMI 34.0
[2023-10-03] MEDS: Lactated Ringers 1,000 ML 15 ML IV (10:51)
[2023-10-03 11:26] LABS: Bedside Glucose 103 mg/dL (74-106)
--- NOTE | 2023-10-03 11:40 | HP.PCM_ITS ---
History and Physical Date of Admission: 10/03/23 [facility] Complaint: f/u esophageal and gastric varices/ gastric ulcers Details: THU ESPANA, is a 73 F who presents to the office today for follow up. [facility] hospitalization .06.27-11.05.21 without GI consult for GIB with positive fecal occult; hold aspirin and Eliquis. Discharged with stable hgb. *BGI established 11.23.21 as GIB f/u. Reports hospitalization in 2016 for GIB also. She has not had additional signs of GIB since recent hospitalization. Stool H.Pylori WNL US RUQ 12.01.21 hepatic measurement 16.4cm; multiple gallstones with sludge. EGD and colonoscopy 12.11.21 EGD gastric varices Grade 1; moderate portal HTN gastropathy; chronic gastritis. H.Pylori negative. Colonoscopy poor prep OV 12.28. without acute findings. Liver biopsy .05.27 cirrhosis with normal architecture divided by fibrous septae which are highlighted by trichrome and reticulin stains; hepatocytes with macro/microvesicular steatosis and reactive changes; hepatocyte nodule inflammation; fibrous septae with moderate chronic inflammation of lymphocytes. EGD and colonoscopy 02.01.22 EGD Grade I lower esophageal varices; gastric varices; severe portal HTN gastropathy; mild gastritis. H.Pylori negative. Colonoscopy diverticulosis; internal hemorrhoids. CT abd/pel 10.. lung scarring; hepatic nodular contour; contracted stone filled gallbladder; moderate splenomegaly; splenic hilum varices extending into periesophageal region; renal cyst, smaller. OV 10.13.22 doing well EGD 04.16.22 small <5mm EV, type I GV; medium food residue in stomach and duodenum; chronic gastritis. H.Pylori negative. GI referred for evaluation of varices and preferred treatment. Recommend non- selective beta juan m. OV 05.01. refer again to for possible cryotherapy for GV. OV 07.31. refer to [facility] for cholelithiasis evaluation. EGD 11.26.22 non-severe reflux esophagitis; type I GV; three non- bleeding gastric ulcers, gastritis. H.Pylori negative. A OV 08.31. feeling symptoms were more of a gastric nature rather than gallbladder. Carafate added which was helpful; do not recommend surgery at this time. GI workup: EGD 7.24.23 GV type I without bleed; two non-bleeding gastric ulcers, gastritis; food residue in duodenum. MELD ESR/CRP INR plt AST-ALT-AP ammonia AFP ASM 11.23.22 -- --/-- -- 96 -- -- -- -- 08..22 7 39/9.56 1.1 127 36-31-113 27 1.6 25 A1c H6. Haptoglobin, ferritin, ceruloplasmin, ILAN, copper, ANCA, KARLY comp, AMA, hepat itis, HIV WNL 10.13.22 8 --/-- 1.2 106 36-25-105 19 -- -- IgA H549, IgE H1556. IgGM WNL 12.27.22 8 --/-- 1.2 115 35-28-98 16 -- -- 03.27.23 7 --/-- 1.1 120 46-36-102 25 -- -- OV 1.29.24- Pt having mid abdominal pain that radiates to the right upper quadrant. She has abdominal pain ongoing for 4-5 months but getting more frequent prolonged in last 1 month. She states her pain comes in waves about 8- 9/10, worse after eating food, last for about 20 to 30 minutes and has to take Tylenol along with chills few days ago with temperature of 100 Fahrenheit. She also had vomiting mainly bilious type about a week ago. Her previous CT shows he has multiple gallstones with contracted gallbladder. Is worse after eating. The patient is concerned about her gallbladder. Has daily bloating. BM are once a day but feels not able to empty completely but she is also eating less. Feels dizzy at times. Has lower leg edema at night. Has been dealing with a lot of anxiety lately with [employer]. Refered to ER for evaluation [facility] ER 06.04.23- Cholecystitis, refered to larger facility for surgical intervention due to thrombocytopenia [facility] 06.04.23- 06.13.23- admitted for choledocholithiasis and acute calculous cholecystitis. GI (Dr Brown) performed ERCP/ sphincterotomy with metal stent placement on 06/07/[address] Lanza performed laparoscopic cholecystectomy with IOC, LUIS around periumbilical region on 06/11/23. Was advised to make an appointment with Dr. Maher for rpt ERCP/ tent removal. OV 3.14.24- Pt states she feels better since the surgery. Still has occasional gas and bloating. Is no longer having abdominal pain. Appetite is improving. No nausea or vomiting. BM are better once a day. Some dizziness off and on. No swelling. ROS Const Constitutional: Positive for headache(s); No fatigue ENT ENT: Positive for headache(s); No difficulty swallowing Cardio Cardiology: Positive for leg pain with exertion Gastro GI: Positive for abdominal pain, bloating, heartburn, excessive flatus and nausea/dyspepsia; No belching, change in bowel habits, change in stool character, coffee ground emesis, constipation, cramping, diarrhea, difficulty swallowing, feeling full early, incontinent of stools, Vomiting blood/hematemesis, Blood in stool, loose stools, Black,tarry stools, pain with swallowing, vomiting or other Musc Musculoskeletal: Positive for joint pain, back pain, Arthritis, restless legs, leg pain at night and leg pain with exertion Skin Skin: No yellowing of the eye or itchy eyes Neuro Neurology: Positive for headache(s) and restless legs Psych Psychiatric: Positive for anxiety and Positive for depression Endo Endocrine: No fatigue Aller/Imm Allergy/Immunologic: No itchy eyes Carmelo/Lymp Hematologic/Lymphatic: No easy bleeding or easy bruising Quality Reporting Tobacco Screening ([facility]) Smoking Status: Never smoker Assessment and Plan Assessment and Plan (1) History of cholecystectomy: Status: Acute Comment: With lysis of adhesions peritoneum Plan: History of recurrent cholecystitis with choledocholithiasis status post ERCP, metallic stent and lap danita in June 2023 Patient had a 7 in November 2021 which shows GB wall edema. No pericholecystic fluid but multiple echogenic structures within GB consistent with multiple stones./Seen in the GB lumen. The patient had CT abdomen with contrast in February 2022 which showed contracted gallbladder with stones. 07/17: Patient was seen by surgeon Dr. Andrew Madden in the surgery office from where he was referred to [facility] because of increased perioperative risk. Patient had ERCP on 09/29/2023 and lap danita on June 13, 2023. Patient has recovered well. Sometimes she has abdominal discomfort otherwise doing good. (2) Cirrhosis: Status: Chronic Qualifiers: Hepatic cirrhosis type: unspecified hepatic cirrhosis Ascites presence: without ascites Qualified Code(s): K74.60 - Unspecified cirrhosis of liver Orders: Orders CBC W/Diff, Automated 3 Months E11.9 - Type 2 diabetes mellitus without complications, K74.60 - Unspecified cirrhosis of liver Comprehensive Metabolic Profil 3 Months E11.9 - Type 2 diabetes mellitus without complications, K74.60 - Unspecified cirrhosis of liver Prothrombin Time w/INR 3 Months E11.9 - Type 2 diabetes mellitus without complications, K74.60 - Unspecified cirrhosis of liver AFP, Tumor Marker 3 Months E11.9 - Type 2 diabetes mellitus without complications, K74.60 - Unspecified cirrhosis of liver Vitamin D,25 Hydroxy 3 Months E11.9 - Type 2 diabetes mellitus without complications, K74.60 - Unspecified cirrhosis of liver KARLY w/ Reflex Mult Confirm 3 Months E11.9 - Type 2 diabetes mellitus without complications, K74.60 - Unspecified cirrhosis of liver Lipid Profile 3 Months E11.9 - Type 2 diabetes mellitus without complications, K74.60 - Unspecified cirrhosis of liver Hemoglobin A1c 3 Months E11.9 - Type 2 diabetes mellitus without complications, K74.60 - Unspecified cirrhosis of liver Thyroid Stim Hormone (TSH) 3 Months E11.9 - Type 2 diabetes mellitus without complications, K74.60 - Unspecified cirrhosis of liver, R63.4 - Abnormal weight loss T4 Free Direct 3 Months E11.9 - Type 2 diabetes mellitus without complications, K74.60 - Unspecified cirrhosis of liver, R63.4 - Abnormal weight loss CT Abd/Pelvis W/WO Contrast 3 Months E11.9 - Type 2 diabetes mellitus without complications, K74.60 - Unspecified cirrhosis of liver Plan As per CT scan in February 2022, patient has cirrhosis with moderate splenomegaly and evidence of varices in the region of the splenic hilum extending to periesophageal regions. She had history of upper GI bleed. Patient also had EGD last 1 in November 2022 For GI bleed in the past which showed a healing gastric ulcer. She does not have esophageal varices but she does have an isolated gastric varices in the fundus of the stomach. It is classified as an isolated gastric varices 1. Based on the labs of June 03, 2023, when all the meds lab available, MELD sodium score is 7. INR 1.1, total bili 0.6, creatinine 0.85 and sodium 140. Patient blood pressure is in systolic 100s. Will continue the same dose of diuretic. Electrolytes are well-controlled based on 07/01. Patient does not have much leg swelling and mild ascites Continue same dose of diuretic.. Patient denies any increase in confusion or encephalopathic symptoms. Follow-up labs and CT abdomen triple phase, HCC protocol ordered 3 months from now. Follow-up in 3 months I have examined the patient and the H&P has been reviewed. There are no clinical changes since date of exam.
[2023-10-03 12:25] VITALS: BP 102/28; BP 142/52; PULSE 70; RESP 18; TEMP 36.8; O2SAT 94
--- NOTE | 2023-10-03 12:26 | OP.CCLET_ITS ---
10/03/2023 Doreen Finn [address] [place] [address] Re : Upper GI endoscopy procedure for Annalee Lakhwinder Dear Dr. Finn This procedure was performed on September. My impressions and recommendations are as follows: Impressions : - Type 1 isolated gastric varices (IGV1, varices located in the fundus), without bleeding. - Small (< 5 mm) esophageal varices. - Normal second portion of the duodenum. - No specimens collected. Recommendations : - Discharge patient to home. - Resume previous diet today. - Continue present medications. My findings are described in the full procedure note, which is enclosed. If I can be of further assistance, please feel free to contact me at . Sincerely, Casey Paul, 10/03/2023 12:25:53 PM This report has been signed electronically.
--- NOTE | 2023-10-03 12:26 | OP.EGD_ITS ---
Patient Name: Annalee Keane Procedure Date: 10/03/2023 12:08 PM Date of : 1950 Age: 73 Procedure: Upper GI endoscopy Indications: Esophageal varices Providers: Casey Paul DO Medicines: Monitored Anesthesia Care Patient Profile: This is a 73 year old female. Refer to note in patient chart for documentation of history and physical. Patient has symptoms. Complications: No immediate complications. Procedure: Pre-Anesthesia Assessment: - Prior to the procedure, a History and Physical was performed, and patient medications and allergies were reviewed. The patient is competent. The risks and benefits of the procedure and the sedation options and risks were discussed with the patient. All questions were answered and informed consent was obtained. Patient identification and proposed procedure were verified by the physician in the pre-procedure area. Mental Status Examination: alert and oriented. Airway Examination: normal oropharyngeal airway and neck mobility. Respiratory Examination: clear to auscultation. CV Examination: normal. Prophylactic Antibiotics: The patient does not require prophylactic antibiotics. Prior Anticoagulants: The patient has taken no anticoagulant or antiplatelet agents. ASA Grade Assessment: II - A patient with mild systemic disease. After reviewing the risks and benefits, the patient was deemed in satisfactory condition to undergo the procedure. The anesthesia plan was to use monitored anesthesia care (MAC). Immediately prior to administration of medications, the patient was re-assessed for adequacy to receive sedatives. The heart rate, respiratory rate, oxygen saturations, blood pressure, adequacy of pulmonary ventilation, and response to care were monitored throughout the procedure. The physical status of the patient was re-assessed after the procedure. After obtaining informed consent, the endoscope was passed under direct vision. Throughout the procedure, the patient's blood pressure, pulse, and oxygen saturations were monitored continuously. The Endoscope was introduced through the mouth, and advanced to the second part of duodenum. The upper GI endoscopy was accomplished without difficulty. The patient tolerated the procedure well. Scope In: 12:15:59 PM Scope Out: 12:17:54 PM Total Procedure Duration Time 0 hours 1 minute 55 seconds Findings: Type 1 isolated gastric varices (IGV1, varices located in the fundus) with no bleeding were found in the gastric fundus. There were no stigmata of recent bleeding. They were 6 mm in largest diameter. Small (< 5 mm) varices were found in the lower third of the esophagus. They were 5 mm in largest diameter. The second portion of the duodenum was normal. Impression: - Type 1 isolated gastric varices (IGV1, varices located in the fundus), without bleeding. - Small (< 5 mm) esophageal varices. - Normal second portion of the duodenum. - No specimens collected. Recommendation: - Discharge patient to home. - Resume previous diet today. - Continue present medications. Procedure Code(s): --- Professional --- 19620, Esophagogastroduodenoscopy, flexible, transoral; diagnostic, including collection of specimen(s) by brushing or washing, when performed (separate procedure) CPT copyright 2021 [employer]. All rights reserved. The codes documented in this report are preliminary and upon inpatient coder review may be revised to meet current compliance requirements. Casey Paul DO 10/03/2023 12:25:53 PM This report has been signed electronically. Number of Addenda: 0 Note Initiated On: 10/03/2023 12:08 PM
[2023-10-03 12:30] VITALS: BP 142/52; BP 90/40; PULSE 68; RESP 18; O2SAT 99
[2023-10-03 12:34] VITALS: BP 122/66; BP 142/52; PULSE 66; RESP 18; O2SAT 98
[2023-10-03 12:40] VITALS: BP 126/65; BP 142/52; PULSE 64; RESP 18; TEMP 36.9; O2SAT 99
[2023-10-03 13:00] VITALS: BP 142/52
--- NOTE | 2023-10-03 13:03 | SUR.PHASEII ---
waiting to speak with dr. maciel
== END 2023-10-03 13:30 | disposition home or self-care (01) ==
LOC: EN 10:04 → AC 10:06
PROVIDERS: PCP Internal Medicine; Referring Provider Internal Medicine; Visit Provider Internal Medicine Gastroenterology
PROC: 0DJ08ZZ Inspection of Upper Intestinal Tract, Via Natural or Artificial Opening Endoscopic (ICD-10-PCS; CPT 43235; principal; 2023-10-03 11:10)
DX: I85.00 Esophageal varices without bleeding (principal); K74.60 Unspecified cirrhosis of liver; E11.9 Type 2 diabetes mellitus without complications; Z90.49 Acquired absence of other specified parts of digestive tract; I86.4 Gastric varices
CPT/HCPCS: 43235; 82962; J2405

== ENCOUNTER → 2023-10-16 | Outpatient (CLI) | payer MEDICARE, SELFPAY ==
[2023-10-16 10:25] LABS: Absolute Lymphocyte Count 1.21 X10^3/uL (0.83-4.51); Absolute Neutrophil Count 1.9 X10^3/uL (2.0-7.7); Basophil# 0.04 X10^3/uL; Basophil% 1.1 % (0-1); Eosinophil# 0.12 X10^3/uL; Eosinophils% 3.2 % (0-5); Hematocrit 36.3 % (37-47); Hemoglobin 11.6 g/dL (12.0-15.0); Lymphocyte # 1.21 X10^3/ul (0.83-4.51); Lymphocyte % 32.4 % (19-41); Mean Corpuscular Hgb 28.9 pg (27.0-32.0); Mean Corpuscular Volume 90.3 fL (81-99); Mean Platelet Vol. 10.1 fl (6.2-12.0); Monocyte# 0.49 X10^3/uL; Monocyte% 13.1 % (0-10); NRBC Flagged by Analyzer 0 % (0-5); Neutrophil # 1.87 X10^3/uL (2.7-7.7); Neutrophil % 49.9 % (47-70); Platelet Count 120 K/mm3 (150-450); RBC Distribution Width CV 15.2 % (11.6-14.6); RBC Distribution Width SD 50.3 fl (35.1-43.9); Red Blood Count 4.02 M/mm3 (4.2-5.4); White Blood Count 3.7 K/mm3 (4.4-11.0)
[2023-10-16 10:35] LABS: International Normalized Ratio 1.1; Prothrombin Time (Protime)PT. 14.5 SECONDS (11.7-14.9)
[2023-10-16 10:55] LABS: Hemoglobin A1c 5.2 % (3.8-5.6)
[2023-10-16 12:56] LABS: ALB/GLOB Ratio 0.7 RATIO (0.9-2.4); AST(SGOT) 37 U/L (15-37); Alanine Aminotransfer ALT/SGPT 26 U/L (13-56); Albumin, Serum 3.2 g/dL (3.2-5.0); Alkaline Phosphatase 125 U/L (45-117); Anion Gap 7 (5-15); BUN 17 mg/dL (7-18); Calcium,Total 9.3 mg/dL (8.5-10.1); Chloride 106 mmol/L (98-107); Cholesterol 138 mg/dL (200); EST Glomerular Filtration Rate 65 mL/min (>60); Est Glom Filt Rate - Afr Amer 79 mL/min (>60); Globulin 4.7 g/dL (2.2-4.2); Glucose 97 mg/dL (74-106); High Density Lipoprotein 54 mg/dL; Protein, Total 7.9 g/dL (6.4-8.2); Sodium Level 136 mmol/L (136-145); T4 Free Direct 1.02 ng/dL (0.76-1.46); Thyroid Stim Hormone (TSH) 3.19 uIU/mL (0.358-3.74); Triglycerides 78 mg/dL; Very Low Density Lipoprotein 16 mg/dL (5-40)
[2023-10-17 08:12] LABS: AFP, Tumor Marker < 1.8 ng/mL (0.0-9.2)
[2023-10-17 13:08] LABS: ANTINUCLEAR ANTIBODIES DIRECT Negative (Negative)
== END | disposition home or self-care (01) ==
LOC: LAB 09:55
PROVIDERS: PCP Internal Medicine; Referring Provider Internal Medicine; Visit Provider Internal Medicine
DX: K74.60 Unspecified cirrhosis of liver (principal); E11.9 Type 2 diabetes mellitus without complications; R63.4 Abnormal weight loss
CPT/HCPCS: 36415; 80053; 80061; 82105; 82140; 83036; 84439; 84443; 85025; 85610; 86038; 86140; 86225; 86235

== ENCOUNTER → 2023-10-30 | Outpatient (CLI) | payer MEDICARE, SELFPAY ==
--- NOTE | 2023-10-30 15:20 | CT_ITS ---
STUDY: CT ABDOMEN WITH AND WITHOUT CONTRAST REASON FOR EXAM: Female, 73 years old. Decompensated cirrhosis -- HCC protocol. Rule out liver tumor RADIATION DOSAGE (If Supplied By Facility): CTDIvol = ( 25.34 ) mGy, DLP = ( 2347.87 ) mGycm TECHNIQUE: Transaxial images were obtained pre and post I.V. administration of IV 100mL Isovue-370, and without oral contrast. Sagittal and coronal images were reconstructed. Individualized dose optimization techniques were used for this CT. COMPARISON: Comparison is made with prior study dated February 08, 2022. FINDINGS: Mild lingular scarring. The visualized portions of the heart are within normal limits. There is a diffuse contour abnormality of the liver consistent with cirrhotic changes. 3 biliary stent is seen with the distal tip in the duodenum. Small amount of pneumobilia due to the placement of the stent. Once again, varices are seen in the region of the splenic hilum as well as in the region of the distal esophagus and epigastric area. There is moderate splenomegaly. Normal pancreas. Normal bilateral adrenal glands. Normal right kidney. Normal left kidney. Normal visualized stomach. Normal small intestine. There are multiple colonic diverticula consistent with diverticulosis. The appendix is visualized and appears normal. There is diffuse atherosclerotic calcification of the abdominal aorta, without a demonstrated aneurysm. Normal inferior vena cava. There is borderline retroperitoneal lymphadenopathy with enlarged nodes no greater than 10mm in the short axis diameter. Soft tissue changes seen deep to the umbilicus most likely secondary to prior umbilical hernia repair with postoperative scarring. There are degenerative changes of the visualized lumbar spine. CT/Abdomen W/WO IV Contrast IMPRESSION: Findings suggest cirrhosis of liver with evidence of esophageal varices and varices in the region of splenic hilum and splenomegaly. Stable examination. Electronically Signed: Elton Malcolm MD at 9:45 EDT ,
== END | disposition home or self-care (01) ==
PROVIDERS: PCP Internal Medicine; Referring Provider Internal Medicine; Visit Provider Internal Medicine
DX: K74.60 Unspecified cirrhosis of liver (principal); E11.9 Type 2 diabetes mellitus without complications
CPT/HCPCS: 74170; Q9967

== ENCOUNTER 2023-11-14 13:51 | Emergency (ER) | payer MEDICARE, SELFPAY ==
[2023-11-14 13:53] VITALS: BP 130/94; PULSE 95; RESP 16; TEMP 35.8; O2SAT 97; BMI 33.0
[2023-11-14 15:19] LABS: Absolute Lymphocyte Count 1.71 X10^3/uL (0.83-4.51); Absolute Neutrophil Count 3.4 X10^3/uL (2.0-7.7); Basophil# 0.04 X10^3/uL; Basophil% 0.6 % (0-1); Eosinophil# 0.16 X10^3/uL; Eosinophils% 2.5 % (0-5); Hematocrit 41.1 % (37-47); Hemoglobin 13.5 g/dL (12.0-15.0); Lymphocyte # 1.71 X10^3/ul (0.83-4.51); Lymphocyte % 26.8 % (19-41); Mean Corp Hgb Conc 32.8 g/dL (32-36); Mean Corpuscular Hgb 28.9 pg (27.0-32.0); Mean Platelet Vol. 10.6 fl (6.2-12.0); Monocyte# 1.04 X10^3/uL; Monocyte% 16.3 % (0-10); NRBC Flagged by Analyzer 0 % (0-5); Neutrophil # 3.41 X10^3/uL (2.7-7.7); Neutrophil % 53.5 % (47-70); Platelet Count 124 K/mm3 (150-450); RBC Distribution Width CV 14.5 % (11.6-14.6); RBC Distribution Width SD 46.4 fl (35.1-43.9); Red Blood Count 4.67 M/mm3 (4.2-5.4); White Blood Count 6.4 K/mm3 (4.4-11.0)
[2023-11-14 15:33] LABS: ALB/GLOB Ratio 0.7 RATIO (0.9-2.4); AST(SGOT) 51 U/L (15-37); Alanine Aminotransfer ALT/SGPT 39 U/L (13-56); Albumin, Serum 3.2 g/dL (3.2-5.0); Alkaline Phosphatase 145 U/L (45-117); Anion Gap 6 (5-15); BUN 14 mg/dL (7-18); BUN/Creat Ratio 18.6 RATIO (10-20); Calcium,Total 9.3 mg/dL (8.5-10.1); Chloride 107 mmol/L (98-107); Creatinine, Serum 0.75 mg/dL (0.55-1.02); EST Glomerular Filtration Rate 80 mL/min (>60); Est Glom Filt Rate - Afr Amer 97 mL/min (>60); Estimated Creatinine Clearance 66.02 ml/min; Globulin 4.8 g/dL (2.2-4.2); Glucose 98 mg/dL (74-106); Potassium 4.3 mmol/L (3.5-5.1); Sodium Level 136 mmol/L (136-145)
--- NOTE | 2023-11-14 16:54 | CT_ITS ---
STUDY: CT ABDOMEN AND PELVIS WITH CONTRAST REASON FOR EXAM: Female, 73 years old. abdominal pain, mulitple abdomnal surgeries RADIATION DOSAGE (If Supplied By Facility): CTDIvol = ( 19.33 ) mGy, DLP = ( 1269.25 ) mGycm TECHNIQUE: Transaxial images were obtained from the dome of the diaphragm to the symphysis pubis without oral contrast. IV 100mL Isovue-300 was administered. Sagittal and coronal images were reconstructed. Individualized dose optimization techniques were used for this CT. The protocol utilizes one or more of the following dose reduction techniques: automated exposure control, adjustment of mA and/or kV according to patient size,and/or use of iterative reconstruction technique. COMPARISON: CT abdomen October 30, 2023. FINDINGS: The visualized lung bases are unremarkable. Calcific coronary artery disease. Liver is nodular and small. Gallbladder surgically absent. Pneumobilia noted. Stent present within the common bile duct. Normal spleen. Normal pancreas. Normal bilateral adrenal glands. Normal right kidney. Normal left kidney. Gastroesophageal varices. Normal visualized stomach. Air-fluid level small bowel. Colonic diverticulosis. Appendix not identified. Calcified plaque along the aorta and its branches. Normal inferior vena cava. Normal retroperitoneum. Normal urinary bladder. Fat-containing left inguinal hernia. Normal abdominal wall. Spondylosis. CT/Abdomen/Pelvis W IV Cont ONLY IMPRESSION: Cirrhosis and gastroesophageal varices. Biliary stent. Ileus. Electronically Signed: Kvng Cortez MD at 18:45 EDT ,
[2023-11-14 17:00] VITALS: BP 122/86; PULSE 80; RESP 14
[2023-11-14 17:17] LABS: Mucous, Urine 0 SEEN /hpf (<or=2+); Red Blood Cells-Urine 0 SEEN /hpf (0-5)
[2023-11-14] MEDS: Morphine 4 MG/ML Syringe IV (17:19)
[2023-11-14] MEDS: Ondansetron 4 MG/2 ML Vial IV (17:19)
[2023-11-14] MEDS: 0.9% Normal Saline (1000mL) 1,000 ML 999 ML IV (17:19)
--- NOTE | 2023-11-14 17:19 | EX.ED.DYSGE1 ---
HPI History of Present Illness Chief Complaint: Abd Pain Narrative Narrative: Patient is a 73-year-old female with a past medical history of gastric varices, fatty liver, cirrhosis, diabetes, asthma, atrial fibrillation, congestive heart failure, history of cholecystectomy, appendectomy, total hysterectomy who presents to the emergency department chief complaint of abdominal pain. Patient states that for the past 2 days she has had worsening abdominal pain as well as nausea vomiting. Patient also is complaining of some painful urination and increased frequency of urinating. Patient states that her symptoms are progressive and worsening prompting her to come here for further evaluation management. Patient denies recent sick contacts. Patient notes that if she attempts to drink anything she immediately starts driving. [facility] Medical History Cholecystectomy planned Acute cholecystitis with chronic cholecystitis Right upper quadrant abdominal pain Ambulates with cane Chest pain Epigastric abdominal pain Sludge in gallbladder Cholelithiasis Marijuana use Gout Fatty liver History of hiatal hernia Gastric varices Urinary incontinence Restless legs Injury of head and neck History of GI bleed Non-smoker History of edema History of rheumatic fever Cirrhosis Wears glasses Wears dentures History of blood transfusion Leg cramps Shortness of breath on exertion History of echocardiogram Anemia Diabetes Chronic pain CPAP (continuous positive airway pressure) dependence Asthma Irregular heart beat Atrial fibrillation Congestive heart failure (CHF) Migraines COVID-19 Arthritis Polio Hypertension Diabetes mellitus type II, uncontrolled History of incarcercerate ventral hernia Home Medications ?Medication ?Instructions ?Recorded ?Last Taken ?Type rosuvastatin 10 mg tablet 10 mg PO DAILY 11/23/20 10/01/23 History spironolactone 25 mg tablet 25 mg PO DAILY 02/15/22 10/01/23 History CBD 1 tab PO BID 11/23/22 10/01/23 History furosemide 20 mg tablet 20 mg PO DAILY 06/03/23 10/01/23 History nitroglycerin 0.4 mg sublingual 0.4 mg sublingual Q5M PRN chest 06/03/23 Unknown History tablet pain sertraline 25 mg tablet 25 mg PO DAILY 06/03/23 10/02/23 History trazodone 50 mg tablet 50 mg PO DAILY 06/03/23 10/02/23 History acetaminophen 325 mg tablet 650 mg PO Q6H PRN fever or pain 06/14/23 10/01/23 History cholecalciferol (vitamin D3) 125 125 mcg PO DAILY 06/14/23 10/02/23 History mcg (5,000 unit) tablet diphenhydramine HCl 25 mg tablet 25 mg PO ONCE PRN allergic reaction 06/14/23 10/02/23 History (Benadryl Allergy) lorazepam 0.5 mg tablet 0.5 mg PO DAILY PRN agitation 06/14/23 10/01/23 History multivitamin 1 tab PO DAILY 06/14/23 10/01/23 History clopidogrel 75 mg tablet 75 mg PO DAILY #90 tabs 07/01/23 10/01/23 Rx metoprolol tartrate 50 mg tablet 50 mg PO DAILY 07/01/23 10/01/23 History glimepiride 4 mg tablet 4 mg 07/10/23 10/01/23 History pantoprazole 20 mg tablet,delayed 20 mg PO DAILY 07/10/23 10/01/23 History release ascorbic acid (vitamin C) 500 mg 500 mg PO BID #60 tabs 10/16/23 Unknown Rx tablet ferrous sulfate 325 mg (65 mg 325 mg PO Q OTHER DAY #30 tabs 10/16/23 Unknown Rx iron) tablet,delayed release cephalexin 500 mg capsule 500 mg PO BID 7 days #14 caps 11/14/23 Unknown Rx nystatin 100,000 unit/gram topical 1 applic topical BID 7 days #15 11/14/23 Unknown Rx cream grams ondansetron 4 mg disintegrating 4 mg PO Q8H 4 days #12 tabs 11/14/23 Unknown Rx tablet Allergy/AdvReac Type Severity Reaction Status Date / Time docusate (From Senna-S) Allergy Severe Angioedema Verified 10/03/23 10:26 senna (From Senna-S) Allergy Severe Angioedema Verified 10/03/23 10:26 house dust Allergy Unknown Unknown Verified 10/03/23 10:26 Bleach (Sodium Hypochlorite) Allergy Other Verified 10/03/23 10:26 cat dander Allergy Itching Verified 10/03/23 10:26 coconut Allergy Anaphylaxis Verified 10/03/23 10:26 dog dander Allergy Itching Verified 10/03/23 10:26 Sulfa (Sulfonamide AdvReac Rash Verified 10/03/23 10:26 Antibiotics) Family History Father CAD (coronary artery disease) Cancer Diabetes Mother Cancer Diabetes CAD (coronary artery disease) Surgical History History of cholecystectomy (06/11/23) History of unilateral salpingectomy History of esophagogastroduodenoscopy (EGD) History of bunionectomy of right great toe History of partial hysterectomy History of appendectomy H/O carpal tunnel repair H/O ventral hernia repair Social History household members: spouse Smoking Status: Never smoker alcohol intake: current details: Rare, social substance use type: marijuana and other details: CBD gummies caffeine: Yes Type: coffee Number of servings: 2 ROS ROS ED ROS Narrative Constitutional: Denies any fevers, chills, headaches ENT: Denies any change with double vision blurry vision Cardiovascular: Denies chest pain or palpitations Respiratory: Denies coughing wheezing shortness of breath Abdomen: Complains of abdominal pain, nausea vomiting as noted above Genitourinary: Complains of painful urination increased frequency of urinating Neurological: Denies any numbness, weakness, tingling Musculoskeletal: Denies any back pain Skin: Denies any rashes or lesions EXAM Physical Exam Narrative Exam Narrative: General: Patient is lying in bed rest comfortably did not appear to be in acute distress Head: Atraumatic, normocephalic EENT: Pupils equal round react light bilaterally, extraocular muscle tach bilateral, no conjunctival injection noted Neck: Soft, supple, trachea midline Cardiovascular: Regular rate and rhythm no murmurs gallops rubs noted Respiratory: Clear to auscultation bilaterally no rales rhonchi wheeze noted Abdomen: Soft, nondistended, diffuse tenderness palpation no rebound or guarding on exam Extremities: No pedal edema on exam, +5/5 strength in the bilateral lower extremities Neurological: Patient follow commands that she is at [facility] years 2023 Psychiatric: Mood and affect appropriate Skin: Warm, dry, intact Const Vital Signs: 11/14/23 13:53 11/14/23 17:00 Temperature 96.5 F L Temperature Source Temporal Pulse Rate 95 80 Respiratory Rate 16 14 Blood Pressure 130/94 H 122/86 H Blood Pressure Mean 106 98 Pulse Ox 97 Oxygen Delivery Method Room Air MDM MDM MDM Narrative Medical decision making narrative: Patient is a 73-year-old female who presented to the emergency department with chief complaint of abdominal pain. Patient will have workup performed here on the differential diagnose includes but limited to pancreatitis, small bowel obstruction, UTI, diverticulitis. Once workup is obtained reviewed she will be reevaluated. Patient given IV fluids, morphine and Zofran. Patient CBC reviewed and showed no evidence of leukocytosis white blood count normal at 6.4, hemoglobin stable 13.5, platelet count was 124, sodium normal 136, potassium normal 4.3. Patient's creatinine normal at 0.75, total bilirubin normal at 0.80, AST and ALT are 51 and 39 respectively. Patient's lipase normal at 59, urinalysis was significant for 100 leukocyte esterase positive nitrates with 2+ bacteria seen and 5-10 white blood cells seen indicating urinary tract infection. Patient was given a gram Rocephin here in the emergency department. Patient's CT abdomen pelvis with IV contrast was reviewed and showed cirrhosis and gastroesophageal varices. Biliary stent. Ileus. On reevaluation the patient she states that she is feeling significantly improved. Patient was given oral challenge tolerated this well without any vomiting. Patient did note that she has a yeast infection going underneath her lower abdomen and she has been using baby powder for this as well. Patient will be given a topical antifungal cream for this. Patient states that she wants to go home at this point in time given that she is feeling significantly improved. She is given strict return precautions and encouraged return with worsening symptoms or concerns. She is encouraged to follow-up with her primary care physician 2 to 3 days. All question concerns answered she was discharged home in stable condition Lab Data Labs: Laboratory Results - last 24 hr 11/14/23 11/14/23 15:00 17:10 WBC 6.4 RBC 4.67 Hgb 13.5 Hct 41.1 MCV 88.0 MCH 28.9 MCHC 32.8 RDW Std Deviation 46.4 H RDW Coeff of Anika 14.5 Plt Count 124 L MPV 10.6 Immature Gran % (Auto) 0.300 Neut % (Auto) 53.5 Lymph % (Auto) 26.8 [place] % (Auto) 16.3 H Eos % (Auto) 2.5 Baso % (Auto) 0.6 Absolute Neuts (auto) 3.4 Absolute Lymphs (auto) 1.71 Nucleated RBC % 0 Sodium 136 Potassium 4.3 Chloride 107 Carbon Dioxide 23.0 Anion Gap 6 BUN 14 Creatinine 0.75 Estim Creat Clear Calc 66.02 Est GFR (MDRD) Af Amer 97 Est GFR (MDRD) Non-Af 80 BUN/Creatinine Ratio 18.6 Glucose 98 Calcium 9.3 Total Bilirubin 0.80 AST 51 H ALT 39 Alkaline Phosphatase 145 H Total Protein 8.0 Albumin 3.2 Globulin 4.8 H Albumin/Globulin Ratio 0.7 L Lipase 59 Urine Color Yellow Urine Clarity Sl. Cloudy Urine pH 7.0 Ur Specific [place] 1.010 Urine Protein 15 H Urine Glucose (UA) Normal Urine Ketones 5 H Urine Occult Blood 10 H Urine Nitrite Positive H Urine Bilirubin Negative Urine Urobilinogen 8 H Ur Leukocyte Esterase 100 H Urine RBC 0 SEEN Urine WBC 5-10 SEEN Ur Squamous Epith Cells 0-5 SEEN Urine Bacteria 2+ Urine Mucus 0 SEEN Radiography Diagnostic Testing: Clinical Impression(s) from Imaging Studies Abdomen/Pelvis CT 11/14/23 16:54 IMPRESSION: Cirrhosis and gastroesophageal varices. Biliary stent. Ileus. Electronically Signed: Kvng Cortez MD at 18:45 EDT Reading Location ID and State: [facility] / [place] Tel , Service support , Discharge Plan Triage Chief Complaint: Abd Pain ED Provider: Marlon Rosenberg Dx/Rx/DC Orders Clinical Impression: Urinary tract infection, Abdominal pain, Nausea, Skin yeast infection Prescriptions: New cephalexin 500 mg capsule 500 mg PO BID 7 Days Qty: 14 0RF ondansetron 4 mg tablet,disintegrating 4 mg PO Q8H 4 Days Qty: 12 0RF nystatin 100,000 unit/gram cream 1 applic topical BID 7 Days Qty: 15 0RF No Action spironolactone 25 mg tablet 25 mg PO DAILY trazodone 50 mg tablet 50 mg PO DAILY sertraline 25 mg tablet 25 mg PO DAILY furosemide 20 mg tablet 20 mg PO DAILY acetaminophen 325 mg tablet 650 mg PO Q6H PRN (Reason: fever or pain) diphenhydramine HCl [Benadryl Allergy] 25 mg tablet 25 mg PO ONCE PRN (Reason: allergic reaction) cholecalciferol (vitamin D3) 125 mcg (5,000 unit) tablet 125 mcg PO DAILY multivitamin Tablet 1 tab PO DAILY clopidogrel 75 mg tablet 75 mg PO DAILY Qty: 90 3RF ascorbic acid (vitamin C) 500 mg tablet 500 mg PO BID Qty: 60 2RF ferrous sulfate 325 mg (65 mg iron) tablet,delayed release (DR/EC) 325 mg PO Q OTHER DAY Qty: 30 3RF rosuvastatin 10 mg tablet 10 mg PO DAILY Patient Comments: TAKE 1 TABLET BY MOUTH ONCE DAILY metoprolol tartrate 50 mg tablet 50 mg PO DAILY CBD 1 tab PO BID nitroglycerin 0.4 mg tablet, sublingual 0.4 mg sublingual Q5M PRN (Reason: chest pain) lorazepam 0.5 mg tablet 0.5 mg PO DAILY PRN (Reason: agitation) glimepiride 4 mg tablet 4 mg Patient Comments: TAKE 1 TABLET BY MOUTH TWICE DAILY WITH MEALS pantoprazole 20 mg tablet,delayed release (DR/EC) 20 mg PO DAILY Primary Care Provider: Doreen Finn Referrals: Doreen Finn MD [Primary Care Provider] - Activity Restrictions/Additional Instructions: Is a topical antifungal on your lower abdomen. Take antibiotics for urinary tract infection as prescribed follow-up on urine culture with your primary care physician. Return with worsening symptoms and concerns. Return for persistent nausea vomiting not tolerating oral intake or any other concerns Print Language: Pashto Disposition Disposition: Home, Self Care
[2023-11-14 17:23] LABS: Color, Urine Yellow (Yellow); Glucose, Dipstick Normal (Normal); Ketone-Dipstick 5 mg/dl (Negative); Leukocyte Esterase-Dipstick 100 /ul (Negative); Nitrite-Dipstick Positive (Negative); Occult Blood-Urine 10 /ul (Negative); Protein-Dipstick 15 mg/dl (Negative); Urine Bilirubin Dipstick Negative (Negative); Urine Clarity Sl. Cloudy (Clear); Urine Urobilinogen 8 mg/dl (Normal)
[2023-11-14 17:44] LABS: Lipase 59 U/L (13-75)
[2023-11-14 17:44] LABS: Bacteria 2+ /hpf (None Seen); Squamous Epithelial Cells - UA 0-5 SEEN /hpf (5-10); White Blood Cells 5-10 SEEN /hpf (0-5)
[2023-11-14] MEDS: Ceftriaxone 1 GM/50 ML BAG IV (18:10)
[2023-11-14 19:00] VITALS: BP 97/57; PULSE 81; RESP 16; O2SAT 97
[2023-11-14 20:40] VITALS: BP 90/66; PULSE 68; RESP 16; TEMP 36.4; O2SAT 96
== END 2023-11-14 20:42 | disposition home or self-care (01) ==
PROVIDERS: Emergency Provider Emergency Medicine; PCP Internal Medicine; Visit Provider Emergency Medicine
DX: R10.9 Unspecified abdominal pain (principal); I50.9 Heart failure, unspecified; I11.0 Hypertensive heart disease with heart failure; I48.91 Unspecified atrial fibrillation; E11.9 Type 2 diabetes mellitus without complications; N39.0 Urinary tract infection, site not specified; B37.2 Candidiasis of skin and nail; R11.0 Nausea; Z90.49 Acquired absence of other specified parts of digestive tract; Z90.710 Acquired absence of both cervix and uterus; Z79.899 Other long term (current) drug therapy; Z79.02 Long term (current) use of antithrombotics/antiplatelets; Z79.84 Long term (current) use of oral hypoglycemic drugs
CPT/HCPCS: 74177; 80053; 81001; 83690; 85025; 87086; 87088; 87186; 96365; 96366; 96375; 99283; J7030; Q9967; A4216; J2405

== ENCOUNTER 2023-12-18 07:20 | Inpatient (IN) | payer MEDICARE, SELFPAY ==
[2023-12-18] VITALS (22 sets, daily range): BP systolic 83–130; BP diastolic 43–62; PULSE 54–72; RESP 14–19; TEMP 36.1–36.8; O2SAT 94–100; BMI 36.3; BMI 35.0
--- NOTE | 2023-12-18 07:24 | EX.ED.GENINJ ---
HPI History of Present Illness Chief Complaint: Head Injury [facility] Medical History Cholecystectomy planned Acute cholecystitis with chronic cholecystitis Right upper quadrant abdominal pain Ambulates with cane Chest pain Epigastric abdominal pain Sludge in gallbladder Cholelithiasis Marijuana use Gout Fatty liver History of hiatal hernia Gastric varices Urinary incontinence Restless legs Injury of head and neck History of GI bleed Non-smoker History of edema History of rheumatic fever Cirrhosis Wears glasses Wears dentures History of blood transfusion Leg cramps Shortness of breath on exertion History of echocardiogram Anemia Diabetes Chronic pain CPAP (continuous positive airway pressure) dependence Asthma Irregular heart beat Atrial fibrillation Congestive heart failure (CHF) Migraines COVID-19 Arthritis Polio Hypertension Diabetes mellitus type II, uncontrolled History of incarcercerate ventral hernia Home Medications ?Medication ?Instructions ?Recorded ?Last Taken ?Type rosuvastatin 10 mg tablet 10 mg PO DAILY 11/23/20 10/01/23 History spironolactone 25 mg tablet 25 mg PO DAILY 02/15/22 10/01/23 History CBD 1 tab PO BID 11/23/22 10/01/23 History furosemide 20 mg tablet 20 mg PO DAILY 06/03/23 10/01/23 History nitroglycerin 0.4 mg sublingual 0.4 mg sublingual Q5M PRN chest 06/03/23 Unknown History tablet pain sertraline 25 mg tablet 25 mg PO DAILY 06/03/23 10/02/23 History trazodone 50 mg tablet 50 mg PO DAILY 06/03/23 10/02/23 History acetaminophen 325 mg tablet 650 mg PO Q6H PRN fever or pain 06/14/23 10/01/23 History cholecalciferol (vitamin D3) 125 125 mcg PO DAILY 06/14/23 10/02/23 History mcg (5,000 unit) tablet diphenhydramine HCl 25 mg tablet 25 mg PO ONCE PRN allergic reaction 06/14/23 10/02/23 History (Benadryl Allergy) lorazepam 0.5 mg tablet 0.5 mg PO DAILY PRN agitation 06/14/23 10/01/23 History multivitamin 1 tab PO DAILY 06/14/23 10/01/23 History clopidogrel 75 mg tablet 75 mg PO DAILY #90 tabs 07/01/23 10/01/23 Rx metoprolol tartrate 50 mg tablet 50 mg PO DAILY 07/01/23 10/01/23 History glimepiride 4 mg tablet 4 mg 07/10/23 10/01/23 History pantoprazole 20 mg tablet,delayed 20 mg PO DAILY 07/10/23 10/01/23 History release ascorbic acid (vitamin C) 500 mg 500 mg PO BID #60 tabs 10/16/23 Unknown Rx tablet ferrous sulfate 325 mg (65 mg 325 mg PO Q OTHER DAY #30 tabs 10/16/23 Unknown Rx iron) tablet,delayed release cephalexin 500 mg capsule 500 mg PO BID 7 days #14 caps 11/14/23 Unknown Rx nystatin 100,000 unit/gram topical 1 applic topical BID 7 days #15 11/14/23 Unknown Rx cream grams ondansetron 4 mg disintegrating 4 mg PO Q8H 4 days #12 tabs 11/14/23 Unknown Rx tablet Allergy/AdvReac Type Severity Reaction Status Date / Time docusate (From Senna-S) Allergy Severe Angioedema Verified 12/18/23 07:21 senna (From Senna-S) Allergy Severe Angioedema Verified 12/18/23 07:21 house dust Allergy Unknown Unknown Verified 12/18/23 07:21 Bleach (Sodium Hypochlorite) Allergy Other Verified 12/18/23 07:21 cat dander Allergy Itching Verified 12/18/23 07:21 coconut Allergy Anaphylaxis Verified 12/18/23 07:21 dog dander Allergy Itching Verified 12/18/23 07:21 Sulfa (Sulfonamide AdvReac Rash Verified 12/18/23 07:21 Antibiotics) Family History Father CAD (coronary artery disease) Cancer Diabetes Mother Cancer Diabetes CAD (coronary artery disease) Surgical History History of cholecystectomy (06/11/23) History of unilateral salpingectomy History of esophagogastroduodenoscopy (EGD) History of bunionectomy of right great toe History of partial hysterectomy History of appendectomy H/O carpal tunnel repair H/O ventral hernia repair Social History household members: spouse Smoking Status: Never smoker alcohol intake: current details: Rare, social substance use type: marijuana and other details: CBD gummies caffeine: Yes Type: coffee Number of servings: 2 EXAM Physical Exam Const Vital Signs: 12/18/23 07:20 12/18/23 07:20 12/18/23 07:26 Temperature 98.3 F Temperature Source Oral Pulse Rate 56 L 54 L Respiratory Rate 18 16 Respiratory Effort Normal Non-Labored Respiratory Pattern Normal Blood Pressure 99/51 L 94/51 L Blood Pressure Mean 67 65 Pulse Ox 97 97 Oxygen Delivery Method Room Air Room Air Room Air 12/18/23 07:29 12/18/23 09:20 Temperature Temperature Source Pulse Rate 54 L 61 Respiratory Rate 14 16 Respiratory Effort Respiratory Pattern Blood Pressure 83/45 L 103/51 L Blood Pressure Mean 57 68 Pulse Ox 99 100 Oxygen Delivery Method Room Air Room Air MDM MDM MDM Narrative Medical decision making narrative: HISTORY OF PRESENT ILLNESS: 73-year-old female Presents with unwitnessed fall. Patient notes she got up to use the bathroom felt lightheaded. She sat on the toilet she reported vomiting blood. No sensing treatment but she woke up on the floor. Notes head trauma. Denies focal weakness or neck pain. Denies melena hematochezia. Endorse history of esophageal varices. REVIEW OF SYSTEMS: Pertinent positives: Head trauma, hematemesis Pertinent negatives: Altered mental status, chest pain, palpitations PHYSICAL EXAM: Nursing triage notes reviewed, Vital signs reviewed Primary Survey Airway: Intact Breathing: Bilateral breath sounds Circulation: Palpable bilateral femorals, Palpable bilateral radial, Palpable bilateral DP and Palpable bilateral PT Disability / Spine precautions GCS Score: Eye Openin Verbal Response: 5 Motor Response: 6 Secondary Survey Constitutional: Please see MDM Head: Atraumatic, Midface stable, NO jaw malocclusion, No Cephalohematoma, and No Lacerations noted Eye: Pupils equal round and reactive to light, Extraocular muscles intact and No periorbital ecchymosis or stepoff, no evidence of entrapment ENT: Oropharynx clear, no lacerations, no hemotympanum, no raccoon eyes or shin sign Cervical spine / Neck: No cervical spine bony tenderness, crepitance, or stepoff deformity Trachea midline Lungs: Clear to auscultation, No asymmetric rise and No crepitus, no flail chest Cardiac: Regular rate and rhythm and No murmurs Abdomen: Soft, Nontender and No rebound Pelvis: Pelvis stable to compression : No evidence of genital injury Back: No midline bony tenderness to thoracic/lumbar/sacral spines Neuro: At baseline, intact strength and sensation in bilateral upper and lower extremities. 2+ patellar reflexes bilaterally. Extremities: NO gross Deformities Psych: Normal affect Nursing triage notes reviewed, Vital signs reviewed MEDICAL DECISION MAKING: Chief Complaint: Head trauma, altered mental status External records reviewed: EGD reviewed from September 2023 shows type I isolated gastric varices Factors affecting care: Atrial fibrillation, cirrhosis, esophageal varices, GI bleed Social determinants of health: none History obtained from others: Family Consults: n internal medicine, gastroenterology MDM Narrative: Patient was initially hypotensive with a blood pressure of 83/45. Exam with abrasion to right eyebrow. No focal neurologic deficit. No other apparent injury to the chest abdomen pelvis or extremities. I considered the following differential diagnosis: GI bleed, variceal bleed, ICH, ACS, arrhythmia, anemia, decompensated cirrhosis I reassessed the patient initially with 500 cc IV bolus given initial hypotension and 25 g of albumin given history of cirrhosis and likely poor oncotic pressure. ALL IMAGES (IF OBTAINED) HAVE BEEN PERSONALLY REVIEWED AND INTERPRETED BY MYSELF. EKG with sinus bradycardia at a rate of 54, right axis deviation, normal intervals, no obvious STEMI, low voltage noted. Similar morphology to EKG reviewed from June 2023 CBC with no leukocytosis however there is severe drop in hemoglobin from 13.5 to 8.6 g/dL (drop of 4.9 g/dL in 1 month) this concerning for severe bleeding BMP without significant electrolyte disturbances, no evidence of endorgan hypoperfusion with normal anion gap, no evidence of metabolic acidosis with normal bicarb, no evidence of acute kidney injury Liver enzymes within normal limits suggestive of no decompensated liver failure Lipase is wnl indicating no pancreatic inflammation. Serum alcohol negative High-sensitivity troponin is negative, no evidence of myocardial ischemia Lactate is wnl indicating no end-organ hypoperfusion and/or hypoxia. INR wnl I have personally reviewed the patient's chest x-ray. Chest x-ray is unremarkable for pulmonary edema, pneumothorax, pneumonia or focal cardiopulmonary abnormality. Urinalysis consistent with infection. Will send for culture and give ceftriaxone. The synthesis of the patient's history, physical exam, labs images suggest concern for variceal bleed given pronounced drop in hemoglobin. Given high risk of sudden and unpredictable decompensation patient will require inpatient hospitalization for GI consultation and possible EGD. Discussed with hospitalist Dr. Bustos who agreed with admission. Further discussed case with Dr. Paul Supervisor [place] on-call. The patient and/or family, caregivers express understanding. The patient and/or family, caregivers agrees with the plan. Shared decision making: I will have a discussion with the patient and or visitors regarding risk/benefits of further testing or admission. They will be made aware of of the risk/benefits inherent in this decision they will be given the opportunity to voice understanding. Total critical care time today provided was at least 0 minutes. This excludes separately billable procedures. Critical care time (if documented) is secondary to the patient having high probability of clinically significant/life threatening deterioration in the patient's condition which required my urgent intervention. Impression: 1. Syncope 2. Anemia 3. History of variceal bleed 4. UTI Dispo: Admit to PCU This note was generated with [employer] dictation software. It may contain incorrect words, spelling, and punctuation that were not noted in review of the chart prior to signing. Lab Data Labs: Laboratory Results - last 24 hr 12/18/23 12/18/23 08:07 09:24 WBC 3.7 L RBC 2.93 L Hgb 8.6 L Hct 26.9 L MCV 91.8 MCH 29.4 MCHC 32.0 RDW Std Deviation 49.9 H RDW Coeff of Anika 14.7 H Plt Count 94 L MPV 9.9 Differential Comment COMMENT PT 17.4 H INR 1.4 Sodium 142 Potassium 4.0 Chloride 112 H Carbon Dioxide 25.0 Anion Gap 5 BUN 18 Creatinine 0.67 Estim Creat Clear Calc 66.85 Est GFR (MDRD) Af Amer 111 Est GFR (MDRD) Non-Af 91 BUN/Creatinine Ratio 26.9 H Glucose 117 H Lactic Acid 1.0 Calcium 7.9 L Total Bilirubin 0.50 Direct Bilirubin 0.11 AST 26 ALT 21 Alkaline Phosphatase 83 Troponin I High Sens 5 Total Protein 5.3 L Albumin 2.2 L Globulin 3.1 Lipase 50 Urine Color Yellow Urine Clarity Sl. Cloudy Urine pH 6.0 Ur Specific [place] 1.020 Urine Protein 30 H Urine Glucose (UA) Normal Urine Ketones Negative Urine Occult Blood 150 H Urine Nitrite Positive H Urine Bilirubin Negative Urine Urobilinogen Normal Ur Leukocyte Esterase 100 H Urine RBC 0 SEEN Urine WBC 10-25 SEEN Ur Squamous Epith Cells 5-10 SEEN Urine Bacteria 4+ Hyaline Casts 0-5 SEEN Urine Mucus 1+ Ethyl Alcohol < 3.0 Radiography Diagnostic Testing: Clinical Impression(s) from Imaging Studies Brain CT 12/18/23 07:56 IMPRESSION: No acute intracranial process. Electronically Signed: Nestor Agosto MD at 9:25 EDT , Chest X-Ray 12/18/23 08:05 IMPRESSION: No radiographic evidence of acute cardiopulmonary disease. Electronically Signed: Nestor Agosto MD at 9:19 EDT , Cervical Spine CT 12/18/23 08:16 IMPRESSION: No evidence of acute cervical spinal fracture or spondylolisthesis. Degenerative changes. Electronically Signed: Nestor Agosto MD at 9:34 EDT , Discharge Plan Triage Chief Complaint: Head Injury ED Provider: Michael Spring Dx/Rx/DC Orders Prescriptions: No Action spironolactone 25 mg tablet 25 mg PO DAILY trazodone 50 mg tablet 50 mg PO DAILY sertraline 25 mg tablet 25 mg PO DAILY furosemide 20 mg tablet 20 mg PO DAILY acetaminophen 325 mg tablet 650 mg PO Q6H PRN (Reason: fever or pain) diphenhydramine HCl [Benadryl Allergy] 25 mg tablet 25 mg PO ONCE PRN (Reason: allergic reaction) cholecalciferol (vitamin D3) 125 mcg (5,000 unit) tablet 125 mcg PO DAILY multivitamin Tablet 1 tab PO DAILY clopidogrel 75 mg tablet 75 mg PO DAILY Qty: 90 3RF ascorbic acid (vitamin C) 500 mg tablet 500 mg PO BID Qty: 60 2RF ferrous sulfate 325 mg (65 mg iron) tablet,delayed release (DR/EC) 325 mg PO Q OTHER DAY Qty: 30 3RF rosuvastatin 10 mg tablet 10 mg PO DAILY Patient Comments: TAKE 1 TABLET BY MOUTH ONCE DAILY metoprolol tartrate 50 mg tablet 50 mg PO DAILY CBD 1 tab PO BID nitroglycerin 0.4 mg tablet, sublingual 0.4 mg sublingual Q5M PRN (Reason: chest pain) lorazepam 0.5 mg tablet 0.5 mg PO DAILY PRN (Reason: agitation) glimepiride 4 mg tablet 4 mg Patient Comments: TAKE 1 TABLET BY MOUTH TWICE DAILY WITH MEALS pantoprazole 20 mg tablet,delayed release (DR/EC) 20 mg PO DAILY cephalexin 500 mg capsule 500 mg PO BID 7 Days Qty: 14 0RF ondansetron 4 mg tablet,disintegrating 4 mg PO Q8H 4 Days Qty: 12 0RF nystatin 100,000 unit/gram cream 1 applic topical BID 7 Days Qty: 15 0RF Primary Care Provider: AVERY MOSQUEDA Referrals: Doreen Finn MD [Med Staff - Business Systems Technician] - Print Language: Amharic
--- NOTE | 2023-12-18 07:56 | CT_ITS ---
INDICATION: Head trauma, coagulopathy EXAMINATION: CT BRAIN - CT Head or Brain W/O Contrast Injection TECHNIQUE: Multiple axial images were obtained of the head without intravenous contrast. The protocol utilizes one or more of the following dose reduction techniques: automated exposure control, adjustment of mA and/or kV according to patient size,and/or use of iterative reconstruction technique. IV Contrast dosage and agent: None. RADIATION DOSAGE (If Supplied By Facility): CTDIvol = ( 44.99 ) mGy, DLP = ( 796.11 ) mGycm COMPARISON: No relevant prior comparison study available FINDINGS: BRAIN PARENCHYMA: No intra- or extra-axial hemorrhage. No evidence of acute infarct. No intracranial mass or mass effect. There is preservation of the grace/white matter interface mild chronic periventricular deep white matter changes likely due to microvascular disease. Atherosclerotic calcifications of the cavernous internal carotid arteries. Posterior fossa structures are unremarkable. CSF SPACES: Appropriate for age. No hydrocephalus. Basal cisterns are patent. CALVARIUM, SKULL BASE, PARANASAL SINUSES AND MASTOID AIR CELLS: Clear. No discrete lytic or blastic abnormalities. ORBITS: Both globes, extraocular muscles, optic nerves and retrobulbar fat appear unremarkable. CT/Brain/Head without Contrast IMPRESSION: No acute intracranial process. Electronically Signed: Nestor Agosto MD at 9:25 EDT ,
[2023-12-18] MEDS: 0.9% Normal Saline (500mL Bag) 500 ML 1000 ML IV (08:00)
[2023-12-18] MEDS: Ondansetron 4 MG/2 ML Vial IV ×2 (08:02→13:29)
--- NOTE | 2023-12-18 08:05 | RAD_ITS ---
INDICATION: Altered mental status EXAMINATION/TECHNIQUE: X-RAY - XR Chest 1 View COMPARISON: Prior study dated: 05/18/2023 FINDINGS: LINES/DEVICES: None. LUNGS: No consolidation, edema or effusion. No pneumothorax. MEDIASTINUM AND CARDIOVASCULAR STRUCTURES: Stable cardiomediastinal silhouette. BONES AND SOFT TISSUES: No demonstrated acute osseous changes. RAD/Chest 1 View (Portable) IMPRESSION: No radiographic evidence of acute cardiopulmonary disease. Electronically Signed: Nestor Agosto MD at 9:19 EDT ,
--- NOTE | 2023-12-18 08:16 | CT_ITS ---
INDICATION: fall, neck pain EXAMINATION: CT CERVICAL SPINE - CT Spine Cervical W/O Contrast Injection TECHNIQUE: Helically acquired images were obtained of the cervical spine. 2D reformatted images were reviewed. The protocol utilizes one or more of the following dose reduction techniques: automated exposure control, adjustment of mA and/or kV according to patient size,and/or use of iterative reconstruction technique. IV Contrast dosage and agent: None. RADIATION DOSAGE (If Supplied By Facility): CTDIvol = ( 26.65 ) mGy, DLP = ( 550.77 ) mGycm COMPARISON: No relevant prior comparison study available FINDINGS: VERTEBRAE: No fracture or traumatic subluxation. No discrete lytic or blastic abnormality. Straightening of the cervical spine. Alignment of the vertebral bodies is unremarkable. Normal craniocervical junction and cervicothoracic junction. DISCS and SPINAL CANAL: Degenerative changes of the atlantoaxial joint. Narrowing of C5-C6 disc space. Degenerative changes of the facet joints at multiple levels. Posterior lateral degenerative spurs on the left side at the level of C5-C6. Endplate spondylosis. No critical stenosis. NECK SOFT TISSUES: No prevertebral soft tissue swelling. There is no cervical adenopathy. LUNG APICES: Clear. CT/Spine Cervical without Contras IMPRESSION: No evidence of acute cervical spinal fracture or spondylolisthesis. Degenerative changes. Electronically Signed: Nestor Agosto MD at 9:34 EDT ,
[2023-12-18 08:24] LABS: Hematocrit 26.9 % (37-47); Hemoglobin 8.6 g/dL (12.0-15.0); Mean Corpuscular Hgb 29.4 pg (27.0-32.0); Mean Corpuscular Volume 91.8 fL (81-99); Mean Platelet Vol. 9.9 fl (6.2-12.0); POSITIVE COUNT YES; Platelet Count 94 K/mm3 (150-450); RBC Distribution Width CV 14.7 % (11.6-14.6); RBC Distribution Width SD 49.9 fl (35.1-43.9); Red Blood Count 2.93 M/mm3 (4.2-5.4); White Blood Count 3.7 K/mm3 (4.4-11.0)
[2023-12-18 08:28] LABS: Scan Indicated on CBC? Y/N YES- FLAGS NOTED
[2023-12-18 08:39] LABS: AST(SGOT) 26 U/L (15-37); Alanine Aminotransfer ALT/SGPT 21 U/L (13-56); Albumin, Serum 2.2 g/dL (3.2-5.0); Alkaline Phosphatase 83 U/L (45-117); Anion Gap 5 (5-15); BUN 18 mg/dL (7-18); BUN/Creat Ratio 26.9 RATIO (10-20); Bilirubin, Direct 0.11 mg/dL (0.00-0.30); Calcium,Total 7.9 mg/dL (8.5-10.1); Chloride 112 mmol/L (98-107); Creatinine, Serum 0.67 mg/dL (0.55-1.02); EST Glomerular Filtration Rate 91 mL/min (>60); Est Glom Filt Rate - Afr Amer 111 mL/min (>60); Estimated Creatinine Clearance 66.85 ml/min; Globulin 3.1 g/dL (2.2-4.2); Glucose 117 mg/dL (74-106); Lipase 50 U/L (13-75); Protein, Total 5.3 g/dL (6.4-8.2); Sodium Level 142 mmol/L (136-145); Troponin-I HS 5 pg/mL (3.0-54.0)
[2023-12-18 08:44] LABS: Alcohol, Blood (Medical)-Serum < 3.0 mg/dL
[2023-12-18 08:52] LABS: International Normalized Ratio 1.4; Prothrombin Time (Protime)PT. 17.4 SECONDS (11.7-14.9)
[2023-12-18 09:31] LABS: Red Blood Cells-Urine 0 SEEN /hpf (0-5)
[2023-12-18] MEDS: Albumin Human 25% (100 mL) 25 GM/100 ML BAG IV (09:33)
[2023-12-18 09:35] LABS: Color, Urine Yellow (Yellow); Glucose, Dipstick Normal (Normal); Ketone-Dipstick Negative (Negative); Leukocyte Esterase-Dipstick 100 /ul (Negative); Nitrite-Dipstick Positive (Negative); Occult Blood-Urine 150 /ul (Negative); Protein-Dipstick 30 mg/dl (Negative); Urine Bilirubin Dipstick Negative (Negative); Urine Clarity Sl. Cloudy (Clear); Urine Urobilinogen Normal (Normal)
[2023-12-18 09:46] LABS: White Blood Cells 10-25 SEEN /hpf (0-5)
[2023-12-18 09:47] LABS: Bacteria 4+ /hpf (None Seen); Hyaline Cast 0-5 SEEN /lpf (0-5); Mucous, Urine 1+ /hpf (<or=2+); Squamous Epithelial Cells - UA 5-10 SEEN /hpf (5-10)
[2023-12-18] MEDS: Ceftriaxone 1 GM/50 ML BAG IV (10:59)
[2023-12-18 13:03] LABS: Hematocrit 26.1 % (37-47); Hemoglobin 8.2 g/dL (12.0-15.0)
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
[2023-12-18 13:24] LABS: Bedside Glucose 92 mg/dL (74-106)
[2023-12-18] MEDS: 0.9% Normal Saline (1000mL) 1,000 ML 999 ML IV (13:43)
[2023-12-18] MEDS: Pantoprazole Sodium 80 MG in 0.9% Normal Saline (50mL Bag) 15 ML 420 MG IV BOLUS (14:47)
[2023-12-18] MEDS: Pantoprazole Sodium 80 MG in 0.9% Normal Saline (100mL Bag) 80 ML 10 MG CONT INF (14:52)
--- NOTE | 2023-12-18 15:55 | PRE.ANES_ITS ---
ASA Classification* ASA Classification ASA Classification: 3 and E Assessment & Plan Anesthesia* Anesthesia Assessment Anesthesia Assessment: Discussed sedation and/or anesthesia options, risks, benefits, and alternatives with patient/parents/legal guardian/POA. Questions invited. The patient/parents/legal guardian/POA seems to understand and agrees to proceed with anesthesia plan. Reviewed the physical assessment, medical history, allergy history and patient home medications list prior to surgery/procedure/anesthetic and documented any changes. Performed airway and anesthesia risk assessments. Anesthesia Type Anesthesia Type: MAC History Source History Obtained from:: Patient and Chart Anesthesia Focused Assessment* Temperature: 97.9 F Pulse Rate: 63 Blood Pressure: 103/44 Respiratory Rate: 14 Pulse Ox: 100 Oxygen Delivery Method: Room Air Airway Assessment Mouth opens: >3 cm Mallampati Score: I Teeth Condition: Dentures (Top dentures are out. Bottom teeth are tight.) Neck Range of motion (ROM): Limited ROM (Decreased extension.) Focused Labs Anesthesia Preop lab: CBC WBC 3.7 K/mm3 (4.4-11.0) L 12/18/23 08:07 RBC 2.93 M/mm3 (4.2-5.4) L 12/18/23 08:07 Hgb 8.2 g/dL (12.0-15.0) L 12/18/23 12:50 Hct 26.1 % (37-47) L 12/18/23 12:50 Plt Count 94 K/mm3 (150-450) L 12/18/23 08:07 CHEMISTRY Potassium 4.0 mmol/L (3.5-5.1) 12/18/23 08:07 Sodium 142 mmol/L (136-145) 12/18/23 08:07 BUN 18 mg/dL (7-18) 12/18/23 08:07 Creatinine 0.67 mg/dL (0.55-1.02) 12/18/23 08:07 Glucose 117 mg/dL (74-106) H 12/18/23 08:07 POC Glucose 92 mg/dL (74-106) 12/18/23 12:42 TSH 3.19 uIU/mL (0.358-3.74) 10/16/23 10:04 COAG PT 17.4 SECONDS (11.7-14.9) H 12/18/23 08:07 Pre-Assessment Diagnosis/Proposed Procedure Planned Operative Procedure(s): Esophagogastroduodenoscopy. 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 When Was Last Pacemaker Check QUESTION #4 FULL TEXT: You/Your Family Experience fever (hyperthermia) with Anesthesia Last Oral Intake Last Oral intake: Last Oral Intake NPO since Meds taken in AM with sips of water? 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 Female HX of Motion Sickness HX of N/V After Surgery Non-Smoker Duration of Surgery greater than 60 minutes Number of Risk Factors PONV Score Height & Weight Height & Weight: Anesthesia: Height & Weight Height 5 ft 3 in 12/18/23 15:02 Weight: 89.7 kg 12/18/23 15:02 Body Mass Index (BMI) 35.0 12/18/23 12:27 Respiratory Assessment Respiratory Assessment - lead sewage plant operator: Respiratory Tract Infection Hx - lead sewage plant operator Hx Respiratory Tract Infection No 10/03/23 10:43 STOP Sleep Apnea STOP Sleep Apnea - lead sewage plant operator: STOP Sleep Apnea - lead sewage plant operator Hx Hypertension Yes 12/18/23 12:27 Hx Sleep Apnea Yes 12/18/23 12:27 CPAP Yes 12/18/23 12:27 BIPAP No 12/18/23 12:27 Do you snore loudly (louder than talking or can be heard Do you often feel tired/ fatigued/ sleepy during daytime? Has anyone observed you stop breathing during sleep? STOP Results Positive 12/18/23 12:27 QUESTION #5 FULL TEXT : Do you snore loudly (louder than talking or can be heard through closed doors)? 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 Specify any problems Hx of Preganancy in last 3 N/A 12/18/23 12:27 Months Nurse Filling Out Transfusion NBILANCIN 12/18/23 12:27 & Questions: Date: 12/18/23 12/18/23 12:27 Time: 12:48 12/18/23 12:27 Patient unable to answer at this time (ie. 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: /Reproductive Hx- lead sewage plant operator Hx Now Gestational Age (in weeks): EDC: Hx Hx Para Hx Section SAB No 10/03/23 10:43 Active Medications Active Medications: Current Medications Generic Name Dose Route Start Last Admin Trade Name Freq PRN Reason Stop Dose Admin Acetaminophen 650 mg 12/18/23 12:26 Acetaminophen 325 Mg Tablet PO Q6H PRN fever or pain 1-10 Glucagon 1 mg 12/18/23 12:26 Glucagon 1 Mg/Ml Syringe IM X1 PRN HYPOGLYCEMIA Protocol Dextrose 250 mls @ 0 mls/hr 12/18/23 12:26 Dextrose 10%-Water IV .Q0M PRN HYPOGLYCEMIA Protocol As Directed Sodium Chloride 250 mls @ 15 mls/hr 12/18/23 12:54 IV .[id number] PRN Additional IVPB Infusion Sodium Chloride 250 mls @ 15 mls/hr 12/18/23 12:54 IV .[id number] PRN Saline Flush Pantoprazole Sodium 80 mg/ 100 mls @ 10 mls/hr 12/18/23 14:30 12/18/23 14:52 Sodium Chloride CONT INF 10 mls/hr Q10H ZOFIA Administration Insulin Human Lispro 0 unit 12/18/23 12:26 12/18/23 13:43 Insulin Lispro 100 Unit/Ml Insuln.Pen SC Not Given Q6 [facility] Protocol Ondansetron HCl 4 mg 12/18/23 12:26 12/18/23 13:29 Ondansetron 4 Mg/2 Ml Vial IV 4 mg Q8H PRN PRN Administration NAUSEA/VOMITING Oxycodone HCl 5 mg 12/18/23 13:18 Oxycodone 5 Mg Tablet PO Q4H PRN PRN Pain Score 6-10 Sodium Chloride 10 - 40 ml 12/18/23 12:54 0.9% Saline Lock 10 Ml Syringe IV UD PRN SALINE FLUSH PFSH Medical History Cholecystectomy planned Acute cholecystitis with chronic cholecystitis Right upper quadrant abdominal pain Ambulates with cane Chest pain Epigastric abdominal pain Sludge in gallbladder Cholelithiasis Marijuana use Gout Fatty liver History of hiatal hernia Gastric varices Urinary incontinence Restless legs Injury of head and neck History of GI bleed Non-smoker History of edema History of rheumatic fever Cirrhosis Wears glasses Wears dentures History of blood transfusion Leg cramps Shortness of breath on exertion History of echocardiogram Anemia Diabetes Chronic pain CPAP (continuous positive airway pressure) dependence Asthma Irregular heart beat Atrial fibrillation Congestive heart failure (CHF) Migraines COVID-19 Arthritis Polio Hypertension Diabetes mellitus type II, uncontrolled History of incarcercerate ventral hernia Home Medications ?Medication ?Instructions ?Recorded ?Last Taken ?Type rosuvastatin 10 mg tablet 10 mg PO DAILY cholesterol 11/23/20 10/01/23 History spironolactone 25 mg tablet 25 mg PO DAILY BP 02/15/22 10/01/23 History CBD 1 tab PO BID pain 11/23/22 10/01/23 History furosemide 20 mg tablet 20 mg PO DAILY fluid retention 06/03/23 10/01/23 History nitroglycerin 0.4 mg sublingual 0.4 mg sublingual Q5M PRN chest 06/03/23 Unknown History tablet pain sertraline 25 mg tablet 25 mg PO DAILY depression 06/03/23 10/02/23 History trazodone 50 mg tablet 50 mg PO DAILY sleep 06/03/23 10/02/23 History acetaminophen 325 mg tablet 650 mg PO Q6H PRN fever or pain 06/14/23 10/01/23 History cholecalciferol (vitamin D3) 125 125 mcg PO DAILY supplement 06/14/23 10/02/23 History mcg (5,000 unit) tablet diphenhydramine HCl 25 mg tablet 25 mg PO ONCE PRN allergic reaction 06/14/23 10/02/23 History (Benadryl Allergy) lorazepam 0.5 mg tablet 0.5 mg PO DAILY PRN agitation 06/14/23 10/01/23 History multivitamin 1 tab PO DAILY supplement 06/14/23 10/01/23 History clopidogrel 75 mg tablet 75 mg PO DAILY #90 tabs 07/01/23 10/01/23 Rx metoprolol tartrate 50 mg tablet 50 mg PO DAILY BP 07/01/23 10/01/23 History glimepiride 4 mg tablet 4 mg diabetes 07/10/23 10/01/23 History pantoprazole 20 mg tablet,delayed 20 mg PO DAILY stomach 07/10/23 10/01/23 History release ascorbic acid (vitamin C) 500 mg 500 mg PO BID #60 tabs 10/16/23 Unknown Rx tablet ferrous sulfate 325 mg (65 mg 325 mg PO Q OTHER DAY #30 tabs 10/16/23 Unknown Rx iron) tablet,delayed release nystatin 100,000 unit/gram topical 1 applic topical BID abdomen folds 11/14/23 Unknown Rx cream 7 days #15 grams ondansetron 4 mg disintegrating 4 mg PO Q8H nausea 4 days #12 tabs 11/14/23 Unknown Rx tablet Allergy/AdvReac Type Severity Reaction Status Date / Time docusate (From Senna-S) Allergy Severe Angioedema Verified 12/18/23 07:21 senna (From Senna-S) Allergy Severe Angioedema Verified 12/18/23 07:21 house dust Allergy Unknown Unknown Verified 12/18/23 07:21 Bleach (Sodium Hypochlorite) Allergy Other Verified 12/18/23 07:21 cat dander Allergy Itching Verified 12/18/23 07:21 coconut Allergy Anaphylaxis Verified 12/18/23 07:21 dog dander Allergy Itching Verified 12/18/23 07:21 Sulfa (Sulfonamide AdvReac Rash Verified 12/18/23 07:21 Antibiotics) Family History Father CAD (coronary artery disease) Cancer Diabetes Mother Cancer Diabetes CAD (coronary artery disease) Surgical History History of cholecystectomy (06/11/23) History of unilateral salpingectomy History of esophagogastroduodenoscopy (EGD) History of bunionectomy of right great toe History of partial hysterectomy History of appendectomy H/O carpal tunnel repair H/O ventral hernia repair Social History household members: spouse Smoking Status: Never smoker alcohol intake: current details: Rare, social substance use type: marijuana and other details: CBD gummies caffeine: Yes Type: coffee Number of servings: 2 Review of Systems (Anesthesia) ROS Narrative System reviewed and no additional complaints, except as documented.
[2023-12-18] MEDS: 0.9% Normal Saline (1000mL) 1,000 ML 15 ML IV (16:07)
--- NOTE | 2023-12-18 17:00 | EX.PCM.CON.G ---
HPI Consult Data Date of Consult: 12/18/23 HPI Narrative Reason for Consultation: GI bleed HPI Narrative: THU ESPANA, is a 73 F who presented with syncope. 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 She has never undergone banding and in the past. She has been on beta-juan m therapy for prophylaxis of her esophageal and gastric varices. She was in her normal state of health till this morning where she had to go the bathroom. She had passed out and then vomited copious amount of bloody emesis. She presented to the emergency room where she was initially hypotensive. She received 500 cc of IV fluid as well as 25 g of albumin. Blood pressure did improve. Patient's hemoglobin was noted to be 8.6, down from 13.5 from November 13. Patient did undergo a trauma workup with a head CT, chest x-ray and cervical spine CT that were unremarkable. Patient did hit her head and sustained a skin tear over right eyebrow. In the ED her hemoglobin was 8. She was started on a PPI drip and given ceftriaxone. I was called for emergent evaluation of upper GI bleed, syncope in a patient with cirrhosis and known varices [facility] Medical History Cholecystectomy planned Acute cholecystitis with chronic cholecystitis Right upper quadrant abdominal pain Ambulates with cane Chest pain Epigastric abdominal pain Sludge in gallbladder Cholelithiasis Marijuana use Gout Fatty liver History of hiatal hernia Gastric varices Urinary incontinence Restless legs Injury of head and neck History of GI bleed Non-smoker History of edema History of rheumatic fever Cirrhosis Wears glasses Wears dentures History of blood transfusion Leg cramps Shortness of breath on exertion History of echocardiogram Anemia Diabetes Chronic pain CPAP (continuous positive airway pressure) dependence Asthma Irregular heart beat Atrial fibrillation Congestive heart failure (CHF) Migraines COVID-19 Arthritis Polio Hypertension Diabetes mellitus type II, uncontrolled History of incarcercerate ventral hernia Home Medications ?Medication ?Instructions ?Recorded ?Last Taken ?Type rosuvastatin 10 mg tablet 10 mg PO DAILY cholesterol 11/23/20 10/01/23 History spironolactone 25 mg tablet 25 mg PO DAILY BP 02/15/22 10/01/23 History CBD 1 tab PO BID pain 11/23/22 10/01/23 History furosemide 20 mg tablet 20 mg PO DAILY fluid retention 06/03/23 10/01/23 History nitroglycerin 0.4 mg sublingual 0.4 mg sublingual Q5M PRN chest 06/03/23 Unknown History tablet pain sertraline 25 mg tablet 25 mg PO DAILY depression 06/03/23 10/02/23 History trazodone 50 mg tablet 50 mg PO DAILY sleep 06/03/23 10/02/23 History acetaminophen 325 mg tablet 650 mg PO Q6H PRN fever or pain 06/14/23 10/01/23 History cholecalciferol (vitamin D3) 125 125 mcg PO DAILY supplement 06/14/23 10/02/23 History mcg (5,000 unit) tablet diphenhydramine HCl 25 mg tablet 25 mg PO ONCE PRN allergic reaction 06/14/23 10/02/23 History (Benadryl Allergy) lorazepam 0.5 mg tablet 0.5 mg PO DAILY PRN agitation 06/14/23 10/01/23 History multivitamin 1 tab PO DAILY supplement 06/14/23 10/01/23 History clopidogrel 75 mg tablet 75 mg PO DAILY #90 tabs 07/01/23 10/01/23 Rx metoprolol tartrate 50 mg tablet 50 mg PO DAILY BP 07/01/23 10/01/23 History glimepiride 4 mg tablet 4 mg PO BID diabetes 07/10/23 10/01/23 History pantoprazole 20 mg tablet,delayed 20 mg PO DAILY stomach 07/10/23 10/01/23 History release ascorbic acid (vitamin C) 500 mg 500 mg PO BID #60 tabs 10/16/23 Unknown Rx tablet ferrous sulfate 325 mg (65 mg 325 mg PO Q OTHER DAY #30 tabs 10/16/23 Unknown Rx iron) tablet,delayed release nystatin 100,000 unit/gram topical 1 applic topical BID abdomen folds 11/14/23 Unknown Rx cream 7 days #15 grams ondansetron 4 mg disintegrating 4 mg PO Q8H nausea 4 days #12 tabs 11/14/23 Unknown Rx tablet Allergy/AdvReac Type Severity Reaction Status Date / Time docusate (From Senna-S) Allergy Severe Angioedema Verified 12/18/23 07:21 senna (From Senna-S) Allergy Severe Angioedema Verified 12/18/23 07:21 house dust Allergy Unknown Unknown Verified 12/18/23 07:21 Bleach (Sodium Hypochlorite) Allergy Other Verified 12/18/23 07:21 cat dander Allergy Itching Verified 12/18/23 07:21 coconut Allergy Anaphylaxis Verified 12/18/23 07:21 dog dander Allergy Itching Verified 12/18/23 07:21 Sulfa (Sulfonamide AdvReac Rash Verified 12/18/23 07:21 Antibiotics) Family History Father CAD (coronary artery disease) Cancer Diabetes Mother Cancer Diabetes CAD (coronary artery disease) Surgical History History of cholecystectomy (06/11/23) History of unilateral salpingectomy History of esophagogastroduodenoscopy (EGD) History of bunionectomy of right great toe History of partial hysterectomy History of appendectomy H/O carpal tunnel repair H/O ventral hernia repair Social History household members: spouse Smoking Status: Never smoker alcohol intake: current details: Rare, social substance use type: marijuana and other details: CBD gummies caffeine: Yes Type: coffee Number of servings: 2 ROS Gastrointestinal Gastrointestinal: Reports abdominal pain and vomiting Physical Exam Narrative - Physical Exam General: Alert, Oriented x3, Cooperative HEENT: Skin tear over the right eyebrow., PERRLA, EOMI, Normocephalic Oral: Moist Mucosa, No Gingival or Mucosal Lesions/ Ulcerations Neck: Supple, No JVD, Negative Carotid Bruits Lungs: Clear to auscultation, Normal air movement Cardiovascular: Regular rate, Normal S1, Normal S2, No murmurs Abdomen: Bowel Sounds Present, Soft, Non Tender, Non-Distended, No Hepato-splenomegaly Extremities: No clubbing, No cyanosis, No edema, Capillary Refill Less than 3 Seconds Skin: No rashes, No breakdown Musculoskeletal: No Tenderness to Palpation of Joints or Extremities Neurological: Neuro grossly intact Psych/Mental Status: Normal Affect, Appropriate Lab / Micro Data 12/18/23 12:50 12/18/23 08:07 Labs: Laboratory Results - last 24 hr 12/18/23 08:07: WBC 3.7 L, RBC 2.93 L, Hgb 8.6 L, Hct 26.9 L, MCV 91.8, MCH 29.4, MCHC 32.0, RDW Std Deviation 49.9 H, RDW Coeff of Anika 14.7 H, Plt Count 94 L, MPV 9.9, Differential Comment COMMENT, PT 17.4 H, INR 1.4, Sodium 142, Potassium 4.0, Chloride 112 H, Carbon Dioxide 25.0, Anion Gap 5, BUN 18, Creatinine 0.67, Estim Creat Clear Calc 66.85, Est GFR (MDRD) Af Amer 111, Est GFR (MDRD) Non-Af 91, BUN/Creatinine Ratio 26.9 H, Glucose 117 H, Lactic Acid 1.0, Calcium 7.9 L, Total Bilirubin 0.50, Direct Bilirubin 0.11, AST 26, ALT 21, Alkaline Phosphatase 83, Troponin I High Sens 5, Total Protein 5.3 L, Albumin 2.2 L, Globulin 3.1, Lipase 50, Ethyl Alcohol < 3.0 12/18/23 09:24: Urine Color Yellow, Urine Clarity Sl. Cloudy, Urine pH 6.0, Ur Specific [place] 1.020, Urine Protein 30 H, Urine Glucose (UA) Normal, Urine Ketones Negative, Urine Occult Blood 150 H, Urine Nitrite Positive H, Urine Bilirubin Negative, Urine Urobilinogen Normal, Ur Leukocyte Esterase 100 H, Urine RBC 0 SEEN, Urine WBC 10-25 SEEN, Ur Squamous Epith Cells 5-10 SEEN, Urine Bacteria 4+, Hyaline Casts 0-5 SEEN, Urine Mucus 1+ 12/18/23 12:42: POC Glucose 92 12/18/23 12:50: Hgb 8.2 L, Hct 26.1 L, Blood Type A POSITIVE, Antibody Screen NEGATIVE, Crossmatch See Detail Imaging Radiology Impression Brain CT 12/18/23 07:56 IMPRESSION: No acute intracranial process. Electronically Signed: Nestor Agosto MD at 9:25 EDT , Chest X-Ray 12/18/23 08:05 IMPRESSION: No radiographic evidence of acute cardiopulmonary disease. Electronically Signed: Nestor Agosto MD at 9:19 EDT , Cervical Spine CT 12/18/23 08:16 IMPRESSION: No evidence of acute cervical spinal fracture or spondylolisthesis. Degenerative changes. Electronically Signed: Nestor Agosto MD at 9:34 EDT , Assessment & Plan Assessment/Plan (1) Hypotension: (2) Acute blood loss anemia: (3) Syncope: (4) Esophageal varices: (5) Thrombocytopenia: (6) GI bleed: QUALIFIERS: GI bleed type/associated pathology: unspecified peptic ulcer Qualified Code(s): K27.4 - Chronic or unspecified peptic ulcer, site unspecified, with hemorrhage (7) Cirrhosis: QUALIFIERS: Hepatic cirrhosis type: unspecified hepatic cirrhosis Ascites presence: without ascites Qualified Code(s): K74.60 - Unspecified cirrhosis of liver PLAN: Plan 73-year-old with history of cirrhosis complicated by anemia and thrombocytopenia and esophageal with gastric varices. She should undergo emergent endoscopy to evaluate upper GI tract. Continue PPI drip. I would not give any blood transfusions at this time and try to maintain a low blood pressure is possible. She will need octreotide. Keep n.p.o. Charges/Coding Visit Charges Inpatient E&M: 72596 Init Hosp L2
--- NOTE | 2023-12-18 17:11 | OP.EGD_ITS ---
Patient Name: Annalee Keane Procedure Date: 12/18/2023 3:38 PM Date of : 1950 Age: 73 Procedure: Upper GI endoscopy Indications: Hematemesis, For therapy of esophageal varices, For therapy of gastric varices Providers: Casey Paul DO Medicines: Monitored Anesthesia Care Patient Profile: This is a 73 year old female. Refer to note in patient chart for documentation of history and physical. Patient has symptoms of acute vomiting. Complications: No immediate complications. Procedure: Pre-Anesthesia Assessment: - Prior to the procedure, a History and Physical was performed, and patient medications and allergies were reviewed. The patient is competent. The risks and benefits of the procedure and the sedation options and risks were discussed with the patient. All questions were answered and informed consent was obtained. Patient identification and proposed procedure were verified by the physician in the pre-procedure area. Mental Status Examination: alert and oriented. Airway Examination: normal oropharyngeal airway and neck mobility. Respiratory Examination: clear to auscultation. CV Examination: normal. Prophylactic Antibiotics: The patient does not require prophylactic antibiotics. Prior Anticoagulants: The patient has taken no anticoagulant or antiplatelet agents except for NSAID medication. ASA Grade Assessment: II - A patient with mild systemic disease. After reviewing the risks and benefits, the patient was deemed in satisfactory condition to undergo the procedure. The anesthesia plan was to use monitored anesthesia care (MAC). Immediately prior to administration of medications, the patient was re-assessed for adequacy to receive sedatives. The heart rate, respiratory rate, oxygen saturations, blood pressure, adequacy of pulmonary ventilation, and response to care were monitored throughout the procedure. The physical status of the patient was re-assessed after the procedure. After obtaining informed consent, the endoscope was passed under direct vision. Throughout the procedure, the patient's blood pressure, pulse, and oxygen saturations were monitored continuously. The Endoscope was introduced through the mouth, and advanced to the second part of duodenum. The upper GI endoscopy was accomplished without difficulty. The patient tolerated the procedure well. Scope In: 4:33:21 PM Scope Out: 4:52:06 PM Total Procedure Duration Time 0 hours 18 minutes 45 seconds Findings: Small (< 5 mm) varices were found in the lower third of the esophagus. They were 3 mm in largest diameter. A 6 mm bleeding Analia-Triplett tear with stigmata of recent bleeding was found. Coagulation for hemostasis using heater probe was successful. Estimated blood loss was minimal. Type 2 gastroesophageal varices (GOV2, esophageal varices which extend along the fundus) with oozing blood were found in the cardia. There were stigmata of recent bleeding. They were 30 mm in largest diameter. To stop active bleeding, hemostatic spray was deployed. Several sprays were applied. There was no bleeding at the end of the procedure. Hematin (altered blood/yjbxvz-rmuorg-goun material) was found in the entire examined stomach. No gross lesions were noted in the first portion of the duodenum. Impression: - Small (< 5 mm) esophageal varices. - Analia-Triplett tear. Treated with a heater probe. - Type 2 gastroesophageal varices (GOV2, esophageal varices which extend along the fundus), oozing blood. Hemostatic spray applied. - Hematin (altered blood/btbvbc-hfxbla-aeed material) in the entire stomach. - No gross lesions in the first portion of the duodenum. - No specimens collected. Recommendation: - [facility] patient to [facility] for [facility] care. - NPO. - Continue present medications. Procedure Code(s): --- Professional --- 95799, Esophagogastroduodenoscopy, flexible, transoral; with control of bleeding, any method CPT copyright 2021 [employer]. All rights reserved. The codes documented in this report are preliminary and upon communications scientist review may be revised to meet current compliance requirements. Casey Paul DO 12/18/2023 5:10:48 PM This report has been signed electronically. Number of Addenda: 0 Note Initiated On: 12/18/2023 3:38 PM
--- NOTE | 2023-12-18 17:11 | OP.CCLET_ITS ---
12/18/2023 Carlyn Soto Re : Upper GI endoscopy procedure for Annalee Keane Renuka Barragan This procedure was performed on Monday, December 18, 2023. My impressions and recommendations are as follows: Impressions : - Small (< 5 mm) esophageal varices. - Analia-Triplett tear. Treated with a heater probe. - Type 2 gastroesophageal varices (GOV2, esophageal varices which extend along the fundus), oozing blood. Hemostatic spray applied. - Hematin (altered blood/oxmrgu-jgbwyo-akdc material) in the entire stomach. - No gross lesions in the first portion of the duodenum. - No specimens collected. Recommendations : - Return patient to [facility] for ongoing care. - NPO. - Continue present medications. My findings are described in the full procedure note, which is enclosed. If I can be of further assistance, please feel free to contact me at . Sincerely, Casey Paul, 12/18/2023 5:10:48 PM This report has been signed electronically.
--- NOTE | 2023-12-18 17:13 | PCM.POST.ANE ---
Anesthesia: Postop Eval I Current Vital Signs Temperature: 97 F Pulse Rate: 60 Blood Pressure: 120/50 Respiratory Rate: 16 Pulse Ox: 100 Oxygen Delivery Method: Nasal Cannula (3liters O2) Assessment Airway patent: Yes Spontaneous unlabored respirations: Yes Mental status: Awake and Calm nausea: No Vomiting: No Anesthesia Complication: No Fluid Hydration Crystalloid volume administer (ml): 700 Blood Product volume administered (ml): 200 Total IV fluid infused: 900 Progress Note Anesthesia document: Postop Eval 1 completed: Yes
[2023-12-18] MEDS: Octreotide 0.5 MG in Dextrose 5%-Water (250mL Bag) 249 ML 25 MG CONT INF (18:26)
[2023-12-18 18:32] LABS: Bedside Glucose 104 mg/dL (74-106)
[2023-12-18] MEDS: Metoclopramide 10 MG/2 ML Vial IV (18:50)
--- NOTE | 2023-12-18 19:12 | EX.PCM.PN.GI ---
Subjective Subjective I was called because patient had another episode of upper GI bleeding. She is status post upper endoscopy and was identified as having bleeding gastric varices that were treated endoscopically with Hemospray. Blood pressure is stable and heart rate is stable. Last hemoglobin was 8. Objective Data Objective Data Vital Signs: Vital Signs Temp Pulse Resp BP Pulse Ox O2 Del Method O2 Flow Rate 97.5 F L 60 16 114/62 97 Room Air 3 12/18/23 18:16 12/18/23 18:16 12/18/23 18:16 12/18/23 18:16 12/18/23 18:16 12/18/23 18:16 12/18/23 17:15 Oxygen Flow Rate (L/min) 3 Oxygen Delivery Method Room Air Weight: 197 lb 12.074 oz Body Mass Index (BMI) 35.0 Intake & Output: Intake and Output for Last 24 Hours 12/16/23 12/17/23 12/18/23 23:59 23:59 23:59 Intake Total 2351.7 / 2351.7 Balance 2351.7 / 2351.7 Lab / Micro Data 12/18/23 12:50 12/18/23 08:07 Labs: Laboratory Results - last 24 hr 12/18/23 08:07: WBC 3.7 L, RBC 2.93 L, Hgb 8.6 L, Hct 26.9 L, MCV 91.8, MCH 29.4, MCHC 32.0, RDW Std Deviation 49.9 H, RDW Coeff of Anika 14.7 H, Plt Count 94 L, MPV 9.9, Differential Comment COMMENT, PT 17.4 H, INR 1.4, Sodium 142, Potassium 4.0, Chloride 112 H, Carbon Dioxide 25.0, Anion Gap 5, BUN 18, Creatinine 0.67, Estim Creat Clear Calc 66.85, Est GFR (MDRD) Af Amer 111, Est GFR (MDRD) Non-Af 91, BUN/Creatinine Ratio 26.9 H, Glucose 117 H, Lactic Acid 1.0, Calcium 7.9 L, Total Bilirubin 0.50, Direct Bilirubin 0.11, AST 26, ALT 21, Alkaline Phosphatase 83, Troponin I High Sens 5, Total Protein 5.3 L, Albumin 2.2 L, Globulin 3.1, Lipase 50, Ethyl Alcohol < 3.0 12/18/23 09:24: Urine Color Yellow, Urine Clarity Sl. Cloudy, Urine pH 6.0, Ur Specific [place] 1.020, Urine Protein 30 H, Urine Glucose (UA) Normal, Urine Ketones Negative, Urine Occult Blood 150 H, Urine Nitrite Positive H, Urine Bilirubin Negative, Urine Urobilinogen Normal, Ur Leukocyte Esterase 100 H, Urine RBC 0 SEEN, Urine WBC 10-25 SEEN, Ur Squamous Epith Cells 5-10 SEEN, Urine Bacteria 4+, Hyaline Casts 0-5 SEEN, Urine Mucus 1+ 12/18/23 12:42: POC Glucose 92 12/18/23 12:50: Hgb 8.2 L, Hct 26.1 L, Blood Type A POSITIVE, Antibody Screen NEGATIVE, Crossmatch See Detail 12/18/23 17:53: POC Glucose 104 Radiography Diagnostic Testing: Radiology Impression Brain CT 12/18/23 07:56 IMPRESSION: No acute intracranial process. Electronically Signed: Nestor Agosto MD at 9:25 EDT , Chest X-Ray 12/18/23 08:05 IMPRESSION: No radiographic evidence of acute cardiopulmonary disease. Electronically Signed: Nestor Agosto MD at 9:19 EDT , Cervical Spine CT 12/18/23 08:16 IMPRESSION: No evidence of acute cervical spinal fracture or spondylolisthesis. Degenerative changes. Electronically Signed: Nestor Agosto MD at 9:34 EDT , Physical Exam Narrative - Physical Exam General: Alert, Oriented x3, Cooperative HEENT: Skin tear over the right eyebrow., PERRLA, EOMI, Normocephalic Oral: Moist Mucosa, No Gingival or Mucosal Lesions/ Ulcerations Neck: Supple, No JVD, Negative Carotid Bruits Lungs: Clear to auscultation, Normal air movement Cardiovascular: Regular rate, Normal S1, Normal S2, No murmurs Abdomen: Bowel Sounds Present, Soft, Non Tender, Non-Distended, No Hepato-splenomegaly Extremities: No clubbing, No cyanosis, No edema, Capillary Refill Less than 3 Seconds Skin: No rashes, No breakdown Musculoskeletal: No Tenderness to Palpation of Joints or Extremities Neurological: Neuro grossly intact Psych/Mental Status: Normal Affect, Appropriate Assessment & Plan Assessment/Plan (1) Hypotension: (2) Acute blood loss anemia: (3) Syncope: (4) Esophageal varices: (5) Thrombocytopenia: (6) GI bleed: QUALIFIERS: GI bleed type/associated pathology: unspecified peptic ulcer Qualified Code(s): K27.4 - Chronic or unspecified peptic ulcer, site unspecified, with hemorrhage (7) Cirrhosis: QUALIFIERS: Hepatic cirrhosis type: unspecified hepatic cirrhosis Ascites presence: without ascites Qualified Code(s): K74.60 - Unspecified cirrhosis of liver PLAN: Plan 73-year-old with history of cirrhosis complicated by anemia and thrombocytopenia and esophageal with gastric varices. She should undergo emergent endoscopy to evaluate upper GI tract. Continue PPI drip. I would not give any blood transfusions at this time and try to maintain a low blood pressure is possible. She will need octreotide. She will also need to be transferred to a higher level of care due to the inability to treat severe GOV2 gastric varices. Charges/Coding Visit Charges Inpatient E&M: 12623 Subs Hosp L3
[2023-12-18 21:01] LABS: Hematocrit 27.4 % (37-47)
--- NOTE | 2023-12-18 21:24 | PN.HOSP_ITS ---
Hospitalist Note I was contacted around shift change by the daytime hospitalist and informed that this patient would require urgent transfer to a tertiary care center after she was initially admitted with syncope and hematemesis with subsequent EGD done ~5:00 PM to day that revealed massive esophageal varices that were 'hemosprayed' but were too large for banding so home theater installer recommended transfer. I then contacted [facility] and they were very caring and professional and they have also graciously accepted this patient for transfer by Dr. Cade, with his help and compassion greatly appreciated! I then contacted the HADOOP ENGINEER to update her with the plan. The patient is not bleeding at this time and is hemodynamically stable.
--- NOTE | 2023-12-18 22:49 | NURSING ---
This Nurse spoke to Agustin (pts spouse) and updated on pt being transferred to [facility] with no concerns voiced. This nurse provided nurse to nurse report to Clay Jaeger at this time who states will be caring for pt upon arrival to [facility].
[2023-12-19] VITALS: BP 127/58; PULSE 108; RESP 16; TEMP 36.5; O2SAT 94
[2023-12-19 00:26] LABS: Hematocrit 25.9 % (37-47); Hemoglobin 8.4 g/dL (12.0-15.0)
[2023-12-19 01:36] VITALS: BP 127/58; PULSE 108; RESP 16; TEMP 36.5; O2SAT 94
[2023-12-19 01:38] VITALS: O2SAT 94
--- NOTE | 2023-12-19 07:10 | PCM.POSTANE2 ---
Anesthesia Postop Eval I Sum Postop Eval Completion status Anesthesia document: Postop Eval 1 completed: Yes Anesthesia Postop Eval I Summary Anesthesia Postop Eval I Summary: Anesthesia Postop Eval I: Assessment Summary Airway patent Yes 12/18/23 17:16 Spontaneous unlabored Yes 12/18/23 17:16 respirations Mental status Awake,Calm 12/18/23 17:16 nausea No 12/18/23 17:16 Vomiting No 12/18/23 17:16 Anesthesia Postop Eval I: Fluid Summary Crystalloid volume administer 700 12/18/23 17:16 (ml) Colloids volume administered ( ml) Blood Product volume 200 12/18/23 17:16 administered (ml) Total IV fluid infused 900 12/18/23 17:16 Anesthesia Postop Eval I: Summary Notes Anesthesia Complication No 12/18/23 17:16 Anesthesia Complication Comment: Post-operative progress note Anesthesia: Postop Eval II Evaluation Mental status: Awake Pain Level: 0 nausea: No Vomiting: No
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
== END 2023-12-19 02:09 | disposition other institution (70) | DRG 432 ==
LOC: ED 08:12 → PCU 10:49
PROVIDERS: Internal Medicine Gastroenterology; Emergency Provider Emergency Medicine; PCP Nurse Practitioner
PROC: 0DJ08ZZ Inspection of Upper Intestinal Tract, Via Natural or Artificial Opening Endoscopic (ICD-10-PCS; CPT 43235; principal; 2023-12-18 16:00)
DX: K74.60 Unspecified cirrhosis of liver (principal); I85.11 Secondary esophageal varices with bleeding; K22.6 Gastro-esophageal laceration-hemorrhage syndrome; D62 Acute posthemorrhagic anemia; N39.0 Urinary tract infection, site not specified; I11.0 Hypertensive heart disease with heart failure; I95.9 Hypotension, unspecified; D69.6 Thrombocytopenia, unspecified; I50.9 Heart failure, unspecified; E11.9 Type 2 diabetes mellitus without complications; F32.A Depression, unspecified; K75.81 Nonalcoholic steatohepatitis (NASH); I25.10 Atherosclerotic heart disease of native coronary artery without angina pectoris; S01.111A Laceration without foreign body of right eyelid and periocular area, initial encounter; W18.30XA Fall on same level, unspecified, initial encounter; Y93.01 Activity, walking, marching and hiking; G89.29 Other chronic pain; R55 Syncope and collapse; Z79.02 Long term (current) use of antithrombotics/antiplatelets; Z79.84 Long term (current) use of oral hypoglycemic drugs; Z79.899 Other long term (current) drug therapy; Z86.73 Personal history of transient ischemic attack (TIA), and cerebral infarction without residual deficits
CPT/HCPCS: 36415; 70450; 71045; 72125; 80048; 80076; 81001; 82077; 82962; 83605; 83690; 84484; 85014; 85018; 85027; 85610; 86850; 86900; 86901; 86920; 86922; 87077; 87086; 87088; 87186; 93005; 97802; 99285; J7030; J7040; P9016; P9047; A4216; J2405; J3490

== ENCOUNTER 2024-05-05 10:44 | Day surgery (SDC) | payer MEDICARE, SELFPAY ==
--- NOTE | 2024-05-04 16:52 | PAT.ANESEVAL ---
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 When Was Last Pacemaker Check QUESTION #4 FULL TEXT: You/Your Family Experience fever (hyperthermia) with Anesthesia Last Oral Intake Last Oral intake: Last Oral Intake NPO since Meds taken in AM with sips of water? Meds patient instructed to take am of surgery PONV PONV - engineering equipment operator: PONV - engineering equipment operator Female Yes 05/04/24 16:07 HX of Motion Sickness Yes 05/04/24 16:07 HX of N/V After Surgery No 05/04/24 16:07 Non-Smoker Yes 05/04/24 16:07 Duration of Surgery greater No 05/04/24 16:07 than 60 minutes Number of Risk Factors 3 05/04/24 16:07 PONV Score Moderate Risk 05/04/24 16:07 Height & Weight Height & Weight: Anesthesia: Height & Weight Height 5 ft 3 in 03/17/24 08:13 Respiratory Assessment Respiratory Assessment - engineering equipment operator: Respiratory Tract Infection Hx - engineering equipment operator Hx Respiratory Tract Infection No 05/04/24 16:07 STOP Sleep Apnea STOP Sleep Apnea - engineering equipment operator: STOP Sleep Apnea - engineering equipment operator Hx Hypertension Yes: CONTROLLED WITH MED 05/04/24 16:07 Hx Sleep Apnea Yes 05/04/24 16:07 CPAP Yes: NONCOMPLIANT 05/04/24 16:07 BIPAP No 05/04/24 16:07 Do you snore loudly (louder than talking or can be heard Do you often feel tired/ fatigued/ sleepy during daytime? Has anyone observed you stop breathing during sleep? STOP Results Positive 05/04/24 16:07 QUESTION #5 FULL TEXT : Do you snore loudly (louder than talking or can be heard through closed doors)? 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 Specify any problems Hx of Preganancy in last 3 No 05/04/24 16:07 Months Nurse Filling Out Transfusion DSCHRIBER 05/04/24 16:07 & Questions: Date: 05/04/24 05/04/24 16:07 Time: 16:08 05/04/24 16:07 Patient unable to answer at this time (ie. confused, unrespo /Reproduction History /Reproductive History - engineering equipment operator: /Reproductive Hx- engineering equipment operator Hx Now No 05/04/24 16:07 Gestational Age (in weeks): EDC: Hx Hx Para Hx Section SAB No 05/04/24 16:07 [facility] Medical History (Updated 05/04/24 @ 16:14 by Yajaira Delgado) History of stress test Cardiology follow-up encounter History of biliary stent insertion Acute cholecystitis with chronic cholecystitis Right upper quadrant abdominal pain Ambulates with cane Chest pain Epigastric abdominal pain Sludge in gallbladder Cholelithiasis Marijuana use Gout Fatty liver History of hiatal hernia Gastric varices Urinary incontinence Restless legs Injury of head and neck History of GI bleed Non-smoker History of edema History of rheumatic fever Cirrhosis Wears glasses Wears dentures History of blood transfusion Leg cramps Shortness of breath on exertion History of echocardiogram Anemia Diabetes Chronic pain CPAP (continuous positive airway pressure) dependence Asthma Irregular heart beat Atrial fibrillation Congestive heart failure (CHF) Migraines COVID-19 Arthritis Polio Hypertension Diabetes mellitus type II, uncontrolled History of incarcercerate ventral hernia Home Medications ?Medication ?Instructions ?Recorded ?Last Taken ?Type rosuvastatin 10 mg tablet 10 mg PO DAILY cholesterol 11/23/20 10/01/23 History CBD 1 tab PO BID pain 11/23/22 10/01/23 History nitroglycerin 0.4 mg sublingual 0.4 mg sublingual Q5M PRN chest 06/03/23 Unknown History tablet pain trazodone 50 mg tablet 50 mg PO QHS sleep 06/03/23 10/02/23 History acetaminophen 325 mg tablet 650 mg PO Q6H PRN fever or pain 06/14/23 10/01/23 History cholecalciferol (vitamin D3) 125 125 mcg PO DAILY supplement 06/14/23 10/02/23 History mcg (5,000 unit) tablet diphenhydramine HCl 25 mg tablet 25 mg PO ONCE PRN allergic reaction 06/14/23 10/02/23 History (Benadryl Allergy) multivitamin 1 tab PO DAILY supplement 06/14/23 10/01/23 History pantoprazole 20 mg tablet,delayed 20 mg PO DAILY stomach 07/10/23 10/01/23 History release ascorbic acid (vitamin C) 500 mg 500 mg PO BID #60 tabs 10/16/23 Unknown Rx tablet ferrous sulfate 325 mg (65 mg 325 mg PO Q OTHER DAY #30 tabs 10/16/23 Unknown Rx iron) tablet,delayed release metoprolol tartrate 25 mg tablet 12.5 mg (1/2 x 25 mg) PO BID #90 03/17/24 Unknown Rx tabs Allergy/AdvReac Type Severity Reaction Status Date / Time docusate (From Senna-S) Allergy Severe Angioedema Verified 05/04/24 16:05 senna (From Senna-S) Allergy Severe Angioedema Verified 05/04/24 16:05 house dust Allergy Unknown Unknown Verified 05/04/24 16:05 Bleach (Sodium Hypochlorite) Allergy Other Verified 05/04/24 16:05 cat dander Allergy Itching Verified 05/04/24 16:05 coconut Allergy Anaphylaxis Verified 05/04/24 16:05 dog dander Allergy Itching Verified 05/04/24 16:05 Sulfa (Sulfonamide AdvReac Rash Verified 05/04/24 16:05 Antibiotics) Family History Father CAD (coronary artery disease) Cancer Diabetes Mother Cancer Diabetes CAD (coronary artery disease) Surgical History (Updated 05/04/24 @ 16:14 by Yajaira Delgado) Hx laparoscopic cholecystectomy History of cardiac catheterization History of cholecystectomy (06/11/23) History of unilateral salpingectomy History of esophagogastroduodenoscopy (EGD) History of bunionectomy of right great toe History of partial hysterectomy History of appendectomy H/O carpal tunnel repair H/O ventral hernia repair Social History household members: spouse Smoking Status: Never smoker alcohol intake: current details: Rare, social substance use type: marijuana and other details: CBD gummies caffeine: Yes Type: coffee Number of servings: 2 Audit: Pertinent Findings Pertinent Findings EKG Perinent findings: 03/30/2024 atrial fibrillation low voltage possible pulmonary disease Heart catheterization pertinent findings: 07/10/2023 mild RCA 10% calcified or aortic root medical treatment Consult pertinent findings: Cardiology 03/17/2024 preoperative cardiovascular exam acceptable risk to paroxysmal atrial fibrillation chronic mild coronary artery disease esophageal varices chronic cirrhosis chronic Recommendation Anesthesia Recommendation Anesthesia recommendation: OPTIMIZED for anesthesia
[2024-05-05] VITALS (9 sets, daily range): BP systolic 119–161; BP diastolic 65–99; PULSE 76–116; RESP 16–18; TEMP 36.1–36.4; O2SAT 99–100; BMI 34.0
--- NOTE | 2024-05-05 10:50 | EKG12_ITS ---
Test Reason : pre op Blood Pressure : */* mmHG Vent. Rate : 70 BPM Atrial Rate : 70 BPM P-R Int : 164 ms QRS Dur : 88 ms QT Int : 420 ms P-R-T Axes : 40 20 52 degrees QTcB Int : 453 ms Normal sinus rhythm Normal ECG When compared with ECG of 18-Dec-2023 08:01, Questionable change in QRS axis Confirmed by GILBERT MAR, VERITO ([id number]), editor in chief JOHN MCKENZIE ([id number]) on 05/07/2024 9:10:33 AM Referred By: AVERY MOSQUEDA Confirmed By: VERITO HUNT MD
[2024-05-05] MEDS: 0.9% Normal Saline (1000mL) 1,000 ML 15 ML IV (11:11)
--- NOTE | 2024-05-05 11:48 | PCM.PRE.AN2 ---
ASA Classification* ASA Classification ASA Classification: 3 Assessment & Plan Anesthesia* Anesthesia Assessment Anesthesia Assessment: Discussed sedation and/or anesthesia options, risks, benefits, and alternatives with patient/parents/legal guardian/POA. Questions invited. The patient/parents/legal guardian/POA seems to understand and agrees to proceed with anesthesia plan. Reviewed the physical assessment, medical history, allergy history and patient home medications list prior to surgery/procedure/anesthetic and documented any changes. Performed airway and anesthesia risk assessments. Anesthesia Type Anesthesia Type: MAC History Source History Obtained from:: Patient and Chart Anesthesia Focused Assessment* Temperature: 97.6 F Pulse Rate: 76 Blood Pressure: 136/65 Respiratory Rate: 18 Pulse Ox: 99 Oxygen Delivery Method: Room Air Airway Assessment Mouth opens: >3 cm Mallampati Score: I Teeth Condition: Dentures and Missing (Missing several molars on the bottom. Rest of the teeth are tight.) Neck Range of motion (ROM): Full ROM Focused Labs Anesthesia Preop lab: CBC WBC 3.7 K/mm3 (4.4-11.0) L 12/18/23 08:07 RBC 2.93 M/mm3 (4.2-5.4) L 12/18/23 08:07 Hgb 8.4 g/dL (12.0-15.0) L 12/19/23 00:15 Hct 25.9 % (37-47) L 12/19/23 00:15 Plt Count 94 K/mm3 (150-450) L 12/18/23 08:07 CHEMISTRY Potassium 4.0 mmol/L (3.5-5.1) 12/18/23 08:07 Sodium 142 mmol/L (136-145) 12/18/23 08:07 BUN 18 mg/dL (7-18) 12/18/23 08:07 Creatinine 0.67 mg/dL (0.55-1.02) 12/18/23 08:07 Glucose 117 mg/dL (74-106) H 12/18/23 08:07 POC Glucose 104 mg/dL (74-106) 12/18/23 17:53 TSH 3.19 uIU/mL (0.358-3.74) 10/16/23 10:04 COAG PT 17.4 SECONDS (11.7-14.9) H 12/18/23 08:07 Pre-Assessment Diagnosis/Proposed Procedure Planned Operative Procedure(s): ERCP Anesthesia History Anesthesia History - patient registration supervisor: Anesthesia History - patient registration supervisor Hx Hospitalization Yes: 12/2023 [facility] 05/04/24 16:07 Any Problems With Anesthesia No 05/04/24 16:07 Cholinesterase deficiency No 05/04/24 16:07 You/Your Family Experience No 05/04/24 16:07 fever (hyperthermia) with Relationship Recent Exposure to Contagious No 05/05/24 11:08 Disease Does patient have nerve No 05/04/24 16:07 stimulator Patient instructed to have device shut off --Does patient have Pacemaker No 05/05/24 11:08 or ICD? When Was Last Pacemaker Check QUESTION #4 FULL TEXT: You/Your Family Experience fever (hyperthermia) with Anesthesia Last Oral Intake Last Oral intake: Last Oral Intake NPO since 00:00 05/05/24 11:08 Meds taken in AM with sips of No 05/05/24 11:08 water? Meds patient instructed to take am of surgery PONV PONV - patient registration supervisor: PONV - patient registration supervisor Female Yes 05/04/24 16:07 HX of Motion Sickness Yes 05/04/24 16:07 HX of N/V After Surgery No 05/04/24 16:07 Non-Smoker Yes 05/04/24 16:07 Duration of Surgery greater No 05/04/24 16:07 than 60 minutes Number of Risk Factors 3 05/04/24 16:07 PONV Score Moderate Risk 05/04/24 16:07 Height & Weight Height & Weight: Anesthesia: Height & Weight Height 5 ft 3 in 05/05/24 11:08 Weight: 87 kg 05/05/24 11:08 Body Mass Index (BMI) 34.0 05/05/24 11:08 Respiratory Assessment Respiratory Assessment - patient registration supervisor: Respiratory Tract Infection Hx - patient registration supervisor Hx Respiratory Tract Infection No 05/04/24 16:07 STOP Sleep Apnea STOP Sleep Apnea - patient registration supervisor: STOP Sleep Apnea - patient registration supervisor Hx Hypertension Yes: CONTROLLED WITH MED 05/04/24 16:07 Hx Sleep Apnea Yes 05/04/24 16:07 CPAP Yes: NONCOMPLIANT 05/04/24 16:07 BIPAP No 05/04/24 16:07 Do you snore loudly (louder than talking or can be heard Do you often feel tired/ fatigued/ sleepy during daytime? Has anyone observed you stop breathing during sleep? STOP Results Positive 05/04/24 16:07 QUESTION #5 FULL TEXT : Do you snore loudly (louder than talking or can be heard through closed doors)? 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 Specify any problems Hx of Preganancy in last 3 No 05/04/24 16:07 Months Nurse Filling Out Transfusion DSCHRIBER 05/04/24 16:07 & Questions: Date: 05/04/24 05/04/24 16:07 Time: 16:08 05/04/24 16:07 Patient unable to answer at this time (ie. confused, unrespo /Reproduction History /Reproductive History - patient registration supervisor: /Reproductive Hx- patient registration supervisor Hx Now No 05/04/24 16:07 Gestational Age (in weeks): EDC: Hx Hx Para Hx Section SAB No 05/04/24 16:07 Active Medications Active Medications: Current Medications Generic Name Dose Route Start Last Admin Trade Name Freq PRN Reason Stop Dose Admin Sodium Chloride 1,000 mls @ 15 mls/hr 05/05/24 10:55 05/05/24 11:11 IV 05/11/24 00:14 15 mls/hr .Q48H ZOFIA Administration Protocol PFSH Medical History History of stress test Cardiology follow-up encounter History of biliary stent insertion Acute cholecystitis with chronic cholecystitis Right upper quadrant abdominal pain Ambulates with cane Chest pain Epigastric abdominal pain Sludge in gallbladder Cholelithiasis Marijuana use Gout Fatty liver History of hiatal hernia Gastric varices Urinary incontinence Restless legs Injury of head and neck History of GI bleed Non-smoker History of edema History of rheumatic fever Cirrhosis Wears glasses Wears dentures History of blood transfusion Leg cramps Shortness of breath on exertion History of echocardiogram Anemia Diabetes Chronic pain CPAP (continuous positive airway pressure) dependence Asthma Irregular heart beat Atrial fibrillation Congestive heart failure (CHF) Migraines COVID-19 Arthritis Polio Hypertension Diabetes mellitus type II, uncontrolled History of incarcercerate ventral hernia Home Medications ?Medication ?Instructions ?Recorded ?Last Taken ?Type rosuvastatin 10 mg tablet 10 mg PO DAILY cholesterol 11/23/20 10/01/23 History CBD 1 tab PO BID pain 11/23/22 10/01/23 History nitroglycerin 0.4 mg sublingual 0.4 mg sublingual Q5M PRN chest 06/03/23 Unknown History tablet pain trazodone 50 mg tablet 50 mg PO QHS sleep 06/03/23 10/02/23 History acetaminophen 325 mg tablet 650 mg PO Q6H PRN fever or pain 06/14/23 10/01/23 History cholecalciferol (vitamin D3) 125 125 mcg PO DAILY supplement 06/14/23 10/02/23 History mcg (5,000 unit) tablet diphenhydramine HCl 25 mg tablet 25 mg PO ONCE PRN allergic reaction 06/14/23 10/02/23 History (Benadryl Allergy) multivitamin 1 tab PO DAILY supplement 06/14/23 10/01/23 History pantoprazole 20 mg tablet,delayed 20 mg PO DAILY stomach 07/10/23 10/01/23 History release ascorbic acid (vitamin C) 500 mg 500 mg PO BID #60 tabs 10/16/23 Unknown Rx tablet ferrous sulfate 325 mg (65 mg 325 mg PO Q OTHER DAY #30 tabs 10/16/23 Unknown Rx iron) tablet,delayed release metoprolol tartrate 25 mg tablet 12.5 mg (1/2 x 25 mg) PO BID #90 03/17/24 Unknown Rx tabs Allergy/AdvReac Type Severity Reaction Status Date / Time docusate (From Senna-S) Allergy Severe Angioedema Verified 05/05/24 11:05 senna (From Senna-S) Allergy Severe Angioedema Verified 05/05/24 11:05 house dust Allergy Unknown Unknown Verified 05/05/24 11:05 Bleach (Sodium Hypochlorite) Allergy Other Verified 05/05/24 11:05 cat dander Allergy Itching Verified 05/05/24 11:05 coconut Allergy Anaphylaxis Verified 05/05/24 11:05 dog dander Allergy Itching Verified 05/05/24 11:05 Sulfa (Sulfonamide AdvReac Rash Verified 05/05/24 11:05 Antibiotics) Family History Father CAD (coronary artery disease) Cancer Diabetes Mother Cancer Diabetes CAD (coronary artery disease) Surgical History Hx laparoscopic cholecystectomy History of cardiac catheterization History of cholecystectomy (06/11/23) History of unilateral salpingectomy History of esophagogastroduodenoscopy (EGD) History of bunionectomy of right great toe History of partial hysterectomy History of appendectomy H/O carpal tunnel repair H/O ventral hernia repair Social History household members: spouse Smoking Status: Never smoker alcohol intake: current details: Rare, social substance use type: marijuana and other details: CBD gummies caffeine: Yes Type: coffee Number of servings: 2 Review of Systems (Anesthesia) ROS Narrative System reviewed and no additional complaints, except as documented.
--- NOTE | 2024-05-05 12:12 | HP.PCM_ITS ---
HPI - General General Date of Admission: 05/05/24 Date of Service: 05/05/24 Chief Complaint: ERCP with stent removal HPI Narrative THU ESPANA, is a 73 F who presents for ERCP with stent removal. She was hospitalized in December 2023 at [facility] for hematemesis. She was discovered to have GOV 1 bleeding gastric varices. This was treated with Hemospray endoscopically. She was at [facility] where she developed a worsening hematemesis. A CODE BLUE was called and then she had IR guided treatment of her gastric varices. She recently underwent coronary angiography earlier this year revealed only mild CAD. Normal LV systolic function. [facility] Medical History History of stress test Cardiology follow-up encounter History of biliary stent insertion Acute cholecystitis with chronic cholecystitis Right upper quadrant abdominal pain Ambulates with cane Chest pain Epigastric abdominal pain Sludge in gallbladder Cholelithiasis Marijuana use Gout Fatty liver History of hiatal hernia Gastric varices Urinary incontinence Restless legs Injury of head and neck History of GI bleed Non-smoker History of edema History of rheumatic fever Cirrhosis Wears glasses Wears dentures History of blood transfusion Leg cramps Shortness of breath on exertion History of echocardiogram Anemia Diabetes Chronic pain CPAP (continuous positive airway pressure) dependence Asthma Irregular heart beat Atrial fibrillation Congestive heart failure (CHF) Migraines COVID-19 Arthritis Polio Hypertension Diabetes mellitus type II, uncontrolled History of incarcercerate ventral hernia Home Medications ?Medication ?Instructions ?Recorded ?Last Taken ?Type rosuvastatin 10 mg tablet 10 mg PO DAILY cholesterol 11/23/20 10/01/23 History CBD 1 tab PO BID pain 11/23/22 10/01/23 History nitroglycerin 0.4 mg sublingual 0.4 mg sublingual Q5M PRN chest 06/03/23 Unknown History tablet pain trazodone 50 mg tablet 50 mg PO QHS sleep 06/03/23 10/02/23 History acetaminophen 325 mg tablet 650 mg PO Q6H PRN fever or pain 06/14/23 10/01/23 History cholecalciferol (vitamin D3) 125 125 mcg PO DAILY supplement 06/14/23 10/02/23 History mcg (5,000 unit) tablet diphenhydramine HCl 25 mg tablet 25 mg PO ONCE PRN allergic reaction 06/14/23 10/02/23 History (Benadryl Allergy) multivitamin 1 tab PO DAILY supplement 06/14/23 10/01/23 History pantoprazole 20 mg tablet,delayed 20 mg PO DAILY stomach 07/10/23 10/01/23 History release ascorbic acid (vitamin C) 500 mg 500 mg PO BID #60 tabs 10/16/23 Unknown Rx tablet ferrous sulfate 325 mg (65 mg 325 mg PO Q OTHER DAY #30 tabs 10/16/23 Unknown Rx iron) tablet,delayed release metoprolol tartrate 25 mg tablet 12.5 mg (1/2 x 25 mg) PO BID #90 03/17/24 Unknown Rx tabs Allergy/AdvReac Type Severity Reaction Status Date / Time docusate (From Senna-S) Allergy Severe Angioedema Verified 05/05/24 11:05 senna (From Senna-S) Allergy Severe Angioedema Verified 05/05/24 11:05 house dust Allergy Unknown Unknown Verified 05/05/24 11:05 Bleach (Sodium Hypochlorite) Allergy Other Verified 05/05/24 11:05 cat dander Allergy Itching Verified 05/05/24 11:05 coconut Allergy Anaphylaxis Verified 05/05/24 11:05 dog dander Allergy Itching Verified 05/05/24 11:05 Sulfa (Sulfonamide AdvReac Rash Verified 05/05/24 11:05 Antibiotics) Family History Father CAD (coronary artery disease) Cancer Diabetes Mother Cancer Diabetes CAD (coronary artery disease) Surgical History Hx laparoscopic cholecystectomy History of cardiac catheterization History of cholecystectomy (06/11/23) History of unilateral salpingectomy History of esophagogastroduodenoscopy (EGD) History of bunionectomy of right great toe History of partial hysterectomy History of appendectomy H/O carpal tunnel repair H/O ventral hernia repair Social History household members: spouse Smoking Status: Never smoker alcohol intake: current details: Rare, social substance use type: marijuana and other details: CBD gummies caffeine: Yes Type: coffee Number of servings: 2 ROS Constitutional Constitutional: Denies fatigue, fever(s), poor appetite, weight gain or weight loss Gastrointestinal Gastrointestinal: Denies belching, bloating, change in bowel habits, change in stool character, chewing difficulty, coffee ground emesis, constipation, cramping, diarrhea, dyspepsia, dysphagia, early satiety, excessive flatus, fecal incontinence, heartburn, hematemesis, hematochezia, hemorrhoids, loose stools, melena, nausea, odynophagia, rectal bleeding, tenesmus, vomiting or weight changes Vital Signs Vital Signs Vital Signs: 05/05/24 11:08 05/05/24 11:08 05/05/24 11:59 Temperature 97.6 F L 97.6 F L Temperature Source Temporal Pulse Rate 76 76 Respiratory Rate 18 18 Respiratory Pattern Normal Blood Pressure 136/65 H 136/65 H Blood Pressure Mean 88 Blood Pressure Source Monitor Blood Pressure Position Sitting Blood Pressure Location Left Arm Pulse Ox 99 99 Oxygen Delivery Method Room Air Room Air Weight Weight: 191 lb 12.835 oz Body Mass Index (BMI) 34.0 Physical Exam Const alert, oriented x3, no apparent distress and healthy appearing General Appearance: cooperative GI normal to inspection, nondistended, normoactive bowel sounds, soft to palpation, non-tender and non-distended Percussion: normal to percussion Rectal Exam: deferred Assessment & Plan Assessment/Plan (1) Hypotension: (2) Acute blood loss anemia: (3) Syncope: (4) Esophageal varices: (5) Thrombocytopenia: (6) GI bleed: QUALIFIERS: GI bleed type/associated pathology: unspecified peptic ulcer Qualified Code(s): K27.4 - Chronic or unspecified peptic ulcer, site unspecified, with hemorrhage (7) Cirrhosis: QUALIFIERS: Hepatic cirrhosis type: unspecified hepatic cirrhosis Ascites presence: without ascites Qualified Code(s): K74.60 - Unspecified cirrhosis of liver PLAN: Plan 73-year-old with history of cirrhosis complicated by anemia and thrombocytopenia and esophageal with gastric varices. She underwent upper endoscopy emergently was discovered to have bleeding gastric varices. She was transferred to higher level of care. She underwent radiologic treatment of her gastric varices. She comes in today for stent removal. She was explained alternatives, risk and benefits include not withstanding bleeding, infection, sepsis, perforation, need for surgery . She will have an ASA of 3.
--- NOTE | 2024-05-05 12:40 | RAD_ITS ---
ERCP INDICATION: Abdominal pain. TECHNIQUE: 2:11 minutes of fluoroscopy of the abdomen was utilized operating during ERCP and 9 images minute for interpretation. FINDINGS: A biliary stent is present. Balloon sphincterotomy was performed. RAD/ERCP Biliary/Pancreas IMPRESSION: Fluoroscopy during ERCP and balloon sphincterotomy. Electronically Signed: Erwin Rondon MD at 0:12 EST ,
--- NOTE | 2024-05-05 13:53 | PCM.POST.ANE ---
Anesthesia: Postop Eval I Current Vital Signs Temperature: 97 F Pulse Rate: 82 Blood Pressure: 161/69 Respiratory Rate: 16 Pulse Ox: 100 Oxygen Delivery Method: Room Air Assessment Airway patent: Yes Spontaneous unlabored respirations: Yes Mental status: Awake nausea: No Vomiting: No Anesthesia Complication: Yes Anesthesia Complication Comment:: intra-op paroxysmal afib Fluid Hydration Crystalloid volume administer (ml): 800 Total IV fluid infused: 800 Progress Note Anesthesia document: Postop Eval 1 completed: Yes
--- NOTE | 2024-05-05 13:55 | OP.CCLET_ITS ---
05/05/2024 Carlyn Soto Re : ERCP procedure for Annalee Grayson [place] This procedure was performed on Sunday, May 05, 2024. My impressions and recommendations are as follows: Impressions : - Hemostasis in the area of the papilla with argon plasma coagulation (APC) was performed. - The entire main bile duct, left main hepatic duct, entire biliary tree, common bile duct and common hepatic duct were dilated, with an obstruction. - The patient has had a cholecystectomy. - Choledocholithiasis was found. Complete removal was accomplished by biliary sphincterotomy and balloon extraction. - A biliary sphincterotomy was performed. - The biliary tree was swept. - The lower third of the main bile duct, the left main hepatic duct, the right intrahepatic branches and major papilla were successfully dilated. - One stent was removed from the biliary tree. Recommendations : My findings are described in the full procedure note, which is enclosed. If I can be of further assistance, please feel free to contact me at . Sincerely, Casey Paul DO 05/05/2024 1:54:26 PM This report has been signed electronically.
--- NOTE | 2024-05-05 13:55 | OP.ERCP_ITS ---
Patient Name: Annalee Keane Procedure Date: 05/05/2024 8:53 AM Date of : 1950 Age: 73 Procedure: ERCP Indications: Biliary stent removal Providers: Casey Paul DO Medicines: Monitored Anesthesia Care Patient Profile: This is a 73 year old female. Refer to note in patient chart for documentation of history and physical. Patient has symptoms of acute abdominal cramping and acute jaundice. Her most recent ERCP for stent was within the past year. Complications: No immediate complications. Procedure: Pre-Anesthesia Assessment: - Prior to the procedure, a History and Physical was performed, and patient medications and allergies were reviewed. The patient is competent. The risks and benefits of the procedure and the sedation options and risks were discussed with the patient. All questions were answered and informed consent was obtained. Patient identification and proposed procedure were verified by the physician in the pre-procedure area. Mental Status Examination: alert and oriented. Airway Examination: normal oropharyngeal airway and neck mobility. Respiratory Examination: clear to auscultation. CV Examination: normal. ASA Grade Assessment: III - A patient with severe systemic disease. After reviewing the risks and benefits, the patient was deemed in satisfactory condition to undergo the procedure. The anesthesia plan was to use monitored anesthesia care (MAC). Immediately prior to administration of medications, the patient was re-assessed for adequacy to receive sedatives. The heart rate, respiratory rate, oxygen saturations, blood pressure, adequacy of pulmonary ventilation, and response to care were monitored throughout the procedure. The physical status of the patient was re-assessed after the procedure. After obtaining informed consent, the scope was passed under direct vision. Throughout the procedure, the patient's blood pressure, pulse, and oxygen saturations were monitored continuously. The Duodenoscope was introduced through the mouth, and advanced to the duodenum and used to inject contrast into the bile duct. The ERCP was accomplished without difficulty. The patient tolerated the procedure fairly well. The ERCP was performed with moderate difficulty due to presence of food. The patient tolerated the procedure well. 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 The esophagus was successfully intubated under direct vision. The scope was advanced to a normal major papilla in the descending duodenum without detailed examination of the pharynx, larynx and associated structures, and upper GI tract. The upper GI tract was grossly normal. The bile duct was deeply cannulated with the short-nosed traction sphincterotome. Contrast was injected. I personally interpreted the bile duct images. There was brisk flow of contrast through the ducts. Image quality was adequate. Contrast extended to the main bile duct. Contrast extended to the bifurcation. Contrast extended to the hepatic ducts. Contrast extended to the entire biliary tree. Opacification of the entire biliary tree except for the cystic duct and gallbladder, entire biliary tree except for the gallbladder, entire opacified area, main bile duct, common bile duct, common hepatic duct, hepatic duct bifurcation, left and right hepatic ducts and all intrahepatic branches and entire biliary tree was successful. The maximum diameter of the ducts was 14 mm. The entire opacified area, main bile duct and hepatic duct bifurcation contained multiple stones, the largest of which was 6 mm in diameter. The entire biliary tree except for the cystic duct and gallbladder, entire biliary tree except for the gallbladder, main bile duct, common bile duct, common hepatic duct, left main hepatic duct and entire biliary tree were diffusely dilated, with an obstruction. The largest diameter was 17 mm. A cholecystectomy had been performed. A long 0.025 inch Jagwire was passed into the biliary tree. A 5 mm biliary sphincterotomy was made with a traction (standard) sphincterotome using ERBE electrocautery. There was no post-sphincterotomy bleeding. The biliary tree was swept with a 15 mm balloon starting at the upper third of the main bile duct, middle third of the main bile duct, lower third of the main duct, bifurcation, left main hepatic duct, right intrahepatic duct(s) and right main hepatic duct. Sludge was swept from the duct. All stones were removed. Dilation of the lower third of the main bile duct, the left main hepatic duct, the right intrahepatic branches and major papilla with a 15-16.5-18 mm balloon (to a maximum balloon size of 18 mm) dilator was successful. One stent was removed from the biliary tree using a large-capacity forceps and sent for cytology. The stent was found to be occluded via the water column test. Coagulation for hemostasis in the area of the papilla using argon plasma at 0.3 liters/minute and 20 hills through the ERCP scope was successful. Impression: - Hemostasis in the area of the papilla with argon plasma coagulation (APC) was performed. - The entire main bile duct, left main hepatic duct, entire biliary tree, common bile duct and common hepatic duct were dilated, with an obstruction. - The patient has had a cholecystectomy. - Choledocholithiasis was found. Complete removal was accomplished by biliary sphincterotomy and balloon extraction. - A biliary sphincterotomy was performed. - The biliary tree was swept. - The lower third of the main bile duct, the left main hepatic duct, the right intrahepatic branches and major papilla were successfully dilated. - One stent was removed from the biliary tree. Procedure Code(s): --- Professional --- 52895, 59, Endoscopic retrograde cholangiopancreatography (ERCP); with trans-endoscopic balloon dilation of biliary/pancreatic duct(s) or of ampulla (sphincteroplasty), including sphincterotomy, when performed, each duct 08512, 59,51, Endoscopic retrograde cholangiopancreatography (ERCP); with trans-endoscopic balloon dilation of biliary/pancreatic duct(s) or of ampulla (sphincteroplasty), including sphincterotomy, when performed, each duct 73626, 59, Endoscopic retrograde cholangiopancreatography (ERCP); with trans-endoscopic balloon dilation of biliary/pancreatic duct(s) or of ampulla (sphincteroplasty), including sphincterotomy, when performed, each duct 62736, Endoscopic retrograde cholangiopancreatography (ERCP); with removal of foreign body(s) or stent(s) from biliary/pancreatic duct(s) 78361, Endoscopic retrograde cholangiopancreatography (ERCP); with removal of calculi/debris from biliary/pancreatic duct(s) 76634, 26, Endoscopic catheterization of the biliary ductal system, radiological supervision and interpretation 22799, Unlisted procedure, biliary tract CPT copyright 2021 [employer] [employer]. All rights reserved. The codes documented in this report are preliminary and upon dining services manager review may be revised to meet current compliance requirements. Casey Paul DO 05/05/2024 1:54:26 PM This report has been signed electronically. Number of Addenda: 0 Note Initiated On: 05/05/2024 8:53 AM
--- NOTE | 2024-05-05 15:32 | PCM.POSTANE2 ---
Anesthesia Postop Eval I Sum Postop Eval Completion status Anesthesia document: Postop Eval 1 completed: Yes Anesthesia Postop Eval I Summary Anesthesia Postop Eval I Summary: Anesthesia Postop Eval I: Assessment Summary Airway patent Yes 05/05/24 13:54 [email or web address] Spontaneous unlabored Yes 05/05/24 13:54 [email or web address] respirations Mental status Awake 05/05/24 13:54 [email or web address] nausea No 05/05/24 13:54 [email or web address] Vomiting No 05/05/24 13:54 [email or web address] Anesthesia Postop Eval I: Fluid Summary Crystalloid volume administer 800 05/05/24 13:54 [email or web address] (ml) Colloids volume administered ( ml) Blood Product volume administered (ml) Total IV fluid infused 800 05/05/24 13:54 [email or web address] Anesthesia Postop Eval I: Summary Notes Anesthesia Complication Yes 05/05/24 13:54 [email or web address] Anesthesia Complication intra-op 05/05/24 13:54 [email or web address] Comment: paroxysmal afib Post-operative progress note Anesthesia: Postop Eval II Evaluation Mental status: Awake Pain Level: 0 nausea: No Vomiting: No
== END 2024-05-05 15:00 | disposition home or self-care (01) ==
LOC: EN 10:45 → AC 10:47
PROVIDERS: PCP Nurse Practitioner; Referring Provider Nurse Practitioner; Visit Provider Internal Medicine Gastroenterology
PROC: (CPT 43260; principal; 2024-05-05 11:40)
DX: I85.00 Esophageal varices without bleeding (principal); K74.60 Unspecified cirrhosis of liver; I11.0 Hypertensive heart disease with heart failure; I50.9 Heart failure, unspecified; I48.91 Unspecified atrial fibrillation; E11.9 Type 2 diabetes mellitus without complications; R55 Syncope and collapse; Z90.710 Acquired absence of both cervix and uterus; I95.9 Hypotension, unspecified; D62 Acute posthemorrhagic anemia; D69.6 Thrombocytopenia, unspecified; Z79.899 Other long term (current) drug therapy; K21.9 Gastro-esophageal reflux disease without esophagitis; Z90.49 Acquired absence of other specified parts of digestive tract; K27.4 Chronic or unspecified peptic ulcer, site unspecified, with hemorrhage; K80.51 Calculus of bile duct without cholangitis or cholecystitis with obstruction
CPT/HCPCS: 43264; 43262; 43275; 74330; 76000; 93005; C1726; J2405

== ENCOUNTER → 2025-01-06 | Outpatient (CLI) | payer OTHER, SELFPAY ==
[2025-01-06 16:20] LABS: Prothrombin Time (Protime)PT. 14.7 SECONDS (11.7-14.9)
[2025-01-06 16:47] LABS: Cholesterol 130 mg/dL (<=200); Low Density Lipoprotein Calc. 41 mg/dL; Triglycerides 147 mg/dL; Very Low Density Lipoprotein 29 mg/dL (5-40); cholesterol:hdl ratio screen 2.17
[2025-01-06 17:05] LABS: Pro- Brain NATRIURETIC PEPTIDE 66 pg/mL (<=1800)
== END | disposition home or self-care (01) ==
PROVIDERS: Internal Medicine; Student in an Organized Health Care Education/Training Program; PCP Nurse Practitioner; Referring Provider Nurse Practitioner Family; Visit Provider Nurse Practitioner Family
DX: R06.02 Shortness of breath (principal); K74.60 Unspecified cirrhosis of liver
CPT/HCPCS: 36415; 80061; 83880; 85610

== ENCOUNTER → 2025-04-16 | Outpatient (CLI) | payer OTHER, SELFPAY ==
--- NOTE | 2025-04-16 09:08 | ECHOD_ITS ---
Reason For Study Reason For Study: SOB Procedure This was a 2D Doppler, Color Flow transthoracic echocardiogram. The patient is in an irregular rhythm. Exam performed in department. Left Ventricle Mild concentric left ventricular hypertrophy. Normal LV size. The left ventricular ejection fraction is 65 %. At least stage I diastolic dysfunction. Right Ventricle Normal right ventricle. Atria There is mild biatrial dilatation. Mitral Valve Mild (1+) mitral valve insufficiency. Tricuspid Valve Mild-Moderate (1-2+) tricuspid valve insufficiency. Right ventricular systolic pressure estimated to be 45 mmHg. Aortic Valve Moderately thickened and calcified noncoronary and right coronary cusp of the aortic valve. Aortic valve sclerosis without stenosis. Pulmonic Valve The pulmonic valve is not well visualized. Great Vessels Normal sized aortic root. Pericardium/Pleural No pericardial effusion. MMode/2D Measurements & Calculations LVIDd: 4.6 cm IVSd: 1.3 cm LVOT diam: 2.0 cm LVIDs: 2.3 cm LVPWd: 1.0 cm LVOT area: 3.0 cm2 RVDd: 3.5 cm FS: 50.3 % asc Aorta Diam: 2.8 cm LAV(MOD-bp): 51.7 ml LVAd ap4: 26.3 cm2 LAV(MOD-bp) Indexed: 26.2 ml/m2 LVLd ap4: 7.9 cm LAV(MOD-sp2): 42.1 ml EDV(MOD-sp4): 72.1 ml LAV(MOD-sp4): 52.2 ml EDV(sp4-el): 73.8 ml LVAs ap4: 12.3 cm2 LVLs ap4: 6.1 cm ESV(MOD-sp4): 21.2 ml ESV(sp4-el): 21.0 ml EF(MOD-sp4): 70.5 % EF(sp4-el): 71.6 % LVAd ap2: 13.7 cm2 SV(MOD-sp4): 50.8 ml LVLd ap2: 6.1 cm EDV(MOD-bp): 50.2 ml SI(MOD-sp4): 25.7 ml/m2 EDV(MOD-sp2): 26.7 ml ESV(MOD-bp): 15.3 ml EDV(sp2-el): 26.4 ml EF(MOD-bp): 69.4 % LVAs ap2: 6.6 cm2 LVLs ap2: 4.6 cm ESV(MOD-sp2): 8.5 ml ESV(sp2-el): 8.0 ml EF(MOD-sp2): 68.0 % SV(MOD-sp2): 18.2 ml SV(sp4-el): 52.8 ml LA A4 area: 21.1 cm2 SI(MOD-sp2): 9.2 ml/m2 LA dimension(2D): 3.5 cm RA A4 area: 16.2 cm2 TAPSE: 1.9 cm Time Measurements MV dec time: 0.16 sec Doppler Measurements & Calculations MV E max barbara: 108.1 cm/sec Ao V2 max: 126.7 cm/sec LV V1 max: 116.1 cm/sec Ao max P.4 mmHg LV V1 max P.4 mmHg Ao V2 mean: 90.2 cm/sec LV V1 mean P.5 mmHg Ao mean P.7 mmHg LV V1 mean: 72.3 cm/sec Ao V2 VTI: 24.3 cm LV V1 VTI: 21.3 cm AV (velocity ratio): 0.88 CARSON(I,D): 2.7 cm2 CARSON(V,D): 2.8 cm2 SV(LVOT): 64.6 ml PA V2 max: 98.0 cm/sec TR max barbara: 274.8 cm/sec TR max P.2 mmHg ECHO/Echo Complete Interpretation Summary Mild concentric left ventricular hypertrophy. The left ventricular ejection fraction is 65 %. At least stage I diastolic dysfunction. There is mild biatrial dilatation. Mild (1+) mitral valve insufficiency. Mild-Moderate (1-2+) tricuspid valve insufficiency. Moderately thickened and calcified noncoronary and right coronary cusp of the a ortic valve. Aortic valve sclerosis without stenosis. Right ventricular systolic pressure estimated to be 45 mmHg. Ordering Physician: Rinku Jane Referring Physician: Margarette Barragan Performed By: Chaudhari, [place], RDCS
== END | disposition home or self-care (01) ==
LOC: CVS 09:08
PROVIDERS: PCP Nurse Practitioner; Referring Provider Internal Medicine Cardiovascular Disease; Visit Provider Internal Medicine Cardiovascular Disease
DX: I48.0 Paroxysmal atrial fibrillation (principal); I25.10 Atherosclerotic heart disease of native coronary artery without angina pectoris; R06.09 Other forms of dyspnea
CPT/HCPCS: 93306